=== PATIENT | male | born 1940 | race Caucasian/White ===

== ENCOUNTER → 2020-01-27 10:09 | Outpatient (BNVA) | payer MEDICARE, SELFPAY | PROVIDERS: PCP Physician Assistant; Referring Provider Physician Assistant; Visit Provider Nurse Practitioner Family | DX: I48.20 Chronic atrial fibrillation, unspecified (principal); I12.9 Hypertensive chronic kidney disease with stage 1 through stage 4 chronic kidney disease, or unspecified chronic kidney disease; N18.9 Chronic kidney disease, unspecified; Z79.01 Long term (current) use of anticoagulants; Z79.899 Other long term (current) drug therapy | CPT/HCPCS: 99214 ==

== ENCOUNTER 2020-01-28 09:45 | Outpatient (REF) | payer MEDICARE, SELFPAY ==
[2020-01-28 10:14] LABS: MANUAL DIFF FLAG NO
[2020-01-28 10:43] LABS: Basophils Percent Auto 0.7 % (0-2); Eosinophils Absolute Auto 0.2 X10*3/uL (0.0-0.4); Eosinophils Percent Auto 2.9 % (0-4); Hematocrit 44.4 % (42-52); Hemoglobin 14.7 g/dl (14.0-18.0); Imm Gran Abs Auto 0.02 X10*3/uL (0.00-0.03); Imm Gran Pct Auto 0.3 % (0.0-0.4); Lymphocytes Absolute Auto 1.8 X10*3/uL (1.2-4.9); Mean Corpuscular HGB Conc 33.1 g/dl (31.0-36.0); Mean Corpuscular Hemoglobin 31.3 pg (27.0-33.0); Mean Corpuscular Volume 94.7 fL (80-98); Mean Platelet Volume 10.9 fL (9.4-12.4); Monocytes Absolute Auto 0.6 X10*3/uL (0.1-1.2); Monocytes Percent Auto 9.8 % (2-11); Neutrophils Absolute Auto 3.3 X10*3/uL (2.0-8.3); Neutrophils Percent Auto 56.3 % (45-73); Platelet Count 141 X10*3/uL (160-400); Red Blood Count 4.69 X10*6/uL (4.60-5.80); Red Cell Distribution Width 13.2 % (11.0-16.0); White Blood Count 5.9 X10*3/uL (4.8-10.8)
[2020-01-28 11:02] LABS: Alanine Aminotransferase 15 U/L (0-40); Albumin Level 3.2 g/dL (3.5-5.0); Alkaline Phosphatase 69 U/L (39-117); Anion Gap 13 (12-20); Aspartate Amino Transferase 25 U/L (5-37); Bilirubin Direct 0.3 mg/dL (0.0-0.5); Bilirubin Total 0.9 mg/dL (0.0-1.0); Blood Urea Nitrogen 18 mg/dL (9-16); Calcium 8.2 mg/dL (8.4-10.2); Carbon Dioxide 25 mmol/L (22-29); Chloride 107 mmol/L (96-108); Estimated Glomerular Filt Rate 48; Glucose Fasting 127 mg/dL (60-99); Potassium 4.4 mmol/l (3.3-5.1); Sodium 141 mmol/L (135-145); Total Protein 6.7 g/dL (6.5-8.0)
[2020-01-29 15:52] LABS: Absolute CD3 Count 1432 cells/uL (840-3060); Absolute CD4 Count 612 cells/uL (490-1740); Absolute CD8 Count 822 cells/uL (180-1170); Absolute Lymphocytes 1653 cells/uL (850-3900); CD4 CD8 Ratio 0.74 (0.86-5.00); Percent CD3 Cells 87 % (57-85); Percent CD4 Cells 37 % (30-61); Percent CD8 Cells 50 % (12-42)
[2020-01-31 14:56] LABS: HIV RNA PCR Qn Copies <20 NOT DETECTED copies/mL (NOT DETECTED); HIV RNA PCR Qn Log Copies <1.30 NOT DETECTED (NOT DETECTED)
== END 2020-01-28 09:46 | disposition home or self-care (01) ==
LOC: HO.10HDL 09:45
PROVIDERS: PCP Physician Assistant; Visit Provider Internal Medicine
DX: Z21 Asymptomatic human immunodeficiency virus [HIV] infection status (principal)
CPT/HCPCS: 36415; 80053; 80076; 85025; 86359; 86360; 87536

== ENCOUNTER → 2020-02-04 13:25 | Outpatient (BNVA) | payer MEDICARE, SELFPAY | PROVIDERS: PCP Physician Assistant; Visit Provider Internal Medicine | DX: B20 Human immunodeficiency virus [HIV] disease (principal); M81.8 Other osteoporosis without current pathological fracture; T38.7X5A Adverse effect of androgens and anabolic congeners, initial encounter; N18.9 Chronic kidney disease, unspecified | CPT/HCPCS: 99212 ==

== ENCOUNTER 2020-02-11 11:51 | Outpatient (REF) | payer MEDICARE, SELFPAY ==
--- NOTE | 2020-02-11 11:57 | MM_ITS ---
EXAMINATION: BONE DENSITOMETRY CLINICAL INDICATION: Other osteoporosis without current pathological fracture. COMPARISON: This is the patient's baseline examination. TECHNIQUE: Using a AGC DXA System (software version: 13.1) manufactured by [employer], dual-energy x-ray absorptiometry was performed of the lumbar spine and right hip. The patient has had a left hip replacement. The images are of good technical quality. Summary results are attached. FINDINGS: AP SPINE L1-L4: BMD 1.337 g/cm2, Z-score 1.0, T-score 1.0, normal. RIGHT FEMUR, NECK: BMD 0.982 g/cm2, Z-score 0.3, T-score -0.7, normal. RIGHT FEMUR, TOTAL: BMD 1.021 g/cm2, Z-score 0.0, T-score -0.6, normal. IDENTIFIED RISK FACTORS: Secondary osteoporosis (chronic liver disease). HISTORY OF FRACTURE: None listed. MEDICATIONS: Vitamin D. MM/XR DEXA axial skeleton IMPRESSION: 1. DIAGNOSIS: Normal bone density based on the lowest T-score value of -0.7 in the femoral neck applying World Health Organization criteria. 2. 10-YEAR FRACTURE RISK PREDICTION, FRAX: Major osteoporotic fracture (clinical spine, forearm, hip or shoulder) 5.5%. Hip fracture 1.4%. 3. Treatment Recommendations: NOF guidelines recommend consideration for treatment in postmenopausal women and men age 50 and older presenting with the following: -A hip or vertebral (clinical or morphometric) fracture. -T-score less than or equal to -2.5 at the femoral neck or spine after appropriate evaluation to exclude secondary causes. -Low bone mass at the hip or spine and a 10-year fracture probability by FRAX of greater than or equal to 3% for hip fracture or greater than or equal to 20% for major osteoporotic fracture based on the [place] adapted WHO algorithm. 4. Other Recommendations: All treatment decisions require clinical judgment and consideration of individual patient factors, including patient preferences, comorbidities, previous drug use, risk factors not captured in the FRAX model (e.g. frailty, falls, vitamin D deficiency, increased bone turnover, interval significant decline in bone density) and possible under or overestimation of fracture risk by FRAX. FUTURE SCAN RECOMMENDATION: People with diagnosed cases of osteoporosis or at high risk for fracture should have regular bone mineral density tests. For patients eligible for Medicare, routine testing is allowed once every 2 years. The testing frequency can be increased to one year for patients who have rapidly progressing disease, those who are receiving or discontinuing medical therapy to restore bone mass, or have additional risk factors.
== END 2020-02-11 11:52 | disposition home or self-care (01) ==
LOC: HO.MAMMO 11:51
PROVIDERS: PCP Physician Assistant; Visit Provider Internal Medicine
DX: M81.8 Other osteoporosis without current pathological fracture (principal); T38.7X5A Adverse effect of androgens and anabolic congeners, initial encounter
CPT/HCPCS: 77080

== ENCOUNTER → 2020-04-20 13:25 | Outpatient (BNVA) | payer MEDICARE, OTHER, SELFPAY | PROVIDERS: PCP Physician Assistant; Visit Provider Orthopaedic Surgery | DX: Z47.1 Aftercare following joint replacement surgery (principal); Z96.642 Presence of left artificial hip joint | CPT/HCPCS: 99212 ==

== ENCOUNTER 2020-04-23 10:06 | Outpatient (REF) | payer MEDICARE, OTHER, SELFPAY ==
[2020-04-23 11:18] LABS: MANUAL DIFF FLAG NO
[2020-04-23 11:31] LABS: Basophils Absolute Auto 0.1 X10*3/uL (0.0-0.2); Basophils Percent Auto 0.6 % (0-2); Eosinophils Absolute Auto 0.1 X10*3/uL (0.0-0.4); Eosinophils Percent Auto 1.6 % (0-4); Estimated Average Glucose 151 mg/dL; Hematocrit 49.9 % (42-52); Hemoglobin 17.2 g/dl (14.0-18.0); Hemoglobin A1c % 6.9 %; Imm Gran Abs Auto 0.03 X10*3/uL (0.00-0.03); Imm Gran Pct Auto 0.4 % (0.0-0.4); Lymphocytes Absolute Auto 2.1 X10*3/uL (1.2-4.9); Lymphocytes Percent Auto 25.1 % (20-40); Mean Corpuscular HGB Conc 34.5 g/dl (31.0-36.0); Mean Corpuscular Hemoglobin 32.9 pg (27.0-33.0); Mean Corpuscular Volume 95.4 fL (80-98); Mean Platelet Volume 10.5 fL (9.4-12.4); Monocytes Absolute Auto 0.8 X10*3/uL (0.1-1.2); Monocytes Percent Auto 9.2 % (2-11); Neutrophils Absolute Auto 5.3 X10*3/uL (2.0-8.3); Neutrophils Percent Auto 63.1 % (45-73); Platelet Count 159 X10*3/uL (160-400); Red Blood Count 5.23 X10*6/uL (4.60-5.80); Red Cell Distribution Width 13.2 % (11.0-16.0); White Blood Count 8.4 X10*3/uL (4.8-10.8)
[2020-04-23 11:57] LABS: Albumin Level 3.4 g/dL (3.5-5.0); Phosphorus 3.7 mg/dL (2.7-4.5)
[2020-04-23 12:00] LABS: Alanine Aminotransferase 17 U/L (0-40); Albumin Level 3.4 g/dL (3.5-5.0); Alkaline Phosphatase 77 U/L (39-117); Anion Gap 13 (12-20); Aspartate Amino Transferase 19 U/L (5-37); Bilirubin Total 1.6 mg/dL (0.0-1.0); Blood Urea Nitrogen 15 mg/dL (9-16); Calcium 8.6 mg/dL (8.4-10.2); Carbon Dioxide 28 mmol/L (22-29); Chloride 105 mmol/L (96-108); Cholesterol 255 mg/dL; Estimated Glomerular Filt Rate 45; Glucose Fasting 128 mg/dL (60-99); HDL Cholesterol 75 mg/dL; LDL Cholesterol Calculated 160 mg/dl; Potassium 4.1 mmol/l (3.3-5.1); Sodium 142 mmol/L (135-145); Triglycerides 100 mg/dL
[2020-04-23 12:21] LABS: Vitamin D 25-OH Total 9.7 ng/mL (>30)
[2020-04-23 12:22] LABS: Thyroid Stimulating Hormone 2.81 uIU/mL (0.32-4.0)
[2020-04-23 12:42] LABS: Glucose Urine UA NEG (NEG); Leukocyte Esterase Urine NEG (NEG); Nitrite Urine NEG (NEG); PH 6.5 (5.0-8.0); Specific Gravity - Urine 1.025 (1.005-1.025); Urine Blood 2+ (NEG); Urine Ketones NEG (NEG); Urine Protein 3+ MG/DL (NEG-TRACE)
[2020-04-23 12:46] LABS: Appearance Urine CLEAR; Color Urine DARK YELLOW
[2020-04-23 13:03] LABS: Squamous Epithelial Cell Urine TRACE /LPF; WBC Urine 0-2 /HPF (0-4)
[2020-04-23 13:07] LABS: Creatinine Urine 205.66 mg/dL
[2020-04-23 13:11] LABS: Creatinine Urine 203.62 mg/dL
[2020-04-23 13:25] LABS: Protein/Creatinine Ratio, Ur 4.91 (<0.2); Total Protein Urine Random 999 mg/dL (<12)
[2020-04-23 14:13] LABS: Microalbum/Creatinine Ratio Ur 3335.6 ug/mg cr
== END 2020-04-23 10:07 | disposition home or self-care (01) ==
LOC: HO.LAB 10:06
PROVIDERS: Absent Provider Internal Medicine Nephrology; PCP Physician Assistant; Visit Provider Physician Assistant
DX: I12.9 Hypertensive chronic kidney disease with stage 1 through stage 4 chronic kidney disease, or unspecified chronic kidney disease (principal); E11.22 Type 2 diabetes mellitus with diabetic chronic kidney disease; E11.21 Type 2 diabetes mellitus with diabetic nephropathy; N18.30 Chronic kidney disease, stage 3 unspecified; G62.9 Polyneuropathy, unspecified; K74.60 Unspecified cirrhosis of liver; E78.00 Pure hypercholesterolemia, unspecified
CPT/HCPCS: 36415; 80053; 80061; 81001; 82040; 82043; 82306; 83036; 83735; 84100; 84156; 84443; 85025

== ENCOUNTER 2020-05-05 14:13 | Outpatient (REF) | payer MEDICARE, OTHER, SELFPAY ==
--- NOTE | 2020-05-05 | US_ITS ---
EXAMINATION: US RETROPERITONEAL LIMITED (RENAL ONLY) CLINICAL INFORMATION: Renal stone. COMPARISON: Previous renal ultrasound May [address] June 2019 TECHNIQUE: Grayscale and color imaging of the kidneys FINDINGS: RIGHT KIDNEY: 11.5 x 5.6 x 6.7 cm (SAG x AP x TRV). The kidney is normal in size, contour, and echogenicity. Renal cortical thickness is normal. There are 4 cysts measuring 7 cm in the upper pole, 1.2 x 1 x 1.5 cm in the upper pole, 1 cm in the lower pole by 4 cm in the lower pole and No calculi. No hydronephrosis. LEFT KIDNEY: 11.8 x 5.5 x 6.1 cm (SAG x AP x TRV). The kidney is normal in size, contour, and echogenicity. Renal cortical thickness is normal. No calculi or focal parenchymal lesions. No hydronephrosis. The small stone in the lower pole left kidney seen by CT June 2019 is not appreciated. US/US renal BI IMPRESSION: Multiple right renal cysts. No stone seen..
== END 2020-05-05 14:14 | disposition home or self-care (01) ==
LOC: HO.US 14:13
PROVIDERS: Visit Provider Urology
DX: N20.0 Calculus of kidney (principal)
CPT/HCPCS: 76775

== ENCOUNTER 2020-06-17 10:23 | Outpatient (REF) | payer MEDICARE, OTHER, SELFPAY ==
[2020-06-17 14:48] LABS: Prostate Specific Antigen 1.78 ng/mL (<0.05-4.0)
== END 2020-06-17 10:24 | disposition home or self-care (01) ==
LOC: HO.10HDL 10:23
PROVIDERS: Absent Provider Internal Medicine Nephrology; Visit Provider Urology
DX: N40.1 Benign prostatic hyperplasia with lower urinary tract symptoms (principal); N13.8 Other obstructive and reflux uropathy; N32.0 Bladder-neck obstruction; Z12.5 Encounter for screening for malignant neoplasm of prostate
CPT/HCPCS: 36415; 84153

== ENCOUNTER 2020-06-24 09:29 | Outpatient (REF) | payer MEDICARE, OTHER, SELFPAY ==
[2020-06-24 10:27] LABS: Basophils Absolute Auto 0.1 X10*3/uL (0.0-0.2); Basophils Percent Auto 0.9 % (0-2); Hemoglobin 15.6 g/dl (14.0-18.0); Red Cell Distribution Width 12.9 % (11.0-16.0)
[2020-06-24 10:28] LABS: Eosinophils Absolute Auto 0.2 X10*3/uL (0.0-0.4); Eosinophils Percent Auto 2.5 % (0-4); Hematocrit 45.4 % (42-52); Imm Gran Abs Auto 0.01 X10*3/uL (0.00-0.03); Imm Gran Pct Auto 0.1 % (0.0-0.4); Lymphocytes Percent Auto 28.8 % (20-40); Mean Corpuscular HGB Conc 34.4 g/dl (31.0-36.0); Mean Corpuscular Hemoglobin 33.2 pg (27.0-33.0); Mean Corpuscular Volume 96.6 fL (80-98); Mean Platelet Volume 10.1 fL (9.4-12.4); Monocytes Absolute Auto 0.6 X10*3/uL (0.1-1.2); Monocytes Percent Auto 8.8 % (2-11); Neutrophils Percent Auto 58.9 % (45-73); Platelet Count 133 X10*3/uL (160-400); White Blood Count 6.8 X10*3/uL (4.8-10.8)
[2020-06-24 10:33] LABS: INTERNATIONAL NORM RATIO 1.3 (0.9-1.1); Prothrombin Time 15.2 SEC (10.8-13.0)
[2020-06-24 11:02] LABS: Albumin Level 3.4 g/dL (3.5-5.0); Anion Gap 11 (12-20); Blood Urea Nitrogen 19 mg/dL (9-16); Calcium 8.3 mg/dL (8.4-10.2); Carbon Dioxide 27 mmol/L (22-29); Chloride 106 mmol/L (96-108); Estimated Glomerular Filt Rate 45; Magnesium 2.1 mg/dL (1.6-2.6); Phosphorus 3.5 mg/dL (2.7-4.5); Potassium 4.1 mmol/L (3.3-5.1); Sodium 140 mmol/L (135-145)
[2020-06-24 11:22] LABS: Vitamin D 25-OH Total 13.1 ng/mL (>30)
[2020-06-24 13:07] LABS: Renal w Reflex Lab Use Only Order verified
[2020-06-24 14:17] LABS: Glucose Urine UA NEG (NEG); Leukocyte Esterase Urine TRACE (NEG); Nitrite Urine POS (NEG); UACC Culture Trigger YES; Urine Blood 2+ (NEG); Urine Ketones NEG (NEG); Urine Protein 3+ MG/DL (NEG-TRACE)
[2020-06-24 14:19] LABS: Appearance Urine HAZY; Color Urine YELLOW
[2020-06-24 14:31] LABS: Creatinine Urine 154.48 mg/dL
[2020-06-24 14:42] LABS: Bacteria Urine 3+ /LPF; Squamous Epithelial Cell Urine TRACE /LPF; UACC CULT YES
[2020-06-24 14:48] LABS: Renal w Reflex-LAB USE ONLY Order Verified
[2020-06-24 15:13] LABS: Protein/Creatinine Ratio, Ur 2.85 (<0.2); Total Protein Urine Random 440 mg/dL (<12)
[2020-06-24 15:18] LABS: Microalbum/Creatinine Ratio Ur 2019.6 ug/mg cr
== END 2020-06-24 09:30 | disposition home or self-care (01) ==
LOC: HO.10HDL 09:29
PROVIDERS: Visit Provider Internal Medicine Nephrology
DX: E11.22 Type 2 diabetes mellitus with diabetic chronic kidney disease (principal); I12.9 Hypertensive chronic kidney disease with stage 1 through stage 4 chronic kidney disease, or unspecified chronic kidney disease; N18.30 Chronic kidney disease, stage 3 unspecified; G62.9 Polyneuropathy, unspecified; K74.60 Unspecified cirrhosis of liver; E78.00 Pure hypercholesterolemia, unspecified
CPT/HCPCS: 36415; 80051; 81001; 82040; 82043; 82306; 82310; 82565; 83735; 84100; 84156; 84520; 85025; 85610; 87086; 87088; 87186

== ENCOUNTER 2020-07-14 07:33 | Outpatient (REF) | payer MEDICARE, OTHER, SELFPAY ==
[2020-07-14 10:40] LABS: Hematocrit 45.1 % (42-52); Hemoglobin 15.4 g/dl (14.0-18.0); Mean Corpuscular HGB Conc 34.1 g/dl (31.0-36.0); Mean Corpuscular Hemoglobin 33.7 pg (27.0-33.0); Mean Corpuscular Volume 98.7 fL (80-98); Mean Platelet Volume 10.9 fL (9.4-12.4); Platelet Count 131 X10*3/uL (160-400); Red Blood Count 4.57 X10*6/uL (4.60-5.80); Red Cell Distribution Width 13.1 % (11.0-16.0); White Blood Count 6.5 X10*3/uL (4.8-10.8)
[2020-07-14 10:55] LABS: Alanine Aminotransferase 23 U/L (0-40); Albumin Level 3.5 g/dL (3.5-5.0); Alkaline Phosphatase 65 U/L (39-117); Anion Gap 13 (12-20); Aspartate Amino Transferase 33 U/L (5-37); Bilirubin Direct 0.5 mg/dL (0.0-0.5); Bilirubin Total 1.4 mg/dL (0.0-1.0); Blood Urea Nitrogen 23 mg/dL (9-16); Calcium 8.4 mg/dL (8.4-10.2); Carbon Dioxide 27 mmol/L (22-29); Chloride 105 mmol/L (96-108); Estimated Glomerular Filt Rate 37; Glucose Random 114 mg/dL (60-115); Potassium 3.8 mmol/L (3.3-5.1); Sodium 141 mmol/L (135-145); Total Protein 6.8 g/dL (6.5-8.0)
[2020-07-15 13:21] LABS: Absolute CD3 Count 2022 cells/uL (840-3060); Absolute CD4 Count 834 cells/uL (490-1740); Absolute CD8 Count 1179 cells/uL (180-1170); Absolute Lymphocytes 2277 cells/uL (850-3900); CD4 CD8 Ratio 0.71 (0.86-5.00); Percent CD3 Cells 89 % (57-85); Percent CD4 Cells 37 % (30-61); Percent CD8 Cells 52 % (12-42)
[2020-07-16 18:36] LABS: HIV RNA PCR Qn Copies <20 NOT DETECTED copies/mL (NOT DETECTED); HIV RNA PCR Qn Log Copies <1.30 NOT DETECTED (NOT DETECTED)
[2020-07-18 21:26] LABS: Testosterone-Albumin 3.5 g/dL (3.6-5.1); Testosterone-Bioavailable 46.6 ng/dL (15.0-150.0); Testosterone-Free 28.7 pg/mL (6.0-73.0); Testosterone-SHBG 135 nmol/L (22-77); Testosterone-Total 752 ng/dL (250-1100)
== END 2020-07-14 07:34 | disposition home or self-care (01) ==
LOC: HO.10HDL 07:33
PROVIDERS: Absent Provider Physician Assistant; Visit Provider Internal Medicine
DX: B20 Human immunodeficiency virus [HIV] disease (principal); N18.9 Chronic kidney disease, unspecified; N40.1 Benign prostatic hyperplasia with lower urinary tract symptoms; N13.8 Other obstructive and reflux uropathy; N32.0 Bladder-neck obstruction
CPT/HCPCS: 36415; 80048; 80076; 82533; 84403; 85027; 86359; 86360; 87536

== ENCOUNTER → 2020-07-16 15:05 | Outpatient (BNVA) | payer MEDICARE, OTHER, SELFPAY | PROVIDERS: PCP Physician Assistant; Visit Provider Urology | DX: Z13.89 Encounter for screening for other disorder (principal) | CPT/HCPCS: Q3014 ==

== ENCOUNTER → 2020-07-20 11:30 | Outpatient (BNVA) | payer MEDICARE, OTHER, SELFPAY | PROVIDERS: PCP Internal Medicine; Visit Provider Nurse Practitioner Family | DX: I48.91 Unspecified atrial fibrillation (principal); I12.9 Hypertensive chronic kidney disease with stage 1 through stage 4 chronic kidney disease, or unspecified chronic kidney disease; N18.32 Chronic kidney disease, stage 3b; Z79.899 Other long term (current) drug therapy | CPT/HCPCS: 99212 ==

== ENCOUNTER → 2020-07-21 13:17 | Outpatient (BNVA) | payer MEDICARE, OTHER, SELFPAY | PROVIDERS: Visit Provider Internal Medicine | DX: B20 Human immunodeficiency virus [HIV] disease (principal); N18.32 Chronic kidney disease, stage 3b; M81.8 Other osteoporosis without current pathological fracture; T38.7X5D Adverse effect of androgens and anabolic congeners, subsequent encounter | CPT/HCPCS: 99212 ==

== ENCOUNTER 2020-08-13 08:23 | Outpatient (REF) | payer MEDICARE, OTHER, SELFPAY ==
[2020-08-13 10:32] LABS: INTERNATIONAL NORM RATIO 1.2 (0.9-1.1); Prothrombin Time 14.8 SEC (10.8-13.0)
[2020-08-14 11:46] LABS: Alpha Fetoprotein 5.7 ng/mL (<6.1)
== END 2020-08-13 08:24 | disposition home or self-care (01) ==
LOC: HO.10HDL 08:23
PROVIDERS: Visit Provider Internal Medicine
DX: K74.69 Other cirrhosis of liver (principal); Z12.11 Encounter for screening for malignant neoplasm of colon; Z12.12 Encounter for screening for malignant neoplasm of rectum
CPT/HCPCS: 36415; 82105; 85610

== ENCOUNTER 2020-08-25 08:30 | Outpatient (REF) | payer MEDICARE, OTHER, SELFPAY ==
--- NOTE | ~2020-08-25 | US_ITS ---
EXAMINATION: US ABDOMEN COMPLETE CLINICAL INFORMATION: Cirrhosis. COMPARISON: Previous CT scan most recent June 2019 and abdominal ultrasound October 2016 TECHNIQUE: Real-time imaging of the abdominal viscera. FINDINGS: PANCREAS: There is a 1.4 x 1.3 x 1.5 cm cyst in the head of pancreas. This is not appreciated on previous exams. The body and tail the pancreas are not well visualized. ABDOMINAL AORTA: There is evidence of atherosclerotic disease. The proximal, mid, and distal segments are normal in caliber. INFERIOR VENA CAVA: Visualized portions are normal. LIVER: Liver echotexture is heterogeneous. The liver appears cirrhotic. The liver is normal in size. No focal liver lesion or biliary duct dilatation is seen. GALLBLADDER: The gallbladder is normal in size. There is a 1.8 x 2.6 x 1.7 cm solid echogenic lobulated mass adjacent to the gallbladder wall. This demonstrates vascularity. This is increased from 1.2 cm in size on October 2016 exam. No gallstones are seen. The gallbladder wall is otherwise normal. COMMON BILE DUCT: Normal in caliber measuring 0.4 cm in diameter. RIGHT KIDNEY: There are multiple right renal cysts. The largest measures 6.9 x 6.8 x 7 cm in the midpole. There is mild right hydronephrosis. No stone or is seen. The kidney measures 11.4 cm in maximum dimension. LEFT KIDNEY: There is a small 1 x 0.5 x 0.9 cm cyst in the upper pole.. No hydronephrosis. No renal calculi. The kidney measures 12 cm in maximum dimension. SPLEEN: Upper normal in size. The spleen measures 12 cm in maximum dimension. FREE FLUID: None. US/US abdomen complete IMPRESSION: Cirrhotic-appearing liver. No focal liver lesion seen. 1.8 x 2.6 x 1.7 cm solid echogenic lesion with vascularity adjacent to the gallbladder wall suggestive of a large polyp or mass. This is increased in size from October 2016 exam when this measured 1.2 cm. Possible gallbladder malignancy should be considered. 1.4 cm cyst in the head of the pancreas not appreciated on previous exams. Follow-up CT or MR of the abdomen with and without contrast is recommended. Bilateral renal cysts, right greater than left. Mild right hydronephrosis. Findings will be provided by the [employer] work flow hip hop performers Kaity Singh.
== END 2020-08-25 08:31 | disposition home or self-care (01) ==
LOC: HO.US 08:30
PROVIDERS: Visit Provider Internal Medicine
DX: K74.69 Other cirrhosis of liver (principal)
CPT/HCPCS: 76700

== ENCOUNTER 2020-08-28 09:22 | Outpatient (REF) | payer MEDICARE, OTHER, SELFPAY ==
[2020-08-28 10:49] LABS: Blood Urea Nitrogen 22 mg/dL (9-16); Estimated Glomerular Filt Rate 35
[2020-08-31 12:47] LABS: Carbohydrate Antigen 19-9 25 U/mL (<34)
== END 2020-08-28 09:23 | disposition home or self-care (01) ==
LOC: HO.LAB 09:22
PROVIDERS: PCP Internal Medicine; Visit Provider Internal Medicine
DX: K86.2 Cyst of pancreas (principal); K82.4 Cholesterolosis of gallbladder
CPT/HCPCS: 36415; 82565; 84520; 86301

== ENCOUNTER 2020-09-01 07:38 | Outpatient (REF) | payer MEDICARE, OTHER, SELFPAY ==
--- NOTE | ~2020-09-01 | MR_ITS ---
EXAMINATION: MR ABDOMEN WITHOUT AND WITH CONTRAST CLINICAL INFORMATION: Gallbladder mass. Pancreatic cyst. COMPARISON: Previous ultrasounds most recent 08/25/[address] of the abdomen and pelvis most recent June 2019 TECHNIQUE: MR abdomen was performed without and with use of 10 mL intravenous Gadavist gadolinium contrast. Postcontrast images are performed in multiphase dynamic sequences. Imaging was performed in 3 planes. FINDINGS: LUNG BASES: The visualized lung bases are unremarkable. LIVER, GALLBLADDER, AND BILIARY TREE: The contour of the liver is slightly irregular or scalloped suggestive of mild cirrhosis. No focal liver lesion is seen. The gallbladder is upper normal in size. There is a 1.7 x 1.2 cm lobulated or polypoid lesion in the gallbladder. This is intermediate signal on T1 and T2-weighted sequences and demonstrates homogeneous enhancement suggestive of a large polyp or mass. Gallbladder wall does not appear thickened. No definite gallstones are seen. There is no intrahepatic or extrahepatic biliary duct dilatation. PANCREAS: There are several cysts in the pancreas. The largest cyst measures 0.8 x 1.3 cm in the head of the pancreas and 0.5 x 10 mm in the body of the pancreas. The cysts abut the main pancreatic duct and may communicate with the main pancreatic duct. The main pancreatic duct does not appear dilated. The remainder of the pancreas is unremarkable. SPLEEN: Upper normal in size measuring 12 cm. ADRENAL GLANDS: Normal. KIDNEYS AND URETERS: There are multiple right renal cysts, largest measuring 7 mm in the upper pole. There is a small 1 cm left renal cyst. The left kidney is otherwise unremarkable. GASTROINTESTINAL TRACT: No bowel obstruction. No ascites or fluid collection. ABDOMINAL WALL: No significant hernia is appreciated. LYMPH NODES: No lymphadenopathy. VASCULAR: Unremarkable. OSSEOUS STRUCTURES: Marrow signal normal. There are degenerative changes of the spine. MR/MR abdomen wo/w con IMPRESSION: 1.7 x 1.2 cm lobulated enhancing lesion in the gallbladder suggestive of a large polyp or mass. Again, this is increased in size from previous exams and neoplastic process should be considered. Surgical consultation recommended. Cirrhotic-appearing liver. No focal liver lesion seen. Several pancreatic cysts, largest measuring 0.8 x 1.2 cm in the head of the pancreas. These abut the main pancreatic duct and may communicate with the duct. The main pancreatic duct does not appear dilated. Sidebranch IPMN can be excluded and imaging followup in 1 year is recommended. Bilateral renal cysts.
== END 2020-09-01 07:39 | disposition home or self-care (01) ==
LOC: HO.MRI 07:38
PROVIDERS: PCP Internal Medicine; Visit Provider Internal Medicine
DX: K82.4 Cholesterolosis of gallbladder (principal); K86.2 Cyst of pancreas
CPT/HCPCS: 74183; A9585

== ENCOUNTER 2020-10-07 07:39 | Day surgery (SDC) | payer MEDICARE, OTHER, SELFPAY ==
[2020-10-02 13:56] VITALS: BMI 34.9
--- NOTE | 2020-10-06 10:42 | P.CONAN_ITS ---
Documented by User: Natty Marieney 10/06/20 11:42 HPI - Anesthesia Eval Consult details Narrative: 80yo M for Colonoscopy Eliquis for afib (low dose r/t renal disease and cirrhosis) 07/2020 routine cardiac visit: stable cardiac-erickson, ? increasing creat Per 06/2020 renal visit, h/o SCr = 1.9-2.3. Stable for 6mo f/u. 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 Mother No problems noted. Surgical History Surgical History Hx of appendectomy Status post total hip replacement, left (~05/2019) Social History Social History Alcohol intake: never Patient Tobacco Use Status: Never used Tobacco Use of substances other than those prescribed or required for medical reasons: No Are you DNR?: No Advance Directives: No Advance Directives Information Provided: No Advance Directives on File: No Meds Allergies Allergy/AdvReac Type Severity Reaction Status Date / Time clarithromycin [From BIAXIN] Allergy Unknown ANAPHYLAXIS Verified 07/29/20 10:51 Home Medications Medication Instructions Recorded Confirmed Last Taken Type tamsulosin 0.4 mg capsule 0.4 mg PO BEDTIME 01/27/20 10/02/20 Unknown History losartan 50 mg tablet 50 mg PO DAILY 07/06/20 10/02/20 Unknown History finasteride 5 mg PO BEDTIME 10/02/20 10/02/20 Unknown History Exam Exam Date and Time: October 06, 2020 1042 Height,Weight and Vital Signs: Height 5 ft 10 in Weight 110.677 kg Pertinent Lab Results Pertinent Lab Results: Laboratory Tests 07/14/20 07/14/20 08/28/20 07:45 07:45 09:45 WBC 6.5 Hgb 15.4 Hct 45.1 Plt Count 131 L Sodium 141 Potassium 3.8 Chloride 105 Carbon Dioxide 27 BUN 22 H Creatinine 1.88 H Laboratory Tests 08/13/20 08:30 PT 14.8 H INR 1.2 H Narrative Narrative: MR abdomen wo/w con 08/2020 IMPRESSION: 1.7 x 1.2 cm lobulated enhancing lesion in the gallbladder suggestive of a large polyp or mass. Again, this is increased in size from previous exams and neoplastic process should be considered. Surgical consultation recommended. Cirrhotic-appearing liver. No focal liver lesion seen. Several pancreatic cysts, largest measuring 0.8 x 1.2 cm in the head of the pancreas. These abut the main pancreatic duct and may communicate with the duct. The main pancreatic duct does not appear dilated. Sidebranch IPMN can be excluded and imaging followup in 1 year is recommended. Bilateral renal cysts. Per 07/2020 cardiac visit: EKG last visit shows Afib, RBBB, PVC, inferior Q waves, unchanged from prior, rate 72. Echo 06/02/19 showed EF normal, mild increase LV wall thickness, ascending aorta and LA mildly dilated. Nuclear stress test 02/15/17 showed normal myocardial perfusion imaging. Assessment and Plan Assessment Anesthesia Assessment: Chart Reviewed Documented by User: Yoly Dale 10/07/20 09:42 [facility] Past Medical History Medical History Afib Asthma CKD (chronic kidney disease) Degenerative arthritis of cervical spine DMII (diabetes mellitus, type 2) HIV (human immunodeficiency virus infection) HLD (hyperlipidemia) HTN (hypertension) Neuropathy Osteoarthritis Osteoporosis due to androgen therapy Family History Family History Father No problems noted. Mother No problems noted. Surgical History Surgical History Hx of appendectomy Status post total hip replacement, left (~05/2019) Social History Social History Alcohol intake: never Patient Tobacco Use Status: Never used Tobacco Use of substances other than those prescribed or required for medical reasons: No Are you DNR?: No Advance Directives: No Advance Directives Information Provided: No Advance Directives on File: No Meds Allergies Allergy/AdvReac Type Severity Reaction Status Date / Time clarithromycin [From BIAXIN] Allergy Unknown ANAPHYLAXIS Verified 07/29/20 10:51 Home Medications Medication Instructions Recorded Confirmed Last Taken Type tamsulosin 0.4 mg capsule 0.4 mg PO BEDTIME 01/27/20 10/02/20 Unknown History losartan 50 mg tablet 50 mg PO DAILY 07/06/20 10/02/20 Unknown History finasteride 5 mg PO BEDTIME 10/02/20 10/02/20 Unknown History Exam Airway Mallampati Class: II TM Dist: >3cm Neck ROM: Full Loose/Missing/Broken Teeth: No Heart: RRR Lungs: CTA Assessment and Plan Assessment Anesthesia Assessment: Anesthesia Plan Discussed and Chart Reviewed Final Anesthetic Review NPO: Yes ASA Class: III Final Preanesthetic Review: Meds/Allgs Chart Reviewed, Consent Obtained/Reviewed and Anes Risks/Benef Reviewed Patient Risk: Intermediate Procedure Risk: Low Anesthetic Plan Anesthetic Plan: MAC: Disposition: Standard PACU
[2020-10-07 09:01] VITALS: BP 155/81; PULSE 53; RESP 16; TEMP 36.2; O2SAT 95
[2020-10-07] MEDS: 0.9 % Sodium Chloride 1,000 ML 50 ML IVCONT (09:06)
[2020-10-07 09:12] LABS: Glucose, Whole Blood 101 mg/dL (60-115)
[2020-10-07] MEDS: Ampicillin Sodium 2 GM in 0.9 % Sodium Chloride 100 ML IV (09:43)
[2020-10-07] MEDS: Gentamicin Sulfate/NaCl 80 MG/100 ML PIGGYBACK 100 MG IV (09:52)
[2020-10-07 10:58] VITALS: BP 108/65; PULSE 62; RESP 18; TEMP 36.2; O2SAT 98
--- NOTE | 2020-10-07 11:03 | P.BOP_ITS ---
Brief Operative Note Date of Service: 10/07/20 Pre-op diagnosis: + Cologuard Post-op diagnosis: other (Colon polyps) Procedure: Colonoscopy to the cecum and TI with snare polypectomy and placement of 2 Resolution clips on AC polyp, and biopsy and removal of TC polyp. Surgeon: Joel Garcia Anesthesia: MAC Was an Telephone Betting Clerk used for this Procedure?: No Estimated blood loss (mL): 4.0 Pathology: other (A. Transverse colon polyp B. Ascending colon polyp) Condition: stable Disposition: PACU
[2020-10-07 11:13] VITALS: BP 134/60; PULSE 60; RESP 18; O2SAT 98
--- NOTE | 2020-10-07 11:24 | OP_ITS ---
SURGEON: Joel Garcia MD INDICATIONS: The patient presents for evaluation of positive Cologuard testing. Full consent has been obtained from him for this, including risks of bleeding and perforation. PREOPERATIVE DIAGNOSIS: Positive Cologuard test. POSTOPERATIVE DIAGNOSIS: PROCEDURE PERFORMED: Colonoscopy to the cecum and terminal ileum with snare polypectomy, placement of 2 resolution clips, and biopsy and removal of polyp. ESTIMATED BLOOD LOSS: COMPLICATIONS: ANESTHESIA: Monitored anesthesia care. ASSISTANTS: SPECIMENS: POSTOPERATIVE DIAGNOSES: Positive Cologuard test, colon polyps, diverticulosis and internal hemorrhoids. DESCRIPTION OF PROCEDURE: The patient was placed in the left lateral decubitus position. The digital rectal exam revealed no abnormalities. The Olympus video pediatric colonoscope was entered into the rectum and advanced easily to the cecum. Once in the cecum, I did identify normal-appearing cecal pouch with appendiceal orifice and a normal-appearing ileocecal valve. The terminal ileum was cannulated and appeared normal. The scope was withdrawn back in the colon. The entire cecum and ileocecal valve appeared normal. The scope was slowly withdrawn assessing all mucosal surfaces carefully. Preparation was excellent. In the proximal ascending colon, approximately 2 folds from the ileocecal valve, was an approximately 1.5 cm polyp on a short stalk. This was removed in piecemeal fashion via snare polypectomy with both pieces recovered by suction. The polypectomy site appeared clean, without any sign of residual polyp nor bleeding. I did place 2 resolution clips onto the polypectomy site given that he has to go back on his Eliquis. There was good deployment of the clips with good hemostasis. In the transverse colon, was a flat approximately 4 mm polyp, which was biopsied and completely removed with cold biopsy forceps. I did not visualize any other polyps, colitis, nor angiodysplasia. There was a moderate amount of sigmoid diverticulosis. In the rectum, scope was retroflexed visualizing internal hemorrhoids, but no other pathology. The rectal mucosa appeared normal. The scope was straightened out and withdrawn from the patient. He tolerated the procedure well and was returned to recovery area in stable condition. IMPRESSION: 1. Colon polyps, status post snare polypectomy, and biopsy and removal. 2. Diverticulosis. 3. Internal hemorrhoids. 4. Status post placement of 2 resolution clips on the ascending colon polypectomy site. PLAN: The results of the pathology will be checked. Given his age and these findings, he may not need any further screening colonoscopies since he is now 80-year-old. He was advised not to use any aspirin and NSAIDs for at least a week. He was advised to resume his Eliquis tomorrow. He is scheduled to see Dr. Jimenez for evaluation of the gallbladder polyp and probable need for cholecystectomy. He did receive preprocedure antibiotics for prophylaxis in regard to his recent hip replacement and was given a prescription for amoxicillin to use later today. MD GUERLINE Horn/ROSCOE / [id number] MTDD
== END 2020-10-07 11:55 | disposition home or self-care (01) ==
PROVIDERS: PCP Internal Medicine; Visit Provider Internal Medicine
PROC: 0DJD8ZZ Inspection of Lower Intestinal Tract, Via Natural or Artificial Opening Endoscopic (ICD-10-PCS; CPT 45378; principal; 2020-10-07 09:00)
DX: R19.5 Other fecal abnormalities (principal); D12.2 Benign neoplasm of ascending colon; D12.3 Benign neoplasm of transverse colon; K57.30 Diverticulosis of large intestine without perforation or abscess without bleeding; K64.8 Other hemorrhoids; I48.91 Unspecified atrial fibrillation; J45.909 Unspecified asthma, uncomplicated; I12.9 Hypertensive chronic kidney disease with stage 1 through stage 4 chronic kidney disease, or unspecified chronic kidney disease; E11.22 Type 2 diabetes mellitus with diabetic chronic kidney disease; N18.9 Chronic kidney disease, unspecified; B20 Human immunodeficiency virus [HIV] disease; Z79.01 Long term (current) use of anticoagulants; Z79.84 Long term (current) use of oral hypoglycemic drugs; Z79.51 Long term (current) use of inhaled steroids; Z79.899 Other long term (current) drug therapy; Z88.8 Allergy status to other drugs, medicaments and biological substances; Z96.642 Presence of left artificial hip joint
CPT/HCPCS: 45385; 45380; 82947; 88305; J0290; J1580

== ENCOUNTER → 2020-10-15 09:21 | Outpatient (BNVA) | payer MEDICARE, OTHER, SELFPAY | PROVIDERS: PCP Internal Medicine; Referring Provider Internal Medicine; Visit Provider Surgery | DX: K82.8 Other specified diseases of gallbladder (principal) | CPT/HCPCS: 99202 ==

== ENCOUNTER 2020-11-04 06:56 | Day surgery (SDC) | payer MEDICARE, OTHER, SELFPAY ==
[2020-10-28 12:20] VITALS: BMI 34.4
[2020-10-28 13:07] VITALS: BMI 34.9
--- NOTE | 2020-11-03 08:41 | HO.ANESPROP2 ---
Documented by User: Natty Marieney 11/03/20 13:16 HPI - Anesthesia Eval Consult details Narrative: 80yo M for Cholecystectomy Laparoscopic, Poss Open Eliquis for afib 07/2020 routine cardiac visit: stable cardiac-erickson, ? increasing creat Per 06/2020 renal visit, h/o SCr = 1.9-2.3. Stable for 6mo f/u. 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 Mother No problems noted. Surgical History Surgical History (Updated 10/28/20 @ 13:06 by Teodora Ramos) Hx of appendectomy Hx of colonoscopy Status post total hip replacement, left (~05/2019) Social History Social History Alcohol intake: never Patient Tobacco Use Status: Never used Tobacco Are you DNR?: No Advance Directives: No Advance Directives Information Provided: No Advance Directives on File: No Meds Allergies Allergy/AdvReac Type Severity Reaction Status Date / Time clarithromycin [From BIAXIN] Allergy Unknown ANAPHYLAXIS Verified 07/29/20 10:51 Home Medications Medication Instructions Recorded Confirmed Last Taken Type tamsulosin 0.4 mg capsule 0.4 mg PO BEDTIME 01/27/20 10/28/20 Unknown History losartan 50 mg tablet 50 mg PO DAILY 07/06/20 10/28/20 Unknown History finasteride 5 mg tablet 5 mg PO BEDTIME 10/02/20 10/28/20 Unknown History Exam Exam Date and Time: November 03, 2020 0841 Height,Weight and Vital Signs: Height 5 ft 10 in Weight 110.67 kg Pertinent Lab Results Pertinent Lab Results: Laboratory Tests 07/14/20 07/14/20 08/28/20 07:45 07:45 09:45 WBC 6.5 Hgb 15.4 Hct 45.1 Plt Count 131 L Sodium 141 Potassium 3.8 Chloride 105 Carbon Dioxide 27 BUN 22 H Creatinine 1.88 H Laboratory Tests 08/28/20 09:45 Estimated GFR 35 Narrative Narrative: EKG 01/2020: Afib, RBBB, PVC, inferior Q waves, unchanged from prior, rate 72. Echo 06/02/19 showed EF normal, mild increase LV wall thickness, ascending aorta and LA mildly dilated. Nuclear stress test 02/15/17 showed normal myocardial perfusion imaging. Assessment and Plan Assessment Anesthesia Assessment: Chart Reviewed Documented by User: Janene Dorsey 11/04/20 08:40 [facility] Past Medical History Medical History Afib Asthma Cirrhosis CKD (chronic kidney disease) Degenerative arthritis of cervical spine DMII (diabetes mellitus, type 2) HIV (human immunodeficiency virus infection) HLD (hyperlipidemia) HTN (hypertension) Neuropathy Osteoarthritis Osteoporosis due to androgen therapy Prophylactic antibiotic for dental procedure indicated due to prior joint replacement Family History Family History Father No problems noted. Mother No problems noted. Surgical History Surgical History (Updated 10/28/20 @ 13:06 by Teodora Ramos) Hx of appendectomy Hx of colonoscopy Status post total hip replacement, left (~05/2019) Social History Social History Alcohol intake: never Patient Tobacco Use Status: Never used Tobacco Are you DNR?: No Advance Directives: No Advance Directives Information Provided: No Advance Directives on File: No Meds Allergies Allergy/AdvReac Type Severity Reaction Status Date / Time clarithromycin [From BIAXIN] Allergy Unknown ANAPHYLAXIS Verified 07/29/20 10:51 Home Medications Medication Instructions Recorded Confirmed Last Taken Type tamsulosin 0.4 mg capsule 0.4 mg PO BEDTIME 01/27/20 10/28/20 Unknown History losartan 50 mg tablet 50 mg PO DAILY 07/06/20 10/28/20 Unknown History finasteride 5 mg tablet 5 mg PO BEDTIME 10/02/20 10/28/20 Unknown History Exam Exam Date and Time: 11/04 Airway Mallampati Class: III TM Dist: <=3cm Neck ROM: Limited Assessment and Plan Final Anesthetic Review NPO: Yes ASA Class: III Final Preanesthetic Review: No Changes in Pt Med Stat, Meds/Allgs Chart Reviewed, Consent Obtained/Reviewed and Anes Risks/Benef Reviewed Patient Risk: Intermediate Procedure Risk: Intermediate Assessment/Block/Sedation in SS: Assess/Block/Sedation-SS Anesthetic Plan Anesthetic Plan: GA Disposition: Standard PACU
[2020-11-04] VITALS (10 sets, daily range): BP systolic 144–170; BP diastolic 77–93; PULSE 55–71; RESP 20–24; TEMP 36.1–36.7; O2SAT 95–98
[2020-11-04 07:12] LABS: Glucose, Whole Blood 104 mg/dL (60-115)
[2020-11-04] MEDS: Lactated Ringers 1,000 ML 50 ML IVCONT (07:29)
--- NOTE | 2020-11-04 08:31 | MHC.SHP ---
Pre-Procedural Eval Section A Date of Service: 11/04/20 The patient is an INPATIENT: No Changes since office visit: Yes Patient answered all questions; No Cold of Flu in the past 2 weeks, No New Medical Problems and No Changes in Medication The History & Physical has been completed within 30 days and I have reviewed it.: Yes Section B Chief Complaint: gallbladder desease Allergies: Allergies Allergy/AdvReac Type Severity Reaction Status Date / Time clarithromycin [From BIAXIN] Allergy Unknown ANAPHYLAXIS Verified 07/29/20 10:51 Plan Diagnosis/Plan: Unchanged I have reviewed the history and physical and performed a pertinent physical examination on my patient. No changes have occurred unless specified.
--- NOTE | 2020-11-04 10:19 | P.OP_ITS ---
Operative Note Operative Note Date of Service: 11/04/20 Narrative: Preoperative diagnosis: Gallbladder polyp Postoperative diagnosis: Same, evidence of chronic cholecystitis Procedure: Laparoscopic cholecystectomy Surgeon: Gunnar Jimenez MD Environmental Science Instructor: SHAJI Howard Anesthesia: General endotracheal Indications for procedure: 80-year-old male patient with history of cirrhosis found on ultrasound to have a large polyp measuring approximately 1.7 cm diameter. Operative findings: Multiple dense adhesions to the gallbladder suggestive of chronic cholecystitis. Biliary cirrhosis. Specimen: Gallbladder Estimated blood loss: 10 mL Complications: None Procedure details: Patient was brought to the OR and placed in a supine position. After administering general anesthesia the patient's abdomen was prepped with ChloraPrep and draped in a sterile fashion. Local anesthesia consisting of 0.25% Sensorcaine with epinephrine was infiltrated in a periumbilical region. A 5 mm incision was made above the umbilicus in a transverse fashion. The Veress needle was then inserted while elevating abdominal cavity with towel clips. After positive drop test the abdomen was insufflated to a pressure of 15 mm of mercury. The Veress needle was then removed and a 5 mm trocar inserted. The camera was inserted in the abdomen explored. A 12 mm trocar was then placed in the epigastrium and 2 5 mm trocars placed in the right upper quadrant. The patient was placed in reverse Trendelenburg positioning and rotated to the left. Adhesions were taken down off the gallbladder and liver edge using electrocautery and Endo Alivia. Gallbladder was grasped with the fundus and retracted cephalad. The infundibulum was then grasped and retracted away from the liver bed. The Dolphin dissector was then used to dissect the peritoneum off the infundibulum to reveal the junction with the cystic duct. Cystic artery was noted slightly medial and posterior to the cystic duct. After obtaining a critical view the cystic duct was doubly clipped and divided. The cystic artery was then doubly clipped and divided. The gallbladder was then dissected off the liver bed using electrocautery with an L hook. Hemostasis was assured all times using the electrocautery. When the gallbladder is completely dissected off the liver bed was placed in an Endo- Catch bag and brought out through the epigastric incision. The gallbladder was sent to pathology for further examination. The abdomen was then re-examined. The liver bed was irrigated and suctioned dry. No bleeding or bile leak could be identified. Because of the patient's use of oral anticoagulation a small piece of Surgicel was left at the gallbladder fossa to assure adequate hemostasis. CO2 was then evacuated and all trocars removed. Fascia was closed at the epigastric incision using a [id number] 0 Polysorb suture. Skin was closed in all incisions using a subcuticular 4 0 Polysorb suture. Sterile dressings consisting of Steri-Strips, 2 x 2 gauze, and Tegaderm were then applied. The patient tolerated the procedure well. Sponge instrument and needle counts reported as correct. The patient was transferred to PACU in stable condition.
[2020-11-04] MEDS: Metoclopramide HCl 10 MG/2 ML VIAL 5 MG IVPUSH (11:39)
== END 2020-11-04 13:00 | disposition home or self-care (01) ==
PROVIDERS: PCP Internal Medicine; Visit Provider Surgery
PROC: 0FT44ZZ Resection of Gallbladder, Percutaneous Endoscopic Approach (ICD-10-PCS; CPT 47562; principal; 2020-11-04 08:40)
DX: K81.1 Chronic cholecystitis (principal); K74.5 Biliary cirrhosis, unspecified; Z90.49 Acquired absence of other specified parts of digestive tract; E11.22 Type 2 diabetes mellitus with diabetic chronic kidney disease; I12.9 Hypertensive chronic kidney disease with stage 1 through stage 4 chronic kidney disease, or unspecified chronic kidney disease; N18.9 Chronic kidney disease, unspecified; B20 Human immunodeficiency virus [HIV] disease; I48.91 Unspecified atrial fibrillation; J45.909 Unspecified asthma, uncomplicated; Z79.899 Other long term (current) drug therapy
CPT/HCPCS: 47562; 82947; 88304; J1100; J1170; J2405; J2765; J3010

== ENCOUNTER → 2020-11-13 10:14 | Outpatient (BNVA) | payer MEDICARE, OTHER, SELFPAY | PROVIDERS: PCP Internal Medicine; Referring Provider Internal Medicine; Visit Provider Surgery | DX: K82.8 Other specified diseases of gallbladder (principal) | CPT/HCPCS: 99212 ==

== ENCOUNTER 2020-11-17 09:13 | Outpatient (REF) | payer MEDICARE, OTHER, SELFPAY ==
[2020-11-17 10:33] LABS: Hematocrit 44.4 % (42-52); Hemoglobin 15.2 g/dl (14.0-18.0); Mean Corpuscular HGB Conc 34.2 g/dl (31.0-36.0); Mean Corpuscular Hemoglobin 33.3 pg (27.0-33.0); Mean Corpuscular Volume 97.2 fL (80-98); Mean Platelet Volume 10.8 fL (9.4-12.4); Platelet Count 142 X10*3/uL (160-400); Red Blood Count 4.57 X10*6/uL (4.60-5.80); Red Cell Distribution Width 12.7 % (11.0-16.0); White Blood Count 6.1 X10*3/uL (4.8-10.8)
[2020-11-17 10:46] LABS: Albumin Level 3.6 g/dL (3.5-5.0); Anion Gap 11 (12-20); Blood Urea Nitrogen 17 mg/dL (9-16); Calcium 8.8 mg/dL (8.4-10.2); Carbon Dioxide 28 mmol/L (22-29); Chloride 106 mmol/L (96-108); Estimated Glomerular Filt Rate 41; Phosphorus 3.9 mg/dL (2.7-4.5); Potassium 3.8 mmol/L (3.3-5.1); Sodium 141 mmol/L (135-145)
[2020-11-17 11:08] LABS: Vitamin D 25-OH Total 16.8 ng/mL (>30)
[2020-11-17 13:23] LABS: Glucose Urine UA NEG (NEG); Leukocyte Esterase Urine NEG (NEG); Nitrite Urine NEG (NEG); Specific Gravity - Urine 1.025 (1.005-1.025); Urine Blood TRACE (NEG); Urine Ketones NEG (NEG); Urine Protein 2+ MG/DL (NEG-TRACE)
[2020-11-17 13:25] LABS: Appearance Urine CLEAR; Color Urine YELLOW
[2020-11-17 13:45] LABS: Bacteria Urine TRACE /LPF; Sperm Urine NOTED
[2020-11-17 14:11] LABS: Creatinine Urine 145.97 mg/dL
[2020-11-17 14:24] LABS: Microalbum/Creatinine Ratio Ur 1138.5 ug/mg cr; Protein/Creatinine Ratio, Ur 1.64 (<0.2); Total Protein Urine Random 239 mg/dL (<12)
[2020-11-18 16:37] LABS: Calcium (PTHI) 8.9 mg/dL (8.6-10.3); PTHI 174 pg/mL (14-64)
[2020-11-19 12:40] LABS: HIV RNA PCR Qn Copies <20 NOT DETECTED copies/mL (NOT DETECTED); HIV RNA PCR Qn Log Copies <1.30 NOT DETECTED (NOT DETECTED)
== END 2020-11-17 09:14 | disposition home or self-care (01) ==
LOC: HO.10HDL 09:13
PROVIDERS: Internal Medicine Nephrology; Visit Provider Internal Medicine
DX: B20 Human immunodeficiency virus [HIV] disease (principal); N18.31 Chronic kidney disease, stage 3a
CPT/HCPCS: 36415; 80051; 81001; 82040; 82043; 82306; 82310; 82565; 83735; 83970; 84100; 84156; 84520; 85027; 87086; 87536

== ENCOUNTER → 2021-01-11 10:11 | Outpatient (REF) | payer MEDICARE, OTHER, SELFPAY ==
--- NOTE | 2021-01-11 10:15 | CA_ITS ---
Transthoracic Echocardiogram Patient (Last, First, Middle): Jarod An, Gender: Male Date of : 1940 Age: 80 Procedure Date: 01/11/2021 Procedure Type: Transthoracic Echocardiogram Location: OP Height: 180.34 cm Weight: 115.67 kg BSA: 2.34 m2 Heart Rate: bpm BP: 134 / 82 mmHg Benzene Operator: Referring MD: Molly Avelar FISH WARDENGabriela Symptoms: I48.91 - Unspecified atrial fibrillation Study Quality: Fair ECG Rhythm: Atrial Fibrillation Conclusions: - The left ventricular systolic function is normal. The visually estimated ejection fraction is between 55-60%. - The basal inferior segment is akinetic. - There is mild calcification of the aortic valve. - There is mild tricuspid valve regurgitation. - Mild pulmonary hypertension is present. Findings Left Ventricle Normal left ventricular cavity size. There is mildly increased left ventricular wall thickness. The left ventricular systolic function is normal. The visually estimated ejection fraction is between 55-60%. Diastolic function is indeterminate on the basis of available data. Wall Motion Rest Echo Findings The basal inferior segment is akinetic. Right Ventricle Normal right ventricular cavity size and systolic function. Atria The left atrium is mildly dilated. The right atrium is normal in size. Aortic Valve There is a normal trileaflet aortic valve. There is mild calcification of the aortic valve. There is no aortic valve stenosis. There is trace (trivial) aortic valve regurgitation. Mitral Valve The mitral valve appears normal. There is trace mitral valve regurgitation. There is no mitral valve stenosis. Pulmonic Valve The pulmonic valve was not well visualized. Tricuspid Valve Normal tricuspid valve structure. There is mild tricuspid valve regurgitation. The right ventricular systolic pressure is 36 mmHg. Mild pulmonary hypertension is present. Great Vessels The aortic annulus, sinuses of valsalva, and asc aorta are normal in size. Venous The inferior vena cava is normal in size and collapses greater than 50% with inspiration. Pericardium/Pleural There is no evidence of pericardial effusion. Prior Study Comparison No significant change compared to prior study dated: 06/05/2019. Basal inferior wall motion abnormality noted on review of prior images. Measurements 2D Linear Measurements IVSd: 1.40 0.6-0.9/0.6-1.0 cm LVIDd: 4.75 3.9-5.3/4.2-5.9 cm LVIDd Index: 2.03 2.4-3.2/2.2-3.1 cm/m2 LVIDs: 2.83 2.0-3.6 cm LVPWd: 1.35 0.7-1.1 cm Ao Root: 3.70 2.1-3.5 cm LA Diam: 4.70 2.7-3.8/3.0-4.0 cm LAIDs Index: 2.01 1.5-2.3 cm/m2 LV Mass: 327.29 67-162/88-224 g LV Mass Index: 139.87 43-95/49-115 g/m2 LVOT Diam: 2.20 3.0+(-)1.3 cm 2D Systolic Function EF 4C: 56.10 >55% EF 2C: 52.10 >55% EF BiP: 51.70 >55% Mitral Valve MV Pk E: 1.02 MV Decel Time: 213.00 E'Lateral: 14.30 E'Medial: 6.85 E/E' Med: 14.90 E/E' Lat: 7.10 PHT: 62.00 MVA PHT: 3.55 Decel Ector: 4.77 Aortic Valve AoV Pk Jhon: 1.27 AoV Mn Jhon: 0.78 AoV VTI: 0.31 AoV Pk Grad: 6.00 Aov Mn Grad: 3.00 FREDY Cont.VTI: 2.54 LVOT LVOT Pk Jhon: 0.91 LVOT Mn Jhon: 0.55 LVOT VTI: 0.21 LVOT Pk Grad: 3.00 LVOT Mn Grad: 2.00 LVOT Diam: 2.20 LVOT Area: 3.80 Diastolic Function MV Pk E: 1.02 E'Medial: 6.85 E/E' Med: 14.90 E' Laterial: 14.30 E/E' Lat: 7.10 Right Ventricle TVS' Jhon: 10.00 Tricuspid Valve TR Pk Jhon: 2.85 TR Pk Grad: 32.00 RVSP: 36.00 Great Vessels Aorta Ao Root-2D: 3.70 2.0-3.7 cm Ao Asc: 3.70 2.1-3.4 cm Pulmonary Valve PV Pk Jhon: 0.91 Peak PV Grad: 3.00 Updated in Other Vendor System with Status of Final Elier Chiang MD electronically signed on 01/11/2021 1:28:22 PM with status of Final
== END ==
LOC: HO.CARD 10:11
PROVIDERS: PCP Internal Medicine; Visit Provider Nurse Practitioner Family
DX: I48.91 Unspecified atrial fibrillation (principal); I10 Essential (primary) hypertension
CPT/HCPCS: 93306; 99212

== ENCOUNTER 2021-01-11 12:06 | Outpatient (REF) | payer MEDICARE, OTHER, SELFPAY ==
[2021-01-11 14:34] LABS: Alanine Aminotransferase 20 U/L (0-40); Albumin Level 3.8 g/dL (3.5-5.0); Alkaline Phosphatase 65 U/L (39-117); Anion Gap 13 (12-20); Aspartate Amino Transferase 22 U/L (5-37); Blood Urea Nitrogen 19 mg/dL (9-16); Calcium 8.9 mg/dL (8.4-10.2); Carbon Dioxide 26 mmol/L (22-29); Chloride 106 mmol/L (96-108); Cholesterol 190 mg/dL; Estimated Glomerular Filt Rate 36; Glucose Fasting 101 mg/dL (60-99); HDL Cholesterol 73 mg/dL; LDL Cholesterol Calculated 98 mg/dl; Potassium 4.1 mmol/L (3.3-5.1); Sodium 141 mmol/L (135-145); Total Protein 7.4 g/dL (6.5-8.0); Triglycerides 96 mg/dL
[2021-01-11 14:41] LABS: Estimated Average Glucose 131 mg/dL; Hemoglobin A1c % 6.2 %
== END 2021-01-11 12:07 | disposition home or self-care (01) ==
LOC: HO.10HDL 12:06
PROVIDERS: PCP Internal Medicine; Visit Provider Physician Assistant
DX: E11.65 Type 2 diabetes mellitus with hyperglycemia (principal)
CPT/HCPCS: 36415; 80053; 80061; 83036

== ENCOUNTER → 2021-01-19 13:49 | Outpatient (BNVA) | payer MEDICARE, OTHER, SELFPAY | PROVIDERS: PCP Internal Medicine; Referring Provider Internal Medicine; Visit Provider Nurse Practitioner Family | DX: I48.0 Paroxysmal atrial fibrillation (principal); R93.1 Abnormal findings on diagnostic imaging of heart and coronary circulation; E11.42 Type 2 diabetes mellitus with diabetic polyneuropathy; E11.22 Type 2 diabetes mellitus with diabetic chronic kidney disease; I12.9 Hypertensive chronic kidney disease with stage 1 through stage 4 chronic kidney disease, or unspecified chronic kidney disease; N18.32 Chronic kidney disease, stage 3b; R60.0 Localized edema; M81.8 Other osteoporosis without current pathological fracture; T38.7X5A Adverse effect of androgens and anabolic congeners, initial encounter; B20 Human immunodeficiency virus [HIV] disease; Z88.1 Allergy status to other antibiotic agents; Z79.84 Long term (current) use of oral hypoglycemic drugs; Z79.899 Other long term (current) drug therapy | CPT/HCPCS: 93005; 99212 ==

== ENCOUNTER 2021-03-22 08:46 | Outpatient (REF) | payer MEDICARE, OTHER, SELFPAY ==
[2021-03-22 10:08] LABS: Hematocrit 46.9 % (42.0-52.0); Hemoglobin 15.9 g/dl (14.0-18.0); Mean Corpuscular HGB Conc 33.9 g/dl (31.0-36.0); Mean Corpuscular Hemoglobin 32.9 pg (27.0-33.0); Mean Corpuscular Volume 96.9 fL (80.0-98.0); Mean Platelet Volume 10.3 fL (9.4-12.4); Platelet Count 136 X10*3/uL (160-400); Red Blood Count 4.84 X10*6/uL (4.60-5.80); Red Cell Distribution Width 12.8 % (11.0-16.0)
[2021-03-22 10:43] LABS: Albumin Level 3.7 g/dL (3.5-5.0); Anion Gap 12 (12-20); Blood Urea Nitrogen 16 mg/dL (9-16); Calcium 8.8 mg/dL (8.4-10.2); Carbon Dioxide 25 mmol/L (22-29); Chloride 108 mmol/L (96-108); Estimated Glomerular Filt Rate 38; Magnesium 2.3 mg/dL (1.6-2.6); Phosphorus 3.8 mg/dL (2.7-4.5); Potassium 4.1 mmol/L (3.3-5.1); Sodium 141 mmol/L (135-145)
[2021-03-22 11:00] LABS: Appearance Urine CLEAR; Color Urine YELLOW; Glucose Urine UA 500 MG/DL (NEG); Leukocyte Esterase Urine NEG (NEG); Nitrite Urine NEG (NEG); Urine Blood NEG (NEG); Urine Ketones NEG (NEG); Urine Protein 2+ MG/DL (NEG-TRACE)
[2021-03-22 11:04] LABS: Vitamin D 25-OH Total 15.2 ng/mL (>30)
[2021-03-22 11:26] LABS: Creatinine Urine 95.23 mg/dL; Total Protein Urine Random 114 mg/dL (<12)
[2021-03-22 11:41] LABS: Microalbum/Creatinine Ratio Ur 807.5 ug/mg cr
[2021-03-22 12:19] LABS: Squamous Epithelial Cell Urine 1+ /LPF; WBC Urine 0 /HPF (0-4)
[2021-03-23 15:56] LABS: Calcium (PTHI) 8.6 mg/dL (8.6-10.3); PTHI 142 pg/mL (14-64)
== END 2021-03-22 08:47 | disposition home or self-care (01) ==
LOC: HO.10HDL 08:46
PROVIDERS: Visit Provider Internal Medicine Nephrology
DX: N18.32 Chronic kidney disease, stage 3b (principal); E11.21 Type 2 diabetes mellitus with diabetic nephropathy; E11.22 Type 2 diabetes mellitus with diabetic chronic kidney disease; R80.1 Persistent proteinuria, unspecified
CPT/HCPCS: 36415; 80051; 81001; 82040; 82043; 82306; 82310; 82565; 83735; 83970; 84100; 84156; 84520; 85027; 87086

== ENCOUNTER → 2021-05-27 08:57 | Outpatient (REF) | payer MEDICARE, OTHER, SELFPAY ==
--- NOTE | ~2021-05-27 | NM_ITS ---
Myocardial perfusion study Indication: Atrial fibrillation to evaluate for myocardial ischemia Technique: The patient was brought in for a Lexiscan perfusion study on 05/27/2020. Patient performed low-level exercise and was injected 0.4 mg of Lexiscan intravenously. Within a minute of injection, 40 mCi of sestamibi was given intravenously. Images were obtained using the SPECT gamma camera interlaced with the gating device. Images were obtained in supine position. Resting perfusion study was performed on 05/28/2021. Patient was administered 40 mCi of sestamibi intravenously at rest. Images were then obtained in supine position. Images obtained with and without CT attenuation. Total DLP 130 mGy-cm. Images were processed with the software and compared side to side in short axis, horizontal long axis and vertical long axis views. Findings: The stress perfusion study showed non attenuated images show some thinning of the apical inferolateral as well as inferobasal and minimally reduced uptake in the mid inferior wall of the LV myocardium. Attenuated corrected images show normal uptake of radiotracer in all segments of LV myocardium The gated study shows normal LV systolic function with calculated LVEF of 60%. LV cavity is normal size. The gated study shows normal systolic wall thickening and contraction of segments. Resting study shows attenuated corrected images show normal uptake of radiotracer in all segments of LV myocardium. Gating was not performed during resting study. The findings are consistent with normal myocardial perfusion. NM/NM kylah perf SPECT rest & str Impression: 1. Myocardial perfusion imaging study shows normal myocardial perfusion 2. Gated LVEF is 60% 3. Transient ischemic dilatation not present EKG is nondiagnostic for ischemia
--- NOTE | 2021-05-27 08:59 | CA_ITS ---
Acquisition Time: 2021-05-27 10:17:32 Total Exercise Time: 00:02:00 Test Indications: ABN EKG, AFIB, RBBB Medications: SEE CHART Protocol: LEXISCAN Max HR: 075 BPM 52% of Pred: 142 BPM Max BP: 142/070 mmHG Max Work Load: 1.0 METS Pharmacological stress test with Lexsican injection, while sitting and kicking his legs, without anginal symptoms, with frequent isolated PVC and 3- 4 beat NSVT runs, with normotensive response to injection, with nondiagnostic EKG for ischemia. Nuclear images pending. Test reviewed with Dr Monroe. Will order Holter monitor to assess frequency of PVCs and average afib rates. Referred By: Molly Avelar Overread By: MOLLY AVELAR
== END ==
LOC: HO.CARD 08:57
PROVIDERS: Visit Provider Nurse Practitioner Family
DX: R93.1 Abnormal findings on diagnostic imaging of heart and coronary circulation (principal); I49.3 Ventricular premature depolarization; I48.11 Longstanding persistent atrial fibrillation
CPT/HCPCS: 78452; 93017; A9500; J0280; J2785

== ENCOUNTER 2021-06-09 14:05 | Outpatient (REF) | payer MEDICARE, OTHER, SELFPAY ==
[2021-06-09 14:43] LABS: Appearance Urine CLEAR; Color Urine YELLOW; Glucose Urine UA >=1000 MG/DL (NEG); Leukocyte Esterase Urine NEG (NEG); Nitrite Urine NEG (NEG); UACC Culture Trigger NO; Urine Blood 1+ (NEG); Urine Ketones NEG (NEG); Urine Protein 2+ MG/DL (NEG-TRACE)
[2021-06-09 15:01] LABS: WBC Urine 0 /HPF (0-4)
[2021-06-09 15:02] LABS: Squamous Epithelial Cell Urine TRACE /LPF
== END 2021-06-09 14:06 | disposition home or self-care (01) ==
LOC: HO.LNP 14:05
PROVIDERS: Visit Provider Physician Assistant
DX: R30.0 Dysuria (principal)
CPT/HCPCS: 81001

== ENCOUNTER 2021-06-28 09:07 | Outpatient (REF) | payer MEDICARE, OTHER, SELFPAY ==
[2021-06-28 10:17] LABS: MANUAL DIFF FLAG NO
[2021-06-28 10:34] LABS: Estimated Average Glucose 131 mg/dL; Hemoglobin A1c % 6.2 %
[2021-06-28 10:36] LABS: Basophils Percent Auto 0.6 % (0-2); Eosinophils Absolute Auto 0.1 X10*3/uL (0.0-0.4); Eosinophils Percent Auto 2.2 % (0-4); Hemoglobin 17.2 g/dl (14.0-18.0); Imm Gran Abs Auto 0.02 X10*3/uL (0.00-0.03); Imm Gran Pct Auto 0.3 % (0.0-0.4); Lymphocytes Absolute Auto 2.1 X10*3/uL (1.2-4.9); Mean Corpuscular HGB Conc 33.7 g/dl (31.0-36.0); Mean Corpuscular Hemoglobin 32.6 pg (27.0-33.0); Mean Corpuscular Volume 96.6 fL (80.0-98.0); Mean Platelet Volume 10.7 fL (9.4-12.4); Monocytes Absolute Auto 0.5 X10*3/uL (0.1-1.2); Monocytes Percent Auto 8.4 % (2-11); Neutrophils Absolute Auto 3.6 x10*3/uL (2.0-8.3); Neutrophils Percent Auto 55.5 % (45-73); Platelet Count 151 X10*3/uL (160-400); Red Blood Count 5.28 X10*6/uL (4.60-5.80); Red Cell Distribution Width 13.6 % (11.0-16.0); White Blood Count 6.5 X10*3/uL (4.8-10.8)
[2021-06-28 11:13] LABS: Alanine Aminotransferase 35 U/L (0-40); Albumin Level 3.6 g/dL (3.5-5.0); Alkaline Phosphatase 76 U/L (39-117); Anion Gap 12 (12-20); Aspartate Amino Transferase 27 U/L (5-37); Bilirubin Direct 0.6 mg/dL (0.0-0.5); Bilirubin Total 1.5 mg/dL (0.0-1.0); Blood Urea Nitrogen 18 mg/dL (9-16); Calcium 8.9 mg/dL (8.4-10.2); Carbon Dioxide 27 mmol/L (22-29); Chloride 104 mmol/L (96-108); Estimated Glomerular Filt Rate 39; Glucose Random 120 mg/dL (60-115); Potassium 4.3 mmol/L (3.3-5.1); Prostate Specific Antigen 1.85 ng/mL (<0.05-4.0); Sodium 139 mmol/L (135-145)
[2021-06-28 11:14] LABS: ~HepC Num1 0.06 S/CO (0.00-0.79); ~Hepatitis C Antibody Nonreactive (Nonreactive)
[2021-06-28 11:23] LABS: Syphilis Screen Nonreactive (Nonreactive)
[2021-06-29 11:42] LABS: Absolute CD3 Count 1999 cells/uL (840-3060); Absolute CD4 Count 697 cells/uL (490-1740); Absolute CD8 Count 1305 cells/uL (180-1170); Absolute Lymphocytes 2375 cells/uL (850-3900); CD4 CD8 Ratio 0.53 (0.86-5.00); Percent CD3 Cells 84 % (57-85); Percent CD4 Cells 29 % (30-61); Percent CD8 Cells 55 % (12-42)
[2021-06-30 20:37] LABS: HIV RNA PCR Qn Copies NOT DETECTED copies/mL (NOT DETECTED); HIV RNA PCR Qn Log Copies NOT DETECTED (NOT DETECTED)
== END 2021-06-28 09:08 | disposition home or self-care (01) ==
LOC: HO.10HDL 09:07
PROVIDERS: Internal Medicine; Physician Assistant; Visit Provider Urology
DX: N40.1 Benign prostatic hyperplasia with lower urinary tract symptoms (principal); N13.8 Other obstructive and reflux uropathy; E11.65 Type 2 diabetes mellitus with hyperglycemia; B20 Human immunodeficiency virus [HIV] disease; Z12.5 Encounter for screening for malignant neoplasm of prostate
CPT/HCPCS: 36415; 80048; 80076; 83036; 84153; 85025; 86359; 86360; 86780; 86803; 87536

== ENCOUNTER → 2021-07-12 10:01 | Outpatient (BNVA) | payer MEDICARE, OTHER, SELFPAY | PROVIDERS: Visit Provider Internal Medicine | DX: B20 Human immunodeficiency virus [HIV] disease (principal); Z79.899 Other long term (current) drug therapy | CPT/HCPCS: 99212 ==

== ENCOUNTER 2021-07-14 08:30 | Outpatient (REF) | payer MEDICARE, OTHER, SELFPAY ==
[2021-07-14 10:20] LABS: MANUAL DIFF FLAG NO
[2021-07-14 10:30] LABS: Basophils Percent Auto 0.6 % (0-2); Eosinophils Absolute Auto 0.1 X10*3/uL (0.0-0.4); Eosinophils Percent Auto 1.7 % (0-4); Hematocrit 50.1 % (42.0-52.0); Hemoglobin 16.9 g/dl (14.0-18.0); Imm Gran Abs Auto 0.01 X10*3/uL (0.00-0.03); Imm Gran Pct Auto 0.1 % (0.0-0.4); Lymphocytes Absolute Auto 2.1 X10*3/uL (1.2-4.9); Lymphocytes Percent Auto 29.2 % (20-40); Mean Corpuscular HGB Conc 33.7 g/dl (31.0-36.0); Mean Corpuscular Hemoglobin 32.6 pg (27.0-33.0); Mean Corpuscular Volume 96.7 fL (80.0-98.0); Mean Platelet Volume 10.6 fL (9.4-12.4); Monocytes Absolute Auto 0.6 X10*3/uL (0.1-1.2); Monocytes Percent Auto 8.5 % (2-11); Neutrophils Absolute Auto 4.3 x10*3/uL (2.0-8.3); Neutrophils Percent Auto 59.9 % (45-73); Platelet Count 124 X10*3/uL (160-400); Red Blood Count 5.18 X10*6/uL (4.60-5.80); Red Cell Distribution Width 13.6 % (11.0-16.0); White Blood Count 7.2 X10*3/uL (4.8-10.8)
[2021-07-14 10:52] LABS: Alanine Aminotransferase 27 U/L (0-40); Albumin Level 3.6 g/dL (3.5-5.0); Alkaline Phosphatase 84 U/L (39-117); Aspartate Amino Transferase 28 U/L (5-37); Bilirubin Direct 0.7 mg/dL (0.0-0.5); Bilirubin Total 1.8 mg/dL (0.0-1.0); Calcium 9.2 mg/dL (8.4-10.2); Magnesium 2.5 mg/dL (1.6-2.6); Phosphorus 3.7 mg/dL (2.7-4.5)
[2021-07-14 10:57] LABS: Appearance Urine CLEAR; Color Urine YELLOW; Glucose Urine UA 500 MG/DL (NEG); Leukocyte Esterase Urine NEG (NEG); Nitrite Urine NEG (NEG); PH 6.5 (5.0-8.0); Urine Blood 1+ (NEG); Urine Ketones NEG (NEG); Urine Protein 2+ MG/DL (NEG-TRACE)
[2021-07-14 11:18] LABS: Vitamin D 25-OH Total 18.7 ng/mL (>30)
[2021-07-14 11:23] LABS: WBC Urine 0 /HPF (0-4)
[2021-07-14 11:41] LABS: Creatinine Urine 42.06 mg/dL; Total Protein Urine Random 98 mg/dL (<12)
[2021-07-14 12:41] LABS: Microalbum/Creatinine Ratio Ur 1547.7 ug/mg cr
[2021-07-15 15:02] LABS: Calcium (PTHI) 8.9 mg/dL (8.6-10.3); PTHI 128 pg/mL (16-77)
== END 2021-07-14 08:31 | disposition home or self-care (01) ==
LOC: HO.10HDL 08:30
PROVIDERS: Visit Provider Internal Medicine Nephrology
DX: N18.32 Chronic kidney disease, stage 3b (principal)
CPT/HCPCS: 36415; 80076; 81001; 82043; 82306; 82310; 83735; 83970; 84100; 84156; 85025; 87086

== ENCOUNTER → 2021-07-15 11:21 | Outpatient (REF) | payer MEDICARE, OTHER, SELFPAY ==
--- NOTE | 2021-07-15 11:24 | HM_ITS ---
Conclusion: 1. Patient was monitored for total period of 3 days and 15 hours 2. Baseline rhythm is atrial fibrillation with average heart of 60 beats per minute with frequent slow ventricular response noted 3. No significant pauses noted 4. 12 3 beat salvos of nonsustained VT, fastest 159 beats per minute 5. Total of 19,659 PVCs accounting for 7.78% total burden account for frequent PVCs 6. No patient reported events MTDD
== END ==
LOC: HO.CARD 11:21
PROVIDERS: PCP Physician Assistant; Visit Provider Nurse Practitioner Family
DX: I48.11 Longstanding persistent atrial fibrillation (principal); I49.3 Ventricular premature depolarization
CPT/HCPCS: 93242

== ENCOUNTER → 2021-07-22 08:13 | Outpatient (BNVA) | payer MEDICARE, OTHER, SELFPAY | PROVIDERS: PCP Physician Assistant; Visit Provider Urology | DX: N48.1 Balanitis (principal); N20.0 Calculus of kidney; N32.0 Bladder-neck obstruction | CPT/HCPCS: 99212 ==

== ENCOUNTER 2021-08-16 08:22 | Outpatient (REF) | payer MEDICARE, OTHER, SELFPAY ==
[2021-08-16 10:44] LABS: Estimated Average Glucose 131 mg/dL; Hemoglobin A1c % 6.2 %
[2021-08-16 10:46] LABS: Alanine Aminotransferase 22 U/L (0-40); Albumin Level 3.6 g/dL (3.5-5.0); Alkaline Phosphatase 72 U/L (39-117); Anion Gap 11 (12-20); Aspartate Amino Transferase 27 U/L (5-37); Bilirubin Total 1.2 mg/dL (0.0-1.0); Blood Urea Nitrogen 19 mg/dL (9-16); Calcium 9.4 mg/dL (8.4-10.2); Carbon Dioxide 28 mmol/L (22-29); Chloride 103 mmol/L (96-108); Cholesterol 172 mg/dL; Estimated Glomerular Filt Rate 41; Glucose Fasting 124 mg/dL (60-99); HDL Cholesterol 66 mg/dL; LDL Cholesterol Calculated 91 mg/dl; Potassium 3.8 mmol/L (3.3-5.1); Sodium 138 mmol/L (135-145); Total Protein 6.9 g/dL (6.5-8.0); Triglycerides 78 mg/dL
== END 2021-08-16 08:23 | disposition home or self-care (01) ==
LOC: HO.10HDL 08:22
PROVIDERS: Visit Provider Physician Assistant
DX: E11.65 Type 2 diabetes mellitus with hyperglycemia (principal)
CPT/HCPCS: 36415; 80053; 80061; 83036

== ENCOUNTER 2021-08-25 15:02 | Outpatient (REF) | payer MEDICARE, OTHER, SELFPAY ==
--- NOTE | ~2021-08-25 | XR_ITS ---
EXAMINATION: XR CHEST CLINICAL INFORMATION: Bronchitis. COMPARISON: None TECHNIQUE: 2 views of the chest were obtained. FINDINGS: The lungs are well-expanded and clear of acute process. The heart size and pulmonary vascularity is normal. No gross bony abnormality seen. XR/XR chest 2V IMPRESSION: Unremarkable chest exam.
== END 2021-08-25 15:03 | disposition home or self-care (01) ==
LOC: HO.XRAY 15:02
PROVIDERS: PCP Physician Assistant; Visit Provider Physician Assistant
DX: J40 Bronchitis, not specified as acute or chronic (principal); E11.65 Type 2 diabetes mellitus with hyperglycemia
CPT/HCPCS: 71046

== ENCOUNTER 2021-08-26 13:22 | Outpatient (REF) | payer MEDICARE, OTHER, SELFPAY | END 2021-08-26 13:23 | disposition home or self-care (01) | LOC: HO.LAB 13:22 | PROVIDERS: PCP Physician Assistant; Visit Provider Physician Assistant | DX: Z20.822 Contact with and (suspected) exposure to COVID-19 (principal); J40 Bronchitis, not specified as acute or chronic | CPT/HCPCS: U0003; U0005 ==

== ENCOUNTER 2021-12-27 08:44 | Outpatient (REF) | payer MEDICARE, OTHER, SELFPAY ==
[2021-12-27 11:46] LABS: ~HepC Num1 0.05 S/CO (0.00-0.79); ~Hepatitis C Antibody Nonreactive (Nonreactive)
[2021-12-27 11:48] LABS: Syphilis Screen Nonreactive (Nonreactive)
[2021-12-29 14:21] LABS: HIV RNA PCR Qn Copies 143 copies/mL (NOT DETECTED); HIV RNA PCR Qn Log Copies 2.16 (NOT DETECTED)
[2021-12-29 15:41] LABS: Absolute CD3 Count 1618 cells/uL (840-3060); Absolute CD4 Count 658 cells/uL (490-1740); Absolute CD8 Count 965 cells/uL (180-1170); Absolute Lymphocytes 1823 cells/uL (850-3900); CD4 CD8 Ratio 0.68 (0.86-5.00); Percent CD3 Cells 89 % (57-85); Percent CD4 Cells 36 % (30-61); Percent CD8 Cells 53 % (12-42)
== END 2021-12-27 08:45 | disposition home or self-care (01) ==
LOC: HO.10HDL 08:44
PROVIDERS: Visit Provider Internal Medicine
DX: B20 Human immunodeficiency virus [HIV] disease (principal)
CPT/HCPCS: 36415; 86359; 86360; 86780; 86803; 87536

== ENCOUNTER 2022-01-05 09:48 | Outpatient (REF) | payer MEDICARE, OTHER, SELFPAY ==
[2022-01-05 10:32] LABS: Hemoglobin 15.3 g/dl (14.0-18.0); Mean Corpuscular HGB Conc 34.8 g/dl (31.0-36.0); Mean Corpuscular Hemoglobin 33.7 pg (27.0-33.0); Mean Corpuscular Volume 96.9 fL (80.0-98.0); Mean Platelet Volume 10.3 fL (9.4-12.4); Platelet Count 139 X10*3/uL (160-400); Red Blood Count 4.54 X10*6/uL (4.60-5.80); White Blood Count 6.5 X10*3/uL (4.8-10.8)
[2022-01-05 10:37] LABS: Appearance Urine Clear; Color Urine Yellow; Glucose Urine UA Negative (Negative); Leukocyte Esterase Urine Negative (Negative); Nitrite Urine Negative (Negative); Specific Gravity - Urine 1.015 (1.005-1.025); UMIC TRIGGER UA YES; Urine Blood Negative (Negative); Urine Ketones Negative (Negative); Urine Protein 100 (2+) mg/dL (Neg-Trace)
[2022-01-05 10:40] LABS: Bacteria Urine None Seen (None Seen); RBC Urine 0-2 /HPF (0-2); Squamous Epithelial Cell Urine 0-2 /HPF (0-2); WBC Urine 0-5 /HPF (0-5)
[2022-01-05 11:03] LABS: Albumin Level 3.8 g/dL (3.5-5.0); Anion Gap 15 (12-20); Blood Urea Nitrogen 24 mg/dL (9-16); Calcium 9.2 mg/dL (8.4-10.2); Carbon Dioxide 25 mmol/L (22-29); Chloride 104 mmol/L (96-108); Estimated Glomerular Filt Rate 39; Phosphorus 3.8 mg/dL (2.7-4.5); Potassium 4.3 mmol/L (3.3-5.1); Sodium 140 mmol/L (135-145)
[2022-01-05 11:05] LABS: Creatinine Urine 100.01 mg/dL; Microalbum/Creatinine Ratio Ur 485.9 ug/mg cr; Protein/Creatinine Ratio, Ur 0.64 (<0.2); Total Protein Urine Random 64 mg/dL (<12)
[2022-01-05 11:10] LABS: Alanine Aminotransferase 19 U/L (0-40); Albumin Level 3.8 g/dL (3.5-5.0); Alkaline Phosphatase 61 U/L (39-117); Anion Gap 15 (12-20); Aspartate Amino Transferase 20 U/L (5-37); Bilirubin Total 0.7 mg/dL (0.0-1.0); Blood Urea Nitrogen 24 mg/dL (9-16); Carbon Dioxide 25 mmol/L (22-29); Chloride 103 mmol/L (96-108); Cholesterol 176 mg/dL; Estimated Glomerular Filt Rate 38; Glucose Fasting 122 mg/dL (60-99); HDL Cholesterol 68 mg/dL; LDL Cholesterol Calculated 93 mg/dl; Potassium 4.2 mmol/L (3.3-5.1); Sodium 139 mmol/L (135-145); Triglycerides 76 mg/dL
[2022-01-05 11:18] LABS: TSH reflex Free T4 2.44 uIU/mL (0.32-4.0)
[2022-01-05 11:26] LABS: Vitamin D 25-OH Total 27.8 ng/mL (>30)
[2022-01-06 12:22] LABS: Calcium (PTHI) 9.4 mg/dL (8.6-10.3); PTHI 72 pg/mL (16-77)
== END 2022-01-05 09:49 | disposition home or self-care (01) ==
LOC: HO.10HDL 09:48
PROVIDERS: Absent Provider Internal Medicine Nephrology; Visit Provider Physician Assistant
DX: E11.65 Type 2 diabetes mellitus with hyperglycemia (principal); E11.22 Type 2 diabetes mellitus with diabetic chronic kidney disease; I12.9 Hypertensive chronic kidney disease with stage 1 through stage 4 chronic kidney disease, or unspecified chronic kidney disease; N18.32 Chronic kidney disease, stage 3b; R80.1 Persistent proteinuria, unspecified; Z21 Asymptomatic human immunodeficiency virus [HIV] infection status
CPT/HCPCS: 36415; 80051; 80053; 80061; 81001; 82040; 82043; 82306; 82310; 82565; 83735; 83970; 84100; 84156; 84443; 84520; 85027; 87086

== ENCOUNTER 2022-01-10 12:02 | Outpatient (REF) | payer MEDICARE, OTHER, SELFPAY ==
[2022-01-11 12:55] LABS: HIV RNA PCR Qn Copies NOT DETECTED copies/mL (NOT DETECTED); HIV RNA PCR Qn Log Copies NOT DETECTED (NOT DETECTED)
== END 2022-01-10 12:03 | disposition home or self-care (01) ==
LOC: HO.10HDL 12:02
PROVIDERS: Absent Provider Physician Assistant; Visit Provider Internal Medicine
DX: B20 Human immunodeficiency virus [HIV] disease (principal)
CPT/HCPCS: 36415; 87536; 99212

== ENCOUNTER 2022-02-07 13:47 | Outpatient (REF) | payer MEDICARE, OTHER, SELFPAY ==
[2022-02-07 16:00] LABS: Appearance Urine Clear; Color Urine Yellow; Glucose Urine UA Negative (Negative); Leukocyte Esterase Urine Negative (Negative); Nitrite Urine Negative (Negative); PH 5.5 (5.0-9.0); Specific Gravity - Urine 1.015 (1.005-1.025); UMIC TRIGGER UA YES; Urine Blood Negative (Negative); Urine Ketones Negative (Negative); Urine Protein 100 (2+) mg/dL (Neg-Trace)
[2022-02-07 16:05] LABS: Bacteria Urine None Seen (None Seen); RBC Urine 0-2 /HPF (0-2); Squamous Epithelial Cell Urine 0-2 /HPF (0-2); WBC Urine 0-5 /HPF (0-5)
[2022-02-07 16:19] LABS: Anion Gap 15 (12-20); Blood Urea Nitrogen 20 mg/dL (9-16); Calcium 9.4 mg/dL (8.4-10.2); Carbon Dioxide 27 mmol/L (22-29); Chloride 105 mmol/L (96-108); Estimated Glomerular Filt Rate 39; Potassium 4.3 mmol/L (3.3-5.1); Sodium 143 mmol/L (135-145)
[2022-02-07 16:39] LABS: Creatinine Urine 97.17 mg/dL; Protein/Creatinine Ratio, Ur 1.45 (<0.2); Total Protein Urine Random 141 mg/dL (<12)
== END 2022-02-07 13:48 | disposition home or self-care (01) ==
LOC: HO.LAB 13:47
PROVIDERS: Absent Provider Physician Assistant; PCP Physician Assistant; Visit Provider Internal Medicine Nephrology
DX: I12.9 Hypertensive chronic kidney disease with stage 1 through stage 4 chronic kidney disease, or unspecified chronic kidney disease (principal); N18.31 Chronic kidney disease, stage 3a; R80.1 Persistent proteinuria, unspecified
CPT/HCPCS: 36415; 80051; 81001; 82043; 82310; 82565; 84156; 84520

== ENCOUNTER 2022-03-09 08:40 | Outpatient (REF) | payer MEDICARE, OTHER, SELFPAY ==
[2022-03-09 10:37] LABS: Appearance Urine Cloudy; Color Urine Yellow; Glucose Urine UA Negative (Negative); Leukocyte Esterase Urine Negative (Negative); Nitrite Urine Negative (Negative); PH 5.5 (5.0-9.0); Specific Gravity - Urine 1.015 (1.005-1.025); UMIC TRIGGER UA YES; Urine Blood Trace (Negative); Urine Ketones Negative (Negative); Urine Protein 100 (2+) mg/dL (Neg-Trace)
[2022-03-09 10:51] LABS: Bacteria Urine None Seen (None Seen); RBC Urine 0-2 /HPF (0-2); Squamous Epithelial Cell Urine 0-2 /HPF (0-2); WBC Urine 0-5 /HPF (0-5)
[2022-03-09 10:53] LABS: Anion Gap 14 (12-20); Blood Urea Nitrogen 24 mg/dL (9-16); Calcium 9.4 mg/dL (8.4-10.2); Carbon Dioxide 27 mmol/L (22-29); Chloride 104 mmol/L (96-108); Estimated Glomerular Filt Rate 39; Potassium 4.3 mmol/L (3.3-5.1); Sodium 141 mmol/L (135-145)
[2022-03-09 11:13] LABS: Creatinine Urine 112.38 mg/dL; Protein/Creatinine Ratio, Ur 1.08 (<0.2); Total Protein Urine Random 121 mg/dL (<12)
[2022-03-09 11:24] LABS: Microalbum/Creatinine Ratio Ur 726.1 ug/mg cr
== END 2022-03-09 08:41 | disposition home or self-care (01) ==
LOC: HO.10HDL 08:40
PROVIDERS: Absent Provider Physician Assistant; Visit Provider Internal Medicine Nephrology
DX: N18.32 Chronic kidney disease, stage 3b (principal); R80.1 Persistent proteinuria, unspecified
CPT/HCPCS: 36415; 80051; 81001; 82043; 82310; 82565; 84156; 84520

== ENCOUNTER 2022-05-09 15:47 | Outpatient (REF) | payer MEDICARE, OTHER, SELFPAY ==
--- NOTE | ~2022-05-09 | US_ITS ---
EXAMINATION: US RETROPERITONEAL LIMITED (RENAL ONLY) CLINICAL INFORMATION: Calculus of kidney. COMPARISON: MR abdomen without and with contrast 09/01/2020. Ultrasound abdomen complete 08/25/2020. Ultrasound retroperitoneal limited (renal only) 05/05/2020. CT abdomen and pelvis without contrast 07/02/2019. TECHNIQUE: Real-time imaging of the kidneys. FINDINGS: RIGHT KIDNEY: 10.5 x 5.0 x 5.0 cm (SAG x AP x TRV). The kidney is normal in size, contour, and echogenicity. Renal cortical thickness is normal. No renal calculi or hydronephrosis. At the upper pole medially, a 6.9 cm maximal diameter simple cyst is seen. At the lower pole, 4.4 cm and 1.4 cm in maximal diameter simple cysts are seen. LEFT KIDNEY: 10.0 x 4.7 x 4.7 cm (SAG x AP x TRV). The kidney is normal in size, contour, and echogenicity. Renal cortical thickness is normal. No renal calculi or hydronephrosis. At the upper pole laterally, a 1.3 cm in maximal diameter anechoic, simple cyst is seen. US/US renal BI IMPRESSION: 1. Multiple simple, benign bilateral renal cysts are seen, for which no imaging follow-up is recommended. 2. No renal calculus or hydronephrosis is seen bilaterally.
== END 2022-05-09 15:48 | disposition home or self-care (01) ==
LOC: HO.US 15:47
PROVIDERS: PCP Physician Assistant; Visit Provider Urology
DX: N20.0 Calculus of kidney (principal)
CPT/HCPCS: 76775

== ENCOUNTER 2022-06-27 10:42 | Outpatient (REF) | payer MEDICARE, OTHER, SELFPAY ==
[2022-06-27 12:16] LABS: Hematocrit 43.7 % (42.0-52.0); Hemoglobin 14.9 g/dl (14.0-18.0); Mean Corpuscular HGB Conc 34.1 g/dl (31.0-36.0); Mean Corpuscular Hemoglobin 33.8 pg (27.0-33.0); Mean Corpuscular Volume 99.1 fL (80.0-98.0); Mean Platelet Volume 10.3 fL (9.4-12.4); Platelet Count 145 X10*3/uL (160-400); Red Blood Count 4.41 X10*6/uL (4.60-5.80); Red Cell Distribution Width 12.2 % (11.0-16.0); White Blood Count 6.2 X10*3/uL (4.8-10.8)
[2022-06-28 15:14] LABS: Absolute CD3 Count 1741 cells/uL (840-3060); Absolute CD4 Count 672 cells/uL (490-1740); Absolute CD8 Count 1087 cells/uL (180-1170); Absolute Lymphocytes 1994 cells/uL (850-3900); CD4 CD8 Ratio 0.62 (0.86-5.00); Percent CD3 Cells 87 % (57-85); Percent CD4 Cells 34 % (30-61); Percent CD8 Cells 55 % (12-42)
[2022-06-30 18:23] LABS: HIV RNA PCR Qn Copies 56 copies/mL (NOT DETECTED); HIV RNA PCR Qn Log Copies 1.75 (NOT DETECTED)
== END 2022-06-27 10:43 | disposition home or self-care (01) ==
LOC: HO.LAB 10:42
PROVIDERS: PCP Physician Assistant; Visit Provider Internal Medicine
DX: E11.65 Type 2 diabetes mellitus with hyperglycemia (principal); B20 Human immunodeficiency virus [HIV] disease
CPT/HCPCS: 36415; 85027; 86359; 86360; 87536

== ENCOUNTER 2022-07-06 08:43 | Outpatient (REF) | payer MEDICARE, OTHER, SELFPAY ==
[2022-07-06 09:04] LABS: MANUAL DIFF FLAG NO
[2022-07-06 09:22] LABS: Basophils Absolute Auto 0.1 X10*3/uL (0.0-0.2); Basophils Percent Auto 0.8 % (0-2); Eosinophils Absolute Auto 0.2 X10*3/uL (0.0-0.4); Eosinophils Percent Auto 2.8 % (0-4); Hematocrit 46.2 % (42.0-52.0); Hemoglobin 15.6 g/dl (14.0-18.0); Imm Gran Abs Auto 0.03 X10*3/uL (0.00-0.03); Imm Gran Pct Auto 0.4 % (0.0-0.4); Lymphocytes Absolute Auto 2.4 X10*3/uL (1.2-4.9); Mean Corpuscular HGB Conc 33.8 g/dl (31.0-36.0); Mean Corpuscular Hemoglobin 33.1 pg (27.0-33.0); Mean Corpuscular Volume 98.1 fL (80.0-98.0); Mean Platelet Volume 10.5 fL (9.4-12.4); Monocytes Absolute Auto 0.6 X10*3/uL (0.1-1.2); Monocytes Percent Auto 7.8 % (2-11); Neutrophils Absolute Auto 4.5 x10*3/uL (2.0-8.3); Neutrophils Percent Auto 57.2 % (45-73); Platelet Count 151 X10*3/uL (160-400); Red Blood Count 4.71 X10*6/uL (4.60-5.80); Red Cell Distribution Width 12.4 % (11.0-16.0); White Blood Count 7.9 X10*3/uL (4.8-10.8)
[2022-07-06 09:51] LABS: Albumin Level 3.9 g/dL (3.5-5.0); Anion Gap 15 (12-20); Blood Urea Nitrogen 30 mg/dL (9-16); Calcium 9.6 mg/dL (8.4-10.2); Carbon Dioxide 26 mmol/L (22-29); Chloride 103 mmol/L (96-108); Estimated Glomerular Filt Rate 33; Magnesium 2.1 mg/dL (1.6-2.6); Phosphorus 4.3 mg/dL (2.7-4.5); Potassium 4.7 mmol/L (3.3-5.1); Sodium 139 mmol/L (135-145)
[2022-07-06 09:53] LABS: Alanine Aminotransferase 25 U/L (0-40); Albumin Level 3.9 g/dL (3.5-5.0); Alkaline Phosphatase 68 U/L (39-117); Anion Gap 15 (12-20); Aspartate Amino Transferase 35 U/L (5-37); Bilirubin Total 1.2 mg/dL (0.0-1.0); Blood Urea Nitrogen 30 mg/dL (9-16); Calcium 9.5 mg/dL (8.4-10.2); Carbon Dioxide 26 mmol/L (22-29); Chloride 105 mmol/L (96-108); Cholesterol 181 mg/dL; Estimated Glomerular Filt Rate 33; Glucose Fasting 121 mg/dL (60-99); HDL Cholesterol 66 mg/dL; LDL Cholesterol Calculated 95 mg/dl; Potassium 4.8 mmol/L (3.3-5.1); Sodium 141 mmol/L (135-145); Total Protein 7.3 g/dL (6.5-8.0); Triglycerides 100 mg/dL
[2022-07-06 10:07] LABS: Vitamin D 25-OH Total 33.6 ng/mL (>30)
[2022-07-06 10:08] LABS: Prostate Specific Antigen Scr 2.39 ng/mL (<0.05-4.0); TSH reflex Free T4 3.51 uIU/mL (0.32-4.0)
[2022-07-06 10:41] LABS: Appearance Urine Clear; Color Urine Yellow; Glucose Urine UA Negative (Negative); Leukocyte Esterase Urine Negative (Negative); Nitrite Urine Negative (Negative); PH 6.5 (5.0-9.0); Urine Blood Negative (Negative); Urine Ketones Negative (Negative); Urine Protein Trace mg/dL (Neg-Trace)
[2022-07-06 10:45] LABS: Bacteria Urine None Seen (None Seen); Hyaline Casts Urine 0-2 /LPF (0-2); RBC Urine 0-2 /HPF (0-2); Squamous Epithelial Cell Urine 0-2 /HPF (0-2); WBC Urine 0-5 /HPF (0-5)
[2022-07-06 11:32] LABS: Creatinine Urine 38.39 mg/dL; Microalbum/Creatinine Ratio Ur 377.7 ug/mg cr; Protein/Creatinine Ratio, Ur 0.57 (<0.2); Total Protein Urine Random 22 mg/dL (<12)
[2022-07-08 14:04] LABS: Calcium (PTHI) 9.6 mg/dL (8.6-10.3); PTHI 112 pg/mL (16-77)
== END 2022-07-06 08:44 | disposition home or self-care (01) ==
LOC: HO.LAB 08:43
PROVIDERS: Absent Provider Internal Medicine Nephrology; PCP Physician Assistant; Visit Provider Physician Assistant
DX: Z12.5 Encounter for screening for malignant neoplasm of prostate (principal); E11.65 Type 2 diabetes mellitus with hyperglycemia; I12.9 Hypertensive chronic kidney disease with stage 1 through stage 4 chronic kidney disease, or unspecified chronic kidney disease; E11.22 Type 2 diabetes mellitus with diabetic chronic kidney disease; N18.32 Chronic kidney disease, stage 3b; R80.1 Persistent proteinuria, unspecified
CPT/HCPCS: 36415; 80051; 80053; 80061; 81001; 82040; 82043; 82306; 82310; 82565; 83735; 83970; 84100; 84153; 84156; 84443; 84520; 85025; 87086

== ENCOUNTER → 2022-07-13 10:55 | Outpatient (BNVA) | payer MEDICARE, OTHER, SELFPAY | PROVIDERS: PCP Physician Assistant; Visit Provider Internal Medicine | DX: Z21 Asymptomatic human immunodeficiency virus [HIV] infection status (principal); Z79.899 Other long term (current) drug therapy | CPT/HCPCS: Q3014 ==

== ENCOUNTER → 2022-07-22 13:11 | Outpatient (BNVA) | payer MEDICARE, OTHER, SELFPAY | PROVIDERS: PCP Physician Assistant; Visit Provider Urology | DX: N40.1 Benign prostatic hyperplasia with lower urinary tract symptoms (principal); N13.8 Other obstructive and reflux uropathy; N20.0 Calculus of kidney; N32.0 Bladder-neck obstruction; N52.1 Erectile dysfunction due to diseases classified elsewhere; B20 Human immunodeficiency virus [HIV] disease; E08.9 Diabetes mellitus due to underlying condition without complications; N18.9 Chronic kidney disease, unspecified; Z79.01 Long term (current) use of anticoagulants; Z79.899 Other long term (current) drug therapy | CPT/HCPCS: 99212 ==

== ENCOUNTER → 2022-08-04 12:40 | Outpatient (BNVA) | payer MEDICARE, OTHER, SELFPAY | PROVIDERS: PCP Physician Assistant; Referring Provider Physician Assistant; Visit Provider Nurse Practitioner Family | DX: I48.11 Longstanding persistent atrial fibrillation (principal); I12.9 Hypertensive chronic kidney disease with stage 1 through stage 4 chronic kidney disease, or unspecified chronic kidney disease; N18.32 Chronic kidney disease, stage 3b; R93.1 Abnormal findings on diagnostic imaging of heart and coronary circulation | CPT/HCPCS: 93005; 99212 ==

== ENCOUNTER 2022-08-12 13:11 | Outpatient (REF) | payer MEDICARE, OTHER, SELFPAY ==
[2022-08-16 10:23] LABS: Carbohydrate Antigen 19-9 30 U/mL (<34)
[2022-08-19 13:28] LABS: Alpha Fetoprotein 5.5 ng/mL (<6.1)
== END 2022-08-12 13:12 | disposition home or self-care (01) ==
LOC: HO.LAB 13:11
PROVIDERS: PCP Physician Assistant; Visit Provider Internal Medicine
DX: K74.69 Other cirrhosis of liver (principal); D49.0 Neoplasm of unspecified behavior of digestive system
CPT/HCPCS: 36415; 82105; 86301

== ENCOUNTER 2022-09-19 12:38 | Outpatient (REF) | payer MEDICARE, OTHER, SELFPAY ==
--- NOTE | ~2022-09-19 | MR_ITS ---
EXAMINATION: MR ABDOMEN WITHOUT AND WITH CONTRAST CLINICAL INFORMATION: Cirrhosis. Follow up pancreatic cysts. COMPARISON: Previous MRI of the abdomen August 2020. TECHNIQUE: MR abdomen was performed without and with use of 10 mL intravenous Gadavist gadolinium contrast. Postcontrast images are performed in multiphase dynamic sequences. Imaging was performed in 3 planes. FINDINGS: LUNG BASES: The visualized lung bases are unremarkable. LIVER, GALLBLADDER, AND BILIARY TREE: The liver is cirrhotic. There is mild fatty infiltration of the liver. No focal liver lesion. The gallbladder has been removed. There is no intrahepatic or extrahepatic biliary duct dilatation. PANCREAS: There are several small cysts seen in the pancreas. Largest cysts measure 1.1 x 1.3 cm in the head of the pancreas and 0.9 x 1.3 cm in the body. There are several additional smaller cysts. Cysts abut the main pancreatic duct. The main pancreatic duct does not appear dilated. No solid component, abnormal enhancement, wall thickening or septation appreciated. Appearance is not appreciably changed from 2020 MRI. SPLEEN: Normal. ADRENAL GLANDS: Normal. KIDNEYS AND URETERS: There are multiple right renal cysts. Largest cyst measures 6.8 cm exophytic to the upper pole of the right kidney. There is a 1.3 cm lesion in the lower pole of the right kidney. It is heterogeneous in signal on T1-weighted sequences. This has a high attenuation T1, low-attenuation T2 fluid level. Evaluation for enhancement is difficult due to intrinsic high signal on T1-weighted sequences; however, no definite enhancement is appreciated. This is not included in the [id number] on 2020 imaging and difficult to compare. The remainder of the cysts represent simple cysts. No imaging follow up recommended. The left kidney is normal. GASTROINTESTINAL TRACT: No bowel obstruction. No ascites or fluid collection. ABDOMINAL WALL: Small umbilical hernia containing fat. LYMPH NODES: No lymphadenopathy. VASCULAR: Small paraesophageal and upper abdominal varices. The hepatic veins and portal veins are patent. The abdominal aorta is normal in caliber. OSSEOUS STRUCTURES: Marrow signal normal. Degenerative disc disease of the spine. MR/MR abdomen wo/w con IMPRESSION: Cirrhotic-appearing liver. No focal liver lesion. Stable pancreatic cysts. Continued annual MR imaging follow up from original exam for total of 5 years from initial exam to ensure stability recommended. Bilateral renal cysts including a 1.3 cm complex cyst in the lower pole of the right kidney. This could be followed at the time of pancreatic cyst imaging.
== END 2022-09-19 12:39 | disposition home or self-care (01) ==
LOC: HO.MRI 12:38
PROVIDERS: PCP Physician Assistant; Visit Provider Internal Medicine
DX: K74.69 Other cirrhosis of liver (principal); D49.0 Neoplasm of unspecified behavior of digestive system
CPT/HCPCS: 74183; A9585

== ENCOUNTER 2022-12-22 11:03 | Outpatient (REF) | payer MEDICARE, OTHER, SELFPAY ==
[2022-12-24 19:08] LABS: HIV RNA PCR Qn Copies NOT DETECTED copies/mL (NOT DETECTED); HIV RNA PCR Qn Log Copies NOT DETECTED (NOT DETECTED)
[2022-12-26 08:09] LABS: Absolute CD3 Count 1899 cells/uL (840-3060); Absolute CD4 Count 729 cells/uL (490-1740); Absolute CD8 Count 1205 cells/uL (180-1170); Absolute Lymphocytes 2259 cells/uL (850-3900); Percent CD3 Cells 84 % (57-85); Percent CD4 Cells 32 % (30-61); Percent CD8 Cells 53 % (12-42)
== END 2022-12-22 11:04 | disposition home or self-care (01) ==
LOC: HO.LAB 11:03
PROVIDERS: PCP Physician Assistant; Visit Provider Internal Medicine
DX: B20 Human immunodeficiency virus [HIV] disease (principal)
CPT/HCPCS: 36415; 86359; 86360; 87536

== ENCOUNTER 2023-01-11 13:00 | Outpatient (REF) | payer MEDICARE, OTHER, SELFPAY ==
[2023-01-11 14:00] LABS: MANUAL DIFF FLAG NO
[2023-01-11 15:16] LABS: Basophils Absolute Auto 0.1 X10*3/uL (0.0-0.2); Basophils Percent Auto 0.8 % (0-2); Eosinophils Absolute Auto 0.1 X10*3/uL (0.0-0.4); Eosinophils Percent Auto 1.7 % (0-4); Hematocrit 44.4 % (42.0-52.0); Hemoglobin 14.8 g/dl (14.0-18.0); Imm Gran Abs Auto 0.02 X10*3/uL (0.00-0.03); Imm Gran Pct Auto 0.3 % (0.0-0.4); Lymphocytes Absolute Auto 2.4 X10*3/uL (1.2-4.9); Lymphocytes Percent Auto 31.8 % (20-40); Mean Corpuscular HGB Conc 33.3 g/dl (31.0-36.0); Mean Corpuscular Hemoglobin 32.5 pg (27.0-33.0); Mean Corpuscular Volume 97.6 fL (80.0-98.0); Mean Platelet Volume 11.1 fL (9.4-12.4); Monocytes Absolute Auto 0.7 X10*3/uL (0.1-1.2); Monocytes Percent Auto 9.1 % (2-11); Neutrophils Absolute Auto 4.2 x10*3/uL (2.0-8.3); Neutrophils Percent Auto 56.3 % (45-73); Platelet Count 135 X10*3/uL (160-400); Red Blood Count 4.55 X10*6/uL (4.60-5.80); Red Cell Distribution Width 12.3 % (11.0-16.0); White Blood Count 7.5 X10*3/uL (4.8-10.8)
[2023-01-11 15:37] LABS: Anion Gap 14 (12-20); Blood Urea Nitrogen 19 mg/dL (9-16); Calcium 9.4 mg/dL (8.4-10.2); Carbon Dioxide 22 mmol/L (22-29); Chloride 108 mmol/L (96-108); Estimated Glomerular Filt Rate 43; Glucose Random 88 mg/dL (60-115); Potassium 4.2 mmol/L (3.3-5.1); Sodium 140 mmol/L (135-145)
[2023-01-11 16:20] LABS: Appearance Urine Clear; Color Urine Yellow; Glucose Urine UA Negative (Negative); Leukocyte Esterase Urine Trace (Negative); Nitrite Urine Negative (Negative); PH 6.5 (5.0-9.0); Specific Gravity - Urine 1.015 (1.005-1.025); UMIC TRIGGER UA YES; Urine Blood Negative (Negative); Urine Ketones Negative (Negative); Urine Protein 100 (2+) mg/dL (Neg-Trace)
[2023-01-11 16:25] LABS: Bacteria Urine None Seen (None Seen); Hyaline Casts Urine 0-2 /LPF (0-2); RBC Urine 0-2 /HPF (0-2); Squamous Epithelial Cell Urine 0-2 /HPF (0-2); WBC Urine 0-5 /HPF (0-5)
[2023-01-11 16:47] LABS: Creatinine Urine 70.08 mg/dL; Microalbum/Creatinine Ratio Ur 566.4 ug/mg cr (<30)
== END 2023-01-11 13:01 | disposition home or self-care (01) ==
LOC: HO.LAB 13:00
PROVIDERS: PCP Physician Assistant; Visit Provider Internal Medicine
DX: B20 Human immunodeficiency virus [HIV] disease (principal); N18.9 Chronic kidney disease, unspecified
CPT/HCPCS: 36415; 80048; 81001; 82043; 82570; 85025; 99212

== ENCOUNTER 2023-01-11 13:00 | Outpatient (AMB) | payer MEDICARE, OTHER, SELFPAY ==
--- NOTE | 2023-01-11 13:02 | MHC.OFFVIS ---
Intake Vital Signs 01/11/23 13:15 Height 5 ft 11 in Weight 238 lb BMI 33.2 BP 139/64 Blood Pressure Location Rt brachial Position Sitting Pulse 63 Pulse Source Pulse Oximeter Pulse Oximetry (%) 99 Intake Visit Reasons: F/U-6 mth. Allergies clarithromycin [From BIAXIN] Allergy (Unknown, Verified 09/28/22 15:11) ANAPHYLAXIS HPI F/U-6 mth. HPI Details He is doing well with CD4 count 729 and viral load undetectable on 12/22. He is UTD on health care issues. He has no complaints. 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 Mother No problems noted. Social History Housing: House Alcohol intake: never Patient Tobacco Use Status: Never used Tobacco e-Cigarette/Vaping Use: Never Used Current occupational status: retired Cognitive needs: No Hearing needs: No Vision needs: No Review of Systems Const All systems reviewed & are unremarkable except as noted in HPI and below Physical Exam Vital Signs: Last Vital Signs Pulse 63 01/11/23 13:15 BP 139/64 01/11/23 13:15 Pulse Ox 99 01/11/23 13:15 BMI result Body Mass Index 33.2 Const General: cooperative Orientation/consciousness: patient oriented x3 HEENT Head: Yes normal to inspection Mouth: Normal oral and palatal mucosa present Eyes General: appearance normal, both eyes and all related structures Pupils: Equal, round and reactive pupils present Resp Effort & Inspection: normal respiratory effort Cardio Rate: regular rate Rhythm: regular rhythm GI Palpation (GI): Soft to palpation and nontender General: Yes no CVA tenderness Back/Spine/Pelvis Back: no CVA tenderness Skin General skin exam: no rashes or lesions noted Neuro General: patient oriented x3 Cranial nerves: Yes CN's II-XII intact bilaterally and Yes Equal, round and reactive pupils present Extrem General: Yes normal to inspection Psych Appearance: grossly normal Assessment & Plan Assessment & Plan (1) HIV (human immunodeficiency virus infection): Comment: He is doing well with viral load undetectable, His renal function is no worse. He also has some osteoporosis he is addressing. Code(s): B20 - Human immunodeficiency virus [HIV] disease Qualifiers: HIV symptom status: currently asymptomatic, with history of HIV-related illness Qualified Code(s): B20 - Human immunodeficiency virus [HIV] disease Plan: Continue abacavir,dolutegravir and lamivudine. See in six months with labs before. Labs ordered for five months and six months medication ordered today. Orders: Orders Basic Metabolic Panel 01/11/23 N18.9 - Chronic kidney disease, unspecified Complete Blood Count Auto Diff 01/11/23 N18.9 - Chronic kidney disease, unspecified UA and rflx microscopic 01/11/23 N18.9 - Chronic kidney disease, unspecified HIV-1 RNA QN PCR Expanded 5 Months B20 - Human immunodeficiency virus [HIV] disease Microalbumin, Random (w Creat) 01/11/23 N18.9 - Chronic kidney disease, unspecified Lymphocyte Subset Panel 3 5 Months B20 - Human immunodeficiency virus [HIV] disease Basic Metabolic Panel 5 Months B20 - Human immunodeficiency virus [HIV] disease Liver Panel 5 Months B20 - Human immunodeficiency virus [HIV] disease Syphilis Screen 5 Months B20 - Human immunodeficiency virus [HIV] disease Complete Blood Count Auto Diff 5 Months B20 - Human immunodeficiency virus [HIV] disease Medications: Refilled dolutegravir 50 mg PO DAILY 90 tabs 1RF 90 days abacavir 600 mg (2 x 300 mg) PO DAILY 90 days 180 tabs 1RF lamivudine 100 mg PO DAILY 90 days 90 tabs 1RF Coding Level of Care Code Est Pt Level 3 (22989) Diagnoses Currently asymptomatic HIV infection, with history of HIV-related illness B20 HIV symptom status: currently asymptomatic, with history of HIV-related illness
[2023-01-11 13:15] VITALS: BP 139/64; PULSE 63; O2SAT 99; BMI 33.2
== END 2023-01-11 14:45 | disposition home or self-care (01) ==
PROVIDERS: PCP Physician Assistant; Visit Provider Internal Medicine
DX: B20 Human immunodeficiency virus [HIV] disease (principal)
CPT/HCPCS: 99213

== ENCOUNTER → 2023-01-27 12:36 | Outpatient (REF) | payer MEDICARE, OTHER, SELFPAY ==
--- NOTE | 2023-01-27 12:39 | CA_ITS ---
Transthoracic Echocardiogram Patient (Last, First, Middle): Jarod An, Gender: Male Date of : 1940 Age: 82 Procedure Date: 01/27/2023 Procedure Type: Transthoracic Echocardiogram Location: OP Height: 180.34 cm Weight: 117.94 kg BSA: 2.36 m2 Heart Rate: 49 bpm BP: 138 / 70 mmHg Assurance Associate: CAMILO/JAKE Referring MD: Molly Avelar FILM WASHERGabriela Symptoms: I48.91 - Unspecified atrial fibrillation Study Quality: Adequate ECG Rhythm: Atrial Fibrillation Conclusions: - The left ventricular systolic function is normal. The calculated ejection fraction is 69% by biplane method. - No obvious valvular pathology seen on this study. Findings Left Ventricle Normal left ventricular cavity size. There is mildly increased left ventricular wall thickness. The left ventricular systolic function is normal. The calculated ejection fraction is 69% by biplane method. There is no evidence of regional wall motion abnormalities. Diastolic function is indeterminate on the basis of available data. Right Ventricle Mildly increased right ventricular cavity size. There is normal right ventricular systolic function. Atria The left atrium is mildly dilated. The right atrium is normal in size. Aortic Valve There is a normal trileaflet aortic valve. There is mild calcification of the aortic valve. There is no aortic valve stenosis. There is trace (trivial) aortic valve regurgitation. Mitral Valve The mitral valve appears normal. There is trace mitral valve regurgitation. There is no mitral valve stenosis. Pulmonic Valve There is trace pulmonic valve regurgitation. Tricuspid Valve There is mild tricuspid valve regurgitation. There is no evidence of pulmonary hypertension. Great Vessels The asc aorta is normal in size. Venous The inferior vena cava is normal in size and collapses greater than 50% with inspiration. Pericardium/Pleural There is no evidence of pericardial effusion. Prior Study Comparison No significant change compared to prior study dated: 01/11/2021. Recommendations, Care & Conclusions No obvious valvular pathology seen on this study. Measurements 2D Linear Measurements IVSd: 1.22 0.6-0.9/0.6-1.0 cm LVIDd: 4.53 3.9-5.3/4.2-5.9 cm LVIDd Index: 1.92 2.4-3.2/2.2-3.1 cm/m2 LVIDs: 3.49 2.0-3.6 cm LVPWd: 1.32 0.7-1.1 cm LA Diam: 4.40 2.7-3.8/3.0-4.0 cm LAIDs Index: 1.86 1.5-2.3 cm/m2 LV Mass: 270.85 67-162/88-224 g LV Mass Index: 114.77 43-95/49-115 g/m2 LVOT Diam: 2.30 3.0+(-)1.3 cm 2D Systolic Function EF 4C: 65.10 >55% EF 2C: 68.80 >55% EF BiP: 68.90 >55% Mitral Valve MV Pk E: 1.04 MV Decel Time: 188.00 E'Lateral: 10.70 E/E' Lat: 9.70 Aortic Valve AoV Pk Jhon: 1.22 AoV Pk Grad: 6.00 FREDY: 3.27 LVOT LVOT Pk Jhon: 0.96 LVOT Mn Jhon: 0.65 LVOT VTI: 0.22 LVOT Pk Grad: 4.00 LVOT Mn Grad: 2.00 LVOT Diam: 2.30 LVOT Area: 4.15 Diastolic Function MV Pk E: 1.04 E' Laterial: 10.70 E/E' Lat: 9.70 Right Ventricle TAPSE (mm): 17.30 TVS' Jhon: 10.60 Tricuspid Valve TR Pk Jhon: 2.55 TR Pk Grad: 26.00 RA Press: 3.00 RVSP: 29.00 Great Vessels Aorta Sinus of Valsalva: 3.70 2.0-3.5 cm Ao Asc: 3.90 2.1-3.4 cm Pulmonary Valve PV Pk Jhon: 0.69 Peak PV Grad: 2.00 Updated in Other Vendor System with Status of Final Elier Chiang MD electronically signed on 01/28/2023 2:19:49 PM with status of Final
== END ==
LOC: HO.CARD 12:36
PROVIDERS: PCP Physician Assistant; Visit Provider Nurse Practitioner Family
DX: I48.91 Unspecified atrial fibrillation (principal); I10 Essential (primary) hypertension
CPT/HCPCS: 93306

== ENCOUNTER → 2023-01-27 12:39 | Outpatient (BNV) | payer MEDICARE, OTHER, SELFPAY | PROVIDERS: PCP Physician Assistant; Visit Provider Internal Medicine | DX: I36.1 Nonrheumatic tricuspid (valve) insufficiency (principal); I35.8 Other nonrheumatic aortic valve disorders | CPT/HCPCS: 93306 ==

== ENCOUNTER 2023-01-30 08:27 | Outpatient (REF) | payer MEDICARE, OTHER, SELFPAY ==
[2023-01-30 08:56] LABS: MANUAL DIFF FLAG NO
[2023-01-30 09:39] LABS: Basophils Absolute Auto 0.1 X10*3/uL (0.0-0.2); Basophils Percent Auto 0.8 % (0-2); Eosinophils Absolute Auto 0.2 X10*3/uL (0.0-0.4); Eosinophils Percent Auto 2.5 % (0-4); Hemoglobin 16.1 g/dl (14.0-18.0); Imm Gran Abs Auto 0.02 X10*3/uL (0.00-0.03); Imm Gran Pct Auto 0.3 % (0.0-0.4); Lymphocytes Absolute Auto 2.2 X10*3/uL (1.2-4.9); Lymphocytes Percent Auto 30.7 % (20-40); Mean Corpuscular HGB Conc 33.5 g/dl (31.0-36.0); Mean Corpuscular Hemoglobin 32.8 pg (27.0-33.0); Mean Corpuscular Volume 97.8 fL (80.0-98.0); Mean Platelet Volume 10.6 fL (9.4-12.4); Monocytes Absolute Auto 0.6 X10*3/uL (0.1-1.2); Monocytes Percent Auto 8.6 % (2-11); Neutrophils Absolute Auto 4.1 x10*3/uL (2.0-8.3); Neutrophils Percent Auto 57.1 % (45-73); Platelet Count 149 X10*3/uL (160-400); Red Blood Count 4.91 X10*6/uL (4.60-5.80); Red Cell Distribution Width 12.4 % (11.0-16.0); White Blood Count 7.2 X10*3/uL (4.8-10.8)
[2023-01-30 09:49] LABS: Appearance Urine Clear; Color Urine Yellow; Glucose Urine UA Negative (Negative); Leukocyte Esterase Urine Negative (Negative); Nitrite Urine Negative (Negative); PH 6.5 (5.0-9.0); Specific Gravity - Urine 1.015 (1.005-1.025); UMIC TRIGGER UA YES; Urine Blood Negative (Negative); Urine Ketones Negative (Negative); Urine Protein 100 (2+) mg/dL (Neg-Trace)
[2023-01-30 09:51] LABS: Bacteria Urine None Seen (None Seen); Hyaline Casts Urine 0-2 /LPF (0-2); Squamous Epithelial Cell Urine 0-2 /HPF (0-2); WBC Urine 0-5 /HPF (0-5)
[2023-01-30 10:15] LABS: Alanine Aminotransferase 23 U/L (0-40); Albumin Level 3.8 g/dL (3.5-5.0); Alkaline Phosphatase 58 U/L (39-117); Anion Gap 13 (12-20); Aspartate Amino Transferase 29 U/L (5-37); Blood Urea Nitrogen 20 mg/dL (9-16); Calcium 9.6 mg/dL (8.4-10.2); Carbon Dioxide 25 mmol/L (22-29); Chloride 108 mmol/L (96-108); Cholesterol 170 mg/dL (<200); Estimated Glomerular Filt Rate 37; Glucose Fasting 134 mg/dL (60-99); HDL Cholesterol 68 mg/dL (>40); LDL Cholesterol Calculated 85 mg/dL (<100); Potassium 4.9 mmol/L (3.3-5.1); Sodium 141 mmol/L (135-145); Total Protein 7.7 g/dL (6.5-8.0); Triglycerides 87 mg/dL (<150)
[2023-01-30 10:33] LABS: Albumin Level 3.8 g/dL (3.5-5.0); Anion Gap 13 (12-20); Blood Urea Nitrogen 21 mg/dL (9-16); Calcium 9.7 mg/dL (8.4-10.2); Carbon Dioxide 26 mmol/L (22-29); Chloride 108 mmol/L (96-108); Estimated Glomerular Filt Rate 36; Magnesium 2.1 mg/dL (1.6-2.6); Phosphorus 3.9 mg/dL (2.7-4.5); Potassium 4.8 mmol/L (3.3-5.1); Sodium 142 mmol/L (135-145)
[2023-01-30 11:27] LABS: Creatinine Urine 72.71 mg/dL; Microalbum/Creatinine Ratio Ur 504.7 ug/mg cr (<30); Total Protein Urine Random 51 mg/dL (<12)
[2023-01-31 18:13] LABS: PTHI 120 pg/mL (16-77)
== END 2023-01-30 08:28 | disposition home or self-care (01) ==
LOC: HO.LAB 08:27
PROVIDERS: Internal Medicine Nephrology; PCP Physician Assistant; Visit Provider Physician Assistant
DX: I12.9 Hypertensive chronic kidney disease with stage 1 through stage 4 chronic kidney disease, or unspecified chronic kidney disease (principal); E11.22 Type 2 diabetes mellitus with diabetic chronic kidney disease; N18.32 Chronic kidney disease, stage 3b; E11.65 Type 2 diabetes mellitus with hyperglycemia; R80.1 Persistent proteinuria, unspecified
CPT/HCPCS: 36415; 80051; 80053; 80061; 81001; 82040; 82043; 82306; 82310; 82565; 82570; 83735; 83970; 84100; 84156; 84520; 85025; 87086

== ENCOUNTER 2023-02-02 12:39 | Outpatient (AMB) | payer MEDICARE, OTHER, SELFPAY ==
[2023-02-02 12:45] VITALS: BP 106/62; PULSE 52; BMI 32.2
--- NOTE | 2023-02-02 12:45 | MHC.OFFVIS ---
Intake Vital Signs 02/02/23 12:45 Height 5 ft 11 in Weight 230 lb 9.656 oz BMI 32.2 BP 106/62 Blood Pressure Location Lt brachial Position Sitting Pulse 52 Pulse Source Pulse Oximeter Intake Visit Reasons: 6 month f/u after echo Intake Note: 6 month f/u after echo Dining Room Captain Required: No Allergies clarithromycin [From BIAXIN] Allergy (Unknown, Verified 02/02/23 12:48) ANAPHYLAXIS Medication List - Last Reconciled 02/02/23 by NINO CoyneC abacavir 600 mg (2 x 300 mg) PO DAILY 90 days Advair Diskus 100-50 mcg/dose (fluticasone propion-salmeterol) 1 ea PO BID NS apixaban (Eliquis) 2.5 mg PO BID atorvastatin 20 mg PO BEDTIME dolutegravir 50 mg PO DAILY 90 days ergocalciferol (vitamin D2) 1,250 mcg PO QWEEK finasteride 5 mg orally take on Mondays, Wednesdays, Fridays; Take medication Monday, Monday, Monday 90 days finerenone (Kerendia) 10 mg PO DAILY furosemide 40 mg PO BID lamivudine 100 mg PO DAILY 90 days losartan 100 mg PO DAILY metformin 500 mg PO DAILY metoprolol succinate ER 25 mg PO DAILY tamsulosin 0.4 mg PO BEDTIME HPI 6 month f/u after echo HPI Details Jarod is an 82-year-old male with past medical history of hypertension, hyperlipidemia, diabetes, chronic kidney disease, HIV, paroxysmal AFib who presents for follow-up. Today he reports feeling well with no concerning symptoms. He denies chest discomfort at rest or with activity. No shortness of breath, PND, orthopnea or edema. His prior ankle edema has been improved recently. He is trying to cut back his Lasix. No presyncope, syncope, falls. No bleeding issues reported. He remains active each day. He does take a nap daily which is his norm. His HIV has remained stable. He follows closely with Dr. Garcia for GI, Dr. Ruiz for Nephrology and Dr. Ashton. 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 Mother No problems noted. Social History Housing: House Alcohol intake: never Patient Tobacco Use Status: Never used Tobacco e-Cigarette/Vaping Use: Never Used Current occupational status: retired Cognitive needs: No Hearing needs: No Vision needs: No Review of Systems Const All systems reviewed & are unremarkable except as noted in HPI and below ENT Denies dizziness Card Denies chest pain, Denies chest pain at rest, Denies chest pain with activity, Denies rapid heart rate, Denies pedal edema, Denies edema, Denies leg edema, Denies lightheadedness, Denies palpitations, Denies dyspnea, Denies dyspnea on exertion and Denies orthopnea Resp Denies cough, Denies dyspnea and Denies dyspnea on exertion GI Denies hematochezia and Denies change in stool character Musc Denies abnormal gait, Denies limited range of motion, Denies muscle cramps, Denies muscle weakness, Denies numbness, Denies radiating pain into limb, Denies stiffness and Denies tingling Neuro Denies abnormal gait, Denies dizziness, Denies numbness and Denies tingling Endo Denies palpitations Physical Exam Vital Signs: Last Vital Signs Pulse 52 02/02/23 12:45 BP 106/62 02/02/23 12:45 BMI result Body Mass Index 32.2 Const General: cooperative, healthy appearing, comfortable and no acute distress Orientation/consciousness: patient oriented x3 Neck Neck: Yes normal visual inspection and Yes no JVD Resp Effort & Inspection: normal respiratory effort Auscultation: clear to auscultation bilaterally, no crackles, no rales, no rhonchi and no wheezes Cardio Jugular venous distension: no JVD Rate: regular rate Rhythm: abnormal rhythm Heart sounds: S1 normal heart sound present, S2 normal heart sound present, no murmurs and no rubs Neuro General: patient oriented x3 Extrem Other: trace ankle edema Psych Appearance: grossly normal Mental Status: mental status grossly normal Speech and movement: Normal speech and movement present Assessment & Plan Assessment & Plan (1) Afib: Code(s): I48.91 - Unspecified atrial fibrillation Qualifiers: Atrial fibrillation type: longstanding persistent Qualified Code(s): I48.11 - Longstanding persistent atrial fibrillation Plan: Chronic atrial fibrillation, asymptomatic. On Metoprolol for heart rate control. EKG last visit showed Afib, RBBB, inferior Q waves, poor R-wave progression unchanged from prior, rate 51. No report of dizziness, weakness. At that time his metoprolol was reduced from from 25 mg b.i.d. to XL 25 mg daily. He has been on Eliquis 2.5 mg b.i.d. which is the appropriate dose for his age and creatinine. 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 No bleeding problems reported. He has not had any neurological events. Echocardiogram done 01/27/2023 showing EF 69%, no valve abnormalities and no regional wall motion abnormalities, overall no change from last. Continue current metoprolol and Eliquis. Cardiology followup in 6 months, sooner if needed. (2) HTN (hypertension): Code(s): I10 - Essential (primary) hypertension Qualifiers: Hypertension type: essential hypertension Qualified Code(s): I10 - Essential (primary) hypertension Plan: Well controlled. He is on metoprolol and losartan. He does have CKD. Last labs 01/30/23 shows Creat 1. 78, typically runs between 1.6-1.8. He tells me he has upcoming follow-up with his senior loan processor Dr. Ruiz. Instructed to review blood pressure medications with Dr. Ruiz to ensure that taking losartan is still appropriate for him. (3) CKD (chronic kidney disease): Code(s): N18.9 - Chronic kidney disease, unspecified Qualifiers: Chronic kidney disease stage: stage 3 (moderate) Chronic kidney disease stage 3 subtype: stage 3b (GFR 30-44) Qualified Code(s): N18.32 - Chronic kidney disease, stage 3b Plan: Follows with Dr Ruiz. (4) Abnormal echocardiogram findings without diagnosis: Code(s): R93.1 - Abnormal findings on diagnostic imaging of heart and coronary circulation Plan: Echo done 01/11/21 shows EF 55-60%, mild TR, mild pulm HTN, basal inferior akinetic - the report does state that the WMA was noted on review of the prior echo images. . Nuclear stress test 02/15/17 showed normal myocardial perfusion imaging. No report of anginal sounding symptoms. A repeat echocardiogram was done 01/27/2023 which shows normal EF and no regional wall motion abnormalities. Patient informed. Coding Level of Care Code Est Pt Level 4 (84731) Diagnoses Longstanding persistent atrial fibrillation I48.11 Atrial fibrillation type: longstanding persistent Essential hypertension I10 Hypertension type: essential hypertension Stage 3b chronic kidney disease N18.32 Chronic kidney disease stage: stage 3 (moderate) Chronic kidney disease stage 3 subtype: stage 3b (GFR 30-44) Abnormal echocardiogram findings without diagnosis R93.1 Time Spent (min) 26
== END 2023-02-02 13:13 | disposition home or self-care (01) ==
PROVIDERS: Visit Provider Nurse Practitioner Family
DX: I48.11 Longstanding persistent atrial fibrillation (principal); I10 Essential (primary) hypertension; N18.32 Chronic kidney disease, stage 3b; R93.1 Abnormal findings on diagnostic imaging of heart and coronary circulation
CPT/HCPCS: 99214

== ENCOUNTER → 2023-02-02 12:39 | Outpatient (BNVA) | payer MEDICARE, OTHER, SELFPAY | PROVIDERS: Visit Provider Nurse Practitioner Family | DX: R93.1 Abnormal findings on diagnostic imaging of heart and coronary circulation (principal); I48.11 Longstanding persistent atrial fibrillation; E11.22 Type 2 diabetes mellitus with diabetic chronic kidney disease; I12.9 Hypertensive chronic kidney disease with stage 1 through stage 4 chronic kidney disease, or unspecified chronic kidney disease; N18.32 Chronic kidney disease, stage 3b; Z21 Asymptomatic human immunodeficiency virus [HIV] infection status | CPT/HCPCS: 99212 ==

== ENCOUNTER 2023-02-28 14:04 | Outpatient (AMB) | payer MEDICARE, OTHER, SELFPAY ==
[2023-02-28 14:34] VITALS: BP 140/80; PULSE 60; O2SAT 98; BMI 32.4
--- NOTE | 2023-02-28 14:34 | A.OFFPC_ITS ---
Vital Signs 02/28/23 14:34 Height 5 ft 11 in Weight 232 lb BMI 32.4 BP 140/80 H Blood Pressure Location Lt brachial Position Sitting Pulse 60 Pulse Source Pulse Oximeter Pulse Oximetry (%) 98 Oxygen Delivery Method Room Air Intake Visit Reasons: f/u DMII/ HTN Motor Hotel Manager Required: No Accompanied by: Self / Same As Patient Allergies clarithromycin [From BIAXIN] Allergy (Unknown, Verified 02/28/23 15:19) ANAPHYLAXIS Medication List - Last Reconciled 02/28/23 by Arnaldo Nichols PA-C abacavir 600 mg (2 x 300 mg) PO DAILY 90 days Advair Diskus 100-50 mcg/dose (fluticasone propion-salmeterol) 1 ea PO BID NS apixaban (Eliquis) 2.5 mg PO BID atorvastatin 20 mg PO BEDTIME dolutegravir 50 mg PO DAILY 90 days ergocalciferol (vitamin D2) 1,250 mcg PO QWEEK finasteride 5 mg orally take on Mondays, Wednesdays, Fridays; Take medication Monday, Monday, Monday 90 days finerenone (Kerendia) 20 mg PO DAILY furosemide 40 mg PO BID lamivudine 100 mg PO DAILY 90 days losartan 100 mg PO DAILY metformin 500 mg PO DAILY metoprolol succinate ER 25 mg PO DAILY tamsulosin 0.4 mg PO BEDTIME Tobacco use date assessed: 09/28/22 Fall risk assessment: No Falls in past year Last assessed Fall Risk: 02/28/23 Dental Screening Dental Screen Date: 02/28/23 Did you have a dental visit in the last 12 months?: Yes Did you have a dental problem in the last 6 months where you did not have access to dental care?: No Was dental information given to patient?: Patient has dentist HPI f/u DMII/ HTN HPI Details Patient is a 82 year old male here today for a follow-up visit.? Patient has a past medical history significant for HIV, hypertension, obstructive uropathy with Stent placement, CKD stage 3, paroxysmal AFIB. ? .. ? AFIB: Followed by cardiology.? Has been stable without any reports of palpitations, overt bleeding. ? .. ? CKD stage 3:? Most recent creatinine 1.8 ?Patient is followed by scraper tender (Dr. Ruiz), most recent microalbumin elevated. Lower extremity edema has been improved. Now using lower doses Lasix. Has been started on currently a at higher dose for renal protection. ? .. ? HIV: Patient is followed by infectious disease specialist and reports his HIV viral load has been undetectable.? Patient's CD4 count also monitored by Infectious Disease specialist ? . ? ? Type 2 diabetes:? Patient's diabetes has been better controlled as of late.? Most recent A1c is 6.4. 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 Mother No problems noted. Housing: House Alcohol intake: never Patient Tobacco Use Status: Never used Tobacco e-Cigarette/Vaping Use: Never Used Current occupational status: retired Cognitive needs: No Hearing needs: No Vision needs: No Questionnaire Thrive Questionnaire Date Thrive assessed: 02/08/22 DORY-7 AMB Questionnaire DORY-7 Date DORY - 7 assessed: 08/25/22 Source: Developed by Drs. Joel L. Maday Parks, Matthew Choudhury and colleagues, with an educational ricky from [employer]. ACT Questionnaire In the past 4 weeks, how much of the time did your asthma keep you from getting as much done at work, school or at home?: A little of the time During the past 4 weeks, how often have you had shortness of breath?: 1-2 times a week During the past 4 weeks, how often did your asthma symptoms wake you up at night or earlier than usual in the morning?: Not at all During the past 4 weeks, how often have you had to use your rescue inhaler or nebulizer medication?: Not at all How would you rate your asthma control during the past 4 weeks?: Completely controlled Score: 23 Review of Systems Const Denies headache(s) Eyes Denies loss of vision ENT Denies vertigo, Denies dizziness, Denies headache(s) and Denies sore throat Card Denies chest pain, Denies leg edema and Denies lightheadedness Resp Denies cough, Denies hemoptysis and Denies wheezing GI Denies abdominal pain, Denies melena, Denies constipation, Denies diarrhea and Denies vomiting Denies dysuria, Denies urinary frequency and Denies urinary urgency Musc Denies arthralgias, Denies joint swelling, Denies numbness and Denies tingling Neuro Denies Abnormal speech present, Denies behavioral changes, Denies vertigo, Denies dizziness, Denies headache(s), Denies loss of vision, Denies memory loss, Denies numbness and Denies tingling Psych Denies anxiety, Denies behavioral changes, Denies depression, Denies memory loss and Denies panic attacks Kiko/Lymph Denies easy bleeding and Denies easy bruising Aller/Immun Denies wheezing Physical exam (Primary Care) Vital Signs: Last Vital Signs Pulse 60 02/28/23 14:34 BP 140/80 H 02/28/23 14:34 Pulse Ox 98 02/28/23 14:34 Oxygen Delivery Method Room Air 02/28/23 14:34 BMI result Body Mass Index 32.4 BMI Assessment/Plan discussion: High Tobacco/Smoking Status: Tobacco use Status Tobacco use date assessed 09/28/22 02/28/23 14:36 Patient Tobacco Use Status Never used Tobacco 02/28/23 14:36 e-Cigarette/Vaping Use Never Used 02/28/23 14:36 Thrive Assessment: Date of Thrive Assessment Date Thrive assessed 02/08/22 02/28/23 14:36 Const Other: Obese General: healthy appearing, no acute distress, alert and awake Nutritional Appearance: well nourished Orientation/consciousness: oriented to person, oriented to place and oriented to time HENMT Ears: TM's normal bilaterally General nose exam: Normal nasal mucous membranes and turbinates present Eyes Conjunctivae: conjunctivae normal Sclerae: sclerae normal Pupils: Equal, round and reactive pupils present Neck Neck: Yes no lymphadenopathy and Yes no JVD Thyroid: Thyroid normal Carotids: no bruits Resp Effort & Inspection: normal respiratory effort and not tachypneic Auscultation: no crackles, no rales, no rhonchi and no wheezes Cardio Rate: regular rate Rhythm: regular rhythm Heart sounds: no murmurs and normal S1 and S2 GI Palpation (GI): Soft to palpation, nontender, no hepatomegaly and no splenomegaly Auscultation: normal bowel sounds Skin General skin exam: no rashes or lesions noted and dry skin Neuro General: oriented to person, oriented to place and oriented to time Cranial nerves: Yes Equal, round and reactive pupils present Speech: No Abnormal speech present Gait exam (Neuro): Normal gait present Motor exam (neuro): no tremor noted Extrem Right upper extremity: full ROM Left upper extremity: full ROM Right lower extremity: full ROM; no edema Left lower extremity: full ROM; no edema Psych Mental Status: mental status grossly normal Speech and movement: Normal speech and movement present Affect: normal affect Attitude: cooperative Thought process: Normal thought process present Results AMB Hemoglobin A1c AMB Hemoglobin A1c 6.4 % Last Edit by Karla Crockett on 02/28/23 15:09 Immunizations pneumoc 20-darvin conj-dip cr(PF) 0.5 mL IM syringe Performing Provider: Arnaldo Nichols PA-C Performing Location: [facility] Administered by: JENNY Campbell on 02/28/23 15:45 Dose Route Admin Location Dispensed Lot Number Expiration Date NDC Special Needs Teacher 0.5 mL IM Right Deltoid 0.5 mL [id number] 01/08/24 8268-0452-93 [employer] VIS Given Date VIS Provided VIS Publication Date 02/28/23 Single Vaccine 21 Eligibility Eligibility Date Funding Source Not VFC Eligible 02/28/23 Private Results Reviewed Results Reviewed: Laboratory Last Values Hgb A1c (Clinic) 6.4 % (4.0-6.0) H 02/28/23 15:07 Assessment and Plan Assessment & Plan (1) DMII (diabetes mellitus, type 2): Code(s): E11.9 - Type 2 diabetes mellitus without complications Qualifiers: Diabetes mellitus complication status: with hyperglycemia Diabetes mellitus master glazier insulin use: without skilled nursing use Qualified Code(s): E11.65 - Type 2 diabetes mellitus with hyperglycemia Plan: Patient's type 2 diabetes well controlled with current anti hyperglycemic medication. Will reduce his metformin to 500 daily due to his history of CKD. Most recent A1c appropriate below 7.0. Goal A1c to remain below 7.0 (2) HIV (human immunodeficiency virus infection): Comment: He is doing well with viral load undetectable, His renal function is no worse. He also has some osteoporosis he is addressing. Code(s): B20 - Human immunodeficiency virus [HIV] disease Qualifiers: HIV symptom status: currently asymptomatic, with history of HIV-related illness Qualified Code(s): B20 - Human immunodeficiency virus [HIV] disease Plan: Continues to follow Infectious Disease. Continues on multi regiment anti viral treatment. CD4 count stable and viral load has been undetectable. (3) CKD (chronic kidney disease): Code(s): N18.9 - Chronic kidney disease, unspecified Qualifiers: Chronic kidney disease stage: stage 3 (moderate) Chronic kidney disease stage 3 subtype: stage 3b (GFR 30-44) Qualified Code(s): N18.32 - Chronic kidney disease, stage 3b Plan: Continues to follow Nephrology. Most recent creatinine at 1.8. Has been started on karendia. Will continue to avoid nephrotoxin medications. (4) HTN (hypertension): Code(s): I10 - Essential (primary) hypertension Qualifiers: Hypertension type: essential hypertension Qualified Code(s): I10 - Essential (primary) hypertension Plan: Patient's blood pressure acceptable today in office. Will continue his current antihypertensive medication dose with goal blood pressure to remain below 140/90 (5) Afib: Code(s): I48.91 - Unspecified atrial fibrillation Qualifiers: Atrial fibrillation type: longstanding persistent Qualified Code(s): I48.11 - Longstanding persistent atrial fibrillation Plan: Patient continues on renally dosed Eliquis without any overt signs of bleeding. Otherwise denies any chest pain, palpitations dizziness (6) Asthma: Code(s): J45.909 - Unspecified asthma, uncomplicated Qualifiers: Asthma complication type: uncomplicated Asthma persistence: intermittent Asthma severity: mild Qualified Code(s): J45.20 - Mild intermittent asthma, uncomplicated Plan: Patient's asthma has been well controlled with only p.r.n. use albuterol inhaler and daily use of his maintenance Advair. Would like to transition to a different maintenance inhaler due to insurance coverage.. Will start Breo . Otherwise denies any recent in asthma exacerbations for nighttime awakenings with asthma symptoms. (7) HLD (hyperlipidemia): Code(s): E78.5 - Hyperlipidemia, unspecified Qualifiers: Hyperlipidemia type: mixed hyperlipidemia Qualified Code(s): E78.2 - Mixed hyperlipidemia Plan: Patient continues on a atorvasatin 20 mg without any side effect. Most recent lipid panel showing select control of his total cholesterol and LDL. Goal LDL to remain below 100 Orders: Orders Microalbumin, Random (w Creat) 02/28/23 E78.5 - Hyperlipidemia, unspecified, I10 - Essential (primary) hypertension Comprehensive [place]. Panel Fast 02/28/23 E11.65 - Type 2 diabetes mellitus with hyperglycemia, E78.5 - Hyperlipidemia, unspecified Complete Blood Count no Diff 02/28/23 E11.65 - Type 2 diabetes mellitus with hyperglycemia, E78.5 - Hyperlipidemia, unspecified Lipid Panel 02/28/23 E11.65 - Type 2 diabetes mellitus with hyperglycemia, E78.5 - Hyperlipidemia, unspecified AMB Hemoglobin A1c 02/28/23 E11.9 - Type 2 diabetes mellitus without complications Pneumococcal 20 Immunization 02/28/23 J45.20 - Mild intermittent asthma, uncomplicated, Z23 - Encounter for immunization Medications: New fluticasone furoate-vilanterol 100-25 mcg/dose (Breo Ellipta) 1 inh inhalation DAILY 30 days 60 ea 4RF J45.20 - Mild intermittent asthma, uncomplicated Refilled apixaban (Eliquis) 2.5 mg PO BID 180 tabs 2RF Discontinued Advair Diskus 100-50 mcg/dose (fluticasone propion-salmeterol) Discontinued Reason: Doctor's Order 1 ea PO BID 180 caps 2RF NS Coding Level of Care Code Est Pt Level 4 (72949) Diagnoses Type 2 diabetes mellitus with hyperglycemia, without long-term current use of insulin E11.65 Diabetes mellitus complication status: with hyperglycemia Diabetes mellitus master glazier insulin use: without skilled nursing use Currently asymptomatic HIV infection, with history of HIV-related illness B20 HIV symptom status: currently asymptomatic, with history of HIV-related illness Stage 3b chronic kidney disease N18.32 Chronic kidney disease stage: stage 3 (moderate) Chronic kidney disease stage 3 subtype: stage 3b (GFR 30-44) Essential hypertension I10 Hypertension type: essential hypertension Longstanding persistent atrial fibrillation I48.11 Atrial fibrillation type: longstanding persistent Mild intermittent asthma without complication J45.20 Asthma complication type: uncomplicated Asthma persistence: intermittent Asthma severity: mild Mixed hyperlipidemia E78.2 Hyperlipidemia type: mixed hyperlipidemia
== END 2023-02-28 15:38 | disposition home or self-care (01) ==
PROVIDERS: Visit Provider Physician Assistant
DX: E11.65 Type 2 diabetes mellitus with hyperglycemia (principal); B20 Human immunodeficiency virus [HIV] disease; I12.9 Hypertensive chronic kidney disease with stage 1 through stage 4 chronic kidney disease, or unspecified chronic kidney disease; N18.32 Chronic kidney disease, stage 3b; I48.11 Longstanding persistent atrial fibrillation; J45.20 Mild intermittent asthma, uncomplicated; E78.2 Mixed hyperlipidemia
CPT/HCPCS: 83036; 90471; 90677; 99214

== ENCOUNTER 2023-06-21 11:18 | Outpatient (REF) | payer MEDICARE, OTHER, SELFPAY ==
[2023-06-21 11:37] LABS: MANUAL DIFF FLAG NO
[2023-06-21 11:53] LABS: Basophils Absolute Auto 0.1 X10*3/uL (0.0-0.2); Basophils Percent Auto 0.7 % (0-2); Eosinophils Absolute Auto 0.2 X10*3/uL (0.0-0.4); Eosinophils Percent Auto 2.1 % (0-4); Hematocrit 47.4 % (42.0-52.0); Hemoglobin 16.3 g/dl (14.0-18.0); Imm Gran Abs Auto 0.02 X10*3/uL (0.00-0.03); Imm Gran Pct Auto 0.3 % (0.0-0.4); Lymphocytes Absolute Auto 2.8 X10*3/uL (1.2-4.9); Lymphocytes Percent Auto 37.3 % (20-40); Mean Corpuscular HGB Conc 34.4 g/dl (31.0-36.0); Mean Corpuscular Hemoglobin 32.6 pg (27.0-33.0); Mean Corpuscular Volume 94.8 fL (80.0-98.0); Mean Platelet Volume 10.3 fL (9.4-12.4); Monocytes Absolute Auto 0.6 X10*3/uL (0.1-1.2); Monocytes Percent Auto 8.3 % (2-11); Neutrophils Absolute Auto 3.9 x10*3/uL (2.0-8.3); Neutrophils Percent Auto 51.3 % (45-73); Platelet Count 134 X10*3/uL (160-400); Red Cell Distribution Width 12.5 % (11.0-16.0); White Blood Count 7.6 X10*3/uL (4.8-10.8)
[2023-06-21 12:39] LABS: Syphilis Screen Nonreactive (Nonreactive)
[2023-06-21 12:47] LABS: Alanine Aminotransferase 18 U/L (0-40); Albumin Level 3.6 g/dL (3.5-5.0); Alkaline Phosphatase 65 U/L (39-117); Anion Gap 12 (12-20); Aspartate Amino Transferase 21 U/L (5-37); Bilirubin Direct 0.4 mg/dL (0.0-0.5); Bilirubin Total 1.2 mg/dL (0.0-1.0); Blood Urea Nitrogen 17 mg/dL (9-16); Calcium 9.3 mg/dL (8.4-10.2); Carbon Dioxide 27 mmol/L (22-29); Chloride 106 mmol/L (96-108); Estimated Glomerular Filt Rate 45; Glucose Random 130 mg/dL (60-115); Potassium 4.3 mmol/L (3.3-5.1); Sodium 141 mmol/L (135-145); Total Protein 7.5 g/dL (6.5-8.0)
[2023-06-22 11:13] LABS: HIV RNA PCR Qn Copies NOT DETECTED copies/mL (NOT DETECTED); HIV RNA PCR Qn Log Copies NOT DETECTED (NOT DETECTED)
[2023-06-22 13:49] LABS: Absolute CD3 Count 2777 cells/uL (840-3060); Absolute CD4 Count 891 cells/uL (490-1740); Absolute CD8 Count 1881 cells/uL (180-1170); Absolute Lymphocytes 3303 cells/uL (850-3900); CD4 CD8 Ratio 0.47 (0.86-5.00); Percent CD3 Cells 84 % (57-85); Percent CD4 Cells 27 % (30-61); Percent CD8 Cells 57 % (12-42)
== END 2023-06-21 11:19 | disposition home or self-care (01) ==
LOC: HO.LAB 11:18
PROVIDERS: PCP Physician Assistant; Visit Provider Internal Medicine
DX: B20 Human immunodeficiency virus [HIV] disease (principal)
CPT/HCPCS: 36415; 80048; 80076; 85025; 86359; 86360; 86780; 87536

== ENCOUNTER 2023-06-28 13:19 | Outpatient (AMB) | payer MEDICARE, OTHER, SELFPAY ==
--- NOTE | 2023-06-28 13:56 | MHC.OFFVIS ---
Intake Vital Signs 06/28/23 13:57 Weight 234 lb Pulse 63 Pulse Source Pulse Oximeter Pulse Oximetry (%) 98 Intake Visit Reasons: HIV 6 month lab Allergies clarithromycin [From BIAXIN] Allergy (Unknown, Verified 06/28/23 14:14) ANAPHYLAXIS HPI HIV 6 month lab HPI Details He has been taking abacavir,dolutegravir as well as lamivudine. He has recently increased GFR to 45 (creatinine 1.51). On 06/20 891 and viral load undetectable. He has RPR NR. He has liver with cirrhosis and glucose 130. He has osteoporosis concerns. MRI shows abdomen pancreatic cysts which he will follow up with. 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 Mother No problems noted. Social History Housing: House Alcohol intake: never Patient Tobacco Use Status: Never used Tobacco e-Cigarette/Vaping Use: Never Used Current occupational status: retired Cognitive needs: No Hearing needs: No Vision needs: No Review of Systems Const All systems reviewed & are unremarkable except as noted in HPI and below Physical Exam Vital Signs: Last Vital Signs Pulse 63 06/28/23 13:57 Pulse Ox 98 06/28/23 13:57 Assessment & Plan Assessment & Plan (1) HIV (human immunodeficiency virus infection): Comment: He is doing well with viral load undetectable, His renal function is better. He also has some osteoporosis he is addressing. Will check renal function and if GFR is similar may go back to [facility]. See with labs in six months. Code(s): B20 - Human immunodeficiency virus [HIV] disease Qualifiers: HIV symptom status: currently asymptomatic, with history of HIV-related illness Qualified Code(s): B20 - Human immunodeficiency virus [HIV] disease Plan as above Orders: Orders PSA,Total (Free>4and<10) 06/28/23 R34 - Anuria and oliguria Basic Metabolic Panel 6 Months B20 - Human immunodeficiency virus [HIV] disease Liver Panel 6 Months B20 - Human immunodeficiency virus [HIV] disease Lymphocyte Subset Panel 3 6 Months B20 - Human immunodeficiency virus [HIV] disease RPR Monitor reflex titer 6 Months B20 - Human immunodeficiency virus [HIV] disease Complete Blood Count Auto Diff 6 Months B20 - Human immunodeficiency virus [HIV] disease HIV-1 RNA QN PCR Expanded 6 Months B20 - Human immunodeficiency virus [HIV] disease Medications: Refilled dolutegravir 50 mg PO DAILY 90 days 90 tabs 1RF abacavir 600 mg (2 x 300 mg) PO DAILY 90 days 180 tabs 1RF lamivudine 100 mg PO DAILY 90 days 90 tabs 1RF Coding Level of Care Code Est Pt Level 4 (31684) Diagnoses Currently asymptomatic HIV infection, with history of HIV-related illness B20 HIV symptom status: currently asymptomatic, with history of HIV-related illness
[2023-06-28 13:57] VITALS: PULSE 63; O2SAT 98
== END 2023-06-28 15:09 | disposition home or self-care (01) ==
LOC: HO.HID 13:20
PROVIDERS: PCP Physician Assistant; Visit Provider Internal Medicine
DX: B20 Human immunodeficiency virus [HIV] disease (principal)
CPT/HCPCS: 99214

== ENCOUNTER → 2023-06-28 13:19 | Outpatient (BNVA) | payer MEDICARE, OTHER, SELFPAY | PROVIDERS: PCP Physician Assistant; Visit Provider Internal Medicine | DX: Z21 Asymptomatic human immunodeficiency virus [HIV] infection status (principal); Z79.899 Other long term (current) drug therapy | CPT/HCPCS: 99212 ==

== ENCOUNTER 2023-07-07 12:48 | Outpatient (REF) | payer MEDICARE, OTHER, SELFPAY ==
[2023-07-07 15:45] LABS: PSA,Total (Free>4and<10) 1.77 ng/mL (0.00-4.00)
== END 2023-07-07 12:49 | disposition home or self-care (01) ==
LOC: HO.LAB 12:48
PROVIDERS: PCP Physician Assistant; Visit Provider Internal Medicine
DX: R34 Anuria and oliguria (principal); E11.65 Type 2 diabetes mellitus with hyperglycemia; Z12.5 Encounter for screening for malignant neoplasm of prostate
CPT/HCPCS: 36415; 84153

== ENCOUNTER 2023-07-25 10:03 | Outpatient (AMB) | payer MEDICARE, OTHER, SELFPAY ==
--- NOTE | 2023-07-25 10:34 | MHC.OFFVIS ---
Intake Intake Visit Reasons: 1Y PVR(Confirmed) Intake Note: Patient is Present for Follow Up Urology Medication: Finasteride, Tamsulosin Antibiotic Allergies: Clarithromycin Blood Thinners: Eliquis Pharmacy: [facility] PVR:86 Allergies clarithromycin [From BIAXIN] Allergy (Unknown, Verified 07/25/23 10:39) ANAPHYLAXIS Medication List - Last Reconciled 07/25/23 by Quinn Ocampo MD abacavir 600 mg (2 x 300 mg) PO DAILY 90 days apixaban (Eliquis) 2.5 mg PO BID atorvastatin 20 mg PO BEDTIME dolutegravir 50 mg PO DAILY 90 days finasteride 5 mg orally take on Mondays, Wednesdays, Fridays 90 days finerenone (Kerendia) 20 mg PO DAILY fluticasone propion-salmeterol 100-50 mcg/dose (Advair Diskus) 1 inh inhalation BID furosemide 40 mg PO BID lamivudine 100 mg PO DAILY 90 days losartan 100 mg PO DAILY metformin 500 mg PO DAILY metoprolol succinate ER 25 mg PO DAILY tamsulosin 0.4 mg PO BEDTIME HPI HPI Comments History of Present Illness Details Jarod is a pleasant male. He is a patient of Dr. Nichols. He seen for the following urologic conditions - lower urinary tract symptoms - nephrolithiasis - erectile dysfunction PVR 90 cc Longstanding background of HIV management. Has HIV induced diabetes. Prior balanitis secondary to SGLT2 Good response to finasteride Monday, Monday, Monday. Discussed possible stopping tamsulosin. Would restart if noticed symptoms Twelve month follow-up PSA and PVR Lower urinary tract symptoms Has been on tamsulosin with good effect Has been on finasteride as well which is shrinking the prostate Current symptoms - on Lasix which leads to large volume of urine Laboratories - 12/28 PSA 1.8, 06/28 1.8, 06/29 1.8, 07/01 1.8 Nephrolithiasis Longstanding Imaging - 04/30 renal ultrasound - right renal cysts but no stones - 06/02 renal ultrasound bilateral cysts stable up to 6 cm, further ultrasound imaging for cysts is not recommended Can follow Erectile dysfunction Good response to sildenafil PFSH Medical History Urination decrease HLD (hyperlipidemia) Cirrhosis Prophylactic antibiotic for dental procedure indicated due to prior joint replacement Mass of gallbladder DMII (diabetes mellitus, type 2) 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 Mother No problems noted. Social History Housing: House Alcohol intake: never Patient Tobacco Use Status: Never used Tobacco e-Cigarette/Vaping Use: Never Used Current occupational status: retired Cognitive needs: No Hearing needs: No Vision needs: No Review of Systems Const Denies chills and Denies fever(s) Card Reports no additional complaints and Denies syncope Resp Denies cough GI Denies abdominal pain and Denies heartburn Reports as per HPI and Denies change in libido Neuro Denies syncope Psych Denies change in libido Endo Denies change in libido Physical Exam Const General: cooperative, healthy appearing, comfortable and no acute distress Orientation/consciousness: patient oriented x3 HEENT Face and sinus: Yes normal facial exam Mouth: moist mucous membranes Neck Neck: Yes normal visual inspection, Yes full ROM and Yes trachea midline Chest Chest palpation & inspection: normal inspection of the chest Resp Effort & Inspection: normal respiratory effort, able to speak in complete sentences and no respiratory distress GI Inspection: Yes normal to inspection Back/Spine/Pelvis Cervical Spine: normal cervical lordosis Thoracic/Lumbar Spine: thoracic and lumbar spine normal to inspection Skin General skin exam: no rashes or lesions noted Neuro General: patient oriented x3, gait normal, tone normal and moves all extremities Extrem General: Yes normal to inspection and Yes capillary refill normal Office Procedures Post Void Residual Post Residual Void Post Void Residual (PVR): 86 [id number] Void Residual by ultrasound Assessment & Plan Assessment & Plan (1) BPH loc w urin obs/LUTS: Code(s): N40.1 - Benign prostatic hyperplasia with lower urinary tract symptoms Plan Twelve month follow-up Orders: Orders AMB Post Void Residual by ultrasound Today R34 - Anuria and oliguria Prostate Specific Antigen 364 Days N40.1 - Benign prostatic hyperplasia with lower urinary tract symptoms Patient Instructions: Imaging studies, laboratory and physical exam results were discussed and reviewed in detail. No major barriers to patient understanding were identified. An opportunity to ask questions regarding the treatment plan was provided. All questions were answered. The patient expressed understanding and agreement with the above treatment plan. The patient is aware they should contact our office by phone for worsening of their current condition or the appearance of new urologic symptoms. Compliance is encouraged with any medications and followup testing that is ordered. It is a privilege to participate in the urologic care of your patient. If you have any questions or concerns regarding treatment for the above conditions, or other urologic issues, please do not hesitate to contact me. The office telephone contact is [phone]. This note is constructed using voice recognition software. While every effort has been made to ensure accuracy metal ceiling builder errors may have been included. Yours sincerely, Dr Quinn Ocampo MD, [facility] - Urology Providers of Expert, Compassionate Care for the Genitourinary System Coding Level of Care Code Est Pt Level 4 (56695) Diagnoses BPH loc w urin obs/LUTS N40.1 CPT Codes Post Residual Void - PVR CPT Code: 89216-Slwu Void Residual by ultrasound ([id number])
== END 2023-07-25 11:11 | disposition home or self-care (01) ==
PROVIDERS: Visit Provider Urology
DX: N40.1 Benign prostatic hyperplasia with lower urinary tract symptoms (principal)
CPT/HCPCS: 99213

== ENCOUNTER → 2023-07-25 10:03 | Outpatient (BNVA) | payer MEDICARE, OTHER, SELFPAY | PROVIDERS: Visit Provider Urology | DX: N40.1 Benign prostatic hyperplasia with lower urinary tract symptoms (principal) | CPT/HCPCS: 51798; 99212 ==

== ENCOUNTER 2023-08-10 12:42 | Outpatient (AMB) | payer MEDICARE, OTHER, SELFPAY ==
[2023-08-10 13:12] VITALS: BP 120/62; PULSE 57; BMI 32.0
--- NOTE | 2023-08-10 13:12 | MHC.OFFVIS ---
Vital Signs 08/10/23 13:12 Height 5 ft 11 in Weight 229 lb 11.547 oz BMI 32.0 BP 120/62 Blood Pressure Location Lt brachial Position Sitting Pulse 57 Pulse Source Monitor Intake Visit Reasons: 6M follow up [employer] Required: No Allergies clarithromycin [From BIAXIN] Allergy (Unknown, Verified 08/10/23 13:14) ANAPHYLAXIS Medication List - Last Reconciled 08/10/23 by Molly Avelar NP-C abacavir 600 mg (2 x 300 mg) PO DAILY 90 days apixaban (Eliquis) 2.5 mg PO BID atorvastatin 20 mg PO BEDTIME dolutegravir 50 mg PO DAILY 90 days finasteride 5 mg orally take on Mondays, Wednesdays, Fridays 90 days finerenone (Kerendia) 20 mg PO DAILY finerenone (Kerendia) 20 mg PO DAILY fluticasone propion-salmeterol 100-50 mcg/dose (Advair Diskus) 1 inh inhalation BID furosemide 20 mg PO ONCE lamivudine 100 mg PO DAILY 90 days losartan 100 mg PO DAILY metformin 500 mg PO DAILY metoprolol succinate ER 25 mg PO DAILY tamsulosin 0.4 mg PO BEDTIME HPI HPI 6M follow up: Details: Jarod is an 83-year-old male with past medical history of hypertension, hyperlipidemia, diabetes, chronic kidney disease, HIV, persistent AFib who presents for follow-up. Today he reports feeling generally well since last visit in January. He does report some fatigue and takes a nap usually once a day. He denies chest discomfort at rest or with activity. No shortness of breath, PND, orthopnea or edema. No presyncope, syncope, falls. No bleeding issues reported. He remains active each day and has been trying to increase his walking. His HIV has remained stable. He follows closely with Dr. Garcia for GI, Dr. Ruiz for Nephrology and Dr. Ashton. for HIV. Taking all meds as directed. 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 Mother No problems noted. Social History Housing: House Alcohol intake: never Patient Tobacco Use Status: Never used Tobacco e-Cigarette/Vaping Use: Never Used Current occupational status: retired Cognitive needs: No Hearing needs: No Vision needs: No Review of Systems Const All systems reviewed & are unremarkable except as noted in HPI and below Reports fatigue ENT Denies dizziness Card Denies chest pain, Denies chest pain at rest, Denies chest pain with activity, Denies rapid heart rate, Denies pedal edema, Denies edema, Denies leg edema, Denies lightheadedness, Denies palpitations, Denies dyspnea, Denies dyspnea on exertion and Denies orthopnea Resp Denies cough, Denies dyspnea and Denies dyspnea on exertion GI Denies hematochezia and Denies change in stool character Musc Denies abnormal gait, Denies limited range of motion, Denies muscle cramps, Denies muscle weakness, Denies numbness, Denies radiating pain into limb, Denies stiffness and Denies tingling Neuro Denies abnormal gait, Denies dizziness, Denies numbness and Denies tingling Endo Reports fatigue and Denies palpitations Physical Exam Vital Signs: Last Vital Signs Pulse 57 08/10/23 13:12 BP 120/62 08/10/23 13:12 BMI result Body Mass Index 32.0 Const General: cooperative, healthy appearing, comfortable and no acute distress Orientation/consciousness: patient oriented x3 Neck Neck: Yes normal visual inspection and Yes no JVD Resp Effort & Inspection: normal respiratory effort Auscultation: clear to auscultation bilaterally, no crackles, no rales, no rhonchi and no wheezes Cardio Jugular venous distension: no JVD Rate: regular rate Rhythm: abnormal rhythm Heart sounds: S1 normal heart sound present, S2 normal heart sound present, no murmurs and no rubs Neuro General: patient oriented x3 Extrem Other: trace ankle edema Psych Appearance: grossly normal Mental Status: mental status grossly normal Speech and movement: Normal speech and movement present Office Procedures EKG Details: Today, read by me, atrial fibrillation with slow ventricular response, PVCs/aberrant conduction beat, right bundle branch block, rate 57, QTC 453 milliseconds [id number], Complete Assessment & Plan Assessment & Plan (1) Afib: Code(s): I48.91 - Unspecified atrial fibrillation Category: Medical Qualifiers: Atrial fibrillation type: longstanding persistent Qualified Code(s): I48.11 - Longstanding persistent atrial fibrillation Plan: Chronic atrial fibrillation, asymptomatic. On Metoprolol for heart rate control. Holter monitor done 07/15/2021 for 3 days shows atrial fibrillation with average heart rate 60 beats per minute, 12 3 beat salvos of NSVT, PVCs 7.78%, frequent. Since that time his metoprolol had been reduced from 25 mg b.i.d. XL 25 mg daily. He has been on Eliquis 2.5 mg b.i.d. which is the appropriate dose for his age and creatinine. 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 No bleeding problems reported. He has not had any neurological events. Last Echocardiogram done 01/27/2023 showing EF 69%, no valve abnormalities and no regional wall motion abnormalities, overall no change from last. EKG done today showing atrial fibrillation with slow ventricular response, right bundle branch block, 1 PVC/aberrant conducted beat, rate 57. He does report some fatigue. No presyncope, syncope, falls. Will reduce metoprolol XL down to 12.5 mg daily. Continue Eliquis. Labs done 06/21/2023 showed creatinine 1.51, hematocrit 47.4. He has upcoming PCP visit. Will check Holter before next visit. Cardiology followup in 6 months, sooner if needed. (2) HTN (hypertension): Code(s): I10 - Essential (primary) hypertension Category: Medical Qualifiers: Hypertension type: essential hypertension Qualified Code(s): I10 - Essential (primary) hypertension Plan: Well controlled. He is on metoprolol and losartan. He does have CKD. Reducing metoprolol as above. Blood pressure will be rechecked at his upcoming PCP visit. (3) CKD (chronic kidney disease): Code(s): N18.9 - Chronic kidney disease, unspecified Category: Medical Qualifiers: Chronic kidney disease stage: stage 3 (moderate) Chronic kidney disease stage 3 subtype: stage 3b (GFR 30-44) Qualified Code(s): N18.32 - Chronic kidney disease, stage 3b Plan: Follows with Dr Ruiz. (4) Abnormal echocardiogram findings without diagnosis: Code(s): R93.1 - Abnormal findings on diagnostic imaging of heart and coronary circulation Category: Medical Plan: Echo done 01/11/21 shows EF 55-60%, mild TR, mild pulm HTN, basal inferior akinetic - the report does state that the WMA was noted on review of the prior echo images. . Nuclear stress test 02/15/17 showed normal myocardial perfusion imaging. No report of anginal sounding symptoms. A repeat echocardiogram was done 01/27/2023 which shows normal EF and no regional wall motion abnormalities. Patient informed. Plan Time spent on chart review, documentation, interview and assessment Orders: Orders ECG 3 day holter monitor 5 Months I48.11 - Longstanding persistent atrial fibrillation Medications: Changed From furosemide 40 mg PO BID 180 tabs 2RF To furosemide 20 mg PO ONCE Coding Level of Care Code Est Pt Level 4 (21692) Diagnoses Longstanding persistent atrial fibrillation I48.11 Atrial fibrillation type: longstanding persistent Essential hypertension I10 Hypertension type: essential hypertension Stage 3b chronic kidney disease N18.32 Chronic kidney disease stage: stage 3 (moderate) Chronic kidney disease stage 3 subtype: stage 3b (GFR 30-44) Abnormal echocardiogram findings without diagnosis R93.1 CPT Codes EKG - CPT: 67068-[id number], Complete ([id number]) Time Spent (min) 30
== END 2023-08-10 13:57 | disposition home or self-care (01) ==
PROVIDERS: PCP Physician Assistant; Visit Provider Nurse Practitioner Family
DX: I48.11 Longstanding persistent atrial fibrillation (principal); I10 Essential (primary) hypertension; N18.32 Chronic kidney disease, stage 3b; R93.1 Abnormal findings on diagnostic imaging of heart and coronary circulation
CPT/HCPCS: 93010; 99214

== ENCOUNTER → 2023-08-10 12:42 | Outpatient (BNVA) | payer MEDICARE, OTHER, SELFPAY | PROVIDERS: PCP Physician Assistant; Visit Provider Nurse Practitioner Family | DX: I48.11 Longstanding persistent atrial fibrillation (principal); I12.9 Hypertensive chronic kidney disease with stage 1 through stage 4 chronic kidney disease, or unspecified chronic kidney disease; N18.32 Chronic kidney disease, stage 3b; R93.1 Abnormal findings on diagnostic imaging of heart and coronary circulation | CPT/HCPCS: 93005; 99212 ==

== ENCOUNTER 2023-08-11 07:34 | Outpatient (REF) | payer MEDICARE, OTHER, SELFPAY ==
[2023-08-11 09:13] LABS: Hematocrit 45.7 % (42.0-52.0); Hemoglobin 15.5 g/dl (14.0-18.0); Mean Corpuscular HGB Conc 33.9 g/dl (31.0-36.0); Mean Corpuscular Hemoglobin 32.9 pg (27.0-33.0); Mean Platelet Volume 10.5 fL (9.4-12.4); Platelet Count 132 X10*3/uL (160-400); Red Blood Count 4.71 X10*6/uL (4.60-5.80); Red Cell Distribution Width 12.6 % (11.0-16.0); White Blood Count 6.9 X10*3/uL (4.8-10.8)
[2023-08-11 09:50] LABS: Creatinine Urine 97.25 mg/dL
[2023-08-11 10:15] LABS: Alanine Aminotransferase 18 U/L (0-40); Albumin Level 3.6 g/dL (3.5-5.0); Alkaline Phosphatase 56 U/L (39-117); Anion Gap 14 (12-20); Aspartate Amino Transferase 22 U/L (5-37); Bilirubin Total 1.3 mg/dL (0.0-1.0); Blood Urea Nitrogen 19 mg/dL (9-16); Calcium 9.6 mg/dL (8.4-10.2); Carbon Dioxide 22 mmol/L (22-29); Chloride 107 mmol/L (96-108); Cholesterol 172 mg/dL (<200); Estimated Glomerular Filt Rate 42; Glucose Fasting 120 mg/dL (60-99); HDL Cholesterol 71 mg/dL (>40); LDL Cholesterol Calculated 86 mg/dL (<100); Potassium 4.2 mmol/L (3.3-5.1); Sodium 139 mmol/L (135-145); Total Protein 7.3 g/dL (6.5-8.0); Triglycerides 76 mg/dL (<150)
== END 2023-08-11 07:35 | disposition home or self-care (01) ==
LOC: HO.LAB 07:34
PROVIDERS: PCP Physician Assistant; Visit Provider Physician Assistant
DX: I10 Essential (primary) hypertension (principal); E11.65 Type 2 diabetes mellitus with hyperglycemia; E78.5 Hyperlipidemia, unspecified
CPT/HCPCS: 36415; 80053; 80061; 82043; 82570; 85027

== ENCOUNTER 2023-08-29 13:32 | Outpatient (AMB) | payer MEDICARE, OTHER, SELFPAY ==
[2023-08-29 13:44] VITALS: BP 134/70; PULSE 58; O2SAT 97; BMI 32.5
--- NOTE | 2023-08-29 13:44 | A.OFFPC_ITS ---
Vital Signs 08/29/23 13:44 Height 5 ft 11 in Weight 233 lb 4 oz BMI 32.5 BP 134/70 Blood Pressure Location Rt brachial Position Sitting Pulse 58 Pulse Source Pulse Oximeter Pulse Oximetry (%) 97 Intake Visit Reasons: f/u DMII/ CKD Sheet Sorter Required: No Accompanied by: Self / Same As Patient Allergies clarithromycin [From BIAXIN] Allergy (Unknown, Verified 08/29/23 13:59) ANAPHYLAXIS Medication List - Last Reconciled 08/29/23 by Arnaldo Nichols PA-C abacavir 600 mg (2 x 300 mg) PO DAILY 90 days apixaban (Eliquis) 2.5 mg PO BID atorvastatin 20 mg PO BEDTIME dolutegravir 50 mg PO DAILY 90 days finasteride 5 mg orally take on Mondays, Wednesdays, Fridays 90 days finerenone (Kerendia) 20 mg PO DAILY fluticasone propion-salmeterol 100-50 mcg/dose (Advair Diskus) 1 inh inhalation BID furosemide 20 mg PO ONCE lamivudine 100 mg PO DAILY 90 days losartan 100 mg PO DAILY metformin 500 mg PO DAILY metoprolol succinate ER 12.5 mg (1/2 x 25 mg) PO DAILY 90 days tamsulosin 0.4 mg PO BEDTIME Tobacco use date assessed: 08/29/23 Dental Screening Dental Screen Date: 02/28/23 HPI f/u DMII/ CKD HPI Details Patient is a 83 year old male here today for a follow-up visit.? Patient has a past medical history significant for HIV, hypertension, obstructive uropathy with Stent placement, CKD stage 3, paroxysmal AFIB. ? .. ? AFIB: Followed by cardiology.? Has been stable without any reports of palpitations, overt bleeding. He continues on renally dosed Eliquis. He has recently seen his turner splitter machine operator whom reduced his dose of metoprolol due to hypotension and reports of fatigue.. Blood pressure today in office acceptable. ? .. ? CKD stage 3:? Most recent creatinine 1.5 ?Patient is followed by residential monitor (Dr. Ruiz), most recent microalbumin much more elevated. He does report foamy urine at times. He has spoken with his residential monitor about the microalbuminuria and is considering a invasive procedure to help the microalbuminuria. Lower extremity edema has been improved. Now using lower doses Lasix. Has been started on currently a at higher dose for renal protection. ? .. ? HIV: Patient is followed by infectious disease specialist and reports his HIV viral load has been undetectable.? Patient's CD4 count also monitored by Infectious Disease specialist ? . ? ? Type 2 diabetes:? Patient's diabetes has been better controlled as of late.? Most recent A1c has improved to 6.2. Continues on metformin 500 daily. 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 Mother No problems noted. Social History Housing: House Alcohol intake: never Patient Tobacco Use Status: Never used Tobacco e-Cigarette/Vaping Use: Never Used Current occupational status: retired Cognitive needs: No Hearing needs: No Vision needs: No Questionnaire PHQ-9 Over the last 2 weeks, how often have you been bothered by any of the following problems? 1. Little interest or pleasure in doing things: not at all 2. Feeling down, depressed, or hopeless: not at all 3. Trouble falling or staying asleep, or sleeping too much: not at all 4. Feeling tired or having little energy: not at all 5. Poor appetite or overeating: not at all 6. Feeling bad about yourself - or that you are a failure or have let yourself or your family down: not at all 7. Trouble concentrating on things, such as reading the newspaper or watching television: not at all 8. Moving or speaking so slowly that other people could have noticed. Or the opposite - being so fidgety or restless that you have been moving around a lot more than usual: not at all 9. Thoughts that you would be better off or of hurting yourself in some way: not at all Total score: 0 Depression Screening Interpretation: Negative Depression Screening Done: Yes 88666 - PHQ-9 Billing: Yes Source: Developed by Drs. Joel Parks, Maday Brandt, Matthew Choudhury and colleagues, with an educational ricky from [employer]. Thrive Questionnaire Date Thrive assessed: 08/29/23 I am a: Patient What is your living situation today?: I do not have a steady places to live Within the past 12 months, did the food you bought not last and you didn't have the money to get more?: Never true Within the past 12 months, did you worry whether your food would run out before you got money to buy more?: Never true Do you have trouble paying for medicines?: No Do you have trouble getting transportation to medical appointments?: No Do you have trouble paying your heating and electricity bill?: No Do you have trouble taking care of your child, family member or friend?: No Do you have trouble with day-to-day activities such as bathing, preparing meals, shopping, managing finances, etc.?: No Are you currently unemployed and looking for a job?: No Are you interested in more education?: No Please select the resources that you would like help with: None Currently or been in a relationship where the following occur: no concerns reported THRIVE Score: 1 AUDIT C Alcohol Use Questionnaire (AUDIT-C) 1. How often do you have a drink containing alcohol?: Never 2. How many drinks containing alcohol do you have on a typical day when you are drinking?: 1 or 2 (0) 3. How often do you have six or more drinks on one occasion?: Never Total Score: 0 Score Reviewed/Action Taken: No DORY-7 AMB Questionnaire DORY-7 Date DORY - 7 assessed: 08/29/23 Feeling nervous, anxious, or on edge: 0 = Not at all Not being able to stop or control worryin = Not at all Worrying too much about different things: 0 = Not at all Trouble relaxin = Not at all Being so restless that it is hard to sit still: 0 = Not at all Becoming easily annoyed or irritable: 0 = Not at all Feeling afraid as if something awful might happen: 0 = Not at all Total DORY-7 score (0-4 normal; 5-9 mild; 10-14 moderate; 15-21 severe): 0 Source: Developed by Drs. Joel Parks, Maday Brandt, Matthew Choudhury and colleagues, with an educational ricky from [employer]. DORY-7 Assessment Billing DORY-7 Assessment Tool: DORY-7 Assessment 49662 ACT Questionnaire In the past 4 weeks, how much of the time did your asthma keep you from getting as much done at work, school or at home?: None of the time During the past 4 weeks, how often have you had shortness of breath?: 1-2 times a week During the past 4 weeks, how often did your asthma symptoms wake you up at night or earlier than usual in the morning?: Not at all During the past 4 weeks, how often have you had to use your rescue inhaler or nebulizer medication?: Once a week or less How would you rate your asthma control during the past 4 weeks?: Completely controlled ACT Interpretation: Negative Score: 23 Review of Systems Const Denies headache(s) Eyes Denies loss of vision ENT Denies vertigo, Denies dizziness, Denies headache(s) and Denies sore throat Card Denies chest pain, Denies leg edema and Denies lightheadedness Resp Denies cough, Denies hemoptysis and Denies wheezing GI Denies abdominal pain, Denies melena, Denies constipation, Denies diarrhea and Denies vomiting Denies dysuria, Denies urinary frequency and Denies urinary urgency Musc Denies arthralgias, Denies joint swelling, Denies numbness and Denies tingling Neuro Denies Abnormal speech present, Denies behavioral changes, Denies vertigo, Denies dizziness, Denies headache(s), Denies loss of vision, Denies memory loss, Denies numbness and Denies tingling Psych Denies anxiety, Denies behavioral changes, Denies depression, Denies memory loss and Denies panic attacks Kiko/Lymph Denies easy bleeding and Denies easy bruising Aller/Immun Denies wheezing Physical exam (Primary Care) Vital Signs: Last Vital Signs Pulse 58 08/29/23 13:44 BP 134/70 08/29/23 13:44 Pulse Ox 97 08/29/23 13:44 BMI result Body Mass Index 32.5 Tobacco/Smoking Status: Tobacco use Status Tobacco use date assessed 08/29/23 08/29/23 13:55 Patient Tobacco Use Status Never used Tobacco 08/29/23 13:55 e-Cigarette/Vaping Use Never Used 08/29/23 13:55 PHQ-9: PHQ-9 Score PHQ-9: Total score 0 08/29/23 14:03 Depression Screening Interpretation: Negative Thrive Assessment: Date of Thrive Assessment Date Thrive assessed 08/29/23 08/29/23 13:55 Currently or been in a relationship where the following occur: no concerns reported Const General: healthy appearing, no acute distress, alert and awake Nutritional Appearance: well nourished Orientation/consciousness: oriented to person, oriented to place and oriented to time HENMT Ears: TM's normal bilaterally General nose exam: Normal nasal mucous membranes and turbinates present Eyes Conjunctivae: conjunctivae normal Sclerae: sclerae normal Pupils: Equal, round and reactive pupils present Neck Neck: Yes no lymphadenopathy and Yes no JVD Thyroid: Thyroid normal Carotids: no bruits Resp Effort & Inspection: normal respiratory effort and not tachypneic Auscultation: no crackles, no rales, no rhonchi and no wheezes Cardio Rate: regular rate Rhythm: regular rhythm Heart sounds: no murmurs and normal S1 and S2 GI Palpation (GI): Soft to palpation, nontender, no hepatomegaly and no splenomegaly Auscultation: normal bowel sounds Skin General skin exam: no rashes or lesions noted and dry skin Neuro General: oriented to person, oriented to place and oriented to time Cranial nerves: Yes Equal, round and reactive pupils present Speech: No Abnormal speech present Gait exam (Neuro): Normal gait present Motor exam (neuro): no tremor noted Extrem Other: TRACE LOWER EXTREMITY EDEMA TO THE LEVEL OF HIGH ANKLE Right upper extremity: full ROM Left upper extremity: full ROM Right lower extremity: full ROM and edema Left lower extremity: full ROM and edema Psych Mental Status: mental status grossly normal Speech and movement: Normal speech and movement present Affect: normal affect Attitude: cooperative Thought process: Normal thought process present Results AMB Hemoglobin A1c AMB Hemoglobin A1c 6.2 % Last Edit by JENNY Campbell on 08/29/23 14:09 Results Reviewed Results Reviewed: Laboratory Last Values Hgb A1c (Clinic) 6.2 % (4.0-6.0) H 08/29/23 14:03 Assessment and Plan Assessment & Plan (1) DMII (diabetes mellitus, type 2): Code(s): E11.9 - Type 2 diabetes mellitus without complications Qualifiers: Diabetes mellitus complication status: with hyperglycemia Diabetes mellitus exterminator termite insulin use: without exterminator termite use Qualified Code(s): E11.65 - Type 2 diabetes mellitus with hyperglycemia Plan: Patient's type 2 diabetes well controlled with current anti hyperglycemic medic ation. Will have his metformin to 500 daily due to his history of CKD. Most recent A1c appropriate below 7.0. Goal A1c to remain below 7.0 (2) HIV (human immunodeficiency virus infection): Comment: He is doing well with viral load undetectable, His renal function is better. He also has some osteoporosis he is addressing. Will check renal function and if GFR is similar may go back to [facility]. See with labs in six months. Code(s): B20 - Human immunodeficiency virus [HIV] disease Qualifiers: HIV symptom status: currently asymptomatic, with history of HIV-related illness Qualified Code(s): B20 - Human immunodeficiency virus [HIV] disease Plan: Continues to follow Infectious Disease. Continues on multi regiment anti viral treatment. CD4 count stable and viral load has been undetectable. (3) CKD (chronic kidney disease): Code(s): N18.9 - Chronic kidney disease, unspecified Qualifiers: Chronic kidney disease stage: stage 3 (moderate) Chronic kidney disease stage 3 subtype: stage 3b (GFR 30-44) Qualified Code(s): N18.32 - Chronic kidney disease, stage 3b Plan: Continues to follow Nephrology. Most recent creatinine at 1.5. Continues to have significant microalbuminuria. Will discuss this with his residential monitor. Has been started on karendia. Will continue to avoid nephrotoxin medications. (4) HTN (hypertension): Code(s): I10 - Essential (primary) hypertension Qualifiers: Hypertension type: essential hypertension Qualified Code(s): I10 - Essential (primary) hypertension Plan: Patient's blood pressure acceptable today in office. Will continue his current antihypertensive medication dose with goal blood pressure to remain below 140/90 (5) Afib: Code(s): I48.91 - Unspecified atrial fibrillation Qualifiers: Atrial fibrillation type: longstanding persistent Qualified Code(s): I48.11 - Longstanding persistent atrial fibrillation Plan: Patient continues on renally dosed Eliquis without any overt signs of bleeding. Otherwise denies any chest pain, palpitations dizziness (6) Asthma: Code(s): J45.909 - Unspecified asthma, uncomplicated Qualifiers: Asthma complication type: uncomplicated Asthma persistence: intermittent Asthma severity: mild Qualified Code(s): J45.20 - Mild interm ittent asthma, uncomplicated Plan: Patient's asthma has been well controlled with only p.r.n. use albuterol inhaler and maintenance inhaler Breo. Otherwise denies any recent in asthma exacerbations for nighttime awakenings with asthma symptoms. (7) HLD (hyperlipidemia): Code(s): E78.5 - Hyperlipidemia, unspecified Qualifiers: Hyperlipidemia type: mixed hyperlipidemia Qualified Code(s): E78.2 - Mixed hyperlipidemia Plan: Patient continues on a atorvasatin 20 mg without any side effect. Most recent lipid panel showing select control of his total cholesterol and LDL. 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: Code(s): E11.29 - Type 2 diabetes mellitus with other diabetic kidney complication; R80.9 - Proteinuria, unspecified Plan: As above Orders: Orders AMB Hemoglobin A1c 08/29/23 E11.65 - Type 2 diabetes mellitus with hyperglycemia Medications: New Breo Ellipta 100-25 mcg/dose (fluticasone furoate-vilanterol) 1 inh inhalation DAILY 60 ea 3RF 30 days NS J45.20 - Mild intermittent asthma, uncomplicated Patient Instructions: Goal: Blood pressure to remain below 140/90, A1c to be below 7.0 Barriers: Adherence to healthy eating habits and physical activity Coding Level of Care Code Est Pt Level 4 (80774) Diagnoses Type 2 diabetes mellitus with hyperglycemia, without long-term current use of insulin E11.65 Diabetes mellitus complication status: with hyperglycemia Diabetes mellitus exterminator termite insulin use: without exterminator termite use Currently asymptomatic HIV infection, with history of HIV-related illness B20 HIV symptom status: currently asymptomatic, with history of HIV-related illness Stage 3b chronic kidney disease N18.32 Chronic kidney disease stage: stage 3 (moderate) Chronic kidney disease stage 3 subtype: stage 3b (GFR 30-44) Essential hypertension I10 Hypertension type: essential hypertension Longstanding persistent atrial fibrillation I48.11 Atrial fibrillation type: longstanding persistent Mild intermittent asthma without complication J45.20 Asthma complication type: uncomplicated Asthma persistence: intermittent Asthma severity: mild Mixed hyperlipidemia E78.2 Hyperlipidemia type: mixed hyperlipidemia 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
== END 2023-08-29 14:31 | disposition home or self-care (01) ==
PROVIDERS: PCP Physician Assistant; Visit Provider Physician Assistant
DX: E11.65 Type 2 diabetes mellitus with hyperglycemia (principal)
CPT/HCPCS: 83036; 99214

== ENCOUNTER 2023-10-13 14:42 | Outpatient (REF) | payer MEDICARE, OTHER, SELFPAY ==
--- NOTE | ~2023-10-13 | CT_ITS ---
EXAMINATION: CT SINUS WITHOUT CONTRAST CLINICAL INFORMATION: Sinonasal polyps, deviated nasal septum COMPARISON: None available. TECHNIQUE: Multiple 2.0 mm axial images of the paranasal sinuses were obtained without IV contrast enhancement. Bone window and soft tissue window images were reconstructed. Multiple 2.0 mm coronal and sagittal images of the paranasal sinuses were reconstructed from the axial image data. This CT examination was performed using dose optimization techniques as appropriate, variously including the following: *Automated exposure control *Adjustment of mA and/or kV according to patient size (this includes techniques or standardized protocols for targeted exams where dose is matched to indication/reason for exam; i.e. extremities or head) *Use of iterative reconstruction technique DLP: 111.6 mGy-cm FINDINGS: Sphenoid sinuses: Bilateral sphenoid sinuses are clear with intact bony septations. Ethmoid sinuses: Bilateral ethmoid sinuses show mild mucosal thickening. Maxillary sinuses: Mild mucosal thickening is seen at the roof of bilateral maxillary sinuses. Mild polypoid mucosal thickening is seen in lower left maxillary sinus. Bilateral osteomeatal complexes are patent. There are no Jayjay's cells, no abnormal expansion of the ethmoidal bullae, no davy bullosa or paradoxical curvature of the middle turbinates seen. Nasal septum is markedly deviated to the right by 0.7 cm. Frontal sinuses: Moderate mucosal thickening is seen at the floor of left frontal sinus. The right frontal sinus floor shows minimal mucosal thickening. Bilateral frontonasal recesses are patent. CT/CT sinus wo IV con IMPRESSION: 1. Mild mucosal thickening is seen in bilateral ethmoid sinuses, bilateral maxillary sinuses and left frontal sinus. 2. Marked rightward nasal septal deviation.
== END 2023-10-13 14:43 | disposition home or self-care (01) ==
LOC: HO.CT 14:42
PROVIDERS: PCP Physician Assistant; Visit Provider Otolaryngology
DX: J33.0 Polyp of nasal cavity (principal); J34.2 Deviated nasal septum
CPT/HCPCS: 70486

== ENCOUNTER 2023-11-27 10:13 | Outpatient (REF) | payer MEDICARE, OTHER, SELFPAY ==
--- NOTE | ~2023-11-27 | XR_ITS ---
EXAMINATION: XR CHEST CLINICAL INFORMATION: Chronic cough and shortness of breath. COMPARISON: Chest radiograph 08/25/2021. TECHNIQUE: 2 views of the chest were obtained. FINDINGS: Stable prominence of the cardiomediastinal silhouette. Atherosclerotic disease of the thoracic aorta and coronary artery calcifications are present. Similar prominence of the central bronchovascular markings. Slightly increased bibasilar hazy and reticular opacities. No dense consolidation. No pleural effusion or pneumothorax. Right upper quadrant surgical clips. Thoracic spondylosis. No acute osseous findings. XR/XR chest 2V IMPRESSION: 1. Slightly increased bibasilar hazy and reticular airspace opacities, nonspecific could reflect bronchovascular crowding and subsegmental atelectasis. However, an infectious/inflammatory small airways process cannot be entirely excluded in the appropriate clinical context. Recommend follow-up with chest radiograph. 2. No dense consolidation or pleural effusion. 3. Stable prominence of the cardiomediastinal silhouette and central bronchovascular markings, that could be seen with cardiomegaly and pulmonary venous congestion. Electronically signed by: Monica Peñaloza MD 12/21/2023 12:11 PM EDT
== END 2023-11-27 10:14 | disposition home or self-care (01) ==
LOC: HO.XRAY 10:13
PROVIDERS: PCP Physician Assistant; Visit Provider Otolaryngology
DX: R05.3 Chronic cough (principal); J40 Bronchitis, not specified as acute or chronic
CPT/HCPCS: 71046

== ENCOUNTER 2023-11-29 10:51 | Outpatient (REF) | payer MEDICARE, OTHER, SELFPAY ==
[2023-11-29 11:22] LABS: MANUAL DIFF FLAG NO
[2023-11-29 11:25] LABS: Basophils Percent Auto 0.3 % (0-2); Eosinophils Absolute Auto 0.1 X10*3/uL (0.0-0.4); Eosinophils Percent Auto 0.5 % (0-4); Hemoglobin 15.9 g/dl (14.0-18.0); Imm Gran Abs Auto 0.05 X10*3/uL (0.00-0.03); Imm Gran Pct Auto 0.5 % (0.0-0.4); Lymphocytes Absolute Auto 1.8 X10*3/uL (1.2-4.9); Lymphocytes Percent Auto 19.1 % (20-40); Mean Corpuscular HGB Conc 35.3 g/dl (31.0-36.0); Mean Corpuscular Hemoglobin 34.1 pg (27.0-33.0); Mean Corpuscular Volume 96.6 fL (80.0-98.0); Mean Platelet Volume 9.6 fL (9.4-12.4); Monocytes Absolute Auto 0.7 X10*3/uL (0.1-1.2); Monocytes Percent Auto 6.9 % (2-11); Neutrophils Absolute Auto 6.8 x10*3/uL (2.0-8.3); Neutrophils Percent Auto 72.7 % (45-73); Platelet Count 171 X10*3/uL (160-400); Red Blood Count 4.66 X10*6/uL (4.60-5.80); Red Cell Distribution Width 12.7 % (11.0-16.0); White Blood Count 9.4 X10*3/uL (4.8-10.8)
[2023-11-29 11:39] LABS: Alanine Aminotransferase 38 U/L (0-40); Albumin Level 3.5 g/dL (3.5-5.0); Alkaline Phosphatase 68 U/L (39-117); Anion Gap 11 (12-20); Aspartate Amino Transferase 40 U/L (5-37); Bilirubin Direct 0.3 mg/dL (0.0-0.5); Bilirubin Total 0.7 mg/dL (0.0-1.0); Blood Urea Nitrogen 23 mg/dL (9-16); Calcium 9.2 mg/dL (8.4-10.2); Carbon Dioxide 25 mmol/L (22-29); Chloride 108 mmol/L (96-108); Estimated Glomerular Filt Rate 45; Glucose Random 117 mg/dL (60-115); Potassium 4.6 mmol/L (3.3-5.1); Sodium 139 mmol/L (135-145); Total Protein 7.3 g/dL (6.5-8.0)
[2023-11-29 12:10] LABS: Appearance Urine Clear; Color Urine Yellow; Glucose Urine UA Negative (Negative); Leukocyte Esterase Urine Negative (Negative); Nitrite Urine Negative (Negative); PH 5.5 (5.0-9.0); Specific Gravity - Urine 1.015 (1.005-1.025); UMIC TRIGGER UA YES; Urine Blood Small (1+) (Negative); Urine Ketones Negative (Negative); Urine Protein 300 (3+) mg/dL (Neg-Trace)
[2023-11-29 12:18] LABS: Bacteria Urine None Seen (None Seen); Hyaline Casts Urine 0-2 /LPF (0-2); RBC Urine 0-2 /HPF (0-2); Squamous Epithelial Cell Urine 0-2 /HPF (0-2); WBC Urine 0-5 /HPF (0-5)
[2023-12-01 12:43] LABS: HIV RNA PCR Qn Copies NOT DETECTED copies/mL (NOT DETECTED); HIV RNA PCR Qn Log Copies NOT DETECTED (NOT DETECTED)
[2023-12-02 14:38] LABS: Absolute CD3 Count 1657 cells/uL (840-3060); Absolute CD4 Count 863 cells/uL (490-1740); Absolute CD8 Count 802 cells/uL (180-1170); Absolute Lymphocytes 1879 cells/uL (850-3900); CD4 CD8 Ratio 1.08 (0.86-5.00); Percent CD3 Cells 88 % (57-85); Percent CD4 Cells 46 % (30-61); Percent CD8 Cells 43 % (12-42)
== END 2023-11-29 10:52 | disposition home or self-care (01) ==
LOC: HO.LAB 10:51
PROVIDERS: PCP Physician Assistant; Visit Provider Internal Medicine
DX: N18.9 Chronic kidney disease, unspecified (principal); B20 Human immunodeficiency virus [HIV] disease
CPT/HCPCS: 36415; 80048; 80076; 81001; 85025; 86359; 86360; 87536

== ENCOUNTER 2023-12-20 13:08 | Outpatient (AMB) | payer MEDICARE, OTHER, SELFPAY ==
--- NOTE | 2023-12-20 13:11 | A.OFFVIS_ITS ---
Vital Signs 12/20/23 13:15 Height 5 ft 11 in Weight 232 lb 6 oz BMI 32.4 BP 149/70 H Blood Pressure Location Lt brachial Position Sitting Pulse 50 Pulse Source Monitor Intake Visit Reasons: 6 month hiv follow up, Rm 2 Product Management Analyst Required: No Allergies clarithromycin [From BIAXIN] Allergy (Unknown, Verified 08/29/23 13:59) ANAPHYLAXIS Do you need a note to return to daycare/school/sports/work: No HPI HPI 6 month hiv follow up: Details: He has had improved GFR over 40 for last 1 1/2 years. His blood sugar is down from 130 to 117. His CD4 count 863 and viral load undetectable on 11/28. He has been seeing Renal. 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 Mother No problems noted. Social History Housing: House Alcohol intake: never Patient Tobacco Use Status: Never used Tobacco e-Cigarette/Vaping Use: Never Used Current occupational status: retired Cognitive needs: No Hearing needs: No Vision needs: No Review of Systems Const All systems reviewed & are unremarkable except as noted in HPI and below Physical Exam Vital Signs: Last Vital Signs Pulse 50 12/20/23 13:15 BP 149/70 H 12/20/23 13:15 BMI result Body Mass Index 32.4 Const General: cooperative Orientation/consciousness: patient oriented x3 HEENT Head: Yes normal to inspection Mouth: Normal oral and palatal mucosa present Eyes General: appearance normal, both eyes and all related structures Pupils: Equal, round and reactive pupils present Resp Effort & Inspection: normal respiratory effort Cardio Rate: regular rate Rhythm: regular rhythm GI Palpation (GI): Soft to palpation and nontender General: Yes no CVA tenderness Back/Spine/Pelvis Back: no CVA tenderness Skin General skin exam: no rashes or lesions noted Neuro General: patient oriented x3 Cranial nerves: Yes CN's II-XII intact bilaterally and Yes Equal, round and reactive pupils present Extrem General: Yes normal to inspection Psych Appearance: grossly normal Assessment & Plan Assessment & Plan (1) HIV (human immunodeficiency virus infection): Comment: He is doing well with viral load undetectable, His renal function is better. He also has some osteoporosis he is addressing. Renal function stable last 1 1/2 years. Go back to [facility]. Bone density. Rectal Pap,NASIR patient will consider. See in six months. Code(s): B20 - Human immunodeficiency virus [HIV] disease Category: Medical Qualifiers: HIV symptom status: currently asymptomatic, with history of HIV-related illness Qualified Code(s): B20 - Human immunodeficiency virus [HIV] disease Plan: na Orders: Orders Liver Panel 5 Months B20 - Human immunodeficiency virus [HIV] disease HIV-1 RNA QN PCR Expanded 5 Months B20 - Human immunodeficiency virus [HIV] disease Hepatitis C Antibody 5 Months B20 - Human immunodeficiency virus [HIV] disease Syphilis Screen 5 Months B20 - Human immunodeficiency virus [HIV] disease Complete Blood Count Auto Diff 5 Months B20 - Human immunodeficiency virus [HIV] disease Basic Metabolic Panel 5 Months B20 - Human immunodeficiency virus [HIV] disease Lymphocyte Subset Panel 3 5 Months B20 - Human immunodeficiency virus [HIV] disease Medications: New odjhacfm-ihryoqufszhr-okyxzbb 600-50-300 mg (Triumeq) 1 tab PO DAILY 30 days 30 tabs 5RF hlbiwial-byobwiobaasq-nqulvmv 600-50-300 mg (Triumeq) 1 tab PO DAILY 30 days 30 tabs 5RF xbbuseve-xdygwccoqtfc-iknafne 600-50-300 mg (Triumeq) 1 tab PO DAILY 30 days 30 tabs 5RF xruyarrj-wytfueytvldq-qzpqngh 600-50-300 mg (Triumeq) 1 tab PO DAILY 90 days 90 tabs 3RF nagshgnx-weettqviipel-kixpzrw 600-50-300 mg (Triumeq) 1 tab PO DAILY 30 days 30 tabs 5RF qchxyxrl-clokakqtovfd-hwcriyd 600-50-300 mg (Triume[facility]) 1 tab PO DAILY 30 tabs 5RF 30 days cptbicgw-bcfqvtenlwtm-chydpfw 600-50-300 mg (Triumeq) 1 tab PO DAILY 90 tabs 1RF 90 days Discontinued dolutegravir Discontinued Reason: Doctor's Order 50 mg PO DAILY 90 days 90 tabs 1RF abacavir Discontinued Reason: Doctor's Order 600 mg (2 x 300 mg) PO DAILY 90 days 180 tabs 1RF lamivudine Discontinued Reason: Doctor's Order 100 mg PO DAILY 90 days 90 tabs 1RF Coding Level of Care Code Est Pt Level 4 (98810) Diagnoses Currently asymptomatic HIV infection, with history of HIV-related illness B20 HIV symptom status: currently asymptomatic, with history of HIV-related illness
[2023-12-20 13:15] VITALS: BP 149/70; PULSE 50; BMI 32.4
== END 2023-12-20 13:50 | disposition home or self-care (01) ==
PROVIDERS: PCP Physician Assistant; Visit Provider Internal Medicine
DX: B20 Human immunodeficiency virus [HIV] disease (principal)
CPT/HCPCS: 99214

== ENCOUNTER → 2023-12-20 13:08 | Outpatient (BNVA) | payer MEDICARE, OTHER, SELFPAY | PROVIDERS: PCP Physician Assistant; Visit Provider Internal Medicine | DX: B20 Human immunodeficiency virus [HIV] disease (principal) | CPT/HCPCS: 99212 ==

== ENCOUNTER → 2024-01-10 12:50 | Outpatient (REF) | payer MEDICARE, OTHER, SELFPAY | LOC: HO.CARD 12:50 | PROVIDERS: PCP Physician Assistant; Visit Provider Nurse Practitioner Family | DX: I48.11 Longstanding persistent atrial fibrillation (principal) | CPT/HCPCS: 93242 ==

== ENCOUNTER → 2024-02-07 14:44 | Outpatient (REF) | payer MEDICARE, OTHER, SELFPAY ==
--- NOTE | 2024-02-07 14:46 | HM_ITS ---
Conclusion: 1. Patient was monitored for total period of 2 days and 23 hours 2. Baseline was atrial fibrillation with average heart of 47 beats per minute 3. Frequent slow ventricular response noted with 70% of the time heart rate below 60 beats per minute with no significant pauses 4. Frequent PVCs noted with 9 episodes of 3 beat salvos of nonsustained VT noted 5. No patient reported events MTDD
== END ==
LOC: HO.CARD 14:44
PROVIDERS: PCP Physician Assistant; Visit Provider Nurse Practitioner Family
DX: I48.11 Longstanding persistent atrial fibrillation (principal)
CPT/HCPCS: 93242

== ENCOUNTER → 2024-02-07 14:46 | Outpatient (BNV) | payer MEDICARE, OTHER, SELFPAY | PROVIDERS: PCP Physician Assistant; Visit Provider Internal Medicine Cardiovascular Disease | DX: I48.91 Unspecified atrial fibrillation (principal); I49.3 Ventricular premature depolarization | CPT/HCPCS: 93244 ==

== ENCOUNTER 2024-02-12 09:26 | Outpatient (REF) | payer MEDICARE, OTHER, SELFPAY ==
[2024-02-12 10:01] LABS: MANUAL DIFF FLAG NO
[2024-02-12 10:35] LABS: Basophils Absolute Auto 0.1 X10*3/uL (0.0-0.2); Basophils Percent Auto 0.8 % (0-2); Eosinophils Absolute Auto 0.2 X10*3/uL (0.0-0.4); Eosinophils Percent Auto 2.6 % (0-4); Hematocrit 47.3 % (42.0-52.0); Hemoglobin 16.4 g/dl (14.0-18.0); Imm Gran Abs Auto 0.02 X10*3/uL (0.00-0.03); Imm Gran Pct Auto 0.3 % (0.0-0.4); Lymphocytes Percent Auto 30.8 % (20-40); Mean Corpuscular HGB Conc 34.7 g/dl (31.0-36.0); Mean Corpuscular Hemoglobin 33.7 pg (27.0-33.0); Mean Corpuscular Volume 97.3 fL (80.0-98.0); Monocytes Absolute Auto 0.5 X10*3/uL (0.1-1.2); Monocytes Percent Auto 7.8 % (2-11); Neutrophils Absolute Auto 3.8 x10*3/uL (2.0-8.3); Neutrophils Percent Auto 57.7 % (45-73); Platelet Count 136 X10*3/uL (160-400); Red Blood Count 4.86 X10*6/uL (4.60-5.80); Red Cell Distribution Width 12.9 % (11.0-16.0); White Blood Count 6.6 X10*3/uL (4.8-10.8)
[2024-02-12 10:46] LABS: Appearance Urine Clear; Color Urine Yellow; Glucose Urine UA Negative (Negative); Leukocyte Esterase Urine Negative (Negative); Nitrite Urine Negative (Negative); PH 6.5 (5.0-9.0); Specific Gravity - Urine 1.015 (1.005-1.025); UMIC TRIGGER UA YES; Urine Blood Trace (Negative); Urine Ketones Negative (Negative); Urine Protein 300 (3+) mg/dL (Neg-Trace)
[2024-02-12 10:51] LABS: Bacteria Urine None Seen (None Seen); Hyaline Casts Urine 0-2 /LPF (0-2); Squamous Epithelial Cell Urine 0-2 /HPF (0-2); WBC Urine 0-5 /HPF (0-5)
[2024-02-12 12:41] LABS: Parathyroid Hormone Intact 148.5 pg/mL (8.7-77.1)
[2024-02-12 12:43] LABS: Albumin Level 3.5 g/dL (3.5-5.0); Anion Gap 14 (12-20); Blood Urea Nitrogen 19 mg/dL (9-16); Calcium 9.3 mg/dL (8.4-10.2); Carbon Dioxide 22 mmol/L (22-29); Chloride 109 mmol/L (96-108); Estimated Glomerular Filt Rate 43; Magnesium 1.9 mg/dL (1.6-2.6); Phosphorus 3.6 mg/dL (2.7-4.5); Potassium 4.4 mmol/L (3.3-5.1); Sodium 141 mmol/L (135-145)
[2024-02-12 12:50] LABS: Vitamin D 25-OH Total 19.7 ng/mL (>30)
[2024-02-12 14:59] LABS: Creatinine Urine 85.88 mg/dL
[2024-02-12 15:33] LABS: Microalbum/Creatinine Ratio Ur 1932.9 ug/mg cr (<30); Protein/Creatinine Ratio, Ur 2.59 (<0.2); Total Protein Urine Random 222 mg/dL (<12)
== END 2024-02-12 09:27 | disposition home or self-care (01) ==
LOC: HO.LAB 09:26
PROVIDERS: PCP Physician Assistant; Referring Provider Physician Assistant; Visit Provider Internal Medicine Nephrology
DX: N18.32 Chronic kidney disease, stage 3b (principal)
CPT/HCPCS: 36415; 80051; 81001; 82040; 82043; 82306; 82310; 82565; 82570; 83735; 83970; 84100; 84156; 84520; 85025

== ENCOUNTER 2024-02-13 08:31 | Outpatient (REF) | payer MEDICARE, OTHER, SELFPAY ==
[2024-02-13 09:24] LABS: Hematocrit 46.5 % (42.0-52.0); Hemoglobin 15.9 g/dl (14.0-18.0); Mean Corpuscular HGB Conc 34.2 g/dl (31.0-36.0); Mean Corpuscular Hemoglobin 33.4 pg (27.0-33.0); Mean Corpuscular Volume 97.7 fL (80.0-98.0); Mean Platelet Volume 10.1 fL (9.4-12.4); Platelet Count 135 X10*3/uL (160-400); Red Blood Count 4.76 X10*6/uL (4.60-5.80); Red Cell Distribution Width 12.8 % (11.0-16.0); White Blood Count 6.3 X10*3/uL (4.8-10.8)
[2024-02-13 10:29] LABS: Alanine Aminotransferase 19 U/L (0-40); Albumin Level 3.5 g/dL (3.5-5.0); Alkaline Phosphatase 62 U/L (39-117); Anion Gap 11 (12-20); Aspartate Amino Transferase 29 U/L (5-37); Bilirubin Total 1.4 mg/dL (0.0-1.0); Blood Urea Nitrogen 21 mg/dL (9-16); Carbon Dioxide 23 mmol/L (22-29); Chloride 108 mmol/L (96-108); Cholesterol 187 mg/dL (<200); Estimated Glomerular Filt Rate 42; Glucose Fasting 120 mg/dL (60-99); HDL Cholesterol 74 mg/dL (>40); LDL Cholesterol Calculated 96 mg/dL (<100); Potassium 4.1 mmol/L (3.3-5.1); Sodium 138 mmol/L (135-145); Total Protein 7.1 g/dL (6.5-8.0); Triglycerides 85 mg/dL (<150)
== END 2024-02-13 08:32 | disposition home or self-care (01) ==
LOC: HO.LAB 08:31
PROVIDERS: PCP Physician Assistant; Visit Provider Physician Assistant
DX: E11.65 Type 2 diabetes mellitus with hyperglycemia (principal); E78.2 Mixed hyperlipidemia
CPT/HCPCS: 36415; 80053; 80061; 85027

== ENCOUNTER 2024-02-29 13:31 | Outpatient (AMB) | payer MEDICARE, OTHER, SELFPAY ==
[2024-02-29 14:03] VITALS: BP 146/102; PULSE 61; O2SAT 98; BMI 32.1
--- NOTE | 2024-02-29 14:03 | A.OFFPC_ITS ---
Vital Signs 02/29/24 14:03 Height 5 ft 11 in Weight 230 lb 4 oz BMI 32.1 BP 146/102 H Blood Pressure Location Lt brachial Position Sitting Pulse 61 Pulse Source Pulse Oximeter Pulse Oximetry (%) 98 Oxygen Delivery Method Room Air Intake Visit Reasons: f/u DMII/ CKD Insurance Billing Clerk Required: No Accompanied by: Self / Same As Patient Allergies clarithromycin [From BIAXIN] Allergy (Unknown, Verified 02/29/24 14:05) ANAPHYLAXIS Medication List - Last Reconciled 02/29/24 by Arnaldo Nichols PA-C gxxeyuqw-cgpzvhtbhzcr-dvbvwlc 600-50-300 mg (Triumeq) 1 tab PO DAILY 90 days amlodipine 2.5 mg PO DAILY apixaban (Eliquis) 2.5 mg PO BID atorvastatin 20 mg PO BEDTIME finasteride 5 mg orally take on Mondays, Wednesdays, Fridays 90 days finerenone (Kerendia) 20 mg PO DAILY fluticasone furoate-vilanterol 100-25 mcg/dose (Breo Ellipta) 1 inh inhalation DAILY furosemide 20 mg PO BID 90 days losartan 100 mg PO DAILY metformin 500 mg PO DAILY tamsulosin 0.4 mg PO BEDTIME Tobacco use date assessed: 08/29/23 Dental Screening Dental Screen Date: 02/28/23 HPI f/u DMII/ CKD HPI Details Patient is a 83 year old male here today for a follow-up visit.? Patient has a past medical history significant for HIV, hypertension, obstructive uropathy with Stent placement, CKD stage 3, paroxysmal AFIB. Concerns--> report he gets upper resp symtoms quit often and has followed up with his ENT whom beleive this may be related to allergies. he reports he has started amoxicillin which has been starting to clear his sinus symptoms. He is asking for a steroid taper which also does help clear up his sinuses from time to time. ? .. ? AFIB: Followed by cardiology.? Has been stable without any reports of palpitations, overt bleeding. He continues on renally dosed Eliquis. He has recently seen his documentation coordinator whom reduced his dose of metoprolol due to hypotension and reports of fatigue.. Blood pressure today in office acceptable. ? .. ? CKD stage 3:? Laboratory Tests 11/29/23 02/12/2402/12/24 11:15 10:00 08:42 RBC 4.76 Creatinine 1.50 H 1.57 H 1.59 H Fasting Glucose 120 H Cholesterol 187 LDL Cholesterol, C alc 96 25-OH Vitamin D To naga 19.7 L HIV-1 RNA copies/m L NOT DETECTED ?Patient is followed by a and p mechanic (Dr. Ruiz), most recent microalbumin much more elevated. He does report foamy urine at times. He has spoken with his a and p mechanic about the microalbuminuria and is considering a invasive procedure to help the microalbuminuria. Lower extremity edema has been improved. Now using lower doses Lasix. his blood pressure is slightly elevated today in office. He was started on amlodipine 2.5 better blood pressure control. He has not been taking metoprolol due to low heart rate still was confused about dosing. He was to reduce his dose to 12.5 mg ? .. ? HIV: Patient is followed by infectious disease specialist and reports his HIV viral load has been undetectable.? Patient's CD4 count also monitored by Infectious Disease specialist ? . ? ? Type 2 diabetes:? Patient's diabetes has been better controlled as of late.? Most recent A1c has improved to 6.2. Continues on metformin 500 daily. 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 Mother No problems noted. Social History Housing: House Alcohol intake: never Patient Tobacco Use Status: Never used Tobacco e-Cigarette/Vaping Use: Never Used Current occupational status: retired Cognitive needs: No Hearing needs: No Vision needs: No Questionnaire Thrive Questionnaire Date Thrive assessed: 08/29/23 AUDIT C Alcohol Use Questionnaire (AUDIT-C) 2. How many drinks containing alcohol do you have on a typical day when you are drinking?: 1 or 2 3. How often do you have six or more drinks on one occasion?: Never Total Score: 0 DORY-7 AMB Questionnaire DORY-7 Date DORY - 7 assessed: 08/29/23 Source: Developed by Drs. Joel Parks, Maday Brandt, Matthew Choudhury and colleagues, with an educational ricky from [employer]. Review of Systems Const Denies headache(s) Eyes Denies loss of vision ENT Denies vertigo, Denies dizziness, Denies headache(s) and Denies sore throat Card Denies chest pain, Denies leg edema and Denies lightheadedness Resp Denies cough, Denies hemoptysis and Denies wheezing GI Denies abdominal pain, Denies melena, Denies constipation, Denies diarrhea and Denies vomiting Denies dysuria, Denies urinary frequency and Denies urinary urgency Musc Denies arthralgias, Denies joint swelling, Denies numbness and Denies tingling Neuro Denies Abnormal speech present, Denies behavioral changes, Denies vertigo, Denies dizziness, Denies headache(s), Denies loss of vision, Denies memory loss, Denies numbness and Denies tingling Psych Denies anxiety, Denies behavioral changes, Denies depression, Denies memory loss and Denies panic attacks Kiko/Lymph Denies easy bleeding and Denies easy bruising Aller/Immun Denies wheezing Physical exam (Primary Care) Vital Signs: Last Vital Signs Pulse 61 02/29/24 14:03 BP 146/102 H 02/29/24 14:03 Pulse Ox 98 02/29/24 14:03 Oxygen Delivery Method Room Air 02/29/24 14:03 BMI result Body Mass Index 32.1 Tobacco/Smoking Status: Tobacco use Status Tobacco use date assessed 08/29/23 02/29/24 14:05 Patient Tobacco Use Status Never used Tobacco 02/29/24 14:05 e-Cigarette/Vaping Use Never Used 02/29/24 14:05 Thrive Assessment: Date of Thrive Assessment Date Thrive assessed 08/29/23 02/29/24 14:05 Const General: healthy appearing, no acute distress, alert and awake Nutritional Appearance: well nourished Orientation/consciousness: oriented to person, oriented to place and oriented to time HENMT Ears: TM's normal bilaterally General nose exam: Normal nasal mucous membranes and turbinates present Eyes Conjunctivae: conjunctivae normal Sclerae: sclerae normal Pupils: Equal, round and reactive pupils present Neck Neck: Yes no lymphadenopathy and Yes no JVD Thyroid: Thyroid normal Carotids: no bruits Resp Effort & Inspection: normal respiratory effort and not tachypneic Auscultation: no crackles, no rales, no rhonchi and no wheezes Cardio Rate: regular rate Rhythm: regular rhythm Heart sounds: no murmurs and normal S1 and S2 GI Palpation (GI): Soft to palpation, nontender, no hepatomegaly and no splenomegaly Auscultation: normal bowel sounds Skin General skin exam: no rashes or lesions noted and dry skin Neuro General: oriented to person, oriented to place and oriented to time Cranial nerves: Yes Equal, round and reactive pupils present Speech: No Abnormal speech present Gait exam (Neuro): Normal gait present Motor exam (neuro): no tremor noted Extrem Right upper extremity: full ROM Left upper extremity: full ROM Right lower extremity: full ROM; no edema Left lower extremity: full ROM; no edema Psych Mental Status: mental status grossly normal Speech and movement: Normal speech and movement present Affect: normal affect Attitude: cooperative Thought process: Normal thought process present Office Procedures Flu Questionnaire Does the patient have a severe egg allergy?: No Results AMB Hemoglobin A1c AMB Hemoglobin A1c 6.2 % Last Edit by JENNY Campbell on 02/29/24 14:06 Immunizations Fluarix Triv [id number] (PF) 45 mcg (15 mcg x 3)/0.5 mL IM syringe Performing Provider: Arnaldo Nichols PA-C [facility] Documented (not given) by: JENNY Campbell on 02/29/24 14:05 Reason Not Given: Received Previously Results Reviewed Results Reviewed: Laboratory Last Values Hgb A1c (Clinic) 6.2 % (4.0-6.0) H 02/29/24 13:33 Coding Level of Care Code Est Pt Level 4 (58442) Diagnoses Type 2 diabetes mellitus with hyperglycemia, without long-term current use of insulin E11.65 Diabetes mellitus complication status: with hyperglycemia Diabetes mellitus inspector watch assembly insulin use: without jail use Longstanding persistent atrial fibrillation I48.11 Atrial fibrillation type: longstanding persistent Essential hypertension I10 Hypertension type: essential hypertension 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 Goal A1c is to remain below 7.0 (2) Afib: Code(s): I48.91 - Unspecified atrial fibrillation Category: Medical Qualifiers: Atrial fibrillation type: longstanding persistent Qualified Code(s): I 48.11 - Longstanding persistent atrial fibrillation Plan: Patient continues to follow [facility]. Most recent Holter monitor showing low heart rates. He was advised to reduce his dose of metoprolol to 12.5 mg which would be half tablet. He will be getting a repeat Holter monitors him. Otherwise he continues to be anticoagulated with renally dose to Eliquis without any overt signs of bleeding. (3) HTN (hypertension): Code(s): I10 - Essential (primary) hypertension Category: Medical Qualifiers: Hypertension type: essential hypertension Qualified Code(s): I10 - Essential (primary) hypertension Plan: Patient's blood pressure slightly elevated today in office. He will restart metoprolol 12.5 mg. He was started on amlodipine 2.5 mg by his a and p mechanic. 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 He continues to follow Nephrology whom recommended a kidney biopsy though patient is holding off on this for now. (5) Sinusitis: Code(s): J32.9 - Chronic sinusitis, unspecified Category: Medical Qualifiers: Chronicity: acute Recurrence: recurrent Sinusitis location: frontal Qualified Code(s): J01.11 - Acute recurrent frontal sinusitis Plan: Patient continues to have recurrent sinusitis. Has followed up with his ENT surgeon whom recommends allergy treatment though patient feels that antibiotics and prednisone have helped him clear his sinuses. He is not interested in allergy injections at this time. Orders: Orders Lipid Panel Today E78.2 - Mixed hyperlipidemia Influenza [id number] Immunization Today E11.65 - Type 2 diabetes mellitus with hyperglycemia AMB Hemoglobin A1c Today E11.29 - Type 2 diabetes mellitus with other diabetic kidney complication, R80.9 - Proteinuria, unspecified Comprehensive [place]. Panel Fast Today E11.65 - Type 2 diabetes mellitus with hyperglycemia Complete Blood Count no Diff Today E11.65 - Type 2 diabetes mellitus with hyperglycemia Hemoglobin A1c Today E11.65 - Type 2 diabetes mellitus with hyperglycemia Medications: New metoprolol succinate ER 12.5 mg (1/2 x 25 mg) PO DAILY 15 tabs 0RF 30 days I48.11 - Longstanding persistent atrial fibrillation methylprednisolone (Medrol ([place])) PO PER PKG DIR for 6 days 21 ea 0RF J01.11 - Acute recurrent frontal sinusitis
== END 2024-02-29 14:47 | disposition home or self-care (01) ==
PROVIDERS: PCP Physician Assistant; Visit Provider Physician Assistant
DX: E11.65 Type 2 diabetes mellitus with hyperglycemia (principal); I48.11 Longstanding persistent atrial fibrillation; I10 Essential (primary) hypertension; E11.29 Type 2 diabetes mellitus with other diabetic kidney complication; R80.9 Proteinuria, unspecified; J01.11 Acute recurrent frontal sinusitis

== ENCOUNTER → 2024-02-29 13:31 | Outpatient (BNVA) | payer MEDICARE, OTHER, SELFPAY | PROVIDERS: PCP Physician Assistant; Visit Provider Physician Assistant | DX: E11.65 Type 2 diabetes mellitus with hyperglycemia (principal); I48.11 Longstanding persistent atrial fibrillation; I10 Essential (primary) hypertension; E11.29 Type 2 diabetes mellitus with other diabetic kidney complication; R80.9 Proteinuria, unspecified; J01.11 Acute recurrent frontal sinusitis | CPT/HCPCS: 83036; 90471; 99212 ==

== ENCOUNTER → 2024-04-11 14:00 | Outpatient (REF) | payer MEDICARE, OTHER, SELFPAY ==
--- OUTSIDE RECORDS SUMMARY | 2024-04-11 15:26 | XMS_ITS ---
[facility] Address [address] [place] [address] Care Team Providers Care Engineering Technical Writer Name Role Phone Arnaldo Nichols Primary Care Provider Unavailab Jung Ma Unavailable [phone] Allergies Allergen (clinical drug ingredient) Drug/Non Drug Allergy documented on EMR Reaction Allergy Type Onset Date Status Ragweed Unknown Allergy Active REASON FOR VISIT At Risk Footcare, Toe Irritation, Skin problem(s) Medications Medication SIG (Take, Route, Frequency, Duration) Notes Start Date End Date Status Finasteride 5 MG 1 tablet Orally Once a day for 30 day(s) Active Furosemide 40 MG 1 tablet Orally Once a day for 30 day(s) Active metFORMIN HCl 500 MG 1 tablet with a alyssia l Orally Once a day for 30 day(s) Active Kerendia 20 MG 1 tablet Orally Once a day for 30 day(s) Active Losartan Potassium 100 MG 1 tablet Orally Once a day for 30 day(s) Active Advair Diskus 100-50 MCG/ACT 1 puff Inhalation Twice a day Not-Taking Atorvastatin Calcium 20 MG 1 tablet Orally Once a day for 30 day(s) Active Breo Ellipta Active Extra Depth Orthopedic Shoes (1 Pair) with Customized Heat Molded Multidensity Innersoles (3 Pair) as directed Dx: NIDDM/Polyneuropathy (E11.42), Hammertoe Foot Deformity (M20.41,M20.42), Preulcerative Skin Lesion(s) (L85.1 Active Eliquis 2.5 MG as directed Orally Active Ammonium Lactate 12 % 1 application Exte rnally Twice a day for 30 days Active Tivicay 50 MG 1 tablet Orally Once a day for 30 day(s) Active Abacavir Sulfate Act mayda Tamsulosin HCl 0.4 MG 1 capsule Orally O nce a day for 30 day(s) Active lamiVUDine 100 MG 1 tablet Orally Once a day for 10 day(s) Active Metoprolol Succinate ER 25 MG 1 tablet Orally Once a day for 30 day(s) Active Social History Tobacco Use: Social History Observation Description Date Details (start date - stop date) Former Smoker NA - NA Tobacco Use/Smoking Question Answer Notes Are you a: former smoker Additional Findings: Tobacco Non-User Current no n-smoker Alcohol Screen Question Answer Notes Did you have a drink containing alcohol in the p ast year? No Points 0 Interpretation Negative Tobacco use other than smoking: Question Answer Notes Are you an other tobacco user? No Vital Signs Height 5ft 11in in 02/14/2024 Weight 250 lbs 02/14/2024 BMI 34.86 kg/m2 02/14/2024 Procedures Procedure Date Ordered Date Performed Result Body Sit e 32818-QMHJUXZ NAIL, 1-5 02/14/2024 N/A 52562-IGCX SKIN LESIONS, OVER 4 02/14/2024 N/A V3780-[id number] DYSTROPHIC NAILS ANY # 02/14/2024 N/A Encounters Encounter Location Date Provider Diagnosis [facility] [address] [address] 02/14/2024 Jung Sarmiento Type 2 diabetes mellitus with diabetic polyneuropathy E11.42 ; Tinea unguium B35.1 ; Other hammer toe(s) (acquired), right foot M20.41 ; Other hammer toe(s) (acquired), left foot M20.42 and Xerosis of skin L85.3 Assessments Encounter Date Diagnosis (ICD Code) Assessment Notes Treatment Notes Treatment Clinical Notes Section Notes 02/14/2024 Type 2 diabetes mellitus with diabetic polyneuropathy (ICD-10 - E11.42) 02/14/2024 Tinea unguium (ICD-10 - B35.1) 02/14/2024 Other hammer toe(s) (acquired), right foot (ICD-10 - M20.41) Patient Educated with: DIABETIC FOOT CARE INSTRUCTIONS. pdf (DIABETIC FOOT CARE INSTRUCTIONS. pdf) 02/14/2024 Other hammer toe(s) (acquired), left foot (ICD-10 - M20.42) 02/14/2024 Xerosis of skin (ICD-10 - L85.3) Plan Of Treatment Medication Medication Name Sig Start Date Stop Date Notes Extra Depth Orthopedic Shoes (1 Pair) with Customized Heat Molded Multidensity Innersoles (3 Pair) as directed Dx: NIDDM/Polyneuropathy (E11.42), Hammertoe Foot Deformity (M20.41,M20.42), Preulcerative Skin Lesion(s) (L85.1 Treatment Notes Assessment Notes Other hammer toe(s) (acquired), right fo ot Patient Educated with: DIABETIC FOOT CARE INSTRUCTIONS.pdf (DIABETIC FOOT CARE INSTRUCTIONS.pdf) Pending Test Test Name Order Date 49414-JVXIMKW NAIL, 1-5 02/14/2024 72107-BJWO SKIN LESIONS, OVER 4 02/14/20 24 L9760-BRHRDNIX DYSTROPHIC NAILS ANY # Next Appt Details Follow Up: prn, Reason: Provider Name:Jung Sarmiento , 05/15/2024 03:00:00 PM, [address], [address], [place], [address], Procedure Notes * Category Sub-Category Detail Notes Keratoma Treatment Parring or Cutting o f Benign Hyperkeratotic Lesion(s) (-57) More than 4 Lesions - The Benign hyperkeratotic lesions, as described above were pared, and/or cut utilizing a sterile 15 blade, tissue nippers, and/or dremel - 96985 Debride Nails 1-5 Procedure: Performance of this nail treatment by a nonprofessional would put this patients foot and overall health at risk. Therefore, nail debridement was performed extensively to reduce/remove overall nail length, girth, thickness, subungual debris, and necrotic tissue, by manual and/or electrical means through the use of a nail nipper and/or dremel-type centerless grinder set up operator, to a more viable healthy nail plate or bed tissue 1-5. Silver nitrate used for any petechial bleeding as necessary. Definitive antifungal treatment options have been reviewed and discussed with the patient. The patient chooses, no pharmaceutical tx - [address]24 Nail Reduction Nail Reduction (-27) Trimming o f dystrophic nails performed to reduce/remove overall nail length and girth, by manual and electrical means with use of a nail nipper and/or dremel, to more viable healthy nail plate or bed tissue, any number - G0127 Progress Notes * Jarod ANDOB: [birth year] (83 yo M)Acc No.[id number]:02/14/2024 Progress Note Patient:?Jarod An Provider:?Jung Sarmiento DPM :1940???Age:83 Y???Sex:Male Robbi e:02/14/2024 Address:[address] [place] [address], [address], [id number] Pcp:Arnaldo Nichols Subjective: * Chief Complaints: * ???At Risk FootcareToe Irrit ationSkin problem(s) * HPI: ???At Risk footcare:?Pt States Last PCP Visit:?Date?08/23/2023 States has an appt with PCP soon - 02/28 ???Toe pain:?Location:?B/L feet.?Duration:?several years.?Course:?worse.?Aggravated by:?shoes, any pressure.?Treatments:?change in shoes.?Skin problems:?Nature:?dryness , scaling.?Location:?B/L .?Treatments:?medication ( AM Lactin ) , admits nonadherence to recommended application because does not like to go to bed with creamy feet .? * ROS:?General/Constitutional:?Nausea?denies.?Vomiting?denies.?Hunger Thirst?denies.?Loss appetite?denies.?Chills?denies.?Fatigue?denies.?Fever?denies.?Night Sweats?denies.?Unexplained weight loss?denies.?Unexplained weight gain?denies.?HEENTM:?Dentures?denies.?Dizziness?denies.?Glasses/contacts?denies.?Retinopathy?de nies.?Blurred/double vision?denies.?TMJ?denies.?Discharge/drainage?denies.?Implants?denies.?Sore throat?denies.?Dental implants?admits.?Hard of hearing ?denies.?Difficulty chewing/swallowing/speaking?denies.?Nose bleeds?denies.?Sore mouth?denies.?Respiratory:?On Oxygen?denies.?Pneumonia/pleurisy?denies.?Bronchitis?denies.?Emphysema?denies.?C oughing?denies.?Cough blood?denies.?Shortness of breath?denies.?Wheezing?denies.?Cardiovascular:?Pacemaker?denies.?MVP?denies.?WPW?denies.?CHF?denies.?Heart attack?denies.?Septal defect?denies.?Rapid beat?denies.?Chest pain ?denies.?Atrial Fib.?admits.?Murmur/Palpitations?denies.?Gastrointestinal:?Hemorrhoids?denies.?Stomach/Abdominal pain?denies.?Dark blood stool?denies.?Irritable bowel ?denies.?Constipation?denies.?Diarrhea?denies.?Hematology:?Swelling?admits.?Clots?denies.?Varicose Veins?admits.?Bruising?admits, on anticoagulants.?Bleeding problem?admits, on anticoagulants.?Genitourinary:?Blood urine?denies.?Frequent/Painfu/urination/bladder control?denies.?Kidney stones?denies.?Infection (UTI)?denies.?Nephropathy?denies.?sex trans dis (STD)?denies.?Prostate?denies.?Musculoskeletal:?Hammertoes?admits.?Bunions?denies.?Back Pain?denies.?Muscle Cramps/ Resting?denies.?Muscle cramps / walking?denies.?Generalized aches and pains?denies.?Weakness?denies.?Integ.:?Kelly?denies.?Scars?denies.?Corns/calluses?admits.?Ingrown nails?admits.?Painful nails?denies.?Open Sores?denies.?Rashes?denies.?Neurologic:?Difficulty sleeping?denies.?Brain disorder?denies.?Numbness?admits.?Balance trouble?denies.?Confusion?denies.?Fainting/blackouts?denies.?Tingling?admits, bilateral lower extremities.?Tremors?denies.? * Medical History:? * Surgical History:?Left hip r eplacement 2019 * Hospitalization/Major Diagno stic Procedure:?No Hospitalization History. * Family History:?Mother: dece ased, diagnosed with Family history of arthritis.?Father: , diagnosed with Diabetic - NIDDM.? * Social History:?Tobacco Use:?Tobacco Use/Smoking?Are you a:?former smoker ?Additional Findings: Tobacco Non-User?Current non-smoker ?Tobacco use other than smoking?Are you an other tobacco user??No ???Drugs/Alcohol:?Drugs?Have you used drugs other than those for medical reasons in the past 12 months??No ?Alcohol Screen?Did you have a drink containing alcohol in the past year??No ?Points?0 ?Interpretation?Negative ???Miscellaneous:?Caffeine: yes. ?Exercise: yes, walking. ?Marital status: . ?Occupation: Retired. * Medications:?TakingAtorvasta tin Calcium 20 MG Tablet 1 tablet Orally Once a dayBreo Ellipta Eliquis 2.5 MG Tablet as directed Orally Finasteride 5 MG Tablet 1 tablet Orally Once a dayFurosemide 40 MG Tablet 1 tablet Orally Once a dayKerendia 20 MG Tablet 1 tablet Orally Once a dayLosartan Potassium 100 MG Tablet 1 tablet Orally Once a daymetFORMIN HCl 500 MG Tablet 1 tablet with a meal Orally Once a dayMetoprolol Succinate ER 25 MG Tablet Extended Release 24 Hour 1 tablet Orally Once a dayTamsulosin HCl 0.4 MG Capsule 1 capsule Orally Once a daylamiVUDine 100 MG Tablet 1 tablet Orally Once a dayTivicay 50 MG Tablet 1 tablet Orally Once a dayAbacavir Sulfate Extra Depth Orthopedic Shoes (1 Pair) with Customized Heat Molded Multidensity Innersoles (3 Pair) as directed Dx: NIDDM/Polyneuropathy (E11.42), Hammertoe Foot Deformity (M20.41,M20.42), Preulcerative Skin Lesion(s) (L85.1Ammonium Lactate 12 % Cream 1 application Externally Twice a dayTaking Atorvastatin Calcium 20 MG Tablet 1 tablet Orally Once a dayTaking Breo Ellipta Taking Eliquis 2.5 MG Tablet as directed Orally Taking Finasteride 5 MG Tablet 1 tablet Orally Once a dayTaking Furosemide 40 MG Tablet 1 tablet Orally Once a dayTaking Kerendia 20 MG Tablet 1 tablet Orally Once a dayTaking Losartan Potassium 100 MG Tablet 1 tablet Orally Once a dayTaking metFORMIN HCl 500 MG Tablet 1 tablet with a meal Orally Once a dayTaking Metoprolol Succinate ER 25 MG Tablet Extended Release 24 Hour 1 tablet Orally Once a dayTaking Tamsulosin HCl 0.4 MG Capsule 1 capsule Orally Once a dayTaking lamiVUDine 100 MG Tablet 1 tablet Orally Once a dayTaking Tivicay 50 MG Tablet 1 tablet Orally Once a dayTaking Abacavir Sulfate Taking Extra Depth Orthopedic Shoes (1 Pair) with Customized Heat Molded Multidensity Innersoles (3 Pair) as directed Dx: NIDDM/Polyneuropathy (E11.42), Hammertoe Foot Deformity (M20.41,M20.42), Preulcerative Skin Lesion(s) (L85.1Taking Ammonium Lactate 12 % Cream 1 application Externally Twice a dayNot-Taking/PRNAdvair Diskus 100-50 MCG/ACT Aerosol Powder Breath Activated 1 puff Inhalation Twice a dayMedication List reviewed and reconciled with the patientNot-Taking/PRN Advair Diskus 100-50 MCG/ACT Aerosol Powder Breath Activated 1 puff Inhalation Twice a dayMedication List reviewed and reconciled with the patient * Allergies:?Ragweedyes[Allerg ies Verified] Objective: * Vitals:?Ht: 5ft 11in, Wt: 25 0, BMI: 34.86, Shoe size: 11, Wt-k.4 kg. * ???Past Orders: ???Lab:HEMOGLOBIN A1C (GLYCO HEMOGLOBIN) (Order Date - 02/14/2024) (Collection Date - 02/14/2024) ? Value Reference Range ?TOTAL HEMOGLOBIN (HGBA1C) 6.0 * Examination: ???Neurological: ?SENSORY:?Neurological exam demonstrates, reduced light touch sensation, reduced sharp/dull discrimination , reduced vibration sensation, in a stocking fashion, B/L, 5.07 monofilament test performed at plantar aspects of 5 varied sites per foot shows sensation, reduced, B/L.?Nails: ?NAILS are:?Elongated, overgrown, dystrophic, lytic, greater than 3mm thick, discolored and friable with crumbly malodorous subungual debris , TA , T1 , T5 , T6 , remaining nails are elongated, overgrown, dystrophic.?Dermatologic: ?SKIN FINDINGS:?Skin exam reveals Keratotic lesion(s) located at , Plantar , IPJ , TA , Plantar , IPJ , T5 , SUB MTH (s) , 1 , B/L , SUB MTH (s) , 2 , B/L , SUB MTH (s) , 5 , B/L , Heel(s) , B/L , Skin STILL, shows sign(s) of, dryness, scaling, in a stocking fashion, no fissure(s) present, B/L.?Orthopedic: ?MUSCLE STRENGTH:?5/5 all groups in a symmetrical fashion, B/L.?FOOT MORPHOLOGY:?(-) Charcot collapse/destruction noted at [facility].?DIGITAL DEFORMITIES:?Syndactyly noted T/T2, Digital contracture, PIPJ, 2-5 B/L, incompl-reducible to push-up test, no over, nor underlapping, with evidence of shoe producing skin irritation.?FOOTWEAR:?worn, non-supportive, shoe gear properties exacerbate patient's foot/toe deformity , shoe gear properties exacerbate patients foot/toe deformity.?Vascular: ?DP PULSES(B):?0/4, B/L.?PT PULSES(B):?0/4, B/L.?CAPILLARY FILL TIME:?delayed, all digits, B/L.?TROPHIC CONDITION-TEXTURE/ELASTICITY/TURGOR/HAIR GROWTH(B):?decreased, with sparse to absent hair growth, B/L.?TEMPERTURE GRADIENT(C):?decreased, cool to cool, proximal to distal, B/L.?PIGMENTATION:?brawny, B/L.?EDEMA(C):?2/4 , pitting , without aching pain , Leg(s) , Ankle(s) , Foot , B/L.?Ophthalmology Referral: ?DIABETES EYE EXAM?General Examination: ?GENERAL APPEARANCE:?Reveals a pleasant, alert, well nourished, well- developed, well hydrated individual, who demonstrates proper attention to hygiene/body habitus, and is in no acute distress, Pt serves as own historian for office visit today.?ORIENTED:?person, place, and time.?FOOT EXAM:?Footwear Evaluation? Assessment: * Assessment: 1.?Tinea unguium - B35.1?2.? Type 2 diabetes mellitus with diabetic polyneuropathy - E11.42 (Primary)?3.?Other hammer toe(s) (acquired), right foot - M20.41, Chronic problem, Worse (4),Rx Management (4)?4.?Other hammer toe(s) (acquired), left foot - M20.42, Chronic problem, Worse (4),Rx Management (4)?5.?Xerosis of skin - L85.3, Acute problem, Uncomplicated (3),Rx Management (4),Response to treatment - Unchanged,Nonadherent to recommendations? Plan: * Treatment: 2.?Other hammer toe(s) (acqu ired), right foot? Start Extra Depth Orthopedic Shoes (1 Pair) with Customized Heat Molded Multidensity Innersoles (3 Pair), as directed, Dx: NIDDM/Polyneuropathy (E11.42), Hammertoe Foot Deformity (M20.41,M20.42), Preulcerative Skin Lesion(s) (L85.1, 1, Refills 0.?? Notes: Patient Educated with: DIABETIC FOOT CARE INSTRUCTIONS.pdf (DIABETIC FOOT CARE INSTRUCTIONS.pdf)?? * Procedures:?Debride Nails 1-5:?Procedure:?Performance of this nail treatment by a nonprofessional would put this patients foot and overall health at risk. Therefore, nail debridement was performed extensively to reduce/remove overall nail length, girth, thickness, subungual debris, and necrotic tissue, by manual and/or electrical means through the use of a nail nipper and/or dremel-type centerless grinder set up operator, to a more viable healthy nail plate or bed tissue 1-5. Silver nitrate used for any petechial bleeding as necessary. Definitive antifungal treatment options have been reviewed and discussed with the patient. The patient chooses, no pharmaceutical tx - 43682.?Keratoma Treatment:?Parring or Cutting of Benign Hyperkeratotic Lesion(s)?(-57) More than 4 Lesions - The Benign hyperkeratotic lesions, as described above were pared, and/or cut utilizing a sterile 15 blade, tissue nippers, and/or dremel - 02716.?Nail Reduction:?Nail Reduction?(-27) Trimming of dystrophic nails performed to reduce/remove overall nail length and girth, by manual and electrical means with use of a nail nipper and/or dremel, to more viable healthy nail plate or bed tissue, any number - G0127.? * Procedure Codes:?G0127 JATINDER ING DYSTROPHIC NAILS ANY #, Modifiers: XS 91535 DEBRIDE NAIL, 1-5, Modifiers: XS 77841 TRIM SKIN LESIONS, OVER 4, Modifiers: XS * Preventive Medicine:? ??Counseling:?Discussion:?-14: Office or other outpatient visit for the evaluation and management of an established patient, which required a medically appropriate history and/or examination and MODERATE level of DECISION MAKING for: 1 OR MORE CHRONIC PROBLEM(S) THATS WORSENING, 2 STABLE CHRONIC PROBLEMS, A NEWLY DIAGNOSED PROBLEM WITH UNCERTAIN PROGNOSIS, AN ACUTE COMPLICATED INJURY WITH MULTIPLE TREATMENT OPTIONS, OR AN ACUTE PROBLEM WITH ACCOMPANYING SYSTEMIC SYMPTOMS, THAT POSE(S) A MODERATE RISK OF MORBIDITY. THIS CONDITION MAY ALSO INCLUDE RX DRUG MANAGEMENT, OR A DECISON FOR MINOR SURGERY. The visit on the day of the encounter encompassed interpreting the data and educating the patient as to the nature of their condition, treatment options available according to their individual PMH, meds, allergies, and overall health/living conditions, as well as any potential risks or complications that may occur from a failure to adhere to, and participate in, the recommended course of therapy. The discussion included a complete verbal, and/or written explanation of the examination results, any x-rays taken, the proposed diagnosis, and outline of the treatment plan. A schedule for future care needs was also explained. The patient verbalized an understanding of the instructions at this time and agreed to be an active participant in their treatment. If the patient should think of any questions or concerns after the visit, I have encouraged the patient to call the office.?Digital Surgery:?Digital surgery was discussed with the patient, We elected to try conservative treatment at the present time, due to the patients medical history and increased asssociated post-operative risks.?Digital Treatment:?HT- I explained to the patient the possible etiologies of Hammertoes, including genetics/foot type/shoegear/activity level/exercise routine and the risks/benefits of all the different treatment options for their pain including: No treatment at all, Rest, Ice, New/supportive/wider/deeper Shoegear, Digital Padding/Strapping/Taping/Bracing/Gel protective sleeves, Foot/Ankle AFO Bracing, Stretching exercises, Deep Tissue Massage, Arch support/shoe inserts with splay metatarsal padding, and Custom orthoses. I insisted that any digital devices be removed daily and not worn overnight for safety. The patient is to carefully examine the toes daily for any skin irritation while using any splinting or padding device. The advantages and disadvantages of each option were discussed and the patients questions re: shoegear, padding, custom vs prefabricated inserts, activity level, and consistency in home treatment regimens for optimal success were answered to their verbally confirmed satisfaction.?Shoe Gear Counseling:?SHOE Rx - The patient was counseled in great detail on their muscoloskeletal foot and toe deformities which coincided with the dermatological presentations visualized on exam. We discussed how their deformities put the integrity of their feet at risk for potential pedal complications which makes the accomidative diabetic shoes and cutomizable inserts medically necessary. We discussed the different shoe and insert treatment types and options, as well as the important advantages for adhering to regularly wearing these accomidative devices daily. The patient was made aware of the fact that a failure to abide by these recommedations may be deleterious to their foot health as they are able to prevent many pedal complications such as skin irritation, skin ulceration, infection, and even loss of toe/foot/leg/or life. Time was also spent with the patient dispensing and discussing proper diabetic footcare techniques including daily skin moisturization, daily foot inspection for any interruption in skin integrity including open lesions, or sign of infection such as redness/malodor/drainage/swelling. Also discussed and recommended were procedures regarding daily shoe inspection for the presence of internal foreign bodies as well as any visualized irregular shoe or insert wear. Patient questions re: shoes, inserts, and self foot inspections were answered to their satisfaction as the patient verbally confirmed a full understanding of the above information. A Rx for Extra Depth Orthopedic Shoes with 3 pair of custom heat-molded inserts was dispensed.?Xerosis:?The patient was again counseled on the diagnosis, potential etiologies, and treatment options for their skin condition. We discussed the risks and benefits of each option from performing no treatment, to utilizing OTC topical skin creams/ointments, to utilizing prescription topical creams/ointments, to utilizing customized compounded topical medications and use of nocturnal occlusion with any/all previously detailed therapies. We discussed the advantages and disadvantages of each possible treatment and importance for adherence to all the recommended therapies for optimum success and avoid potential complications such as open sore/infection/possible hospitalization. We discussed the potential effectiveness of each topical preparation as well as each ones possible side effects and/or patient medication interactions. Patient questions re: use, dosage, successful outcomes, and application consistency were reviewed and the patient verbalized that all answers were clearly understood. The patient has decided to apply Rx skin creams to their feet save the interspaces while paying special attention to the heels.? ??Screening/Special Tests:?Fall Risk?Assessment:?Performed ?Plan of Care:?Documented ?Screening:?No falls in the past year ?FALLS: Screening for Future Fall Risk?Have you had any falls with injury in the past year??No * Follow Up:?prn * Images: * Sign off status: Completed true * Provider:?Jung Sarmiento DPM Date:?2023 Generated for Paul gomez/iGlbert/Stephenie on:?04/11/2024 03:26 PM EST History and Physical Notes * HPI (History of Present Illness) Category Sub-Category Detail Notes Category Not es Toe pain Location: B/L feet Duration: several years Course: worse Aggravated by: shoes, any pressure Treatments: change in shoes Skin problems Nature: dryness , scaling Location: B/L Treatments: medication ( AM Lact in ) , admits nonadherence to recommended application because does not like to go to bed with creamy feet At Risk footcare Pt States Last PCP Visit: Date: 08/22 States has an appt with PCP soon - 02/28 Examination Category Sub-Category Detail Notes Category Not es Neurological SENSORY: Neurological exa m demonstrates, reduced light touch sensation, reduced sharp/dull discrimination , reduced vibration sensation, in a stocking fashion, B/L, 5.07 monofilament test performed at plantar aspects of 5 varied sites per foot shows sensation, reduced, B/L Dermatologic SKIN FINDINGS: Skin exam reveal s Keratotic lesion(s) located at , Plantar , IPJ , TA , Plantar , IPJ , T5 , SUB MTH (s) , 1 , B/L , SUB MTH (s) , 2 , B/L , SUB MTH (s) , 5 , B/L , Heel(s) , B/L , Skin STILL, shows sign(s) of, dryness, scaling, in a stocking fashion, no fissure(s) present, B/L Orthopedic FOOT MORPHOLOGY: (-) Charcot col lapse/destruction noted at MT[facility] FOOTWEAR: worn, non-supportive , shoe gear properties exacerbate patient's foot/toe deformity , shoe gear properties exacerbate patients foot/toe deformity DIGITAL DEFORMITIES: Syndactyly noted T/ T2, Digital contracture, PIPJ, 2-5 B/L, incompl-reducible to push-up test, no over, nor underlapping, with evidence of shoe producing skin irritation MUSCLE STRENGTH: 5/5 all groups in a symmetrical fashion, B/L General Examination GENERAL APPEARANCE: Reveals a pleasant, alert, well nourished, well-developed, well hydrated individual, who demonstrates proper attention to hygiene/body habitus, and is in no acute distress, Pt serves as own historian for office visit today FOOT EXAM: Lower Extremity Neurological Exa m performed:: Yes ORIENTED: person, place, and t norma Footwear Evaluation Footwear Evaluation performe d:: Yes Ophthalmology Referral DIABETES EYE EXAM Diabetic Retinopa thy Screening:: Yes Retinal Screening Performed:: Yes Findings of Diabetic Eye Exam:: no retin opathy Vascular DP PULSES (B): 0/4, B/L PT PULSES (B): 0/4, B/L CAPILLARY FILL TIME: delayed, all digits , B/L TEMPERTURE GRADIENT (C): decreased, cool to cool, proximal to distal, B/L TROPHIC CONDITION-TEXTURE/ELASTICITY/TURGOR/HAIR GROWTH (B): decreased, with sparse to absent hair gr owth, B/L EDEMA (C): 2/4 , pitting , with out aching pain , Leg(s) , Ankle(s) , Foot , B/L PIGMENTATION: brawny, B/L Nails NAILS are: Elongated, overg rown, dystrophic, lytic, greater than 3mm thick, discolored and friable with crumbly malodorous subungual debris , TA , T1 , T5 , T6 , remaining nails are elongated, overgrown, dystrophic
--- OUTSIDE RECORDS SUMMARY | 2024-04-11 15:27 | XMS_ITS ---
Author Organization [facility] Address [address] [facility] [place] [address] Care Team Providers Care Nurse'S Assistant Name Role Phone Arnaldo Nichols Primary Care Provider Unavailab Jung Ma Unavailable [phone] REASON FOR VISIT At Risk Footcare, Skin problem(s) Medications Medication SIG (Take, Route, Frequency, Duration) Notes Start Date End Date Status Metoprolol Succinate ER 25 MG 1 tablet [...] Once a day for 30 day(s) Active Atorvastatin Calcium 20 MG 1 tablet Orally Once a day for 30 day(s) Active Ammonium Lactate 12 % 1 application Exte rnally Twice a day for 30 days Active Finasteride 5 MG 1 tablet Orally Once a day for 30 day(s) Active Breo Ellipta Active Eliquis 2.5 MG as directed Orally Active Tamsulosin HCl 0.4 MG 1 capsule Orally O nce a day for 30 day(s) Active lamiVUDine 100 MG 1 tablet Orally Once a day for 10 day(s) Active Extra Depth Orthopedic Shoes (1 Pair) with Customized Heat Molded Multidensity Innersoles (3 Pair) as directed Dx: NIDDM/Polyneuropathy (E11.42), Hammertoe Foot Deformity (M20.41,M20.42), Preulcerative Skin Lesion(s) (L85.1 06/05/2023 Active Tivicay 50 MG 1 tablet Orally Once a day for 30 day(s) Active Abacavir Sulfate Act mayda Advair Diskus 100-50 MCG/ACT 1 puff Inhalation Twice a day Not-Taking Social History Tobacco Use: Social History Observation [...] No Vital Signs Height 5ft 11in in 11/13/2023 Weight 250 lbs 11/13/2023 BMI 34.86 kg/m2 11/13/2023 Procedures Procedure Date Ordered Date Performed Result Body Sit e 88824-VNLCSPL NAIL, 1-11/13/2023 N/A 33995-RRLX SKIN LESIONS, OVER 11/13/2023 N/A A7597-CYMUXPDM DYSTROPHIC NAILS ANY # 11/13/2023 N/A Encounters Encounter Location Date Provider Diagnosis [facility] [address] [address] 11/13/2023 Jung Sarmiento Type 2 diabetes mellitus with diabetic polyneuropathy E11.42 ; Tinea unguium B35.1 and Xerosis of skin L85.3 Assessments Encounter Date Diagnosis (ICD Code) Assessment Notes Treatment Notes Treatment Clinical Notes Section Notes 11/13/2023 Type 2 diabetes mellitus with diabetic polyneuropathy (ICD-10 - E11.42) 11/13/2023 Tinea unguium (ICD-10 - B35.1) 11/13/2023 Xerosis of skin (ICD-10 - L85.3) Plan Of Treatment Medication Medication Name Sig Start Date Stop Date Notes Ammonium Lactate 12 % 1 application Exte rnally Twice a day for 30 days Pending Test Test Name Order Date 22794-BRUMKHT NAIL, 1-5 11/13/2023 56510-EELF SKIN LESIONS, OVER 4 11/13/19 24 E3247-DZTDMNIW DYSTROPHIC NAILS ANY # Next Appt Details Follow Up: prn, Reason: Provider Name:Jung Sarmiento , 05/15/2024 03:00:00 PM, [address] [facility], [address], [place], [address], Procedure Notes * Category Sub-Category Detail Notes Keratoma Treatment Parring or Cutting o f Benign Hyperkeratotic Lesion(s) 70122 ( More than 4 Lesions ) - The Benign hyperkeratotic lesions, as described above were pared, and/or cut utilizing a sterile 15 blade, tissue nippers, and/or dremel Debride Nails 1-5 Procedure: Nail debrideme nt performed extensively to reduce/remove overall nail length, girth, thickness, subungual debris, and necrotic tissue, by manual and electrical means through the use of a nail nipper and/or dremel, to more viable healthy nail plate or bed tissue 1-5. Silver nitrate used for any petechial bleeding as necessary. Patient chooses, no pharmaceutical tx (75045) Nail Reduction Nail Reduction Trimming of dyst rophic nails performed to reduce/remove overall nail length and girth, by manual and electrical means with use of a nail nipper and/or dremel, to more viable healthy nail plate or bed tissue (G0127) Progress Notes * Jarod ANDOB: [birth year] (83 yo M)Acc No.[id number]:11/13/2023 Progress Note Patient:?Jannetdeneenortiz Jarod Provider:?Jung Sarmiento DPM :1940???Age:83 Y???Sex:Male Robbi e:11/13/2023 Address:[address] [place] [address] [address], [address], [place], [id number] Pcp:Arnaldo Nichols Subjective: * Chief Complaints: * ???At Risk FootcareSkin prob pernell(s) * HPI: ???At Risk footcare:?Pt States Last PCP Visit:?Date?06/05/2023 States has an appt with PCP - February ???Skin problems:?Nature:?dryness , scaling.?Location:?B/L .?Duration:?several days.?Course:?worse.? * ROS:?General/Constitutional:?Nausea?denies.?Vomiting?denies.?Hunger Thirst?denies.?Loss appetite?denies.?Chills?denies.?Fatigue?denies.?Fever?denies.?Night Sweats?denies.?Unexplained weight loss?denies.?Unexplained [...] Foot Deformity (M20.41,M20.42), Preulcerative Skin Lesion(s) (L85.1Taking Atorvastatin Calcium 20 MG Tablet 1 tablet [...] Hammertoe Foot Deformity (M20.41,M20.42), Preulcerative Skin Lesion(s) (L85.1Not- Taking/PRNAdvair Diskus 100-50 MCG/ACT Aerosol Powder Breath Activated 1 puff Inhalation Twice a dayMedication List reviewed and reconciled with the patientNot-Taking/PRN Advair Diskus 100-50 MCG/ACT Aerosol Powder Breath Activated 1 puff Inhalation Twice a dayMedication List reviewed and reconciled with the patient * Allergies:?yes[Allergies Ellis ified] Objective: * Vitals:?Ht: 5ft 11in, Wt:250 , BMI: 34.86, Shoe size:11, Wt-k.4 kg. * ???Past Orders: ???Lab:HEMOGLOBIN A1C (GLYCO HEMOGLOBIN) (Order Date - 06/05/2023) (Collection Date - 06/05/2023) ? Value Reference Range ?HEMOGLOBIN A1C % (HH) 6.0 * Examination: ???Neurological: ?SENSORY:?Neurological exam demonstrates, [...] B/L , Heel(s) , B/L , Skin shows sign(s) of, dryness, scaling, in a stocking fashion, no fissure(s) present, B/L.? Assessment: * Assessment: 1.?Tinea unguium - B35.1?2.? Type 2 diabetes mellitus with diabetic polyneuropathy - E11.42 (Primary)?3.?Xerosis of skin - L85.3, Acute problem, Uncomplicated (3),Rx Management (4)? Plan: * Treatment: 2.?Xerosis of skin? Start Ammonium Lactate Cream, 12 %, 1 application, Externally, Twice a day, 30 days, 60, Refills 2.?? * Procedures:?Debride Nails 1-5:?Procedure:?Nail debridement performed extensively to reduce/remove overall nail length, girth, thickness, subungual debris, and necrotic tissue, by manual and electrical means through the use of a nail nipper and/or dremel, to more viable healthy nail plate or bed tissue 1-5. Silver nitrate used for any petechial bleeding as necessary. Patient chooses, no pharmaceutical tx (31599).?Keratoma Treatment:?Parring or Cutting of Benign Hyperkeratotic Lesion(s)?91825 ( More than 4 Lesions ) - The Benign hyperkeratotic lesions, as described above were pared, and/or cut utilizing a sterile 15 blade, tissue nippers, and/or dremel.?Nail Reduction:?Nail Reduction?Trimming of dystrophic nails performed to reduce/remove overall nail length and girth, by manual and electrical means with use of a nail nipper and/or dremel, to more viable healthy nail plate or bed tissue (G0127).? * Procedure Codes:?G0127 JATINDER ING DYSTROPHIC NAILS ANY #, Modifiers: XS 66033 DEBRIDE NAIL, 1-5, Modifiers: XS 49897 TRIM SKIN LESIONS, OVER 4, Modifiers: XS * Preventive Medicine:? ??Counseling:?Discussion:?-13: Office or other outpatient visit for the evaluation and management of an established patient, which required a medically appropriate history and/or examination and LOW level of DECISION MAKING for: 1 STABLE ACUTE UNCOMPLICATED PROBLEM, 2 OR MORE MINOR PROBLEMS, OR 1 STABLE CHRONIC PROBLEM, THAT POSE(S) A LOW RISK FOR MORBIDITY/MORTALITY. The visit on the day of the [...] have encouraged the patient to call the office.?Xerosis:?The patient was counseled on the diagnosis, potential etiologies, and [...] interspaces while paying special attention to the heels. Such was sent to their pharmacy at the time of visit.? * Follow Up:?prn * Images: * Sign off status: Completed true * Provider:Clair Sarmiento DPM Date:?2023 Generated for Paul gomez/Gilbert/Stephenie on:?04/11/2024 03:26 PM EST History and Physical Notes * HPI (History of Present Illness) Category Sub-Category Detail Notes Category Not es Skin problems Nature: dryness , scaling Location: B/L Duration: several days Course: worse At Risk footcare Pt States Last PCP Visit: Date: 06/05/2023 States has an appt with PCP soon - February Examination Category Sub-Category Detail Notes Category Not [...] B/L , Heel(s) , B/L , Skin shows sign(s) of, dryness, scaling, in a stocking fashion, no fissure(s) present, B/L Nails NAILS are: Elongated, overg rown, dystrophic, lytic, greater than 3mm thick, discolored and friable with crumbly malodorous subungual debris , TA , T1 , T5 , T6 , remaining nails are elongated, overgrown, dystrophic
--- OUTSIDE RECORDS SUMMARY | 2024-04-11 15:27 | XMS_ITS | Patient Health Record ---
Author Organization [facility] Address [address] [facility] [place] [address] Care Team Providers Care Information Systems Security Analyst Name Role Phone Arnaldo Nichols Primary Care Provider Unavailab Jung Ma Unavailable [phone] Allergies Allergen (clinical drug ingredient) Drug/Non Drug Allergy documented on EMR Reaction Allergy Type Onset Date Status Ragweed Unknown Allergy Active Results Component Value Reference Range Notes HEMOGLOBIN A1C (GLYCOHEMOGLO BIN) Reviewed date:06/05/2023 02:08:01 PM Interpretation: Performing Lab: Notes/Report: HEMOGLOBIN A1C % (HH) 6.0 HEMOGLOBIN A1C (GLYCOHEMOGLO BIN) Reviewed date:02/14/2024 01:17:04 PM Interpretation: Performing Lab: Notes/Report: TOTAL HEMOGLOBIN (HGBA1C) 6.0 Reason For Referral No Information Medications Medication SIG (Take, Route, Frequency, Duration) Notes Start Date End Date Status Finasteride 5 MG 1 tablet Orally Once a day for 30 day(s) Active Ammonium Lactate 12 % 1 application Exte rnally Twice a day for 30 days Active Furosemide 40 MG 1 tablet Orally Once a day for 30 day(s) Active Advair Diskus 100-50 MCG/ACT 1 puff Inhalation Twice a day Not-Taking metFORMIN HCl 500 MG 1 tablet with a alyssia l Orally Once a day for 30 day(s) Active Metoprolol Succinate ER 25 MG 1 tablet Orally Once a day for 30 day(s) Active Kerendia 20 MG 1 tablet Orally Once a day for 30 day(s) Active Losartan Potassium 100 MG 1 tablet Orally Once a day for 30 day(s) Active Atorvastatin Calcium 20 MG 1 tablet Orally Once a day for 30 day(s) Active Tivicay 50 MG 1 tablet Orally Once a day for 30 day(s) Active Breo Ellipta Active Abacavir Sulfate Act mayda Tamsulosin HCl 0.4 MG 1 capsule Orally O nce a day for 30 day(s) Active lamiVUDine 100 MG 1 tablet Orally Once a day for 10 day(s) Active Eliquis 2.5 MG as directed Orally Active Extra Depth Orthopedic Shoes (1 Pair) with Customized Heat Molded Multidensity Innersoles (3 Pair) as directed Dx: NIDDM/Polyneuropathy (E11.42), Hammertoe Foot Deformity (M20.41,M20.42), Preulcerative Skin Lesion(s) (L85.1 Active Social History Tobacco Use: Social History [...] Are you an other tobacco user? No Problems Problem Type SNOMED Code ICD Code Onset Dates Problem Status W/U Status Risk Notes Problem Acquired hammer toe of right foot (6498447641731562 ) Other hammer toe(s) (acquired), right foot (M20.41) Active confirmed Problem Acquired hammer toe of left foot (5129671533454447 ) Other hammer toe(s) (acquired), left foot (M20.42) Active confirmed Problem Polyneuropathy due to type 2 diabetes mellitus (777704639) Type 2 diabetes mellitus with diabetic polyneuropathy (E11.42) Active confirmed Vital Signs Height 5ft 11in in 02/14/2024 Weight 250 lbs 02/14/2024 BMI 34.86 kg/m2 02/14/2024 Procedures Procedure Date Ordered Date Performed Result Body Sit e 77341-TIEIBXN NAIL, 1-5 06/05/2023 N/A 61842-CTCP SKIN LESIONS, OVER 4 06/05/2023 N/A N8985-JFGTEFKF DYSTROPHIC NAILS ANY # 06/05/2023 N/A 87435-NHXLYNR NAIL, 1-5 11/13/2023 N/A 95061-CEUB SKIN LESIONS, OVER 4 11/13/2023 N/A B2535-XALAIWUA DYSTROPHIC NAILS ANY # 11/13/2023 N/A 84326-IATWZFC NAIL, 1-5 02/14/2024 N/A 96413-CJGR SKIN LESIONS, OVER 4 02/14/2024 N/A P3121-RAWDJMWS DYSTROPHIC NAILS ANY # 02/14/2024 N/A Encounters Encounter Location Date Provider Diagnosis [address] [address] 06/05/2023 Jung Sarmiento Type 2 diabetes mellitus with diabetic polyneuropathy E11.42 ; Tinea unguium B35.1 ; Other hammer toe(s) (acquired), right foot M20.41 and Other hammer toe(s) (acquired), left foot M20.[address] [address] 11/13/2023 Jung Pryorunier Type 2 diabetes mellitus with diabetic polyneuropathy E11.42 ; Tinea unguium B35.1 and Xerosis of skin L85.[address] [address] 02/14/2024 Jung Sarmiento Type 2 diabetes mellitus with diabetic polyneuropathy E11.42 ; Tinea unguium B35.1 ; Other hammer toe(s) (acquired), right foot M20.41 ; Other hammer toe(s) (acquired), left foot M20.42 and Xerosis of skin L85.3 Assessments Encounter Date Diagnosis (ICD Code) Assessment Notes Treatment Notes Treatment Clinical Notes Section Notes 06/05/2023 Tinea unguium (ICD-10 - B35.1) 06/05/2023 Type 2 diabetes mellitus with diabetic polyneuropathy (ICD-10 - E11.42) 11/13/2023 Tinea unguium (ICD-10 - B35.1) 11/13/2023 Type 2 diabetes mellitus with diabetic polyneuropathy (ICD-10 - E11.42) 02/14/2024 Tinea unguium (ICD-10 - B35.1) 02/14/2024 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 pdf (DIABETIC FOOT CARE INSTRUCTIONS. pdf) 02/14/2024 Other hammer toe(s) (acquired), right foot (ICD-10 - M20.41) Patient Educated with: DIABETIC FOOT CARE INSTRUCTIONS. pdf (DIABETIC FOOT CARE INSTRUCTIONS. pdf) 02/14/2024 Other hammer toe(s) (acquired), left foot (ICD-10 - M20.42) 06/05/2023 Other hammer toe(s) (acquired), left foot (ICD-10 - M20.42) 11/13/2023 Xerosis of skin (ICD-10 - L85.3) 02/14/2024 Xerosis of skin (ICD-10 - L85.3) Plan Of Treatment Pending Test Test Name Order Date 84085-NCDCGHG NAIL, 1-5 06/05/2023 86894-GLDMGIK NAIL, 1-5 11/13/2023 26124-OBTACLF NAIL, 1-5 02/14/2024 60706-GNNP SKIN LESIONS, OVER 4 02/14/20 24 49611-JTRQ SKIN LESIONS, OVER 4 06/05/19 24 46717-NAJN SKIN LESIONS, OVER 4 11/13/19 24 V1776-XBLLANOH DYSTROPHIC NAILS ANY # S9245-VUJXXVUN DYSTROPHIC NAILS ANY # U3703-UBSWDTOI DYSTROPHIC NAILS ANY # Next Appt Details Provider Name:Jung Sarmiento , 05/15/2024 03:00:00 PM, [address] [facility], [address], [place], [address], Insurance Providers Payer Name Payer Address Payer Phone Subscriber Number Group Number Insured Name Patient Relationship to Insured Coverage Start Date Coverage End Date Medicare National [facility] [address] [place] [address] [id number] Jarod An Self - patient is the insured [facility] [place] [id number] Jarod An Self - patient is the insured Medical (General) History Medical History History ICD Code asthma Diabetic High blood pressure HIV Kidney disease Numbness Surgical History Surgery Date(Month/Year) Left hip replacement 2019
--- OUTSIDE RECORDS SUMMARY | 2024-04-11 15:27 | XMS_ITS ---
Author Organization [facility] Address [address] [place] [address] Care Team Providers Care Distillery Laborer Name Role Phone Arnaldo Nichols Primary Care Provider Unavailab Jung Ma Unavailable [phone] Flores Encounters Encounter Location Date Provider Diagnosis [address] [address] 09/06/2023 Jung Sarmiento Plan Of Treatment Next Appt Details Provider Name:Jung Sarmiento , 05/15/2024 03:00:00 PM, [address] [place] [address], [address], Progress Notes * Jarod ANDOB: [birth year] (83 yo M)Acc No.[id number]:09/06/2023 Progress Note Patient:?Jarod AN Provider:?Jung Sarmiento DPM :1940???Age:83 Y???Sex:Male Robbi e:09/06/2023 Address:[address], [address], [id number] Pcp:Arnaldo Nichols Subjective: * Chief Complaints: * ???1. Dr. Flores. * Medical History:? Objective: * Vitals:? Assessment: Plan: * Treatment: * Images: * The named appointment provid er may or may not be the originator of this progress note, and it is not deemed complete until electronically signed by the appointment provider. Sign off status: Pending * Provider:Clair Sarmiento DPM Date:?2023 Generated for Paul gomez/Gilbert/Stephenie on:?04/11/2024 03:27 PM EST
== END ==
LOC: HO.CARD 14:00
PROVIDERS: PCP Physician Assistant; Visit Provider Nurse Practitioner Family
DX: I48.11 Longstanding persistent atrial fibrillation (principal); I49.3 Ventricular premature depolarization
CPT/HCPCS: 93225

== ENCOUNTER → 2024-04-11 14:03 | Outpatient (BNV) | payer MEDICARE, OTHER, SELFPAY | PROVIDERS: PCP Physician Assistant; Visit Provider Internal Medicine | DX: I48.91 Unspecified atrial fibrillation (principal); I49.3 Ventricular premature depolarization | CPT/HCPCS: 93227 ==

== ENCOUNTER 2024-04-22 12:55 | Outpatient (AMB) | payer MEDICARE, OTHER, SELFPAY ==
--- NOTE | 2024-04-22 13:04 | MHC.OFFVIS ---
Vital Signs 04/22/24 13:05 Height 5 ft 11 in Weight 231 lb 7.766 oz BMI 32.3 BP 142/60 H Pulse 50 Pulse Source Pulse Oximeter Intake Visit Reasons: 6m follow up Machine Pecan Gatherer Required: No Allergies clarithromycin [From BIAXIN] Allergy (Unknown, Verified 04/22/24 13:07) ANAPHYLAXIS Medication List - Last Reconciled 04/22/24 by Molly Avelar, SECONDARY TEACHER-C fsykdzuy-brpijnpmfnvs-hserlht 600-50-300 mg (Triumeq) 1 tab PO DAILY 90 days amlodipine 2.5 mg PO DAILY apixaban (Eliquis) 2.5 mg PO BID atorvastatin 20 mg PO BEDTIME finasteride 5 mg orally take on Mondays, Wednesdays, Fridays 90 days finerenone (Kerendia) 20 mg PO DAILY fluticasone furoate-vilanterol 100-25 mcg/dose (Breo Ellipta) 1 inh inhalation DAILY furosemide 20 mg PO BID 90 days losartan 100 mg PO DAILY metformin 500 mg PO DAILY methylprednisolone (Medrol (Carson)) PO PER PKG DIR for 6 days metoprolol succinate ER 12.5 mg (1/2 x 25 mg) PO DAILY 30 days tamsulosin 0.4 mg PO BEDTIME HPI HPI 6m follow up: Details: Jarod is an 83-year-old male with past medical history of hypertension, hyperlipidemia, diabetes, chronic kidney disease, HIV, persistent AFib who presents for follow-up. Today he reports feeling generally well since last visit in August 2023. He does report some fatigue and takes a nap usually once a day. He says he wakes up up to 4 times nightly to urinate which interrupts his sleep. He denies chest discomfort at rest or with activity. No shortness of breath, PND, orthopnea or edema. No presyncope, syncope, falls. No bleeding issues reported. He remains active each day. His HIV has remained stable. He follows closely with Dr. Garcia for GI, Dr. Ruiz for Nephrology and Dr. Ashton. for HIV. Taking all meds as directed. 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 Mother No problems noted. Social History Housing: House Alcohol intake: never Patient Tobacco Use Status: Never used Tobacco e-Cigarette/Vaping Use: Never Used Current occupational status: retired Cognitive needs: No Hearing needs: No Vision needs: No Review of Systems Const All systems reviewed & are unremarkable except as noted in HPI and below Reports fatigue ENT Denies dizziness Card Denies chest pain, Denies chest pain at rest, Denies chest pain with activity, Denies rapid heart rate, Denies pedal edema, Denies edema, Denies leg edema, Denies lightheadedness, Denies palpitations, Denies dyspnea, Denies dyspnea on exertion and Denies orthopnea Resp Denies cough, Denies dyspnea and Denies dyspnea on exertion GI Denies hematochezia and Denies change in stool character Musc Denies abnormal gait, Denies limited range of motion, Denies muscle cramps, Denies muscle weakness, Denies numbness, Denies radiating pain into limb, Denies stiffness and Denies tingling Neuro Denies abnormal gait, Denies dizziness, Denies numbness and Denies tingling Endo Reports fatigue and Denies palpitations Physical Exam Vital Signs: Last Vital Signs Pulse 50 04/22/24 13:05 BP 142/60 H 04/22/24 13:05 BMI result Body Mass Index 32.3 Const General: cooperative, healthy appearing, comfortable and no acute distress Orientation/consciousness: patient oriented x3 Neck Neck: Yes normal visual inspection and Yes no JVD Resp Effort & Inspection: normal respiratory effort Auscultation: clear to auscultation bilaterally, no crackles, no rales, no rhonchi and no wheezes Cardio Jugular venous distension: no JVD Rate: regular rate Rhythm: abnormal rhythm Heart sounds: S1 normal heart sound present, S2 normal heart sound present, no murmurs and no rubs Neuro General: patient oriented x3 Extrem Other: trace ankle edema Psych Appearance: grossly normal Mental Status: mental status grossly normal Speech and movement: Normal speech and movement present Office Procedures EKG Details: Today, read by me, atrial fibrillation with slow ventricular response, left axis deviation, right bundle branch block, inferior Q-waves, rate 51, QTC 433 millisecond 61700-Nwtqihbdkdxrnhluy, Complete Assessment & Plan Assessment & Plan (1) Afib: Code(s): I48.91 - Unspecified atrial fibrillation Category: Medical Qualifiers: Atrial fibrillation type: longstanding persistent Qualified Code(s): I48.11 - Longstanding persistent atrial fibrillation Plan: Chronic atrial fibrillation, asymptomatic. On Metoprolol for heart rate control and on Eliquis 2.5 mg b.i.d for anticoagulation. This Eliquis dose is the appropriate dose for his age and creatinine. 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 No bleeding problems have been reported. Holter monitor was done 02/07/2024 showing AFib with average heart rate 47, 70% of the time heart rate less than 60, frequent PVCs with 3 beat salvos. Following this Holter his metoprolol dose was reduced to 12.5 mg daily. He tells me he did have repeat echocardiogram however the results are not available at this visit. Last Echocardiogram done 01/27/2023 showing EF 69%, no valve abnormalities and no regional wall motion abnormalities, overall no change from last. EKG done today showing atrial fibrillation with slow ventricular response, right bundle branch block, rate 51. He does report some fatigue which is not new.. No presyncope, syncope, falls. Will have him stop metoprolol.. Continue Eliquis. Labs done 02/13/2024 showed hematocrit 46.5, creatinine 1.59.. Cardiology followup in 6 months, sooner if needed. (2) HTN (hypertension): Code(s): I10 - Essential (primary) hypertension Category: Medical Qualifiers: Hypertension type: essential hypertension Qualified Code(s): I10 - Essential (primary) hypertension Plan: Mildly elevated initially at this visit. Recheck done by me was 132/60. He tells me he had amlodipine recently added. Will have him continue amlodipine and losartan. If blood pressure continues to be mildly elevated then amlodipine dose can be increased. Would avoid a dose of 10 mg daily as he has had issues with chronic ankle edema. He does take Lasix as directed. (3) CKD (chronic kidney disease): Code(s): N18.9 - Chronic kidney disease, unspecified Category: Medical Qualifiers: Chronic kidney disease stage: stage 3 (moderate) Chronic kidney disease stage 3 subtype: stage 3b (GFR 30-44) Qualified Code(s): N18.32 - Chronic kidney disease, stage 3b Plan: Follows with Dr Ruiz. (4) Abnormal echocardiogram findings without diagnosis: Code(s): R93.1 - Abnormal findings on diagnostic imaging of heart and coronary circulation Category: Medical Plan: Echo done 01/11/21 shows EF 55-60%, mild TR, mild pulm HTN, basal inferior akinetic - the report does state that the WMA was noted on review of the prior echo images. . Nuclear stress test 02/15/17 showed normal myocardial perfusion imaging. No report of anginal sounding symptoms. A repeat echocardiogram was done 01/27/2023 which shows normal EF and no regional wall motion abnormalities. Plan Time spent on chart review, documentation, interview and assessment Coding Level of Care Code Est Pt Level 4 (58190) Complex EM visit Add On G2211 Diagnoses Longstanding persistent atrial fibrillation I48.11 Atrial fibrillation type: longstanding persistent Essential hypertension I10 Hypertension type: essential hypertension Stage 3b chronic kidney disease N18.32 Chronic kidney disease stage: stage 3 (moderate) Chronic kidney disease stage 3 subtype: stage 3b (GFR 30-44) Abnormal echocardiogram findings without diagnosis R93.1 CPT Codes EKG - CPT: 63611-Fwnejbnjjgeptnvou, Complete ([id number]) Time Spent (min) 36
[2024-04-22 13:05] VITALS: BP 142/60; PULSE 50; BMI 32.3
--- OUTSIDE RECORDS SUMMARY | 2024-04-22 15:08 | XMS_ITS ---
Author Organization [facility] Address [address] [facility] [place] [address] Care Team Providers Care Production Recorder Name Role Phone Arnaldo Nichols Primary Care Provider Unavailab Jung Ma Unavailable [phone] REASON FOR VISIT At Risk Footcare, Skin [...] Ordered Date Performed Result Body Sit e 99665-RICBKLP NAIL, 1-11/13/2023 N/A 62225-ATIE SKIN LESIONS, OVER 11/13/2023 N/A Z6531-YQRPFLBA DYSTROPHIC NAILS ANY # 11/13/2023 N/A Encounters Encounter Location Date Provider Diagnosis [facility] [address] [address] 11/13/2023 Jung Sarmiento Type 2 diabetes mellitus [...] days Pending Test Test Name Order Date 83659-FXEMGDD NAIL, 1-5 11/13/2023 31062-XZUY SKIN LESIONS, OVER 4 11/13/19 24 H1356-ATCXGESH DYSTROPHIC NAILS ANY # Next Appt Details Follow Up: prn, Reason: Provider Name:Jung Sarmiento , 05/15/2024 03:00:00 PM, [address] [facility], [address], [place], [address], Procedure Notes * Category Sub-Category Detail Notes Keratoma Treatment Parring or Cutting o f Benign Hyperkeratotic Lesion(s) 56692 ( More than 4 Lesions ) - [...] as necessary. Patient chooses, no pharmaceutical tx (36143) Nail Reduction Nail Reduction Trimming of dyst rophic nails performed to reduce/remove overall nail length and girth, by manual and electrical means with use of a nail nipper and/or dremel, to more viable healthy nail plate or bed tissue (G0127) Progress Notes * Jarod ANDOB: [birth year] (83 yo M)Acc No.[id number]:11/13/2023 Progress Note Patient:?Jannetdeneenortiz Jarod Provider:?Jung Sarmiento DPM :1940???Age:83 Y???Sex:Male Robbi e:11/13/2023 Address:[address] [place] [address] Rd, [address], [place], [id number] Pcp:Arnaldo Nichols Subjective: * Chief Complaints: * [...] as necessary. Patient chooses, no pharmaceutical tx (10604).?Keratoma Treatment:?Parring or Cutting of Benign Hyperkeratotic Lesion(s)?48093 ( More than 4 Lesions ) - [...] ING DYSTROPHIC NAILS ANY #, Modifiers: XS 46623 DEBRIDE NAIL, 1-5, Modifiers: XS 19161 TRIM SKIN LESIONS, OVER 4, Modifiers: XS [...] Sarmiento DPM Date:?2023 Generated for Paul gomez/Gilbert/Stephenie on:?04/22/2024 03:08 PM EST History and Physical Notes * [...]
--- OUTSIDE RECORDS SUMMARY | 2024-04-22 15:08 | XMS_ITS | Patient Health Record ---
Author Organization [facility] Address [address] [facility] [place] [address] Care Team Providers Care Mental Health Technician Name Role Phone Arnaldo Nichols Primary Care Provider Unavailab Jung Ma Unavailable [phone] Allergies Allergen (clinical drug ingredient) Drug/Non Drug Allergy documented on EMR Reaction Allergy Type Onset Date Status Ragweed Unknown Allergy Active Results Component Value Reference Range Notes HEMOGLOBIN A1C (GLYCOHEMOGLO BIN) Reviewed date:02/14/2024 01:17:04 PM Interpretation: Performing Lab: Notes/Report: TOTAL HEMOGLOBIN (HGBA1C) 6.0 HEMOGLOBIN A1C (GLYCOHEMOGLO BIN) Reviewed date:06/05/2023 02:08:01 PM Interpretation: Performing Lab: Notes/Report: HEMOGLOBIN A1C % (HH) 6.0 Reason For Referral No Information Medications [...] Problem Acquired hammer toe of right foot (2632768424356681 ) Other hammer toe(s) (acquired), right foot (M20.41) Active confirmed Problem Acquired hammer toe of left foot (6119989467108021 ) Other hammer toe(s) (acquired), left foot (M20.42) Active confirmed Problem Polyneuropathy due to type 2 diabetes mellitus (630905541) Type 2 diabetes mellitus with diabetic polyneuropathy (E11.42) Active confirmed Vital Signs Height 5ft 11in in 02/14/2024 Weight 250 lbs 02/14/2024 BMI 34.86 kg/m2 02/14/2024 Procedures Procedure Date Ordered Date Performed Result Body Sit e 24089-ZMWZLSL NAIL, 1-5 06/05/2023 N/A 60542-ZKDZ SKIN LESIONS, OVER 4 06/05/2023 N/A Z5113-YMARXRHQ DYSTROPHIC NAILS ANY # 06/05/2023 N/A 61541-AFPWSPW NAIL, 1-5 11/13/2023 N/A 03584-PABD SKIN LESIONS, OVER 4 11/13/2023 N/A X4728-ZVOSLWTS DYSTROPHIC NAILS ANY # 11/13/2023 N/A 73887-XLRGMCZ NAIL, 1-5 02/14/2024 N/A 60044-RRXY SKIN LESIONS, OVER 4 02/14/2024 N/A B0766-JNPFYJYB DYSTROPHIC NAILS ANY # 02/14/2024 N/A Encounters Encounter Location Date Provider Diagnosis [address] [address] 06/05/2023 Jung Sarmiento Type 2 diabetes mellitus with diabetic polyneuropathy E11.42 ; Tinea unguium B35.1 ; Other hammer toe(s) (acquired), right foot M20.41 and Other hammer toe(s) (acquired), left foot M20.[address] [address] 11/13/2023 Jung Pryorunier Type 2 diabetes mellitus with diabetic polyneuropathy E11.42 ; Tinea unguium B35.1 and Xerosis of skin L85.[address] [address] 02/14/2024 Jung Sarmiento Type 2 diabetes mellitus [...] Treatment Pending Test Test Name Order Date 48880-MXYDMRC NAIL, 1-5 06/05/2023 46585-BNDFGST NAIL, 1-5 11/13/2023 06049-PAHLLPP NAIL, 1-5 02/14/2024 19248-XSGR SKIN LESIONS, OVER 4 02/14/20 24 72487-PZOH SKIN LESIONS, OVER 4 06/05/19 24 07019-ARSY SKIN LESIONS, OVER 4 11/13/19 24 M6219-NKHEWTLY DYSTROPHIC NAILS ANY # I2691-EBVEBNFS DYSTROPHIC NAILS ANY # K0662-BZPWKDFR DYSTROPHIC NAILS ANY # Next Appt Details Provider Name:Jung Sarmiento , 05/15/2024 03:00:00 PM, [address] [facility], [address], [place], [address], Insurance Providers Payer Name Payer Address Payer Phone Subscriber Number Group Number Insured Name Patient Relationship to Insured Coverage Start Date Coverage End Date Medicare [facility] [address] [place] [address] [id number] Jarod An Self - patient is the insured [facility] [place] [id number] Jarod An Self - patient is the insured Medical (General) History Medical History History ICD Code asthma Diabetic High blood pressure HIV Kidney disease Numbness Surgical History Surgery Date(Month/Year) Left hip replacement 2019
--- OUTSIDE RECORDS SUMMARY | 2024-04-22 15:08 | XMS_ITS ---
Author Organization [facility] Address [address] [facility] [place] [address] Care Team Providers Care Complaint Evaluation Officer Name Role Phone Arnaldo Nichols Primary Care Provider Unavailab Jung Ma Unavailable [phone] Allergies Allergen (clinical drug ingredient) Drug/Non Drug [...] Ordered Date Performed Result Body Sit e 14181-JCTPYBG NAIL, 1-5 02/14/2024 N/A 79163-MZQH SKIN LESIONS, OVER 4 02/14/2024 N/A V9295-BYGBKLAC DYSTROPHIC NAILS ANY # 02/14/2024 N/A Encounters Encounter Location Date Provider Diagnosis [facility] [address] [address] 02/14/2024 Jung Sarmiento Type 2 diabetes mellitus [...] INSTRUCTIONS.pdf) Pending Test Test Name Order Date 51671-JGHBBAJ NAIL, 1-5 02/14/2024 03129-UFTB SKIN LESIONS, OVER 4 02/14/20 24 C2994-FJPSXGNH DYSTROPHIC NAILS ANY # Next Appt Details Follow Up: prn, Reason: Provider Name:Jung Sarmiento , 05/15/2024 03:00:00 PM, [address] [facility], [address], [place], [address], Procedure Notes * Category Sub-Category Detail Notes Keratoma Treatment Parring or Cutting o f Benign Hyperkeratotic Lesion(s) (-57) More than 4 Lesions - The Benign hyperkeratotic lesions, as described above were pared, and/or cut utilizing a sterile 15 blade, tissue nippers, and/or dremel - 52600 Debride Nails 1-5 Procedure: Performance of this nail treatment by a nonprofessional would put this patients foot and overall health at risk. Therefore, nail debridement was performed extensively to reduce/remove overall nail length, girth, thickness, subungual debris, and necrotic tissue, by manual and/or electrical means through the use of a nail nipper and/or dremel-type horseradish grinder, to a more viable healthy nail plate or bed tissue 1-5. Silver nitrate used for any petechial bleeding as necessary. Definitive antifungal treatment options have been reviewed and discussed with the patient. The patient chooses, no pharmaceutical tx - [address]15 Nail Reduction Nail Reduction (-27) Trimming o f dystrophic nails performed to reduce/remove overall nail length and girth, by manual and electrical means with use of a nail nipper and/or dremel, to more viable healthy nail plate or bed tissue, any number - G0127 Progress Notes * Jarod ANDOB: [birth year] (83 yo M)Acc No.[id number]:02/14/2024 Progress Note Patient:?Jarod An Provider:?Jung Sarmiento DPM :1940???Age:83 Y???Sex:Male Robbi e:02/14/2024 Address:[address] [place] [address], [address] Pcp:Arnaldo Nichols Subjective: * Chief Complaints: * [...] use of a nail nipper and/or dremel-type horseradish grinder, to a more viable healthy nail plate or bed tissue 1-5. Silver nitrate used for any petechial bleeding as necessary. Definitive antifungal treatment options have been reviewed and discussed with the patient. The patient chooses, no pharmaceutical tx - 44920.?Keratoma Treatment:?Parring or Cutting of Benign Hyperkeratotic Lesion(s)?(-57) More than 4 Lesions - The Benign hyperkeratotic lesions, as described above were pared, and/or cut utilizing a sterile 15 blade, tissue nippers, and/or dremel - 19300.?Nail Reduction:?Nail Reduction?(-27) Trimming of dystrophic nails performed to reduce/remove overall nail length and girth, by manual and electrical means with use of a nail nipper and/or dremel, to more viable healthy nail plate or bed tissue, any number - G0127.? * Procedure Codes:?G0127 JATINDER ING DYSTROPHIC NAILS ANY #, Modifiers: XS 95227 DEBRIDE NAIL, 1-5, Modifiers: XS 37142 TRIM SKIN LESIONS, OVER 4, Modifiers: XS [...] Provider:?Jung Sarmiento DPM Date:?2023 Generated for Paul gomez/Gilbert/Stephenie [...]
--- OUTSIDE RECORDS SUMMARY | 2024-04-22 15:08 | XMS_ITS ---
Author Organization [facility] Address [address] [place] [address] Care Team Providers Care Steam Plant Operator Name Role Phone Arnaldo Nichols Primary Care Provider Unavailab Jung Ma Unavailable [phone] Flores Encounters Encounter Location Date Provider Diagnosis [address] [address] 09/06/2023 Jung Sarmiento Plan Of Treatment Next Appt Details Provider Name:Jung Sarmiento , 05/15/2024 03:00:00 PM, [address] [place] [address], [address], Progress Notes * Jarod ANDOB: [birth year] (83 yo M)Acc No.[id number]:09/06/2023 Progress Note Patient:?Jarod AN Provider:?Jung Sarmiento DPM :1940???Age:83 Y???Sex:Male Robbi e:09/06/2023 Address:[address], [address], [place] Pcp:Arnaldo Nichols Subjective: * Chief Complaints: * [...]
== END 2024-04-22 13:44 | disposition home or self-care (01) ==
PROVIDERS: PCP Physician Assistant; Visit Provider Nurse Practitioner Family
DX: I48.11 Longstanding persistent atrial fibrillation (principal); I10 Essential (primary) hypertension; N18.32 Chronic kidney disease, stage 3b; R93.1 Abnormal findings on diagnostic imaging of heart and coronary circulation
CPT/HCPCS: 93010; 99214; G2211

== ENCOUNTER → 2024-04-22 12:55 | Outpatient (BNVA) | payer MEDICARE, OTHER, SELFPAY | PROVIDERS: PCP Physician Assistant; Visit Provider Nurse Practitioner Family | DX: I48.11 Longstanding persistent atrial fibrillation (principal); I12.9 Hypertensive chronic kidney disease with stage 1 through stage 4 chronic kidney disease, or unspecified chronic kidney disease; N18.32 Chronic kidney disease, stage 3b; R93.1 Abnormal findings on diagnostic imaging of heart and coronary circulation | CPT/HCPCS: 93005; 99212 ==

== ENCOUNTER 2024-05-27 09:04 | Outpatient (REF) | payer MEDICARE, OTHER, SELFPAY ==
--- OUTSIDE RECORDS SUMMARY | 2024-05-27 09:07 | XMS_ITS ---
Author Organization [facility] Address [address] [place] [address] Care Team Providers Care Associate Pathologist Name Role Phone Arnaldo Nichols Primary Care Provider Unavailab Jung Ma Unavailable [phone] REASON FOR VISIT At Risk Footcare, Skin [...] Ordered Date Performed Result Body Sit e 16198-SAAUVEE NAIL, 1-11/13/2023 N/A 32565-HJZJ SKIN LESIONS, OVER 11/13/2023 N/A I9743-WVOSEBBS DYSTROPHIC NAILS ANY # 11/13/2023 N/A Encounters Encounter Location Date Provider Diagnosis [facility] [address] [address] 11/13/2023 Jung Sarmiento Type 2 diabetes mellitus [...] days Pending Test Test Name Order Date 91356-GOGDYLO NAIL, 1-5 11/13/2023 84389-ZVQH SKIN LESIONS, OVER 4 11/13/19 24 A1196-NUTUETOC DYSTROPHIC NAILS ANY # Next Appt Details Follow Up: prn, Reason: Provider Name:Jung Sarmiento , 08/08/2024 02:15:00 PM, [address] [facility], [address], [place], [address], Procedure Notes * Category Sub-Category Detail Notes Keratoma Treatment Parring or Cutting o f Benign Hyperkeratotic Lesion(s) 98308 ( More than 4 Lesions ) - [...] as necessary. Patient chooses, no pharmaceutical tx (50861) Nail Reduction Nail Reduction Trimming of dyst rophic nails performed to reduce/remove overall nail length and girth, by manual and electrical means with use of a nail nipper and/or dremel, to more viable healthy nail plate or bed tissue (G0127) Progress Notes * Jarod ANDOB: [birth year] (83 yo M)Acc No.[id number]:11/13/2023 Progress Note Patient:?Jannetdeneenortiz Jarod Provider:?Jung Sarmiento DPM :1940???Age:83 Y???Sex:Male Robbi e:11/13/2023 Address:[address] [place] [address] Rd, [address], [place], [place] Pcp:Arnaldo Nichols Subjective: * Chief Complaints: * [...] as necessary. Patient chooses, no pharmaceutical tx (66153).?Keratoma Treatment:?Parring or Cutting of Benign Hyperkeratotic Lesion(s)?91414 ( More than 4 Lesions ) - [...] ING DYSTROPHIC NAILS ANY #, Modifiers: XS 84102 DEBRIDE NAIL, 1-5, Modifiers: XS 50458 TRIM SKIN LESIONS, OVER 4, Modifiers: XS [...] Sarmiento DPM Date:?2023 Generated for Paul gomez/Gilbert/Stephenie on:?05/27/2024 09:07 AM EST History and Physical Notes * HPI (History of Present Illness) Category Sub-Category Detail Notes Category Not es Skin problems Nature: dryness , scaling Location: B/L Duration: several days Course: worse At Risk footcare Pt States Last PCP Visit: Date: 06/05/2023 States has an appt with PCP - February Examination Category Sub-Category Detail Notes [...]
--- OUTSIDE RECORDS SUMMARY | 2024-05-27 09:07 | XMS_ITS | Encounter Summary ---
Author Organization [facility] Address [address] [place] [address] Phone Care Team Providers Care Gas Welder Name Role Phone Arnaldo Nichols Primary Care Provider [phone] Encounter Details Date Type Department Care Team (Late Contact Info) Description 07/07/2020 Orders Only [facility] [address] [place] [address] Provider, MD Galdino [address] [place] [address] Social History Tobacco Use Types Packs/Day Years Used Date Smoking Tobacco: Never Alcohol Use Standard Drinks/Week Comments No 0 (1 standard drink = 0.6 oz pur e alcohol) Sex and Gender Information Value Date Recorded Sex Assigned at Not on file Legal Sex Male 4:56 PM EST Gender Identity Not on file Sexual Orientation Not on file documented as of this encounter Plan of Treatment Upcoming Encounters Date Type Department Care Team (Late Contact Info) Description 05/28/2024 Orders Only [facility] [address] [place] [address] Yong Ruiz MD [address] [facility] [address] [place] [address] Stage 3b chronic kidney disease (HCC); Renal disorder due to type 2 diabetes mellitus <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); Persistent proteinuria; Essential hypertension 07/01/2024 3:30 PM EDT Office Visit [facility] [address] [place] [address] Yong Ruiz MD [address] [facility] [address] [place] [address] documented as of this encounter Procedures Procedure Name Priority Date/Time Associated Diagnosis Comments EXT RESULT ENTRY Routine 07/07/2020 EXT RESULT ENTRY Routine 07/07/2020 documented in this encounter Results * EXT RESULT ENTRY (07/07/2020) Historical Provider MD LAB BLOOD ORDERABLES Aurea l Result * EXT RESULT ENTRY (07/07/2020) Historical Provider MD LAB BLOOD ORDERABLES Aurea l Result documented in this encounter Visit Diagnoses Not on filedocumented in this encounter Care Teams Gas Welder Relationship Specialty Start Date End Date Arnaldo Nichols PA [address] [place] [address], [address] [place] [address] PCP - General Physician Accounting Analyst 07/02/20 documented as of this encounter
--- OUTSIDE RECORDS SUMMARY | 2024-05-27 09:07 | XMS_ITS | Clinical Summary ---
Author Organization [facility] Address [address] [place] [address] Phone Care Team Providers Care Cosmetology Educator Name Role Phone Arnaldo Nichols Primary Care Provider [phone] Allergies Active Allergy Reactions Criticality Noted Date Comments Clarithromycin Other (see comments) 07/02/2020 Medications apixaban (ELIQUIS) 2.5 MG tablet Take 1 tablet by mouth 2 (two) times a day Active dolutegravir (TIVICAY) 50 MG tablet Take 1 tablet by mouth 1 (one) time each day Active finasteride (PROSCAR) 5 MG tablet Take 1 tablet by mouth 1 (one) time each day Mon Active fluticasone-hiral meterol (ADVAIR DISKUS) 100-50 MCG/DOSE diskus inhaler Active furosemide (LASIX) 40 MG tablet Take 1.5 tablets by mouth 1 (one) time each day 06/24/2019 Active lamiVUDine (EPIVIR) 100 MG tablet Take 1 tablet by mouth 1 (one) time each day Active metoprolol tartrate (LOPRESSOR) 25 MG tablet Take 1 tablet by mouth 1 (one) time each day Active tamsulosin (FLOMAX) 0.4 MG 24 hr capsule Take 0.4 mg by mouth 1 (one) time each day Active atorvastatin (LIPITOR) 20 MG tablet Take 20 mg by mouth 1 (one) time each day Active abacavir-dolute gravir-lamiVUDi ne (Triumeq) 600-50-300 MG per tablet Take 1 tablet by mouth 1 (one) time each day Do not crush, chew, or split. Active ergocalciferol 1.25 MG (67388 UT) capsule Take 50,000 Units by mouth 1 (one) time per week Active metFORMIN (GLUCOPHAGE) 500 MG tablet TAKE 1 TABLET (500MG TOTAL) BY MOUTH IN THE MORNING AND TAKE 1 TABLET IN THE EVENING WITH MEALS 180 tablet 10/18/2023 Active losartan (COZAAR) 100 MG tablet TAKE 1 TABLET BY MOUTH 1 TIME EACH DAY. 90 tablet 2 02/05/2024 Active metFORMIN (GLUCOPHAGE) 500 MG tablet TAKE 1 TABLET (500 MG TOTAL) BY MOUTH IN THE MORNING 90 tablet 02/23/2024 Active Kerendia 20 MG tablet TAKE 1 TABLET BY MOUTH ONCE A DAY 90 tablet 1 02/27/2024 Active amLODIPine (NORVASC) 2.5 MG tablet TAKE 1 TABLET BY MOUTH 1 TIME EACH DAY. 90 tablet 04/22/2024 Active Finerenone (Kerendia) 20 MG tablet Take 20 mg by mouth in the morning. 90 tablet 3 02/26/2024 05/26/19 Active Problems Problem Noted Date Diagnosed Date Stage 3b chronic kidney disease 12/28/2020 Chronic kidney disease stage 3 07/02/2020 Cirrhosis of liver 07/02/2020 Essential hypertension 07/02/2020 Polyneuropathy 07/02/2020 Pure hypercholesterolemia 07/02/2020 Renal disorder due to type 2 diabetes mellitus 0 07/02/2020 Type 2 diabetes mellitus 07/02/2020 Stage 3b chronic kidney disease 07/02/2020 HIV positive 07/02/2020 Proteinuria 07/02/2020 Encounters Date Type Department Care Team Description 04/22/2024 Refill [facility] [address] [place] [address] Yong Ruiz MD 02/26/2024 1:30 PM EST Office Visit [facility] [address] [place] [address] Yong Ruiz MD Stage 3b chronic kidney disease (HCC) (Primary Dx); Renal disorder due to type 2 diabetes mellitus <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); Persistent proteinuria; Essential hypertension 02/26/2024 [facility]ill [facility] [address] [place] [address] Yong Ruiz MD from Last 3 Months Family History Medical History Relation Comments Diabetes Father Hypertension Father Relation Status Comments Father Mother Social History Tobacco Use Types Packs/Day Years Used Date Smoking Tobacco: Never Smokeless Tobacco: Never Tobacco Cessation:Counseling Given: Not Answered Alcohol Use Standard Drinks/Week Comments No 0 (1 standard drink = 0.6 oz pur e alcohol) Sex and Gender Information Value Date Recorded Sex Assigned at Not on file Legal Sex Male 4:56 PM EST Gender Identity Not on file Sexual Orientation Not on file Last Filed Vital Signs Vital Sign Reading Time Taken Comments Blood Pressure 140/88 02/26/2024 1:34 PM EST Pulse 65 02/26/2024 1:34 PM EST Temperature - - Respiratory Rate - - Oxygen Saturation 98% 02/26/2024 1:34 PM EST Inhaled Oxygen Concentration - - Weight 105 kg (232 lb 6.4 oz) 02/26/2024 1:34 PM EST Height 180.3 cm (5' 11 ) 02/07/2022 1:05 PM EDT Body Mass Index 32.41 02/07/2022 1:05 PM EDT Plan of Treatment Upcoming Encounters Date Type Department Care Team (Late st Contact Info) Description 05/28/2024 Orders Only [facility] [address] [place] [address] Yong Ruiz MD [address] [address] Stage 3b chronic kidney disease (HCC); Renal disorder due to type 2 diabetes mellitus <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); Persistent proteinuria; Essential hypertension 07/01/2024 3:30 PM EDT Office Visit [facility] [address] [place] [address] Yong Ruiz MD [address] [address] Health Maintenance Due Date Last Done Comments Pneumococcal Vaccine: 65+ Ye ars (1 of 2 - PCV) 1946 Diabetes: Hemoglobin A1C 05/11/2020 06/27/2019 Diabetes: Ophthalmology Exam 05/11/2020 Diabetes: Pedal Pulse Checked 05/11/2020 Diabetes: Sensory Foot Exam 05/11/2020 Diabetes: Visual Foot Exam 05/11/2020 Influenza Vaccine (#1) 2023 Hepatitis B Vaccine Aged Out No longe r eligible based on patient's age to complete this topic Procedures Procedure Name Priority Date/Time Associated Diagnosis Comments HEMOGLOBIN A1C Routine 06/27/2019 9:20 AM EDT from Last 3 Months or Most Recently Relevant to Health Maintenance Results * Hemoglobin A1c (06/27/2019 9:20 AM EDT) Estimated Average Glucose 111 MG/DL [place] Comment: eAG = Estimated average glucose which is %A1C expressed as average glucose, using the formula of the N6O-Gfrzpro Average Glucose study (ADAG), Diabetes Care, Vol.31,#8, Nov. 2007 Hemoglobin A1C 5.5 % [place] Comment: ?Hemoglobin A1C Reference Range ? Adults: ??4.8 - 6.0 % ? Non diabetic: ??< 6.0 % ? Goal: ??< 7.0 % Additional Action Suggested: ??> 8.0 % Note: ??Hemoglobin A1c results are invalid for patients ? with abnormal amounts of HbF. ??Blood transfusions ? may impact the HbA1c concentration in the patient ? sample. 06/27/2019 9:20 AM EDT us Arnaldo [facility] BLOOD ORDERABLES Final Re sult [place] from Last 3 Months or Most Recently Relevant to Health Maintenance Insurance MEDICARE [employer] [place] [employer] [place] Care Teams Cosmetology Educator Relationship Specialty Start Date End Date Arnaldo Nichols PA [address] [facility] [address], [address] [place] [address] PCP - General Physician Mixer Machine Feeder 07/02/20
--- OUTSIDE RECORDS SUMMARY | 2024-05-27 09:08 | XMS_ITS ---
Author Organization [facility] Address [address] [place] [address] Care Team Providers Care Director Compensation Name Role Phone Arnaldo Nichols Primary Care Provider Unavailab Jung Ma Unavailable [phone] Allergies Allergen (clinical drug ingredient) Drug/Non Drug Allergy documented on EMR Reaction Allergy Type Onset Date Status Ragweed Unknown Allergy Active REASON FOR VISIT At Risk Footcare Medications Medication SIG (Take, Route, Frequency, Duration) Notes Start Date End Date Status Tamsulosin HCl 0.4 MG 1 capsule Orally O nce a day for 30 day(s) Active Metoprolol Succinate ER 25 MG 1 tablet Orally Once a day for 30 day(s) Not-Taking lamiVUDine 100 MG 1 tablet Orally Once a day for 10 day(s) Active metFORMIN HCl 500 MG 1 tablet with a alyssia l Orally Once a day for 30 day(s) Active Losartan Potassium 100 MG 1 tablet Orally Once a day for 30 day(s) Active Eliquis 2.5 MG as directed Orally Active Breo Ellipta Active Finasteride 5 MG 1 tablet Orally Once a day for 30 day(s) Active Kerendia 20 MG 1 tablet Orally Once a day for 30 day(s) Active Furosemide 40 MG 1 tablet Orally Once a day for 30 day(s) Active Ammonium Lactate 12 % 1 application Exte rnally Twice a day for 30 days Active Abacavir Sulfate Act mayda Atorvastatin Calcium 20 MG 1 tablet Orally Once a day for 30 day(s) Active Advair Diskus 100-50 MCG/ACT 1 puff Inhalation Twice a day Not-Taking Extra Depth Orthopedic Shoes (1 Pair) with Customized Heat Molded Multidensity Innersoles (3 Pair) as directed Dx: NIDDM/Polyneuropathy (E11.42), Hammertoe Foot Deformity (M20.41,M20.42), Preulcerative Skin Lesion(s) (L85.1 Active Tivicay 50 MG 1 tablet Orally Once a day for 30 day(s) Active Social History Tobacco Use: Social History Observation Description Date Details (start date - stop date) Never Smoker NA - NA Alcohol Screen Question Answer Notes Did you have a drink containing alcohol in the p ast year? No Points 0 Interpretation Negative Tobacco use other than smoking: Question Answer Notes Are you an other tobacco user? No Tobacco Control (Standard) Question Answer Notes Tobacco use: Nonsmoker Additional Findings: Tobacco non-user Current no nsmoker Vital Signs Height 5ft 11in in 05/15/2024 Weight 250 lbs 05/15/2024 BMI 34.86 kg/m2 05/15/2024 Procedures Procedure Date Ordered Date Performed Result Body Sit e 48726-CMPMAIV NAIL, 1-05/15/2024 N/A [id number] SKIN LESIONS, OVER 4 05/15/2024 N/A [id number] DYSTROPHIC NAILS ANY # 05/15/2024 N/A Encounters Encounter Location Date Provider Diagnosis [facility] [address] [address] 05/15/2024 Jung Sarmiento Type 2 diabetes mellitus with diabetic polyneuropathy E11.42 and Tinea unguium B35.1 Assessments Encounter Date Diagnosis (ICD Code) Assessment Notes Treatment Notes Treatment Clinical Notes Section Notes 05/15/2024 Type 2 diabetes mellitus with diabetic polyneuropathy (ICD-10 - E11.42) 05/15/2024 Tinea unguium (ICD-10 - B35.1) Plan Of Treatment Pending Test Test Name Order Date [id number] NAIL, 1-5 05/15/2024 [id number] SKIN LESIONS, OVER 4 05/15/19 25 [id number] DYSTROPHIC NAILS ANY # Next Appt Details Follow Up: prn, Reason: Provider Name:Jung Sarmiento , 08/08/2024 02:15:00 PM, [address] [place] [address], [place], [address], Procedure Notes * Category Sub-Category Detail Notes Keratoma Treatment Parring or Cutting o f Benign Hyperkeratotic Lesion(s) (-57) More than 4 Lesions - Due to the at risk nature of the patients medical condition as documented in the exam findings, performance of this keratoderma treatment is medically necessary as its management by an unskilled/untrained nonprofessional would put this patients foot and overall health at risk. Therefore, the benign hyperkeratotic lesions, ( 10 ) in total, locations as stated and described in the exam ( Plantar , IPJ , TA , Plantar , IPJ , T5 , SUB MTH (s) , 1 , B/L , SUB MTH (s) , 2 , B/L , SUB MTH (s) , 5 , B/L , Plantar, Heel(s) , B/L ), were pared, and/or cut utilizing a sterile 15 blade, tissue nippers, and/or power dremel instrumentation by the physician of record - 95576 Debride Nails 1-5 Procedure: Due to the cli nical pathology outlined in the exam findings, performance of this nail treatment is medically necessary as its management by an unskilled/untrained nonprofessional would put this patients foot and overall health at risk. Therefore, debridement to affected nail(s), as described in exam ( TA , T1 , T5 , T6 ), was performed exclusively by the physician of record to reduce/remove overall nail length, girth, thickness, subungual debris, and necrotic tissue, by manual and/or electrical means through the use of a nail nipper and/or dremel stylegrinder, to a more viable healthy nail plate or bed tissue 5 nails or fewer in number. Silver nitrate was used for any petechial bleeding as necessary. Definitive antifungal treatment options, both pharmaceutical and surgical, have been reviewed and discussed with the patient. The patient solely prefers the use of intermittent/as needed professional debridement services for their nail condition and understands that additional periodic treatments may be required as necessary to maintain effective symptomatic relief - 40205 Nail Reduction Nail Reduction (-27) Trimming o f all dystrophic nails - Due to the at risk nature of the patients medical condition as documented in the exam findings, performance of this nail treatment is medically necessary as its management by an unskilled/untrained nonprofessional would put this patients foot and overall health at risk. Therefore, the dystrophic nails, in locations as stated and described in the exam ( T2, T3, T4, T7, T8, T9 ), were debrided by the phisician of record to reduce/remove overall nail length and girth, by manual and electrical means with use of a nail nipper and/or dremel, to more viable healthy nail plate or bed tissue - G0127 Progress Notes * Jarod ANDOB: [birth year] (83 yo M)Acc No.[id number]:05/15/2024 Progress Note Patient:?Jarod AN Provider:?Jung Sarmiento DPM :1940???Age:83 Y???Sex:Male Robbi e:05/15/2024 Address:[address] [place] [address], [address] Pcp:Arnaldo Nichols Subjective: * Chief Complaints: * ???At Risk Footcare * HPI: ???At Risk footcare:?Pt States Last PCP Visit:?Date?02/29/2024 ???Toe pain:?Treatments:?Rx shoes, states still needs - appt scheduled for next week.? * ROS:?General/Constitutional:?Nausea?denies.?Vomiting?denies.?Hunger Thirst?denies.?Loss appetite?denies.?Chills?denies.?Fatigue?denies.?Fever?denies.?Night Sweats?denies.?Unexplained weight loss?denies.?Unexplained weight gain?denies.?HEENTM:?Dentures?denies.?Dizziness?denies.?Glasses/contacts?denies.?Retinopathy?den ies.?Blurred/double vision?denies.?TMJ?denies.?Discharge/drainage?denies.?Implants?denies.?Sore throat?denies.?Dental implants?admits.?Hard of hearing ?denies.?Difficulty chewing/swallowing/speaking?denies.?Nose bleeds?denies.?Sore mouth?denies.?Respiratory:?On O xygen?denies.?Pneumonia/pleurisy?denies.?Bronchitis?denies.?Emphysema?denies.?Co ughing?denies.?Cough blood?denies.?Shortness of breath?denies.?Wheezing?denies.?Cardiovascular:?Pacemaker?denies.?MVP?denies.?WPW?denies.?CHF?denies.?Heart attack?denies.?Septal defect?denies.?Rapid beat?denies.?Chest pain [...] Diabetic - NIDDM.? * Social History:?Tobacco Use:?Tobacco use other than smoking?Are you an other tobacco user??No ?Tobacco Control (Standard)?Tobacco use:?Nonsmoker ?Additional Findings: Tobacco non-user?Current nonsmoker ???Drugs/Alcohol:?Drugs?Have you used drugs other than those for medical reasons in the past 12 months??No ?Alcohol Screen?Did you have a drink containing alcohol in the past year??No ?Points?0 ?Interpretation?Negative ???Miscellaneous:?Caffeine: yes. ?Exercise: yes, walking. ?Marital status: . ?Occupation: Retired. * Medications:?TakingAtorvasta tin Calcium 20 MG Tablet 1 tablet Orally Once a day Breo Ellipta Eliquis 2.5 MG Tablet as directed Orally Finasteride 5 MG Tablet 1 tablet Orally Once a day Furosemide 40 MG Tablet 1 tablet Orally Once a day Kerendia 20 MG Tablet 1 tablet Orally Once a day Losartan Potassium 100 MG Tablet 1 tablet Orally Once a day metFORMIN HCl 500 MG Tablet 1 tablet with a meal Orally Once a day Tamsulosin HCl 0.4 MG Capsule 1 capsule Orally Once a day lamiVUDine 100 MG Tablet 1 tablet Orally Once a day Tivicay 50 MG Tablet 1 tablet Orally Once a day Abacavir Sulfate Ammonium Lactate 12 % Cream 1 application Externally Twice a day Extra Depth Orthopedic Shoes (1 Pair) with Customized Heat Molded Multidensity Innersoles (3 Pair) as directed Dx: NIDDM/Polyneuropathy (E11.42), Hammertoe Foot Deformity (M20.41,M20.42), Preulcerative Skin Lesion(s) (L85.1 Taking Atorvastatin Calcium 20 MG Tablet 1 tablet Orally Once a day Taking Breo Ellipta Taking Eliquis 2.5 MG Tablet as directed Orally Taking Finasteride 5 MG Tablet 1 tablet Orally Once a day Taking Furosemide 40 MG Tablet 1 tablet Orally Once a day Taking Kerendia 20 MG Tablet 1 tablet Orally Once a day Taking Losartan Potassium 100 MG Tablet 1 tablet Orally Once a day Taking metFORMIN HCl 500 MG Tablet 1 tablet with a meal Orally Once a day Taking Tamsulosin HCl 0.4 MG Capsule 1 capsule Orally Once a day Taking lamiVUDine 100 MG Tablet 1 tablet Orally Once a day Taking Tivicay 50 MG Tablet 1 tablet Orally Once a day Taking Abacavir Sulfate Taking Ammonium Lactate 12 % Cream 1 application Externally Twice a day Taking Extra Depth Orthopedic Shoes (1 Pair) with Customized Heat Molded Multidensity Innersoles (3 Pair) as directed Dx: NIDDM/Polyneuropathy (E11.42), Hammertoe Foot Deformity (M20.41,M20.42), Preulcerative Skin Lesion(s) (L85.1 Not-Taking/PRNMetoprolol Succinate ER 25 MG Tablet Extended Release 24 Hour 1 tablet Orally Once a day Advair Diskus 100-50 MCG/ACT Aerosol Powder Breath Activated 1 puff Inhalation Twice a day Medication List reviewed and reconciled with the patientNot-Taking/PRN Metoprolol Succinate ER 25 MG Tablet Extended Release 24 Hour 1 tablet Orally Once a day Not-Taking/PRN Advair Diskus 100-50 MCG/ACT Aerosol Powder Breath Activated 1 puff Inhalation Twice a day Medication List reviewed and reconciled with the patient * Allergies:?Ragweedyes[Allerg ies Verified] Objective: * Vitals:?Ht: 5ft 11in, Wt: 25 0, BMI: 34.86, Shoe size: 11, Wt-k.4 kg. * ???Past Orders: ???Lab:HEMOGLOBIN A1C (GLYCO HEMOGLOBIN) (Order Date - 02/29/2024) (Collection Date & Time - 02/29/2024 02:55 PM) ? Value Reference Range ?HEMOGLOBIN A1C % (HH) 6.0 * Examination: ???Ophthalmology Referral: ?DIABETES EYE EXAM?Neurological: ?SENSORY:?Neurological exam demonstrates, reduced light touch sensation, reduced sharp/dull discrimination , reduced vibration sensation, in a stocking fashion, B/L, 5.07 monofilament test performed at plantar aspects of 5 varied sites per foot shows sensation, reduced, B/L.?Nails: ?NAILS are:?Elongated, overgrown, dystrophic, lytic, greater than 3mm thick, discolored and friable with crumbly malodorous subungual debris , TA , T1 , T5 , T6, all other nails not described with characteristics as possessing mycosis are elongated, overgrown, and dystrophic ( T2, T3, T4, T7, T8, T9?).?Dermatologic: ?SKIN FINDINGS:?Skin exam reveals Keratotic lesion(s) located at , Plantar , IPJ , TA , Plantar , IPJ , T5 , SUB MTH (s) , 1 , B/L , SUB MTH (s) , 2 , B/L , SUB MTH (s) , 5 , B/L , Plantar, Heel(s) , B/L.? Assessment: * Assessment: 1.?Tinea unguium - B35.1???2 .?Type 2 diabetes mellitus with diabetic polyneuropathy - E11.42 (Primary)??? Plan: * Treatment: * Procedures:?Debride Nails 1-5:?Procedure:?Due to the clinical pathology outlined in the exam findings, performance of this nail treatment is medically necessary as its management by an unskilled/untrained nonprofessional would put this patients foot and overall health at risk. Therefore, debridement to affected nail(s), as described in exam (?TA?,?T1?,?T5?,?T6?), was performed exclusively by the physician of record to reduce/remove overall nail length, girth, thickness, subungual debris, and necrotic tissue, by manual and/or electrical means through the use of a nail nipper and/or dremel stylegrinder, to a more viable healthy nail plate or bed tissue 5 nails or fewer in number. Silver nitrate was used for any petechial bleeding as necessary. Definitive antifungal treatment options, both pharmaceutical and surgical, have been reviewed and discussed with the patient. The patient solely prefers the use of intermittent/as needed professional debridement services for their nail condition and understands that additional periodic treatments may be required as necessary to maintain effective symptomatic relief - 14614.?Keratoma Treatment:?Parring or Cutting of Benign Hyperkeratotic Lesion(s)?(-57) More than 4 Lesions - Due to the at risk nature of the patients medical condition as documented in the exam findings, performance of this keratoderma treatment is medically necessary as its management by an unskilled/untrained nonprofessional would put this patients foot and overall health at risk. Therefore, the benign hyperkeratotic lesions, ( 10 ) in total, locations as stated and described in the exam (?Plantar?,?IPJ?,?TA?,?Plantar?,?IPJ?,?T5?,?SUB MTH (s)?,?1?,?B/L?,?SUB MTH (s)?,?2?,?B/L?,?SUB MTH (s)?,?5?,?B/L?,?Plantar,?Heel(s)?,?B/L?), were pared, and/or cut utilizing a sterile 15 blade, tissue nippers, and/or power dremel instrumentation by the physician of record - [id number].?Nail Reduction:?Nail Reduction?(-27) Trimming of all dystrophic nails - Due to the at risk nature of the patients medical condition as documented in the exam findings, performance of this nail treatment is medically necessary as its management by an unskilled/untrained nonprofessional would put this patients foot and overall health at risk. Therefore, the dystrophic nails, in locations as stated and described in the exam (?T2, T3, T4, T7, T8, T9?), were debrided by the phisician of record to reduce/remove overall nail length and girth, by manual and electrical means with use of a nail nipper and/or dremel, to more viable healthy nail plate or bed tissue - G0127.? * Procedure Codes:?G0127 JATINDER ING DYSTROPHIC NAILS ANY #, Modifiers: XS 19428 DEBRIDE NAIL, 1-5, Modifiers: XS 37046 TRIM SKIN LESIONS, OVER 4, Modifiers: XS * Follow Up:?prn * Images: * Sign off status: Completed true * Provider:?Jung Sarmiento DPM Date:?2024 Generated for Paul gomez/Gilbert/Stephenie on:?05/27/2024 09:07 AM EST History and Physical Notes * HPI (History of Present Illness) Category Sub-Category Detail Notes Category Not es Toe pain Treatments: Rx shoes, states still needs - appt scheduled for next week At Risk footcare Pt States Last PCP Visit: Date: 4 Examination Category Sub-Category Detail Notes Category Not [...] MTH (s) , 5 , B/L , Plantar, Heel(s) , B/L Ophthalmology Referral DIABETES EYE EXAM Procedu re Performed:: Yes ?Date of Exam Performed: 11/10/2023 Diabetic Retinopathy Screening:: Yes Retinal Screening Performed:: Yes Findings of Diabetic Eye Exam:: no retin opathy Nails NAILS are: Elongated, overg rown, dystrophic, lytic, greater than 3mm thick, discolored and friable with crumbly malodorous subungual debris , TA , T1 , T5 , T6, all other nails not described with characteristics as possessing mycosis are elongated, overgrown, and dystrophic ( T2, T3, T4, T7, T8, T9 )
--- OUTSIDE RECORDS SUMMARY | 2024-05-27 09:08 | XMS_ITS | Patient Health Record ---
Author Organization [facility] Address [address] [place] [address] Care Team Providers Care Credit Collections Specialist Name Role Phone Arnaldo Nichols Primary Care Provider Unavailab Joel Quiroz Unavailable [phone] ALLERGIES Allergen (clinical drug ingredient) Drug/Non Drug Allergy documented on EMR Reaction Allergy Type Onset Date Status Biaxin Unknown Drug Allergy Active REASON FOR REFERRAL No Information MEDICATIONS Medication SIG (Take, Route, Frequency, Duration) Notes Start Date End Date Status metFORMIN HCl 500 MG TAKE 1 TABLET BY MO UTH IN THE MORNING AND 1 TABLET IN THE EVENING WITH MEALS. Oral for 90 Active Metoprolol Succinate ER 25 MG Oral for 90 Active Finasteride 5 MG 1 tablet Orally thre e times a week Active Kerendia 20 MG TAKE 1 TABLET BY JOSE TH EACH DAY Orally Once a day Active Advair Diskus 100-50 MCG/DOSE 1 puff Inhalation Twice a day Active Dolutegravir Sodium 50 MG 1 tablet Orall y Once a day Active Losartan Potassium 100 MG 1 tablet Orall y Once a day Active Atorvastatin Calcium 20 MG 1 tablet Oral ly Once a day Active lamiVUDine 100 MG TAKE 1 TABLET BY JOSE TH DAILY Oral for 90 Active Eliquis 2.5 MG TAKE 1 TABLET BY JOSE TH TWICE A DAY Oral for 30 Active Furosemide 40 MG TAKE 1 /2TABLET BY M OUTH TWICE A DAY tw twice a day Active Tamsulosin HCl 0.4 MG TAKE 1 CAPSULE BY MOUTH EVERY EVENING Oral for 90 Active Abacavir sulfate 600 mg 1 tab Oral once a day Active IMMUNIZATIONS Vaccine Route Administration Date Status Comme nts Flu vaccine no Preserv 3 and > Unknown 12/13/2016 Admin istered Influenza Unknown 12/09/2017 Administered Influenza Unknown 02/02/2018 Administered Influenza Unknown 12/09/2018 Administered Influenza Unknown 12/10/2019 Administered Influenza Unknown 12/09/2020 Administered SOCIAL HISTORY Tobacco Use: Social History Observation Description Date Details (start date - stop date) Never Smoker NA - NA Sex Assigned At : Social History Observation Description Sex Assigned At Unknown Tobacco Use/Smoking Question Answer Notes Patient is a nonsmoker Alcohol Screen Question Answer Notes Did you have a drink containing alcohol in the p ast year? 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 056766467 Problem Positive colorectal cancer screening using Cologuard test (R19.5) Active confirmed 526055712 Problem 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) Active confirmed 72434604 Problem IPMN (intraductal papillary mucinous neoplasm) (D49.0) Active confirmed 19667818 VITAL SIGNS Blood pressure diastolic 00 mm Hg 07/11/2023 Height 71 in 07/11/2023 Blood pressure systolic 00 mm Hg 07/11/2023 Weight 232 lbs 07/11/2023 BMI 32.35 kg/m2 07/11/2023 Encounters Encounter Location Date Provider Diagnosis [facility] [address] [place] [address] 07/11/2023 Joel Garcia Other cirrhosis of liver K74.69 and IPMN (intraductal papillary mucinous neoplasm) D49.0 ASSESSMENTS Encounter Date Diagnosis Assessment Notes Treatment Notes Treatment Clinical Notes 07/11/2023 Other cirrhosis of liver (ICD-10 - K74.69) 07/11/2023 IPMN (intraductal papillary mucinous neoplasm) (ICD-10 - D49.0) PLAN OF TREATMENT Pending Test Test Name Order Date BUN 08/25/2020 CREATININE 08/25/2020 PROTHROMBIN TIME (PT, INR) 08/11/2020 ALPHA-FETOPROTEIN,TUMOR MARKER CA 19-9 08/25/2020 CA 19-9 08/11/2022 MRI ABD W&WO CONTRAST 08/11/2022 MRI ABD W&WO CONTRAST 08/25/2020 US ABD 08/11/2020 Future Test Test Name Order Date UPPER GI ENDOSCOPY 06/14/2018 COLONOSCOPY 09/15/2020 Insurance Providers Payer Name Payer Address Payer Phone Subscriber Number Group Number Insured Name Patient Relationship to Insured Coverage Start Date Coverage End Date MEDICARE OF [employer] [address] [address] [id number] GIFTY VEGA Self - [place] [address] [id number] GIFTY VEGA Self - patient is the insured MEDICAL (GENERAL) HISTORY Medical History History ICD Code Denies [place],CVA,renal disease Hypertension 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 Frieda milan Takes Finasteride for hair loss Colonoscopy at age 72 in [place], [place]--polyps were removed--not clear as to what kind of polyps they were, Hemoccults neg x 3 in 2018 Asthma Cirrhosis and slightly eleva dahlia LFT's--neg. abdominal U/S in 2017; and neg Hep C Ab and viral load, Neg Hep B S Ag, + Hep B surface antibody, and CT in 05/2018 with changes of cirrhosis, probable varices, and splenomegaly--a complete workup for liver disease was negative in June of 2018, including iron studies, alpha-1 antitrypsin level, and autoimmune studies NIDDM EGD in 08/2018--? of gastric varix, small HH Kidney stone & stent--Dr. Terrence Groves--seen by [facility] Cardiology--on [facility] CT of abdomen in June revealed portal hypertension with varices, cirrhosis but no liver mass, mild splenomegaly, and no ascites Renal insufficiency-sees Dr. Ruiz Colonoscopy in September of 2020 was done due to a positive Cologuard test. This revealed an approximately 1.5 cm tubulovillous adenoma removed from the ascending colon, as well as a smaller tubular adenoma that was removed. MRI of abdomen in 2020 revea led evidence of IPMN with small benign-appearing cysts in the pancreas. His CA 19-9 level was normal. A followup MRI and CA 19-9 level was stable in September of 2022. His imaging studies in 2020 suggested a gallbladder lesion worrisome for possible neoplasm. He underwent a cholecystectomy as below with negative findings. Surgical History Surgery Date(Month/Year) Appendectomy Left Hip replacement 05/2019 Dr. Cordoba Cholecystectomy in 10/[address] Jimenez was negative for any lesions nor gallstones
--- OUTSIDE RECORDS SUMMARY | 2024-05-27 09:08 | XMS_ITS ---
Author Organization [facility] Address [address] [place] [address] Care Team Providers Care Setup Technician Name Role Phone Arnaldo Nichols Primary Care Provider Unavailab Jung Ma Unavailable [phone] Allergies Allergen (clinical drug ingredient) Drug/Non Drug [...] Ordered Date Performed Result Body Sit e 22316-SWPIGLH NAIL, 1-5 02/14/2024 N/A 06086-TYSP SKIN LESIONS, OVER 4 02/14/2024 N/A Z1379-CGGPSXPQ DYSTROPHIC NAILS ANY # 02/14/2024 N/A Encounters Encounter Location Date Provider Diagnosis [facility] [address] [address] 02/14/2024 Jung Sarmiento Type 2 diabetes mellitus [...] INSTRUCTIONS.pdf) Pending Test Test Name Order Date 81898-TQVLNKK NAIL, 1-5 02/14/2024 37382-JHEM SKIN LESIONS, OVER 4 02/14/20 24 T6547-LAGTKGYE DYSTROPHIC NAILS ANY # Next Appt Details Follow Up: prn, Reason: Provider Name:Jung Sarmiento , 08/08/2024 02:15:00 PM, [address] [facility], [address], [place], [address], Procedure Notes * Category Sub-Category Detail Notes Keratoma Treatment Parring or Cutting o f Benign Hyperkeratotic Lesion(s) (-57) More than 4 Lesions - The Benign hyperkeratotic lesions, as described above were pared, and/or cut utilizing a sterile 15 blade, tissue nippers, and/or dremel - 22574 Debride Nails 1-5 Procedure: Performance of this nail treatment by a nonprofessional would put this patients foot and overall health at risk. Therefore, nail debridement was performed extensively to reduce/remove overall nail length, girth, thickness, subungual debris, and necrotic tissue, by manual and/or electrical means through the use of a nail nipper and/or dremel-type drier and grinder tender, to a more viable healthy nail plate or bed tissue 1-5. Silver nitrate used for any petechial bleeding as necessary. Definitive antifungal treatment options have been reviewed and discussed with the patient. The patient chooses, no pharmaceutical tx - 14507 Nail Reduction Nail Reduction (-27) Trimming o f dystrophic nails performed to reduce/remove overall nail length and girth, by manual and electrical means with use of a nail nipper and/or dremel, to more viable healthy nail plate or bed tissue, any number - G0127 Progress Notes * Jarod ANDOB: [birth year] (83 yo M)Acc No.[id number]:02/14/2024 Progress Note Patient:?Jarod AN Provider:?Jung Sarmiento DPM :1940???Age:83 Y???Sex:Male Robbi e:02/14/2024 Address:[address] [place] [address], [address], [facility] Pcp:Arnaldo Nichols Subjective: * Chief Complaints: * [...] with a meal Orally Once a day Metoprolol Succinate ER 25 MG Tablet Extended Release 24 Hour 1 tablet Orally Once a day Tamsulosin HCl 0.4 MG Capsule 1 capsule Orally Once a day lamiVUDine 100 MG Tablet 1 tablet Orally Once a day Tivicay 50 MG Tablet 1 tablet Orally Once a day Abacavir Sulfate Extra Depth Orthopedic Shoes (1 Pair) with Customized Heat Molded Multidensity Innersoles (3 Pair) as directed Dx: NIDDM/Polyneuropathy (E11.42), Hammertoe Foot Deformity (M20.41,M20.42), Preulcerative Skin Lesion(s) (L85.1 Ammonium Lactate 12 % Cream 1 application Externally Twice a day Taking Atorvastatin Calcium 20 MG Tablet 1 [...] a meal Orally Once a day Taking Metoprolol Succinate ER 25 MG Tablet Extended Release 24 Hour 1 tablet Orally Once a day Taking Tamsulosin HCl 0.4 MG Capsule 1 capsule Orally Once a day Taking lamiVUDine 100 MG Tablet 1 tablet Orally Once a day Taking Tivicay 50 MG Tablet 1 tablet Orally Once a day Taking Abacavir Sulfate Taking Extra Depth Orthopedic Shoes (1 Pair) with Customized Heat Molded Multidensity Innersoles (3 Pair) as directed Dx: NIDDM/Polyneuropathy (E11.42), Hammertoe Foot Deformity (M20.41,M20.42), Preulcerative Skin Lesion(s) (L85.1 Taking Ammonium Lactate 12 % Cream 1 application Externally Twice a day Not-Taking/PRNAdvair Diskus 100-50 MCG/ACT Aerosol Powder Breath Activated [...] HEMOGLOBIN) (Order Date - 02/14/2024) (Collection Date & Time - 02/14/2024 01:16 PM) ? Value Reference Range ?TOTAL HEMOGLOBIN (HGBA1C) 6.0 * Examination: ???Ophthalmology Referral: ?DIABETES EYE [...] gear properties exacerbate patients foot/toe deformity.?Vascular: ?DP PULSES (B):?0/4, B/L.?PT PULSES (B):?0/4, B/L.?CAPILLARY FILL TIME:?delayed, all digits, B/L.?TROPHIC CONDITION-TEXTURE/ELASTICITY/TURGOR/HAIR GROWTH (B):?decreased, with sparse to absent hair growth, B/L.?TEMPERTURE GRADIENT (C):?decreased, cool to cool, proximal to distal, B/L.?PIGMENTATION:?brawny, B/L.?EDEMA (C):?2/4 , pitting , without aching pain , Leg(s) , Ankle(s) , Foot , B/L.?General Examination: ?GENERAL APPEARANCE:?Reveals a pleasant, alert, well nourished, well- developed, well hydrated individual, who demonstrates proper attention to hygiene/body habitus, and is in no acute distress, Pt serves as own historian for office visit today.?ORIENTED:?person, place, and time.?FOOT EXAM:?Footwear Evaluation? Assessment: * Assessment: 1.?Tinea unguium - B35.1???2 .?Type 2 diabetes mellitus with diabetic polyneuropathy - E11.42 (Primary)???3.?Other hammer toe(s) (acquired), right foot - M20.41???Specify :Chronic problem, Worse (4),Rx Management (4)???4.?Other hammer toe(s) (acquired), left foot - M20.42???Specify :Chronic problem, Worse (4),Rx Management (4)???5.?Xerosis of skin - L85.3???Specify :Acute problem, Uncomplicated (3),Rx Management (4),Response to treatment - Unchanged,Nonadherent to recommendations??? Plan: * Treatment: 2.?Other hammer toe(s) (acqu [...] use of a nail nipper and/or dremel-type drier and grinder tender, to a more viable healthy nail plate or bed tissue 1-5. Silver nitrate used for any petechial bleeding as necessary. Definitive antifungal treatment options have been reviewed and discussed with the patient. The patient chooses, no pharmaceutical tx - 54713.?Keratoma Treatment:?Parring or Cutting of Benign Hyperkeratotic Lesion(s)?(-57) More than 4 Lesions - The Benign hyperkeratotic lesions, as described above were pared, and/or cut utilizing a sterile 15 blade, tissue nippers, and/or dremel - 09873.?Nail Reduction:?Nail Reduction?(-27) Trimming of dystrophic nails performed to reduce/remove overall nail length and girth, by manual and electrical means with use of a nail nipper and/or dremel, to more viable healthy nail plate or bed tissue, any number - G0127.? * Procedure Codes:?G0127 JATINDER ING DYSTROPHIC NAILS ANY #, Modifiers: XS 35857 DEBRIDE NAIL, 1-5, Modifiers: XS 40852 TRIM SKIN LESIONS, OVER 4, Modifiers: XS [...] special attention to the heels.? ??Screening/Special Tests:?Fall Risk?Screening:?No falls in the past year ?FALLS: Screening for Future Fall Risk?Have you had any falls with injury in the past year??No * Follow Up:?prn * Images: * Sign off status: Completed true * Provider:?Jung Sarmiento DPM Date:?2023 Generated for Paul gomez/Gilbert/Stephenie on:?05/27/2024 09:08 AM EST History and Physical Notes * [...] Lower Extremity Neurological Exa m performed:: Yes Visual exam of foot performed:: Yes Date: 02/14/2024 ORIENTED: person, place, and t norma Footwear Evaluation Footwear Evaluation performe d:: Yes Ophthalmology Referral DIABETES EYE EXAM Procedure Perform ed:: Yes ?Date of Exam Performed: 11/10/2023 Diabetic [...]
--- OUTSIDE RECORDS SUMMARY | 2024-05-27 09:08 | XMS_ITS ---
Author Organization [facility] Address [address] [place] [address] Care Team Providers Care Stock Pitcher Name Role Phone Arnaldo Nichols Primary Care Provider UnavailJoel Williamson Unavailable [phone] ALLERGIES Allergen (clinical drug ingredient) Drug/Non Drug Allergy documented on EMR Reaction Allergy Type Onset Date Status Biaxin Unknown Drug Allergy Active REASON FOR VISIT Patient presents today for bloating,constipation MEDICATIONS Medication SIG (Take, Route, Frequency, Duration) Notes Start Date End Date Status metFORMIN HCl 500 MG TAKE 1 TABLET BY MO UTH IN THE MORNING AND 1 TABLET IN THE EVENING WITH MEALS. Oral for 90 Active Metoprolol Succinate ER 25 MG Oral for 90 Active Kerendia 20 MG TAKE 1 TABLET BY JOSE TH EACH DAY Orally Once a day Active lamiVUDine 100 MG TAKE 1 TABLET BY JOSE TH DAILY Oral for 90 Active Dolutegravir Sodium 50 MG 1 tablet Orall y Once a day Active Losartan Potassium 100 MG 1 tablet Orall y Once a day Active Atorvastatin Calcium 20 MG 1 tablet Oral ly Once a day Active Tamsulosin HCl 0.4 MG TAKE 1 CAPSULE BY MOUTH EVERY EVENING Oral for 90 Active Abacavir sulfate 600 mg 1 tab Oral once a day Active Finasteride 5 MG 1 tablet Orally thre e times a week Active Advair Diskus 100-50 MCG/DOSE 1 puff Inhalation Twice a day Active Eliquis 2.5 MG TAKE 1 TABLET BY JOSE TH TWICE A DAY Oral for 30 Active Furosemide 40 MG TAKE 1 /2TABLET BY M OUTH TWICE A DAY tw twice a day Active SOCIAL HISTORY Tobacco Use: Social History Observation Description Date Details (start date - stop date) Never Smoker NA - NA Sex Assigned At : Social History Observation Description Sex Assigned At Unknown Tobacco Use/Smoking Question Answer Notes Patient is a nonsmoker Alcohol Screen Question Answer Notes Did you have a drink containing alcohol in the p ast year? No Points 0 Interpretation Negative VITAL SIGNS BMI 32.35 kg/m2 07/11/2023 Blood pressure systolic 00 mm Hg 07/11/19 24 Blood pressure diastolic 00 mm Hg 024 Height 71 in 07/11/2023 Weight 232 lbs 07/11/2023 Encounters Encounter Location Date Provider Diagnosis [facility] [address] [place] [address] 07/11/2023 Joel Garcia Other cirrhosis of liver K74.69 and IPMN (intraductal papillary mucinous neoplasm) D49.0 ASSESSMENTS Encounter Date Diagnosis Assessment Notes Treatment Notes Treatment Clinical Notes 07/11/2023 Other cirrhosis of liver (ICD-10 - K74.69) 07/11/2023 IPMN (intraductal papillary mucinous neoplasm) (ICD-10 - D49.0) PLAN OF TREATMENT Next Appt Details Follow Up: 1 Year, Reason: Progress Notes * Examination Category Sub-Category Detail Notes General Examination GENERAL APPEARANCE: pleasant , well nourished, well developed, in no acute distress HEAD: EYES: sclera non-icteric EARS: NOSE: THROAT: NECK/THYROID: no cervical lymphade nopathy, neck supple HEART: S1, S2 normal CHEST: LUNGS: clear to auscultatio n bilaterally ABDOMEN: normal bowel sounds, no guarding or rigidity, no guarding or rigidity, no masses palpable, soft, nontender, nondistended NEUROLOGIC: alert and oriented SKIN: nonjaundiced, no spi shaun angiomata EXTREMITIES: mild pedal edema PERIPHERAL PULSES: BACK: BREASTS: MUSCULOSKELETAL: MALE GENITOURINARY: LYMPH NODES: RECTAL EXAM: FEMALE GENITOURINARY: ORAL CAVITY: mucosa moist
--- OUTSIDE RECORDS SUMMARY | 2024-05-27 09:09 | XMS_ITS | Patient Health Record ---
Author Organization [facility] Address [address] [place] [address] Care Team Providers Care Home Energy Rater Name Role Phone Arnaldo Nichols Primary Care Provider Unavailab Jung Ma Unavailable [phone] Allergies Allergen (clinical drug ingredient) Drug/Non Drug [...] (HGBA1C) 6.0 HEMOGLOBIN A1C (GLYCOHEMOGLO BIN) Reviewed date:05/15/2024 02:56:27 PM Interpretation: Performing Lab: Notes/Report: HEMOGLOBIN A1C % (HH) 6.0 Reason For Referral No Information Medications Medication SIG (Take, Route, Frequency, Duration) Notes Start Date End Date Status Eliquis 2.5 MG as directed Orally Active Ammonium Lactate 12 % 1 application Exte rnally Twice a day for 30 days Active Breo Ellipta Active Abacavir Sulfate Act mayda Finasteride 5 MG 1 tablet Orally Once a day for 30 day(s) Active Tamsulosin HCl 0.4 MG 1 capsule Orally O nce a day for 30 day(s) Active Metoprolol Succinate ER 25 MG 1 tablet Orally Once a day for 30 day(s) Not-Taking Atorvastatin Calcium 20 MG 1 tablet Orally Once a day for 30 day(s) Active Tivicay 50 MG 1 tablet Orally Once a day for 30 day(s) Active lamiVUDine 100 MG 1 tablet Orally Once a day for 10 day(s) Active Kerendia 20 MG 1 tablet [...] Once a day for 30 day(s) Active Extra Depth Orthopedic Shoes (1 [...] Additional Findings: Tobacco non-user Current no nsmoker Problems Problem Type SNOMED Code ICD Code Onset Dates Problem Status W/U Status Risk Notes Problem Acquired hammer toe of right foot (5322785453826403 ) Other hammer toe(s) (acquired), right foot (M20.41) Active confirmed Problem Acquired hammer toe of left foot (9323652845252580 ) Other hammer toe(s) (acquired), left foot (M20.42) Active confirmed Problem Polyneuropathy due to type 2 diabetes mellitus (510945447) Type 2 diabetes mellitus with diabetic polyneuropathy (E11.42) Active confirmed Vital Signs Height 5ft 11in in 05/15/2024 Weight 250 lbs 05/15/2024 BMI 34.86 kg/m2 05/15/2024 Procedures Procedure Date Ordered Date Performed Result Body Sit e 44876-NPDUWPH NAIL, 1-5 06/05/2023 N/A 61188-PZRH SKIN LESIONS, OVER 4 06/05/2023 N/A N3111-STLWEGQY DYSTROPHIC NAILS ANY # 06/05/2023 N/A 84216-KMQOMUI NAIL, 1-5 11/13/2023 N/A 35724-MHYK SKIN LESIONS, OVER 4 11/13/2023 N/A B3990-OSIYNEMM DYSTROPHIC NAILS ANY # 11/13/2023 N/A 29968-PCEUIKJ NAIL, 1-5 02/14/2024 N/A 60963-RVZH SKIN LESIONS, OVER 4 02/14/2024 N/A E4996-BEDJRLDI DYSTROPHIC NAILS ANY # 02/14/2024 N/A 46990-IOPXFWJ NAIL, 1-5 05/15/2024 N/A 58512-RYWU SKIN LESIONS, OVER 4 05/15/2024 N/A C1361-ZHEGOMQM DYSTROPHIC NAILS ANY # 05/15/2024 N/A Encounters Encounter Location Date Provider Diagnosis [address] [address] 06/05/2023 Jung Guillermina Type 2 diabetes mellitus with diabetic polyneuropathy E11.42 ; Tinea unguium B35.1 ; Other hammer toe(s) (acquired), right foot M20.41 and Other hammer toe(s) (acquired), left foot M20.[address] [address] 11/13/2023 Jung Guillermina Type 2 diabetes mellitus with diabetic polyneuropathy E11.42 ; Tinea unguium B35.1 and Xerosis of skin L85.[address] [address] 02/14/2024 Jung Guillermina Type 2 diabetes mellitus with diabetic polyneuropathy E11.42 ; Tinea unguium B35.1 ; Other hammer toe(s) (acquired), right foot M20.41 ; Other hammer toe(s) (acquired), left foot M20.42 and Xerosis of skin L85.[address] [address] 05/15/2024 Jung Guillermina Type 2 diabetes mellitus with diabetic polyneuropathy [...] E11.42) 05/15/2024 Tinea unguium (ICD-10 - B35.1) 05/15/2024 Type 2 diabetes mellitus with diabetic [...] Treatment Pending Test Test Name Order Date 85007-ICFRAIJ NAIL, 1-06/05/2023 92066-IJYGPMH NAIL, 1-11/13/2023 21007-UYAUNRQ NAIL, 1-02/14/2024 34494-XPYUVWX NAIL, 1-05/15/2024 45372-HATH SKIN LESIONS, OVER 4 05/15/19 25 94451-CWTJ SKIN LESIONS, OVER 4 02/14/20 24 56524-NFXN SKIN LESIONS, OVER 4 06/05/19 24 04130-MIFV SKIN LESIONS, OVER 4 11/13/19 24 F0896-LGCOJLJZ DYSTROPHIC NAILS ANY # C8600-RAJWTIAQ DYSTROPHIC NAILS ANY # P4963-XNRWGGXM DYSTROPHIC NAILS ANY # I3475-LBTPHNRN DYSTROPHIC NAILS ANY # Next Appt Details Provider Name:Jung Sarmiento , 08/08/2024 02:15:00 PM, [address] [facility], [address], [place], [address], Insurance Providers Payer Name Payer Address Payer Phone Subscriber Number Group Number Insured Name Patient Relationship to Insured Coverage Start Date Coverage End Date Medicare [employer] [address] [place] [address] [id number] Jarod An Self - [place] [address] [phone] [id number] Jarod An Self - patient is the insured Medical (General) History Medical History History ICD Code asthma Diabetic High blood pressure HIV Kidney disease Numbness Surgical History Surgery Date(Month/Year) Left hip replacement 2019
[2024-05-27 09:23] LABS: MANUAL DIFF FLAG NO
[2024-05-27 09:36] LABS: Basophils Absolute Auto 0.1 X10*3/uL (0.0-0.2); Eosinophils Absolute Auto 0.2 X10*3/uL (0.0-0.4); Eosinophils Percent Auto 2.4 % (0-4); Hematocrit 49.4 % (42.0-52.0); Hemoglobin 16.9 g/dl (14.0-18.0); Imm Gran Abs Auto 0.02 X10*3/uL (0.00-0.03); Imm Gran Pct Auto 0.3 % (0.0-0.4); Lymphocytes Absolute Auto 2.2 X10*3/uL (1.2-4.9); Lymphocytes Percent Auto 34.9 % (20-40); Mean Corpuscular HGB Conc 34.2 g/dl (31.0-36.0); Mean Corpuscular Hemoglobin 33.9 pg (27.0-33.0); Mean Corpuscular Volume 99.2 fL (80.0-98.0); Mean Platelet Volume 10.2 fL (9.4-12.4); Monocytes Absolute Auto 0.5 X10*3/uL (0.1-1.2); Monocytes Percent Auto 8.1 % (2-11); Neutrophils Absolute Auto 3.3 x10*3/uL (2.0-8.3); Neutrophils Percent Auto 53.3 % (45-73); Platelet Count 139 X10*3/uL (160-400); Red Blood Count 4.98 X10*6/uL (4.60-5.80); Red Cell Distribution Width 12.3 % (11.0-16.0); White Blood Count 6.3 X10*3/uL (4.8-10.8)
[2024-05-27 10:18] LABS: Alanine Aminotransferase 23 U/L (0-40); Albumin Level 3.6 g/dL (3.5-5.0); Alkaline Phosphatase 73 U/L (39-117); Anion Gap 12 (12-20); Aspartate Amino Transferase 30 U/L (5-37); Bilirubin Direct 0.4 mg/dL (0.0-0.5); Bilirubin Total 1.1 mg/dL (0.0-1.0); Blood Urea Nitrogen 17 mg/dL (9-16); Calcium 9.3 mg/dL (8.4-10.2); Carbon Dioxide 23 mmol/L (22-29); Chloride 109 mmol/L (96-108); Estimated Glomerular Filt Rate 46; Glucose Random 128 mg/dL (60-115); Potassium 4.6 mmol/L (3.3-5.1); Sodium 139 mmol/L (135-145); Total Protein 7.7 g/dL (6.5-8.0)
[2024-05-27 10:21] LABS: Syphilis Screen Nonreactive (Nonreactive)
[2024-05-27 10:24] LABS: ~HepC Num1 0.05 S/CO (0.00-0.79); ~Hepatitis C Antibody Nonreactive (Nonreactive)
[2024-05-28 14:54] LABS: HIV RNA PCR Qn Copies NOT DETECTED copies/mL (NOT DETECTED); HIV RNA PCR Qn Log Copies NOT DETECTED (NOT DETECTED)
[2024-05-30 17:43] LABS: Absolute CD3 Count 1971 cells/uL (840-3060); Absolute CD4 Count 742 cells/uL (490-1740); Absolute CD8 Count 1259 cells/uL (180-1170); Absolute Lymphocytes 2273 cells/uL (850-3900); Percent CD3 Cells 87 % (57-85); Percent CD4 Cells 33 % (30-61); Percent CD8 Cells 55 % (12-42)
== END 2024-05-27 09:05 | disposition home or self-care (01) ==
LOC: HO.LAB 09:04
PROVIDERS: PCP Physician Assistant; Visit Provider Internal Medicine
DX: B20 Human immunodeficiency virus [HIV] disease (principal)
CPT/HCPCS: 36415; 80048; 80076; 85025; 86359; 86360; 86780; 86803; 87536

== ENCOUNTER 2024-06-10 12:55 | Outpatient (AMB) | payer MEDICARE, OTHER, SELFPAY ==
[2024-06-10 12:59] VITALS: BP 146/80; PULSE 71; O2SAT 98; BMI 32.5
--- NOTE | 2024-06-10 12:59 | MHC.OFFVIS ---
Vital Signs 06/10/24 12:59 Height 5 ft 11 in Weight 233 lb BMI 32.5 BP 146/80 H Blood Pressure Location Lt brachial Position Sitting Pulse 71 Pulse Source Pulse Oximeter Pulse Oximetry (%) 98 Oxygen Delivery Method Room Air Intake Visit Reasons: HIV Allergies clarithromycin [From BIAXIN] Allergy (Unknown, Verified 06/10/24 12:59) ANAPHYLAXIS HPI HPI HIV: Details: He has been doing well. His viral load is undetectable on 05/27 and CD4 count is 742. He is taking reyxsvwu-bjxbsnpzjdya-fntwhzofxq 600/50/300 (Triumeq) and GFR is improved to 42-46. He has no complaints. 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 Mother No problems noted. Social History Housing: House Alcohol intake: never Patient Tobacco Use Status: Never used Tobacco e-Cigarette/Vaping Use: Never Used Current occupational status: retired Cognitive needs: No Hearing needs: No Vision needs: No Review of Systems Const All systems reviewed & are unremarkable except as noted in HPI and below Physical Exam Vital Signs: Last Vital Signs Pulse 71 06/10/24 12:59 BP 146/80 H 06/10/24 12:59 Pulse Ox 98 06/10/24 12:59 Oxygen Delivery Method Room Air 06/10/24 12:59 BMI result Body Mass Index 32.5 Const General: cooperative Orientation/consciousness: patient oriented x3 HEENT Head: Yes normal to inspection Mouth: Normal oral and palatal mucosa present Eyes General: appearance normal, both eyes and all related structures Pupils: Equal, round and reactive pupils present Resp Effort & Inspection: normal respiratory effort Cardio Rate: regular rate Rhythm: regular rhythm GI Palpation (GI): Soft to palpation and nontender General: Yes no CVA tenderness Back/Spine/Pelvis Back: no CVA tenderness Skin General skin exam: no rashes or lesions noted Neuro General: patient oriented x3 Cranial nerves: Yes CN's II-XII intact bilaterally and Yes Equal, round and reactive pupils present Extrem General: Yes normal to inspection Psych Appearance: grossly normal Assessment & Plan Assessment & Plan (1) HIV (human immunodeficiency virus infection): Comment: He is doing well with viral load undetectable, His renal function is better. He also has some osteoporosis he is addressing. Renal function stable last 1 1/2 years. Continue Triumeq. Bone density. Rectal Pap,NASIR patient will consider. See in six months. Labs ordered for five months and reordered Triumeq. Code(s): B20 - Human immunodeficiency virus [HIV] disease Category: Medical Qualifiers: HIV symptom status: currently asymptomatic, with history of HIV-related illness Qualified Code(s): B20 - Human immunodeficiency virus [HIV] disease Plan: n/a Orders: Orders Complete Blood Count Auto Diff 5 Months B20 - Human immunodeficiency virus [HIV] disease Liver Panel 5 Months B20 - Human immunodeficiency virus [HIV] disease Lymphocyte Subset Panel 3 06/10/24 B20 - Human immunodeficiency virus [HIV] disease RPR Monitor reflex titer 5 Months B20 - Human immunodeficiency virus [HIV] disease Basic Metabolic Panel 5 Months B20 - Human immunodeficiency virus [HIV] disease HIV-1 RNA QN PCR Expanded 5 Months B20 - Human immunodeficiency virus [HIV] disease Hepatitis C Antibody 5 Months B20 - Human immunodeficiency virus [HIV] disease Medications: Refilled drkrtqbd-pobffjfdtivx-obhrgru 600-50-300 mg (Triumeq) 1 tab PO DAILY 90 days 90 tabs 1RF Coding Level of Care Code Est Pt Level 4 (27248) Diagnoses Currently asymptomatic HIV infection, with history of HIV-related illness B20 HIV symptom status: currently asymptomatic, with history of HIV-related illness
--- OUTSIDE RECORDS SUMMARY | 2024-06-10 15:06 | XMS_ITS | Encounter Summary ---
Author Organization [facility] Address [address] [address] Phone Care Team Providers Care Yarn Salvager Name Role Phone Arnaldo Nichols Primary Care Provider [phone] Encounter Details Date Type Department Care Team (Late Contact Info) Description 05/28/2024 Orders Only [facility] [address] [place] [address] Yong Ruiz MD [address] [address] Stage 3b chronic kidney disease (HCC); Renal disorder due to type 2 diabetes mellitus <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); Persistent proteinuria; Essential hypertension Social History Tobacco Use Types Packs/Day Years Used Date Smoking Tobacco: Never Smokeless Tobacco: Never Alcohol Use Standard Drinks/Week Comments [...] Care Team (Late st Contact Info) Description 07/01/2024 3:30 PM EDT Office Visit [facility] [address] [place] [address] Yong Ruiz MD [address] [address] documented as of this encounter Visit Diagnoses Diagnosis 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
--- OUTSIDE RECORDS SUMMARY | 2024-06-10 15:06 | XMS_ITS | Patient Health Record ---
Author Organization [facility] Address [address] [place] [address] Care Team Providers Care Core Sticker Name Role Phone Arnaldo Nichols Primary Care Provider Unavailab Joel Quiroz Unavailable [phone] ALLERGIES Allergen (clinical drug ingredient) Drug/Non Drug [...] malignant neoplasm of colon (Z12.11) Active confirmed 297190072 Problem 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) Active confirmed 09042018 Problem Diverticulosis of sigmoid colon (K57.30) Active confirmed Diverticulosis of sigmoid colon (570202418) Problem Hypertension, unspecified type (I10) Active confirmed 25661148 Problem 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 764884320 Problem Positive colorectal cancer screening using Cologuard test (R19.5) Active confirmed 327192075 Problem 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) Active confirmed 78131511 Problem IPMN (intraductal papillary mucinous neoplasm) (D49.0) Active confirmed 43230978 VITAL SIGNS Blood pressure diastolic 00 mm Hg 07/11/2023 Height 71 in 07/11/2023 Blood pressure systolic 00 mm Hg 07/11/2023 Weight 232 lbs 07/11/2023 BMI 32.35 kg/m2 07/11/2023 Encounters Encounter Location Date Provider [facility] [address] [place] [address] 07/11/2023 Joel Garcia Other cirrhosis of liver [...] (PT, INR) 08/11/2020 ALPHA-FETOPROTEIN,TUMOR MARKER CA 19-9 08/11/2022 CA 19-9 08/25/2020 MRI ABD W&WO CONTRAST 08/25/2020 MRI ABD W&WO CONTRAST 08/11/2022 US ABD 08/11/2020 Future Test Test Name Order Date UPPER GI ENDOSCOPY 06/14/2018 COLONOSCOPY 09/15/2020 Insurance Providers Payer Name Payer Address Payer Phone Subscriber Number Group Number Insured Name Patient Relationship to Insured Coverage Start Date Coverage End Date MEDICARE OF [employer] [address] [id number] [phone] [id number] GIFTY VEGA Self - [place] [address] [id number] GIFTY VEGA Self - patient is the insured MEDICAL (GENERAL) HISTORY Medical History History ICD Code Denies IN,CVA,renal disease Hypertension 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 Frieda milan Takes Finasteride for hair loss Colonoscopy at age 72 in [place], [place]--polyps were removed--not clear as to what [...] Kidney stone & stent--Dr. Terrence Groves--seen by [facility]--on [facility] CT of abdomen in June revealed portal [...]
--- OUTSIDE RECORDS SUMMARY | 2024-06-10 15:06 | XMS_ITS | Encounter Summary ---
Author Organization [facility] Address [address] [facility] [address] [place] [address] Phone Care Team Providers Care Multiskill Operator Name Role Phone Arnaldo Nichols Primary Care Provider [phone] Encounter Details Date Type Department Care Team (Late Contact Info) Description 07/07/2020 Orders Only [facility] [address] [facility] [address] [place] [address] Provider, MD Galdino [address] [place] [address] Social History Tobacco Use Types Packs/Day [...] Visit [facility] [address] [place] [phone] Yong Ruiz MD [address] [facility] [address] [place] [address] documented as of this encounter Procedures Procedure Name Priority Date/Time Associated Diagnosis Comments EXT RESULT ENTRY Routine 07/07/2020 EXT RESULT ENTRY Routine 07/07/2020 documented in this encounter Results * EXT RESULT ENTRY (07/07/2020) us Historical Provider MD LAB BLOOD ORDERABLES Aurea l Result * EXT RESULT ENTRY (07/07/2020) us Historical Provider LAB BLOOD ORDERABLES Aurea l Result documented in this encounter Visit Diagnoses Not on filedocumented in this encounter Care Teams Multiskill Operator Relationship Specialty Start Date End Date Arnaldo Nichols PA [address] [place] [address], [address] [place] [address] PCP - General Physician Supervisor Coal Handling 07/02/20 documented as of this encounter
--- OUTSIDE RECORDS SUMMARY | 2024-06-10 15:06 | XMS_ITS ---
Author Organization [facility] Address [address] [place] [address] Care Team Providers Care Snake Charmer Name Role Phone Arnaldo Nichols Primary Care Provider UnavailJoel Williamson Unavailable [phone] ALLERGIES Allergen (clinical drug ingredient) Drug/Non Drug [...] No Points 0 Interpretation Negative VITAL SIGNS Blood pressure systolic 00 mm Hg 07/11/19 24 Blood pressure diastolic 00 mm Hg 024 Height 71 in 07/11/2023 Weight 232 lbs 07/11/2023 BMI 32.35 kg/m2 07/11/2023 Encounters Encounter Location Date Provider Diagnosis [facility] [address] [place] [address] 07/11/2023 Joel Garcia Other cirrhosis of liver [...]
--- OUTSIDE RECORDS SUMMARY | 2024-06-10 15:06 | XMS_ITS ---
Author Organization [facility] Address [address] [facility] [place] [address] Care Team Providers Care Wastewater Plant Civil Engineer Name Role Phone Arnaldo Nichols Primary Care Provider Unavailab Jung Ma Unavailable [phone] Allergies Allergen (clinical drug ingredient) Drug/Non Drug [...] Ordered Date Performed Result Body Sit e 18771-DOAZBWB NAIL, 1-5 02/14/2024 N/A 57984-XVSZ SKIN LESIONS, OVER 4 02/14/2024 N/A P9304-NBDSQBXR DYSTROPHIC NAILS ANY # 02/14/2024 N/A Encounters Encounter Location Date Provider Diagnosis [facility] [address] [address] 02/14/2024 Jung Sarmiento Type 2 diabetes mellitus [...] INSTRUCTIONS.pdf) Pending Test Test Name Order Date 02730-JWRQNXC NAIL, 1-5 02/14/2024 32824-AKAW SKIN LESIONS, OVER 4 02/14/20 24 K8811-HHLLFHYL DYSTROPHIC NAILS ANY # Next Appt Details Follow Up: prn, Reason: Provider Name:Jung Sarmiento , 08/08/2024 02:15:00 PM, [address] [facility], [address], [place], [address], Procedure Notes * Category Sub-Category Detail Notes Keratoma Treatment Parring or Cutting o f Benign Hyperkeratotic Lesion(s) (-57) More than 4 Lesions - The Benign hyperkeratotic lesions, as described above were pared, and/or cut utilizing a sterile 15 blade, tissue nippers, and/or dremel - 82357 Debride Nails 1-5 Procedure: Performance of this nail treatment by a nonprofessional would put this patients foot and overall health at risk. Therefore, nail debridement was performed extensively to reduce/remove overall nail length, girth, thickness, subungual debris, and necrotic tissue, by manual and/or electrical means through the use of a nail nipper and/or dremel-type pulp grinder feeder, to a more viable healthy nail plate or bed tissue 1-5. Silver nitrate used for any petechial bleeding as necessary. Definitive antifungal treatment options have been reviewed and discussed with the patient. The patient chooses, no pharmaceutical tx - 04236 Nail Reduction Nail Reduction (-27) Trimming o f dystrophic nails performed to reduce/remove overall nail length and girth, by manual and electrical means with use of a nail nipper and/or dremel, to more viable healthy nail plate or bed tissue, any number - G0127 Progress Notes * Jarod NADOB: [birth year] (83 yo M)Acc No.[id number]:02/14/2024 Progress Note Patient:?Jarod AN Provider:?Jung Sarmiento DPM :1940???Age:83 Y???Sex:Male Robbi e:02/14/2024 Address:[address] [place] [address], [id number] Pcp:Arnaldo Nichols Subjective: * Chief Complaints: * [...] 6.0 * Examination: ???Ophthalmology Referral: ?DIABETES EYE EXAM?Procedure Performed:?Yes ?Date of Exam Performed?11/10/2023 ?Diabetic Retinopathy Screening:?Yes ?Retinal Screening Performed:?Yes ?Findings of Diabetic Eye Exam:?no retinopathy?Neurological: ?SENSORY:?Neurological exam demonstrates, reduced light touch sensation, [...] for office visit today.?ORIENTED:?person, place, and time.?FOOT EXAM:?Lower Extremity Neurological Exam performed:?Yes ?Visual exam of foot performed:?Yes ?Date?02/14/2024 ?Footwear Evaluation?Footwear Evaluation performed:?Yes??? Assessment: * Assessment: 1.?Tinea unguium - B35.1???2 [...] use of a nail nipper and/or dremel-type pulp grinder feeder, to a more viable healthy nail plate or bed tissue 1-5. Silver nitrate used for any petechial bleeding as necessary. Definitive antifungal treatment options have been reviewed and discussed with the patient. The patient chooses, no pharmaceutical tx - 82930.?Keratoma Treatment:?Parring or Cutting of Benign Hyperkeratotic Lesion(s)?(-57) More than 4 Lesions - The Benign hyperkeratotic lesions, as described above were pared, and/or cut utilizing a sterile 15 blade, tissue nippers, and/or dremel - 99869.?Nail Reduction:?Nail Reduction?(-27) Trimming of dystrophic nails performed to reduce/remove overall nail length and girth, by manual and electrical means with use of a nail nipper and/or dremel, to more viable healthy nail plate or bed tissue, any number - G0127.? * Procedure Codes:?G0127 JATINDER ING DYSTROPHIC NAILS ANY #, Modifiers: XS 92590 DEBRIDE NAIL, 1-5, Modifiers: XS 36023 TRIM SKIN LESIONS, OVER 4, Modifiers: XS [...] Provider:?Jung Sarmiento DPM Date:?2023 Generated for Paul gomez/Gilbert/eTransmitting on:?06/10/2024 03:06 PM EST History and Physical Notes * [...]
--- OUTSIDE RECORDS SUMMARY | 2024-06-10 15:06 | XMS_ITS ---
Author Organization [facility] Address [address] [facility] [place] [address] Care Team Providers Care Support Group Manager Name Role Phone Arnaldo Nichols Primary Care Provider Unavailab Jung Ma Unavailable [phone] REASON FOR VISIT At Risk Footcare, Skin [...] Ordered Date Performed Result Body Sit e 31752-ESCBMWW NAIL, 1-11/13/2023 N/A 74899-TSHJ SKIN LESIONS, OVER 11/13/2023 N/A R9193-FFXWFDFV DYSTROPHIC NAILS ANY # 11/13/2023 N/A Encounters Encounter Location Date Provider Diagnosis [facility] [address] [address] 11/13/2023 Jung Sarmiento Type 2 diabetes mellitus [...] days Pending Test Test Name Order Date 49300-GYNBFLE NAIL, 1-5 11/13/2023 82135-GRPM SKIN LESIONS, OVER 4 11/13/19 24 M8938-HBATKPHX DYSTROPHIC NAILS ANY # Next Appt Details Follow Up: prn, Reason: Provider Name:Jung Sarmiento , 08/08/2024 02:15:00 PM, [address] [facility], [address], [place], [address], Procedure Notes * Category Sub-Category Detail Notes Keratoma Treatment Parring or Cutting o f Benign Hyperkeratotic Lesion(s) 20274 ( More than 4 Lesions ) - [...] as necessary. Patient chooses, no pharmaceutical tx (17528) Nail Reduction Nail Reduction Trimming of dyst rophic nails performed to reduce/remove overall nail length and girth, by manual and electrical means with use of a nail nipper and/or dremel, to more viable healthy nail plate or bed tissue (G0127) Progress Notes * Jarod ANDOB: [birth year] (83 yo M)Acc No.[id number]:11/13/2023 Progress Note Patient:?Jannetdeneenortiz Jarod Provider:?Jung Sarmiento DPM :1940???Age:83 Y???Sex:Male Robbi e:11/13/2023 Address:[address] [place] [address] Rd, [address], [place], [id number] Pcp:Arnaldo Nichols Subjective: * Chief Complaints: * [...] as necessary. Patient chooses, no pharmaceutical tx (00985).?Keratoma Treatment:?Parring or Cutting of Benign Hyperkeratotic Lesion(s)?42902 ( More than 4 Lesions ) - [...] ING DYSTROPHIC NAILS ANY #, Modifiers: XS 15815 DEBRIDE NAIL, 1-5, Modifiers: XS 54457 TRIM SKIN LESIONS, OVER 4, Modifiers: XS [...] Sarmiento DPM Date:?2023 Generated for Paul gomez/Gilbert/Stephenie on:?06/10/2024 03:05 PM EST History and Physical Notes * [...]
--- OUTSIDE RECORDS SUMMARY | 2024-06-10 15:06 | XMS_ITS | Clinical Summary ---
Author Organization [facility] Address [address] [facility] [facility] [address] [place] [address] Phone Care Team Providers Care Maintenance Data Analyst Name Role Phone Arnaldo Nichols Primary Care Provider [phone] Allergies Active Allergy Reactions Criticality Noted Date [...] chew, or split. Active ergocalciferol 1.25 MG (60330 UT) capsule Take 50,000 Units by mouth [...] Encounters Date Type Department Care Team Description 05/28/2024 Orders Only [facility] [address] [place] [address] Yong Ruiz MD Stage 3b chronic kidney disease (HCC); Renal disorder due to type 2 diabetes mellitus <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); Persistent proteinuria; Essential hypertension 04/22/2024 Refill [facility] [address] [place] [address] Yong Ruiz MD from Last 3 Months [...] Visit [facility] [address] [place] [address] Yong Ruiz MD [address] [facility] [address] [place] [phone] Health Maintenance Due Date Last Done Comments [...] AM EDT) Estimated Average Glucose 111 MG/DL [place] Comment: eAG = Estimated average glucose which is %A1C expressed as average glucose, using the formula of the B6H-Gkxqrcw Average Glucose study (ADAG), Diabetes Care, Vol.31,#8, [...] patient ? sample. 06/27/2019 9:20 AM EDT Arnaldo HANSEN LAB BLOOD ORDERABLES Final Re sult [place] from Last 3 Months or Most Recently Relevant to Health Maintenance Insurance MEDICARE [facility] MEDICARE [facility] [address] Care Teams Maintenance Data Analyst Relationship Specialty Start Date End Date Arnaldo Nichols PA [address] [place] [address], [address] [place] [address] PCP - General Physician Temperer 07/02/20
--- OUTSIDE RECORDS SUMMARY | 2024-06-10 15:06 | XMS_ITS ---
Author Organization [facility] Address [address] [facility] [place] [address] Care Team Providers Care Cone Chocolate Dipper Name Role Phone Arnaldo Nichols Primary Care Provider Unavailab Jung Ma Unavailable [phone] Allergies Allergen (clinical drug ingredient) Drug/Non Drug [...] Ordered Date Performed Result Body Sit e 78188-SAEKXMC NAIL, 1-05/15/2024 N/A 54623-VVPM SKIN LESIONS, OVER 4 05/15/2024 N/A X1125-EVOPCQAP DYSTROPHIC NAILS ANY # 05/15/2024 N/A Encounters Encounter Location Date Provider Diagnosis [facility] [address] [address] 05/15/2024 Jung Sarmiento Type 2 diabetes mellitus with diabetic polyneuropathy E11.42 and Tinea unguium B35.1 Assessments Encounter Date Diagnosis (ICD Code) Assessment Notes Treatment Notes Treatment Clinical Notes Section Notes 05/15/2024 Type 2 diabetes mellitus with diabetic polyneuropathy (ICD-10 - E11.42) 05/15/2024 Tinea unguium (ICD-10 - B35.1) Plan Of Treatment Pending Test Test Name Order Date 47930-UBIONWT NAIL, 1-5 05/15/2024 84964-YLTQ SKIN LESIONS, OVER 4 05/15/19 25 B3652-GYHDSCHI DYSTROPHIC NAILS ANY # Next Appt Details Follow Up: prn, Reason: Provider Name:Jung Sarmiento , 08/08/2024 02:15:00 PM, [address] [place] [address], [place], [address], Procedure Notes * Category Sub-Category Detail Notes [...] instrumentation by the physician of record - 55168 Debride Nails 1-5 Procedure: Due to the [...] necessary to maintain effective symptomatic relief - 04987 Nail Reduction Nail Reduction (-27) Trimming o [...] * Jarod ANDOB: [birth year] (83 yo M)Acc No.[id number]:05/15/2024 Progress Note Patient:?Jarod AN Provider:?Jung Sarmiento DPM :1940???Age:83 Y???Sex:Male Robbi e:05/15/2024 Address:[address] [place] [address], [address] Pcp:Arnaldo Nichols Subjective: * Chief Complaints: * [...] necessary to maintain effective symptomatic relief - 51856.?Keratoma Treatment:?Parring or Cutting of Benign Hyperkeratotic Lesion(s)?(-57) [...] instrumentation by the physician of record - 15021.?Nail Reduction:?Nail Reduction?(-27) Trimming of all dystrophic nails [...] ING DYSTROPHIC NAILS ANY #, Modifiers: XS 12413 DEBRIDE NAIL, 1-5, Modifiers: XS 57982 TRIM SKIN LESIONS, OVER 4, Modifiers: XS * Follow Up:?prn * Images: * Sign off status: Completed true * Provider:?Jung Sarmiento DPM Date:?2024 Generated for Paul gomez/Gilbert/Stephenie on:?06/10/2024 03:06 PM EST History and Physical [...]
--- OUTSIDE RECORDS SUMMARY | 2024-06-10 15:07 | XMS_ITS | Patient Health Record ---
Author Organization [facility] Address [address] [facility] [address] Care Team Providers Care Journeyman Machinist Name Role Phone Arnaldo Nichols Primary Care Provider Unavailab Jung Ma Unavailable [phone] Allergies Allergen (clinical drug ingredient) Drug/Non Drug [...] Problem Acquired hammer toe of right foot (9293272592722825 ) Other hammer toe(s) (acquired), right foot (M20.41) Active confirmed Problem Acquired hammer toe of left foot (8835880042969715 ) Other hammer toe(s) (acquired), left foot (M20.42) Active confirmed Problem Polyneuropathy due to type 2 diabetes mellitus (323315256) Type 2 diabetes mellitus with diabetic polyneuropathy (E11.42) Active confirmed Vital Signs Height 5ft 11in in 05/15/2024 Weight 250 lbs 05/15/2024 BMI 34.86 kg/m2 05/15/2024 Procedures Procedure Date Ordered Date Performed Result Body Sit e 47852-QWUMMFA NAIL, 1-5 11/13/2023 N/A 92891-XDIQ SKIN LESIONS, OVER 4 11/13/2023 N/A Q4261-WXBEPGMJ DYSTROPHIC NAILS ANY # 11/13/2023 N/A 23451-QGNDYMW NAIL, 1-5 02/14/2024 N/A 71342-COLL SKIN LESIONS, OVER 4 02/14/2024 N/A R9958-ZYCTFQDL DYSTROPHIC NAILS ANY # 02/14/2024 N/A 31361-JISFYUZ NAIL, 1-5 05/15/2024 N/A 70034-TRVJ SKIN LESIONS, OVER 4 05/15/2024 N/A M2455-ADSVCXPR DYSTROPHIC NAILS ANY # 05/15/2024 N/A Encounters Encounter Location Date Provider Diagnosis [address] [address] 11/13/2023 Jung Guillermina Type 2 diabetes mellitus with diabetic polyneuropathy E11.42 ; Tinea unguium B35.1 and Xerosis of skin L85.[address] [address] 02/14/2024 Jungadam PryorGuillermina Type 2 diabetes mellitus with diabetic polyneuropathy E11.42 ; Tinea unguium B35.1 ; Other hammer toe(s) (acquired), right foot M20.41 ; Other hammer toe(s) (acquired), left foot M20.42 and Xerosis of skin L85.[address] [address] 05/15/2024 Jungadam Sarmiento Type 2 diabetes mellitus with diabetic polyneuropathy E11.42 and Tinea unguium B35.1 Assessments Encounter Date Diagnosis (ICD Code) Assessment Notes Treatment Notes Treatment Clinical Notes Section Notes 11/13/2023 Tinea unguium (ICD-10 - B35.1) 11/13/2023 Type 2 diabetes mellitus with diabetic polyneuropathy (ICD-10 - E11.42) 02/14/2024 Tinea unguium (ICD-10 - B35.1) 02/14/2024 Type 2 diabetes mellitus with diabetic polyneuropathy (ICD-10 - E11.42) 05/15/2024 Tinea unguium (ICD-10 - B35.1) 05/15/2024 Type 2 diabetes mellitus with diabetic polyneuropathy (ICD-10 - E11.42) 02/14/2024 Other hammer toe(s) (acquired), right foot (ICD-10 - M20.41) Patient Educated with: DIABETIC FOOT CARE INSTRUCTIONS. pdf (DIABETIC FOOT CARE INSTRUCTIONS. pdf) 02/14/2024 Other hammer toe(s) (acquired), left foot (ICD-10 - M20.42) 11/13/2023 Xerosis of skin (ICD-10 - L85.3) 02/14/2024 Xerosis of skin (ICD-10 - L85.3) Plan Of Treatment Pending Test Test Name Order Date 04441-RJEQFNX NAIL, -06/05/2023 26232-LVAXJYZ NAIL, -11/13/2023 02297-ZBAFZKZ NAIL, -02/14/2024 00138-AUJFERY NAIL, -05/15/2024 05066-ZNDP SKIN LESIONS, OVER 4 05/15/19 25 73961-AUYL SKIN LESIONS, OVER 4 02/14/20 24 46305-APWP SKIN LESIONS, OVER 4 06/05/19 24 41916-THPV SKIN LESIONS, OVER 4 11/13/19 24 S8150-CTBCEIHN DYSTROPHIC NAILS ANY # M6047-VJHDAARX DYSTROPHIC NAILS ANY # A7638-OZWDNRZS DYSTROPHIC NAILS ANY # A8179-ZWCRYRFX DYSTROPHIC NAILS ANY # Next Appt Details Provider Name:Jung Soares Guillermina , 08/08/2024 02:15:00 PM, [address] [place] [address], [place] [address], [place], [address], Insurance Providers Payer Name Payer Address Payer Phone Subscriber Number Group Number Insured Name Patient Relationship to Insured Coverage Start Date Coverage End Date Medicare National [employer] [address] [place] [address] [id number] Jarod An Self - [place] [address] [id number] Jarod An Self - patient is the insured Medical (General) History Medical History History ICD Code asthma Diabetic High blood pressure HIV Kidney disease Numbness Surgical History Surgery Date(Month/Year) Left hip replacement 2019
== END 2024-06-10 13:26 | disposition home or self-care (01) ==
PROVIDERS: PCP Physician Assistant; Visit Provider Internal Medicine
DX: B20 Human immunodeficiency virus [HIV] disease (principal)
CPT/HCPCS: 99214

== ENCOUNTER → 2024-06-10 12:55 | Outpatient (BNVA) | payer MEDICARE, OTHER, SELFPAY | PROVIDERS: PCP Physician Assistant; Visit Provider Internal Medicine | DX: B20 Human immunodeficiency virus [HIV] disease (principal) | CPT/HCPCS: 99212 ==

== ENCOUNTER 2024-06-20 09:40 | Outpatient (REF) | payer MEDICARE, OTHER, SELFPAY ==
[2024-06-20 10:09] LABS: MANUAL DIFF FLAG NO
[2024-06-20 10:50] LABS: Basophils Absolute Auto 0.1 X10*3/uL (0.0-0.2); Basophils Percent Auto 0.8 % (0-2); Eosinophils Absolute Auto 0.2 X10*3/uL (0.0-0.4); Eosinophils Percent Auto 2.7 % (0-4); Hemoglobin 15.7 g/dl (14.0-18.0); Imm Gran Abs Auto 0.02 X10*3/uL (0.00-0.03); Imm Gran Pct Auto 0.3 % (0.0-0.4); Lymphocytes Absolute Auto 1.9 X10*3/uL (1.2-4.9); Lymphocytes Percent Auto 30.4 % (20-40); Mean Corpuscular HGB Conc 34.9 g/dl (31.0-36.0); Mean Corpuscular Hemoglobin 34.2 pg (27.0-33.0); Monocytes Absolute Auto 0.5 X10*3/uL (0.1-1.2); Monocytes Percent Auto 8.5 % (2-11); Neutrophils Absolute Auto 3.6 x10*3/uL (2.0-8.3); Neutrophils Percent Auto 57.3 % (45-73); Platelet Count 129 X10*3/uL (160-400); Red Blood Count 4.59 X10*6/uL (4.60-5.80); Red Cell Distribution Width 12.5 % (11.0-16.0); White Blood Count 6.3 X10*3/uL (4.8-10.8)
[2024-06-20 11:15] LABS: Appearance Urine Clear; Color Urine Yellow; Glucose Urine UA Negative (Negative); Leukocyte Esterase Urine Negative (Negative); Nitrite Urine Negative (Negative); PH 5.5 (5.0-9.0); Specific Gravity - Urine 1.015 (1.005-1.025); UMIC TRIGGER UA YES; Urine Blood Small (1+) (Negative); Urine Ketones Negative (Negative); Urine Protein 300 (3+) mg/dL (Neg-Trace)
[2024-06-20 11:24] LABS: Albumin Level 3.4 g/dL (3.5-5.0); Anion Gap 13 (12-20); Blood Urea Nitrogen 18 mg/dL (9-16); Calcium 9.1 mg/dL (8.4-10.2); Carbon Dioxide 24 mmol/L (22-29); Chloride 112 mmol/L (96-108); Estimated Glomerular Filt Rate 48; Phosphorus 3.7 mg/dL (2.7-4.5); Potassium 4.5 mmol/L (3.3-5.1); Sodium 144 mmol/L (135-145)
[2024-06-20 11:27] LABS: Parathyroid Hormone Intact 143.9 pg/mL (8.7-77.1)
[2024-06-20 11:33] LABS: Bacteria Urine None Seen (None Seen); RBC Urine 0-2 /HPF (0-2); Squamous Epithelial Cell Urine 0-2 /HPF (0-2); WBC Urine 0-5 /HPF (0-5)
--- OUTSIDE RECORDS SUMMARY | 2024-06-20 11:40 | XMS_ITS ---
Author Organization [facility] Address [address] [facility] [place] [address] Care Team Providers Care Pr Specialist Name Role Phone Arnaldo Nichols Primary Care Provider Unavailab Jung Ma Unavailable [phone] REASON FOR VISIT At Risk Footcare, Skin [...] Ordered Date Performed Result Body Sit e 76472-DCLGWDB NAIL, 1-11/13/2023 N/A 30975-NFVX SKIN LESIONS, OVER 11/13/2023 N/A D4943-PWVXNFNA DYSTROPHIC NAILS ANY # 11/13/2023 N/A Encounters Encounter Location Date Provider Diagnosis [facility] [address] [address] 11/13/2023 Jung Sarmiento Type 2 diabetes mellitus [...] days Pending Test Test Name Order Date 30536-NJOBEUD NAIL, 1-5 11/13/2023 46634-RJKL SKIN LESIONS, OVER 4 11/13/19 24 K7828-NVTUSOTO DYSTROPHIC NAILS ANY # Next Appt Details Follow Up: prn, Reason: Provider Name:Jung Sarmiento , 08/08/2024 02:15:00 PM, [address] [facility], [address], [place], [address], Procedure Notes * Category Sub-Category Detail Notes Keratoma Treatment Parring or Cutting o f Benign Hyperkeratotic Lesion(s) 01963 ( More than 4 Lesions ) - [...] as necessary. Patient chooses, no pharmaceutical tx (58856) Nail Reduction Nail Reduction Trimming of dyst rophic nails performed to reduce/remove overall nail length and girth, by manual and electrical means with use of a nail nipper and/or dremel, to more viable healthy nail plate or bed tissue (G0127) Progress Notes * Jarod ANDOB: [birth year] (83 yo M)Acc No.[id number]:11/13/2023 Progress Note Patient:?Jannetdeneenortiz Jarod Provider:?Jung Sarmiento DPM :1940???Age:83 Y???Sex:Male Robbi e:11/13/2023 Address:[address] [place] [address] [address], [address], [place], [id number] Pcp:Arnaldo Nichols Subjective: * Chief Complaints: * [...] as necessary. Patient chooses, no pharmaceutical tx (07204).?Keratoma Treatment:?Parring or Cutting of Benign Hyperkeratotic Lesion(s)?16692 ( More than 4 Lesions ) - [...] ING DYSTROPHIC NAILS ANY #, Modifiers: XS 98870 DEBRIDE NAIL, 1-5, Modifiers: XS 23661 TRIM SKIN LESIONS, OVER 4, Modifiers: XS [...] Sarmiento DPM Date:?2023 Generated for Paul gomez/Gilbert/Stephenie on:?06/20/2024 11:40 AM EDT History and Physical Notes * HPI (History [...]
--- OUTSIDE RECORDS SUMMARY | 2024-06-20 11:40 | XMS_ITS | Patient Health Record ---
Author Organization [facility] Address [address] [place] [address] Care Team Providers Care Anvil Worker Name Role Phone Arnaldo Nichols Primary Care Provider Unavailab Joel Quiroz Unavailable [phone] Allergies Allergen (clinical drug ingredient) Drug/Non Drug Allergy documented on EMR Reaction Allergy Type Onset Date Status Biaxin Unknown Drug Allergy Active Reason For Referral No Information Medications Medication [...] 1 tab Oral once a day Active Immunizations Vaccine Route Administration Date Status Comme nts Flu vaccine no Preserv 3 and > Unknown 12/13/2016 Admin istered Influenza Unknown 12/09/2017 Administered Influenza Unknown 02/02/2018 Administered Influenza Unknown 12/09/2018 Administered Influenza Unknown 12/10/2019 Administered Influenza Unknown 12/09/2020 Administered Social History Tobacco Use: Social History Observation Description Date Details (start date - stop date) Never Smoker NA - NA Tobacco Use/Smoking Question Answer Notes Patient is a nonsmoker Alcohol Screen Question Answer Notes Did you have a drink containing alcohol in the p ast year? No Points 0 Interpretation Negative Section Notes: Nonsmoker; no sig alcohol [place] Nonsm[place]; no sig alcohol [place] Nonsmoker; no sig alcohol [place] Nonsmoker; no sig alcohol Originally [place] Nonsmoker; no sig alcohol Originally [place] Nonsmoker; no sig alcohol Originally [place] Nonsmoker; no sig alcohol Originally [place] Nonsmoker; no sig alcohol [place] Problems Problem Type SNOMED Code ICD Code Onset Dates Problem Status W/U Status Risk Notes Problem 716828589 Encounter for screening for malignant neoplasm of colon (Z12.11) Active confirmed Problem 17788678 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) Active confirmed Problem Diverticulosis of sigmoid colon (863470081) Diverticulosis of sigmoid colon (K57.30) Active confirmed Problem 28396906 Hypertension, unspecified type (I10) Active confirmed Problem 643733603 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 Problem 932596117 Positive colorectal cancer screening using Cologuard test (R19.5) Active confirmed Problem 61409749 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) Active confirmed Problem 45042809 IPMN (intraducta l papillary mucinous neoplasm) (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) Active confirmed Vital Signs Blood pressure diastolic 00 mm Hg 07/11/2023 Height 71 in 07/11/2023 Blood pressure systolic 00 mm Hg 07/11/2023 Weight 232 lbs 07/11/2023 BMI 32.35 kg/m2 07/11/2023 Encounters Encounter Location Date Provider Diagnosis [facility] [address] [place] [address] 07/11/2023 Joel Garcia Other cirrhosis of liver K74.69 and IPMN (intraductal papillary mucinous neoplasm) D49.0 Assessments Encounter Date Diagnosis (ICD Code) Assessment Notes Treatment Notes Treatment Clinical Notes Section Notes 07/11/2023 Other cirrhosis of liver (ICD-10 - K74.69) Overall, Jarod appears quite well. He does not describe any symptoms nor have any signs on his exam of any progressive liver disease. We did review his MRI done last September revealing his known cirrhosis but no sign of any liver mass. His alpha-fetoprotei n level was normal at that time as well. His known pancreatic cysts have also remained stable on the followup MRI in September of 2022 as compared to 2020. The cysts appear quite benign and consistent with IPMN. Given his age of 83 and stability of his imaging studies for at least the past 2 years, I advised him that I don't think he would need any further surveillance MRIs in regard to his underlying cirrhosis or IPMN at this point. In regard to his intermittent episodes of some irregular bowel movements and abdominal bloating I advised him that this does not sound worrisome and seems consistent with some mild irritable bowel syndrome and/or dietary induced symptoms. Given his colonoscopy just 2 years ago, I don't think that would needto be done again from a screening standpoint. If things remain stable I advised Jarod to see me in one year for a followup visit. I did advise him to certainly contact me in the interim if any problems or questions I can be of assistance with. Jarod was comfortable with this plan. Thank you again for allowing me to participate in Jarod's care. I shall continue to keep you advised of his progress. 07/11/2023 IPMN (intraductal papillary mucinous neoplasm) (ICD-10 - D49.0) Overall, Jarod appears quite well. He does not describe any symptoms nor have any signs on his exam of any progressive liver disease. We did review his MRI done last September revealing his known cirrhosis but no sign of any liver mass. His alpha-fetoprotei n level was normal at that time as well. His known pancreatic cysts have also remained stable on the followup MRI in September of 2022 as compared to 2020. The cysts appear quite benign and consistent with IPMN. Given his age of 83 and stability of his imaging studies for at least the past 2 years, I advised him that I don't think he would need any further surveillance MRIs in regard to his underlying cirrhosis or IPMN at this point. In regard to his intermittent episodes of some irregular bowel movements and abdominal bloating I advised him that this does not sound worrisome and seems consistent with some mild irritable bowel syndrome and/or dietary induced symptoms. Given his colonoscopy just 2 years ago, I don't think that would needto be done again from a screening standpoint. If things remain stable I advised Jarod to see me in one year for a followup visit. I did advise him to certainly contact me in the interim if any problems or questions I can be of assistance with. Jarod was comfortable with this plan. Thank you again for allowing me to participate in Jarod's care. I shall continue to keep you advised of his progress. Plan Of Treatment Pending Test Test Name Order Date BUN 08/25/2020 CREATININE 08/25/2020 PROTHROMBIN TIME (PT, INR) 08/11/2020 ALPHA-FETOPROTEIN,TUMOR MARKER CA 19-9 08/25/2020 CA 19-9 08/11/2022 MRI ABD W&WO CONTRAST 08/25/2020 MRI ABD W&WO CONTRAST 08/11/2022 US ABD 08/11/2020 Future Test Test Name Order Date UPPER GI ENDOSCOPY 06/14/2018 COLONOSCOPY 09/15/2020 Insurance Providers Payer Name Payer Address Payer Phone Subscriber Number Group Number Insured Name Patient Relationship to Insured Coverage Start Date Coverage End Date MEDICARE OF [employer] [address] [place] [address] [phone] [id number] JAROD VEGA Self - [place] [address] [id number] ODALISJAROD LUCERO Self - patient is the insured Medical (General) History Medical History History ICD Code Denies [place],CVA,renal disease Hypertension 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 Frieda milan Takes Finasteride for hair loss Colonoscopy at age 72 in [place], [place]--polyps were removed--not clear as to what [...] Kidney stone & stent--Dr. Terrence Groves--seen by [facility] Cardiology--on [facility] CT of abdomen in June 20 revealed portal hypertension with varices, cirrhosis but [...] replacement 05/2019 Dr. Cordoba Cholecystectomy in 10/[address] [facility] [address] Jimenez was negative for any lesions nor gallstones
--- OUTSIDE RECORDS SUMMARY | 2024-06-20 11:40 | XMS_ITS | Clinical Summary ---
Author Organization [facility] Address [address] [place] [address] Phone Care Team Providers Care Software Engineer Mobile Name Role Phone Arnaldo Nichols Primary Care Provider [phone] Allergies Active Allergy Reactions Criticality Noted Date [...] chew, or split. Active ergocalciferol 1.25 MG (56762 UT) capsule Take 50,000 Units by mouth [...] Encounters Date Type Department Care Team Description 06/20/2024 Orders Only [facility] [address] [address] Yong Ruiz MD 05/28/2024 Orders Only [facility] [address] [place] [address] Yong Ruiz MD Stage 3b chronic kidney disease (HCC); Renal disorder due to type 2 diabetes mellitus <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); Persistent proteinuria; Essential hypertension 04/22/2024 Refill [facility] [address] [place] [id number] Yong Ruiz MD from Last 3 Months [...] Visit [facility] [address] [place] [address] Yong Ruiz MD [address] [facility] [address] [place] [address] Health Maintenance Due Date Last Done [...] Procedure Name Priority Date/Time Associated Diagnosis Comments URINALYSIS Routine 06/20/2024 11:01 AM EDT URINALYSIS WITH MICROSCOPIC Routine 06/20/2024 11:01 AM EDT Stage 3b chronic kidney disease (HCC) 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 Essential hypertension PTH, INTACT (HC) Routine 06/20/2024 10:0 8 AM EDT CREATININE, BLOOD Routine 06/20/2024 10: 08 AM EDT BUN Routine 06/20/2024 10:08 AM EDT ELECTROLYTE PANEL Routine 06/20/2024 10: 08 AM EDT CBC AND DIFFERENTIAL Routine 06/20/2024 10:08 AM EDT CALCIUM Routine 06/20/2024 10:08 AM EDT Stage 3b chronic kidney disease (HCC) 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 Essential hypertension ALBUMIN Routine 06/20/2024 10:08 AM EDT Stage 3b chronic kidney disease (HCC) 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 Essential hypertension MAGNESIUM Routine 06/20/2024 10:08 AM EDT Stage 3b chronic kidney disease (HCC) 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 Essential hypertension PHOSPHATE ( PHOSPHORUS) Routine 06/20/2024 10:08 AM EDT Stage 3b chronic kidney disease (HCC) 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 Essential hypertension HEMOGLOBIN A1C Routine 06/27/2019 9:20 AM EDT from Last 3 Months or Most Recently Relevant to Health Maintenance Results * (ABNORMAL) Urinalysis with microscopic (06/20/2024 11:01 AM EDT) Color Urine Yellow See orde r comments Appearance Urine Clear See order comments pH Urine 5.5 5.0 - 9.0 See order comments Glucose Urine Negative Negative mg/dL See order comments Blood, Urine Small (1+)(A) Negative See order comments Specific [place] Urine 1.015 1.005 - 1.025 See order comments Protein Urine 300 (3+)(A) Neg-Trace mg/dL See order comments Ketones, Urine Negative Negative mg/dL See order comments Nitrite, Urine Negative Negative See o rder comments Leukocyte Esterase Urine Negative Negative See order comments RBC, Urine 0-2 0 - 2 /HPF See orde r comments WBC 0-5 0 - 5 /HPF See order comments Squamous Epithelial, Urine 0-2 0 - 2 /HPF See order comments Bacteria, Urine None Seen None Seen See order comments Hyaline Casts, Urine 3-5 0 - 2 /LPF See order comments Urine (Urine, Clean Catch) 06/20/2024 11:01 AM EDT 06/20/2024 11:01 AM EDT Yong Ruiz MD LAB URINE ORDERABLES Final Re sult Performing Organization Address [facility] de Phone Number [place] See order comments [place] [address] * (ABNORMAL) Urinalysis (06/20/2024 11:01 AM EDT) Color Urine Yellow See orde r comments Appearance Urine Clear See order comments pH Urine 5.5 5.0 - 9.0 See order comments Glucose Urine Negative Negative mg/dL See order comments Blood, Urine Small (1+)(A) Negative See order comments Specific [place] Urine 1.015 1.005 - 1.025 See order comments Protein Urine 300 (3+)(A) Neg-Trace mg/dL See order comments Ketones, Urine Negative Negative mg/dL See order comments Nitrite, Urine Negative Negative See o rder comments Leukocyte Esterase Urine Negative Negative See order comments 06/20/2024 11:0 1 AM EDT 06/20/2024 11:01 AM EDT Yong Ruiz MD LAB URINE ORDERABLES Final Re sult Performing Organization Address [facility] de Phone Number [place] See order comments [place] [address] * (ABNORMAL) PTH, Intact (06/20/2024 10:08 AM EDT) Parathyroid Hormone, Intact 143.9(H) 8.7 - 77.1 pg/mL See order comments 06/20/2024 10:0 8 AM EDT 06/20/2024 10:08 AM EDT us Yong Ruiz MD LAB [id number] SOLICITED RESULTS Final Result [place] See order comments [place] [address] * (ABNORMAL) CBC and Differential (06/20/2024 10:08 AM EDT) WBC 6.3 4.8 - 10.8 X10*3/uL See order comments RBC 4.59(L) 4.60 - 5.80 X10*6/uL See order comments Hgb 15.7 14.0 - 18.0 g/dl See order comments Hematocrit 45.0 42.0 - 52.0 % See order comments MCV 98.0 80.0 - 98.0 fL See order comments MCH 34.2(H) 27.0 - 33.0 pg See order comments MCHC 34.9 31.0 - 36.0 g/dl See order comments RDW 12.5 11.0 - 16.0 % See order comments Platelets 129(L) 160 - 400 X10*3/uL See order comments MPV 10.0 9.4 - 12.4 fL See order comments Neutrophils % Auto 57.3 45 - 73 % See order comments Immature Granulocytes 0.3 0.0 - 0.4 % See order comments Lymphocytes Relative 30.4 20 - 40 % See order comments Monocytes 8.5 2 - 11 % See order comments Eosinophils Relative 2.7 0 - 4 % See order comments Basophils Relative 0.8 0 - 2 % See order comments nRBC Count 0.0 0.0 - 0.2 /100WBC See order comments Neutrophils Absolute 3.6 2.0 - 8.3 x10*3/uL See order comments Immature Grans (Absolute) 0.02 0.00 - 0.03 X10*3/uL See order comments Lymphocytes Absolute 1.9 1.2 - 4.9 X10*3/uL See order comments Monocytes Absolute 0.5 0.1 - 1.2 X10*3/uL See order comments Eosinophils Absolute 0.2 0.0 - 0.4 X10*3/uL See order comments Basophils Absolute 0.1 0.0 - 0.2 X10*3/uL See order comments NRBC Absolute 0.000 0.0 - 0.012 X10*3/uL See order comments 06/20/2024 10:0 8 AM EDT 06/20/2024 10:08 AM EDT us Yong Ruiz MD LAB BLOOD ORDERABLES Final Re sult [place] See order comments [place] [address] * Hemoglobin A1c (06/27/2019 9:20 AM EDT) Estimated Average Glucose 111 MG/DL [place] Comment: eAG = Estimated average glucose which is %A1C expressed as average glucose, using the formula of the N8J-Isluxln Average Glucose study (ADAG), Diabetes Care, Vol.31,#8, [...] Recently Relevant to Health Maintenance Insurance MEDICARE [place] [employer] [place] MEDICARE [facility] Care Teams Software Engineer Mobile Relationship Specialty Start Date End Date Arnaldo Nichols PA [address] [facility], [address] [place] [address] PCP - General Physician Qc Analyst 07/02/20
--- OUTSIDE RECORDS SUMMARY | 2024-06-20 11:40 | XMS_ITS | Encounter Summary ---
Author Organization [facility] Address [address] [address] Phone Care Team Providers Care Shop Steward Name Role Phone Arnaldo Nichols Primary Care Provider [phone] Encounter Details Date Type Department Care Team (Late st Contact Info) Description 06/20/2024 Orders Only [facility] [address] [address] Yong Ruiz MD [address] [address] Social History Tobacco Use Types Packs/Day Years [...] Office Visit [facility] [address] [place] [address] Yong Ruiz MD [address] [address] Pending Results Name Type Priority Associated Diagnoses Date /Time Electrolyte panel Lab Routine 025 10:08 AM EDT BUN Lab Routine 06/20/2024 10: 08 AM EDT Creatinine Lab Routine 06/20/2024 10: 08 AM EDT documented as of this encounter Procedures Procedure Name Priority Date/Time Associated Diagnosis Comments URINALYSIS Routine 06/20/2024 11:01 AM EDT CREATININE, BLOOD Routine 06/20/2024 10: 08 AM EDT PTH, INTACT (HC) Routine 06/20/2024 10:0 8 AM EDT CBC AND DIFFERENTIAL Routine 06/20/2024 10:08 AM EDT BUN Routine 06/20/2024 10:08 AM EDT ELECTROLYTE PANEL Routine 06/20/2024 10: 08 AM EDT documented in this encounter Results * (ABNORMAL) Urinalysis (06/20/2024 11:01 AM EDT) Color Urine Yellow See orde r comments Appearance Urine Clear See order comments pH Urine 5.5 5.0 - 9.0 See order comments Glucose Urine Negative Negative mg/dL See order comments Blood, Urine Small (1+)(A) Negative See order comments Specific [place] Urine 1.015 1.005 - 1.025 See order comments Protein Urine 300 (3+)(A) Neg-Trace mg/dL See order comments Ketones, Urine Negative Negative mg/dL See order comments Nitrite, Urine Negative Negative See o rder comments Leukocyte Esterase Urine Negative Negative See order comments 06/20/2024 11:0 1 AM EDT 06/20/2024 11:01 AM EDT Yong Ruiz MD LAB URINE ORDERABLES Final Re sult [place] See order comments [place] [address] * (ABNORMAL) PTH, Intact (06/20/2024 10:08 AM EDT) Parathyroid Hormone, Intact 143.9(H) 8.7 - 77.1 pg/mL See order comments 06/20/2024 10:0 8 AM EDT 06/20/2024 10:08 AM EDT Yong Ruiz MD LAB [id number] SOLICITED RESULTS Final Result [place] See order comments [place] [address] * (ABNORMAL) CBC and Differential (06/20/2024 10:08 [...] order comments [place] [address] documented in this encounter Visit Diagnoses Not on filedocumented in this encounter Care Teams Shop Steward Relationship Specialty Start Date End Date Arnaldo Nichols PA [address] [facility], [address] [place] [address] PCP - General Physician Metallurgist Helper 07/02/20 documented as of this encounter
--- OUTSIDE RECORDS SUMMARY | 2024-06-20 11:40 | XMS_ITS | Encounter Summary ---
Author Organization [facility] Address [address] [address] Phone Care Team Providers Care Electrical Design Engineer Name Role Phone Arnaldo Nichols Primary Care Provider [phone] Encounter Details Date Type Department Care Team (Late Contact Info) Description 05/28/2024 Orders Only [facility] [address] [place] [address] Yong Ruiz MD [address] [address] Stage 3b chronic kidney disease [...] Office Visit [facility] [address] [place] [address] Yong Ruiz MD [address] [address] Pending Results Name Type Priority Associated Diagnoses Date /Time Phosphorus Lab Routine Stage 3b chronic kidney disease (HCC) 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 Essential hypertension 06/20/2024 10:08 AM EDT Magnesium Lab Routine Stage 3b chronic kidney disease (HCC) 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 Essential hypertension 06/20/2024 10:08 AM EDT Albumin Lab Routine Stage 3b chronic kidney disease (HCC) 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 Essential hypertension 06/20/2024 10:08 AM EDT Calcium Lab Routine Stage 3b chronic kidney disease (HCC) 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 Essential hypertension 06/20/2024 10:08 AM EDT documented as of this encounter Procedures Procedure Name Priority Date/Time Associated Diagnosis Comments URINALYSIS WITH MICROSCOPIC Routine 06/20/2024 11:01 AM [...] <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) Persistent proteinuria Essential hypertension CALCIUM Routine 06/20/2024 10:08 AM EDT Stage 3b chronic kidney disease (HCC) 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 Essential hypertension ALBUMIN Routine 06/20/2024 10:08 AM EDT Stage 3b chronic kidney disease (HCC) 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 Essential hypertension documented in this encounter Results * (ABNORMAL) Urinalysis with microscopic (06/20/2024 11:01 AM EDT) Color Urine Yellow See orde r comments Appearance Urine Clear See order comments pH Urine 5.5 5.0 - 9.0 See order comments Glucose Urine Negative Negative mg/dL See order comments Blood, Urine Small (1+)(A) Negative See order comments Specific [place] Urine 1.015 1.005 - 1.025 See order [...] 11:01 AM EDT 06/20/2024 11:01 AM EDT us Yong Ruiz MD LAB URINE ORDERABLES Final Re sult [place] See order comments [place] [address] documented in this encounter Visit Diagnoses Diagnosis Stage 3b chronic kidney disease (HCC) 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
--- OUTSIDE RECORDS SUMMARY | 2024-06-20 11:40 | XMS_ITS | Encounter Summary ---
Author Organization [facility] Address [address] [facility] [address] [place] [address] Phone Care Team Providers Care Resource Conservation Specialist Name Role Phone Arnaldo Nichols Primary Care Provider [phone] Encounter Details Date Type Department Care Team (Late Contact Info) Description 07/07/2020 Orders Only [facility] [address] [facility] [address] [place] [address] Provider, MD Galdino [address] [place] [address] Social History Tobacco Use Types Packs/Day [...] Visit [facility] [address] [place] [id number] Yong Ruiz MD [address] [facility] [address] [place] [id number] documented as of this encounter Procedures Procedure [...] on filedocumented in this encounter Care Teams Resource Conservation Specialist Relationship Specialty Start Date End Date Arnaldo Nichols PA [address] [place] [address], [address] [place] [address] PCP - General Physician Network Developer 07/02/20 documented as of this encounter
[2024-06-20 11:41] LABS: Vitamin D 25-OH Total 17.2 ng/mL (>30)
--- OUTSIDE RECORDS SUMMARY | 2024-06-20 11:41 | XMS_ITS ---
Author Organization [facility] Address [address] [facility] [place] [address] Care Team Providers Care Talent Director Name Role Phone Arnaldo Nichols Primary Care Provider Unavailab Jung Ma Unavailable [phone] Allergies Allergen (clinical drug ingredient) Drug/Non Drug [...] Ordered Date Performed Result Body Sit e 71486-QYFQYPM NAIL, 1-5 02/14/2024 N/A 73135-UFUS SKIN LESIONS, OVER 4 02/14/2024 N/A T6049-BIPBLAWN DYSTROPHIC NAILS ANY # 02/14/2024 N/A Encounters Encounter Location Date Provider Diagnosis [facility] [address] [address] 02/14/2024 Jung Sarmiento Type 2 diabetes mellitus [...] INSTRUCTIONS.pdf) Pending Test Test Name Order Date 85996-RBWSBLW NAIL, 1-5 02/14/2024 13692-BWKY SKIN LESIONS, OVER 4 02/14/20 24 R6057-FFVWUNZE DYSTROPHIC NAILS ANY # Next Appt Details Follow Up: prn, Reason: Provider Name:Jung Sarmiento , 08/08/2024 02:15:00 PM, [address] [facility], [address], [place], [address], Procedure Notes * Category Sub-Category Detail Notes Keratoma Treatment Parring or Cutting o f Benign Hyperkeratotic Lesion(s) (-57) More than 4 Lesions - The Benign hyperkeratotic lesions, as described above were pared, and/or cut utilizing a sterile 15 blade, tissue nippers, and/or dremel - 40639 Debride Nails 1-5 Procedure: Performance of this nail treatment by a nonprofessional would put this patients foot and overall health at risk. Therefore, nail debridement was performed extensively to reduce/remove overall nail length, girth, thickness, subungual debris, and necrotic tissue, by manual and/or electrical means through the use of a nail nipper and/or dremel-type swing grinder, to a more viable healthy nail plate or bed tissue 1-5. Silver nitrate used for any petechial bleeding as necessary. Definitive antifungal treatment options have been reviewed and discussed with the patient. The patient chooses, no pharmaceutical tx - 20249 Nail Reduction Nail Reduction (-27) Trimming o f dystrophic nails performed to reduce/remove overall nail length and girth, by manual and electrical means with use of a nail nipper and/or dremel, to more viable healthy nail plate or bed tissue, any number - G0127 Progress Notes * Jarod ANDOB: [birth year] (83 yo M)Acc No.[id number]:02/14/2024 Progress Note Patient:?Jarod AN Provider:?Jung Sarmiento DPM :1940???Age:83 Y???Sex:Male Robbi e:02/14/2024 Address:[address] [place] [address], [address], [facility] Pcp:Arnaldo Nichols Subjective: * Chief Complaints: * [...] use of a nail nipper and/or dremel-type swing grinder, to a more viable healthy nail plate or bed tissue 1-5. Silver nitrate used for any petechial bleeding as necessary. Definitive antifungal treatment options have been reviewed and discussed with the patient. The patient chooses, no pharmaceutical tx - 06049.?Keratoma Treatment:?Parring or Cutting of Benign Hyperkeratotic Lesion(s)?(-57) More than 4 Lesions - The Benign hyperkeratotic lesions, as described above were pared, and/or cut utilizing a sterile 15 blade, tissue nippers, and/or dremel - 50187.?Nail Reduction:?Nail Reduction?(-27) Trimming of dystrophic nails performed to reduce/remove overall nail length and girth, by manual and electrical means with use of a nail nipper and/or dremel, to more viable healthy nail plate or bed tissue, any number - G0127.? * Procedure Codes:?G0127 JATINDER ING DYSTROPHIC NAILS ANY #, Modifiers: XS 21749 DEBRIDE NAIL, 1-5, Modifiers: XS 04747 TRIM SKIN LESIONS, OVER 4, Modifiers: XS [...] Sarmiento DPM Date:?2023 Generated for Paul gomez/Gilbert/eTransmitting on:?06/20/2024 09:18 AM EDT History and Physical Notes * [...]
--- OUTSIDE RECORDS SUMMARY | 2024-06-20 11:41 | XMS_ITS ---
Author Organization [facility] Address [address] [facility] [place] [address] Care Team Providers Care Tile Ditcher Name Role Phone Arnaldo Nichols Primary Care Provider Unavailab Jung Ma Unavailable [phone] Allergies Allergen (clinical drug ingredient) Drug/Non Drug [...] Ordered Date Performed Result Body Sit e 37755-LWZHWIC NAIL, 1-05/15/2024 N/A 51903-LXHC SKIN LESIONS, OVER 4 05/15/2024 N/A I8841-LAFCGNOU DYSTROPHIC NAILS ANY # 05/15/2024 N/A Encounters Encounter Location Date Provider Diagnosis [facility] [address] [address] 05/15/2024 Jung Sarmiento Type 2 diabetes mellitus with diabetic polyneuropathy E11.42 and Tinea unguium B35.1 Assessments Encounter Date Diagnosis (ICD Code) Assessment Notes Treatment Notes Treatment Clinical Notes Section Notes 05/15/2024 Type 2 diabetes mellitus with diabetic polyneuropathy (ICD-10 - E11.42) 05/15/2024 Tinea unguium (ICD-10 - B35.1) Plan Of Treatment Pending Test Test Name Order Date 65193-RAMAFVT NAIL, 1-5 05/15/2024 66968-HTYX SKIN LESIONS, OVER 4 05/15/19 25 M9168-RZEBISYC DYSTROPHIC NAILS ANY # Next Appt Details Follow Up: prn, Reason: Provider Name:Jung Sarmiento , 08/08/2024 02:15:00 PM, [address] [place] [address], [place], [address], Procedure Notes * Category Sub-Category Detail Notes [...] instrumentation by the physician of record - 48739 Debride Nails 1-5 Procedure: Due to the [...] necessary to maintain effective symptomatic relief - 26987 Nail Reduction Nail Reduction (-27) Trimming o [...] * Jarod ANDOB: [birth year] (83 yo M)Acc No.[id number]:05/15/2024 Progress Note Patient:?Jarod AN Provider:?Jung Sarmiento DPM :1940???Age:83 Y???Sex:Male Robbi e:05/15/2024 Address:[address] [place] [address], [address], [facility] Pcp:Arnaldo Nichols Subjective: * Chief Complaints: * [...] necessary to maintain effective symptomatic relief - 26936.?Keratoma Treatment:?Parring or Cutting of Benign Hyperkeratotic Lesion(s)?(-57) [...] instrumentation by the physician of record - 05259.?Nail Reduction:?Nail Reduction?(-27) Trimming of all dystrophic nails [...] ING DYSTROPHIC NAILS ANY #, Modifiers: XS 85321 DEBRIDE NAIL, 1-5, Modifiers: XS 63879 TRIM SKIN LESIONS, OVER 4, Modifiers: XS * Follow Up:?prn * Images: * Sign off status: Completed true * Provider:?Jung Sarmiento DPM Date:?2024 Generated for Paul gomez/Gilbert/Stephenie on:?06/20/2024 11:40 AM [...]
--- OUTSIDE RECORDS SUMMARY | 2024-06-20 11:41 | XMS_ITS | Patient Health Record ---
Author Organization [facility] Address [address] [facility] [place] [address] Care Team Providers Care Centrifugal Drier Operator Name Role Phone Arnaldo Nichols Primary Care Provider Unavailab Jung Ma Unavailable [phone] Allergies Allergen (clinical drug ingredient) Drug/Non Drug [...] Problem Acquired hammer toe of right foot (7150186313661696 ) Other hammer toe(s) (acquired), right foot (M20.41) Active confirmed Problem Acquired hammer toe of left foot (0100068256510715 ) Other hammer toe(s) (acquired), left foot (M20.42) Active confirmed Problem Polyneuropathy due to type 2 diabetes mellitus (218916248) Type 2 diabetes mellitus with diabetic polyneuropathy (E11.42) Active confirmed Vital Signs Height 5ft 11in in 05/15/2024 Weight 250 lbs 05/15/2024 BMI 34.86 kg/m2 05/15/2024 Procedures Procedure Date Ordered Date Performed Result Body Sit e 15581-RINOHZY NAIL, 1-5 11/13/2023 N/A 58398-WMNP SKIN LESIONS, OVER 4 11/13/2023 N/A A1057-MMHHZXTT DYSTROPHIC NAILS ANY # 11/13/2023 N/A 07910-RAEZVKW NAIL, 1-5 02/14/2024 N/A 86915-IODN SKIN LESIONS, OVER 4 02/14/2024 N/A U3954-NWSUDQHK DYSTROPHIC NAILS ANY # 02/14/2024 N/A 26688-WVNHVKG NAIL, 1-5 05/15/2024 N/A 51626-RBKW SKIN LESIONS, OVER 4 05/15/2024 N/A G9374-SMPQDMNW DYSTROPHIC NAILS ANY # 05/15/2024 N/A Encounters Encounter Location Date Provider Diagnosis [address] [address] 11/13/2023 Jung Guillermina Type 2 diabetes mellitus with diabetic polyneuropathy E11.42 ; Tinea unguium B35.1 and Xerosis of skin L85.[address] [address] 02/14/2024 Jungadam PryorGuillermina Type 2 diabetes mellitus with diabetic polyneuropathy E11.42 ; Tinea unguium B35.1 ; Other hammer toe(s) (acquired), right foot M20.41 ; Other hammer toe(s) (acquired), left foot M20.42 and Xerosis of skin L85.[address] [address] 05/15/2024 Jungadam Sarmiento Type 2 diabetes mellitus [...] Treatment Pending Test Test Name Order Date 53287-RHFRJNJ NAIL, -06/05/2023 03911-TUVLWZY NAIL, -11/13/2023 85534-RMUNJVB NAIL, -02/14/2024 79990-CLWPXXX NAIL, -05/15/2024 52703-LLOI SKIN LESIONS, OVER 4 05/15/19 25 79500-MVOD SKIN LESIONS, OVER 4 02/14/20 24 49500-FDIL SKIN LESIONS, OVER 4 06/05/19 24 41892-PAFY SKIN LESIONS, OVER 4 11/13/19 24 C9024-UKIFBEIF DYSTROPHIC NAILS ANY # A0241-DTILAQGO DYSTROPHIC NAILS ANY # L8836-ARSFAVOB DYSTROPHIC NAILS ANY # J3113-YBPXJXLV DYSTROPHIC NAILS ANY # Next Appt Details Provider Name:Jung Soares Guillermina , 08/08/2024 02:15:00 PM, [address] [place] [address], [place] [address], [place], [address], Insurance Providers Payer Name Payer Address Payer Phone Subscriber Number Group Number Insured Name Patient Relationship to Insured Coverage Start Date Coverage End Date Medicare National [employer] [address] [place] [address] [id number] Jarod An Self - [place] [address] [phone] [id number] Jarod An Self - patient is the insured Medical (General) History Medical History History ICD Code asthma Diabetic High blood pressure HIV Kidney disease Numbness Surgical History Surgery Date(Month/Year) Left hip replacement 2019
--- OUTSIDE RECORDS SUMMARY | 2024-06-20 11:41 | XMS_ITS ---
Author Organization [facility] Address [address] [place] [address] Care Team Providers Care Servicer Name Role Phone Arnaldo Nichols Primary Care Provider UnavailJoel Williamson Unavailable [phone] Allergies Allergen (clinical drug ingredient) Drug/Non Drug Allergy documented on EMR Reaction Allergy Type Onset Date Status Biaxin Unknown Drug Allergy Active REASON FOR VISIT Patient presents today for bloating,constipation Medications Medication SIG (Take, Route, Frequency, Duration) [...] A DAY tw twice a day Active Social History Tobacco Use: Social History Observation Description Date Details (start date - stop date) Never Smoker NA - NA Tobacco Use/Smoking Question Answer Notes Patient is a nonsmoker Alcohol Screen Question Answer Notes Did you have a drink containing alcohol in the p ast year? No Points 0 Interpretation Negative Section Notes: Nonsmoker; no sig alcohol Originally from [place] Vital Signs Blood pressure systolic 00 mm Hg 07/11/19 24 Blood pressure diastolic 00 mm Hg 024 Height 71 in 07/11/2023 Weight 232 lbs 07/11/2023 BMI 32.35 kg/m2 07/11/2023 Encounters Encounter Location Date Provider Diagnosis [facility] [address] [place] [address] 07/11/2023 Joel Garcia Other cirrhosis of liver [...] advised of his progress. Plan Of Treatment Next Appt Details Follow Up: 1 Year, Reason: Progress Notes * JAROD VEGA TDOB:[birth year] (83 yo M)Acc No.[id number]:07/11/2023 Progress Notes Patient:?JAROD VEGA Provider:?Joel Garcia MD :1940???Age:83 Y???Sex:Male Robbi e:07/11/2023 Address:[address] [place] [address] [address], [place] Pcp:Arnaldo Nichols Subjective: * Chief Complaints: * ???Patient presents today fo r bloating,constipation * HPI: ???incontinence:? I saw Jarod in followup today in regard to his underlying history of cirrhosis, pancreatic cysts, and some intermittent irregular bowel movements. ?Since I last saw Jarod in August of 2022 he reports that he has been doing well. After that visit he had laboratories revealing a normal alpha-fetoprotein level and CA 19-9 level. A followup MRI of the abdomen in September of 2022 described his known cirrhosis but no evidence of any liver mass. The small pancreatic cysts remained stable and without any change from his MRI 2020. There was no evidence of any suspicious changes within the pancreas to suggest anything more worrisome than intraductal papillary mucinous neoplasm(IPMN). ?Since that time he reports his been feeling well. He describes some bloating and some irregular bowel movements earlier this year but in retrospect relates that to perhaps having consumed too much cabbage on a daily basis. He describes having eliminated the cabbage from his diet and things are basically back to normal. He denies any significant constipation, diarrhea, hematochezia, or melena. He enjoys a good appetite, without any significant heartburn or dysphagia. He denies abdominal pain, jaundice, nor unintentional weight loss. He has not noticed any increased abdominal girth, edema, pruritus, nor fatigue. His laboratories from just last month revealed a completely normal CBC except for platelet count of 134,000, normal chemistries with a BUN of 17 and creatinine 1.5, and a completely normal liver profile. * Medical History:? * Surgical History:?Appendecto my Left Hip replacement 05/2019 Dr. Cordoba Cholecystectomy in 10/[address] Jimenez was negative for any lesions nor gallstones * Hospitalization/Major Diagno stic Procedure:?No Hospitalization History. * Family History:?Father: dece ased, diagnosed with Diabetes.?Mother: .?Maternal Grand Father: , colon/rectal cancer at aprox 70, diagnosed with Colon cancer.? No colorectal cancer except in a grandfather. No liver disease. * Social History:?Tobacco Use:?Tobacco Use/Smoking?Patient is a?nonsmoker.?Drugs/Alcohol:?Alcohol Screen?Did you have a drink containing alcohol in the past year??No,?Points?0,?Interpretation?Negative.?Miscellaneous:?Marital status: . Occupation: retired. ???Nonsmoker; no sig alcohol Originally from [place] [employer]. * Medications:?TakingFinasteri de 5 MG Tablet 1 tablet Orally three times a weekAdvair Diskus 100-50 MCG/DOSE Miscellaneous 1 puff Inhalation Twice a dayEliquis 2.5 MG Tablet TAKE 1 TABLET BY MOUTH TWICE A DAY Oral Furosemide 40 MG Tablet TAKE 1 /2TABLET BY MOUTH TWICE A DAY tw twice a dayTamsulosin HCl 0.4 MG Capsule TAKE 1 CAPSULE BY MOUTH EVERY EVENING Oral Abacavir sulfate 600 mg 1 tab Oral once a dayDolutegravir Sodium 50 MG Tablet 1 tablet Orally Once a dayLosartan Potassium 100 MG Tablet 1 tablet Orally Once a dayAtorvastatin Calcium 20 MG Tablet 1 tablet Orally Once a daylamiVUDine 100 MG Tablet TAKE 1 TABLET BY MOUTH DAILY Oral Metoprolol Succinate ER 25 MG Tablet Extended Release 24 Hour Oral Kerendia 20 MG Tablet TAKE 1 TABLET BY MOUTH EACH DAY Orally Once a daymetFORMIN HCl 500 MG Tablet TAKE 1 TABLET BY MOUTH IN THE MORNING AND 1 TABLET IN THE EVENING WITH MEALS. Oral Taking Finasteride 5 MG Tablet 1 tablet Orally three times a weekTaking Advair Diskus 100-50 MCG/DOSE Miscellaneous 1 puff Inhalation Twice a dayTaking Eliquis 2.5 MG Tablet TAKE 1 TABLET BY MOUTH TWICE A DAY Oral Taking Furosemide 40 MG Tablet TAKE 1 /2TABLET BY MOUTH TWICE A DAY tw twice a dayTaking Tamsulosin HCl 0.4 MG Capsule TAKE 1 CAPSULE BY MOUTH EVERY EVENING Oral Taking Abacavir sulfate 600 mg 1 tab Oral once a dayTaking Dolutegravir Sodium 50 MG Tablet 1 tablet Orally Once a dayTaking Losartan Potassium 100 MG Tablet 1 tablet Orally Once a dayTaking Atorvastatin Calcium 20 MG Tablet 1 tablet Orally Once a dayTaking lamiVUDine 100 MG Tablet TAKE 1 TABLET BY MOUTH DAILY Oral Taking Metoprolol Succinate ER 25 MG Tablet Extended Release 24 Hour Oral Taking Kerendia 20 MG Tablet TAKE 1 TABLET BY MOUTH EACH DAY Orally Once a dayTaking metFORMIN HCl 500 MG Tablet TAKE 1 TABLET BY MOUTH IN THE MORNING AND 1 TABLET IN THE EVENING WITH MEALS. Oral DiscontinuedVitamin D (Ergocalciferol) Medication List reviewed and reconciled with the patientDiscontinued Vitamin D (Ergocalciferol) Medication List reviewed and reconciled with the patient * Allergies:?Biaxinyes[Allergi es Verified] Objective: * Vitals:?Wt: 232 lbs, Ht: 71 in, BMI:32.35 Index, BP: 00/00 mm Hg. * Examination: ???General Examination: ?GENERAL APPEARANCE:?pleasant, well nourished, well developed, in no acute distress.?EYES:?sclera non-icteric.?ORAL CAVITY:?mucosa moist.?NECK/THYROID:?no cervical lymphadenopathy, neck supple.?SKIN:?nonjaundiced, no spider angiomata.?HEART:?S1, S2 normal.?LUNGS:?clear to auscultation bilaterally.?ABDOMEN:?normal bowel sounds, no guarding or rigidity, no guarding or rigidity, no masses palpable, soft, nontender, nondistended.?EXTREMITIES:?mild pedal edema.?NEUROLOGIC:?alert and oriented.? Assessment: * Assessment: 1.?Other cirrhosis of liver - K74.69 (Primary)?2.?IPMN (intraductal papillary mucinous neoplasm) - D49.0? Overall, Jarod appears suzan te well. He does not describe any symptoms nor have any signs on his exam of any progressive liver disease. We did review his MRI done last September revealing his known cirrhosis but no sign of any liver mass. His alpha-fetoprotein level was normal at that time as [...] to keep you advised of his progress. Plan: * Treatment: * Procedure Codes:?1036F TOBAC CO NON-XFIGH3620 BP SCR NOT PRFRM REC REASON NOS * Preventive Medicine:? ??Counseling:?Care goal follow-up plan:?Above Normal BMI Follow-up?Giving encouragement to exercise,?BMI management provided?Yes.? * Follow Up:?1 Year * * Sign off status: Completed true * Provider:?Joel Garcia MD Date:? 024 Generated for Paul gomez/Gilbert/Stephenie on:?06/20/2024 09:18 AM EDT History and Physical Notes * HPI (History of Present Illness) Category Sub-Category Detail Notes Category Not es incontinence I saw Jarod in followup today in regard to his underlying history of cirrhosis, pancreatic cysts, and some intermittent irregular bowel movements. Since I last saw Jarod in August of 2022 he reports that he has been doing well. After that visit he had laboratories revealing a normal alpha-fetoprotein level and CA 19-9 level. A followup MRI of the abdomen in September of 2022 described his known cirrhosis but no evidence of any liver mass. The small pancreatic cysts remained stable and without any change from his MRI 2020. There was no evidence of any suspicious changes within the pancreas to suggest anything more worrisome than intraductal papillary mucinous neoplasm(IPMN). Since that time he reports his been feeling well. He describes some bloating and some irregular bowel movements earlier this year but in retrospect relates that to perhaps having consumed too much cabbage on a daily basis. He describes having eliminated the cabbage from his diet and things are basically back to normal. He denies any significant constipation, diarrhea, hematochezia, or melena. He enjoys a good appetite, without any significant heartburn or dysphagia. He denies abdominal pain, jaundice, nor unintentional weight loss. He has not noticed any increased abdominal girth, edema, pruritus, nor fatigue. His laboratories from just last month revealed a completely normal CBC except for platelet count of 134,000, normal chemistries with a BUN of 17 and creatinine 1.5, and a completely normal liver profile. Examination Category Sub-Category Detail Notes Category Not es General Examination GENERAL APPEARANCE: pleasant , well [...]
[2024-06-20 11:54] LABS: Creatinine Urine 132.08 mg/dL
[2024-06-20 12:09] LABS: Microalbum/Creatinine Ratio Ur 1514.2 ug/mg cr (<30); Microalbumin Urine > 2000.0 mg/L; Protein/Creatinine Ratio, Ur 2.93 (<0.2); Total Protein Urine Random 387 mg/dL (<12)
== END 2024-06-20 09:41 | disposition home or self-care (01) ==
LOC: HO.LAB 09:40
PROVIDERS: PCP Physician Assistant; Visit Provider Internal Medicine Nephrology
DX: N18.32 Chronic kidney disease, stage 3b (principal); E11.21 Type 2 diabetes mellitus with diabetic nephropathy
CPT/HCPCS: 36415; 80051; 81001; 82040; 82043; 82306; 82310; 82565; 82570; 83735; 83970; 84100; 84156; 84520; 85025

== ENCOUNTER 2024-07-08 15:24 | Outpatient (REF) | payer MEDICARE, OTHER, SELFPAY ==
[2024-07-08 17:18] LABS: Prostate Specific Antigen 3.19 ng/mL (<0.05-4.0)
--- OUTSIDE RECORDS SUMMARY | 2024-07-08 17:24 | XMS_ITS | Encounter Summary ---
Author Organization [facility] Address [address] [facility] [address] [place] [address] Phone Care Team Providers Care Medical Office Receptionist Assistant Name Role Phone Arnaldo Nichols Primary Care Provider [phone] Encounter Details Date Type Department Care Team (Late Contact Info) Description 07/07/2020 Orders Only [facility] [address] [facility] [address] [place] [address] Provider, MD Galdino [address] [place] [address] Social History Tobacco Use Types Packs/Day [...] Care Team (Late st Contact Info) Description 01/06/2025 4:15 PM EDT Office Visit [facility] [address] [place] [phone] Yong Ruiz MD [address] [facility] [address] [place] [phone] documented as of this encounter Procedures Procedure [...] on filedocumented in this encounter Care Teams Medical Office Receptionist Assistant Relationship Specialty Start Date End Date Arnaldo Nichols PA [address] [place] [address], [address] [place] [address] PCP - General Physician Lpn Per Diem 07/02/20 documented as of this encounter
--- OUTSIDE RECORDS SUMMARY | 2024-07-08 17:24 | XMS_ITS | Clinical Summary ---
Author Organization [facility] Address [address] [facility] [address] [place] [address] Phone Care Team Providers Care Transfer Pumper Name Role Phone Arnaldo Nichols Primary Care Provider [phone] Allergies Active Allergy Reactions Criticality Noted Date Comments Clarithromycin Other (see comments) 07/02/2020 Medications apixaban (ELIQUIS) 2.5 MG tablet Take 1 tablet by mouth 2 (two) times a day Active dolutegravir (TIVICAY) 50 MG tablet Take 1 tablet by mouth 1 (one) time each day Active finasteride (PROSCAR) 5 MG tablet Take 1 tablet by mouth 1 (one) time each day Mon Active fluticasone-sa lmeterol (ADVAIR DISKUS) 100-50 MCG/DOSE diskus inhaler Activ e furosemide (LASIX) 40 MG tablet Take 1.5 tablets by mouth 1 (one) time each day 0 Active lamiVUDine (EPIVIR) 100 MG tablet Take [...] mouth 1 (one) time each day Active abacavir-dolut egravir-lamiVU Dine (Triumeq) 600-50-300 MG per tablet Take 1 tablet by mouth 1 (one) time each day Do not crush, chew, or split. Active ergocalciferol 1.25 MG (64188 UT) capsule Take 50,000 Units by mouth 1 (one) time per week Active metFORMIN (GLUCOPHAGE) 500 MG tablet TAKE 1 TABLET (500MG TOTAL) BY MOUTH IN THE MORNING AND TAKE 1 TABLET IN THE EVENING WITH MEALS 180 tablet 4 Active losartan (COZAAR) 100 MG tablet TAKE 1 TABLET BY MOUTH 1 TIME EACH DAY. 90 tablet 2 4 Active metFORMIN (GLUCOPHAGE) 500 MG tablet TAKE 1 TABLET (500 MG TOTAL) BY MOUTH IN THE MORNING 90 tablet 4 Active Kerendia 20 MG tablet TAKE 1 TABLET BY MOUTH ONCE A DAY 90 tablet 1 4 Active amLODIPine (NORVASC) 2.5 MG tablet TAKE 1 TABLET BY MOUTH EVERY DAY 90 tablet 5 Active amLODIPine (NORVASC) 2.5 MG tablet TAKE 1 TABLET BY MOUTH 1 TIME EACH DAY. 90 tablet 5 07/05/19 25 Discontinued Active Problems Problem Noted Date Diagnosed Date Stage 3a chronic kidney disease 07/01/2024 Stage 3b chronic kidney disease 12/28/2020 Chronic kidney disease stage 3 07/02/2020 Cirrhosis of liver 07/02/2020 Essential hypertension 07/02/2020 Polyneuropathy 07/02/2020 Pure hypercholesterolemia 07/02/2020 Renal disorder due to type 2 diabetes mellitus 0 07/02/2020 Type 2 diabetes mellitus 07/02/2020 Stage 3b chronic kidney disease 07/02/2020 HIV positive 07/02/2020 Proteinuria 07/02/2020 Encounters Date Type Department Care Team Description 07/03/2024 Refill [facility] [address] [place] [address] Claudio Nunez MD 07/01/2024 3:30 PM EDT Office Visit [facility] [address] [place] [address] Yong Ruiz MD Stage 3a chronic kidney disease (HCC) (Primary Dx); Renal disorder due to type 2 diabetes mellitus <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); Persistent proteinuria 06/20/2024 Orders Only [facility] [address] [place] [address] Yong Ruiz MD 05/28/2024 Orders Only [facility] [address] [place] [address] Yong Ruiz MD Stage 3b chronic kidney disease (HCC); Renal disorder due to type 2 diabetes mellitus <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); Persistent proteinuria; Essential hypertension 04/22/2024 Refill [facility] [address] [place] [address] Yong Ruiz MD from Last 3 Months [...] Pressure 140/88 02/26/2024 1:34 PM EST Pulse 83 07/01/2024 3:13 PM EDT Temperature - - Respiratory Rate - - Oxygen Saturation 99% 07/01/2024 3:13 PM EDT Inhaled Oxygen Concentration - - Weight 105 kg (231 lb 12.8 oz) 07/01/2024 3:13 P M EDT Height 180.3 cm (5' 11 ) 02/07/2022 1:05 PM EDT Body Mass Index 32.33 02/07/2022 1:05 PM EDT Plan of Treatment Upcoming Encounters Date Type Department Care Team (Late st Contact Info) Description 01/06/2025 4:15 PM EDT Office [facility] [address] [place] [address] Yong Ruiz MD [address] [facility] [address] [place] [phone] Health Maintenance Due Date Last Done Comments Pneumococcal Vaccine: 65+ Years (1 of 2 - PCV) 949 Hepatitis B Vaccine (1 of 3 - Risk 3-dose series) 09/2002 Diabetes: Hemoglobin A1C 05/11/2020 06/27/2019 Diabetes: Ophthalmology Exam 05/11/2020 Diabetes: Pedal Pulse Checked 05/11/2020 Diabetes: Sensory Foot Exam 05/11/2020 Diabetes: Visual Foot Exam 05/11/2020 Influenza Vaccine (#1) 2023 Procedures Procedure Name Priority Date/Time Associated Diagnosis Comments ALBUMIN, URINE, RANDOM Routine 06/20/2024 11:01 AM EDT URINALYSIS Routine 06/20/2024 11:01 AM EDT PROTEIN / CREATININE RATIO, URINE Routine 06/20/2024 11:01 AM EDT Stage 3b chronic kidney disease (HCC) 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 Essential hypertension URINALYSIS WITH MICROSCOPIC Routine 06/20/2024 11:01 AM [...] <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) Persistent proteinuria Essential hypertension VITAMIN D 25 HYDROXY Routine 06/20/2024 10:08 AM EDT Stage 3b chronic kidney disease (HCC) 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 Essential hypertension HEMOGLOBIN A1C Routine 06/27/2019 9:20 AM EDT from Last 3 Months or Most Recently Relevant to Health Maintenance Results * (ABNORMAL) Protein, Total, Random Urine w/Creatinine (Protein/Creat Ratio) (06/20/2024 11:01 AM EDT) Protein Urine Random 387(H) <12 mg/dL See order comments Protein/Creati nine Ratio, Urine 2.93(H) <0.2 See order comments Comment: The spot urine protein:creatinine ratio may increase to 0.3 during normal . Urine (Urine, Clean Catch) 06/20/2024 11:01 AM EDT 06/20/2024 11:01 AM EDT us Yong Ruiz MD LAB URINE ORDERABLES Final Re sult [place] See order comments [place] [address] * (ABNORMAL) Albumin, urine, random (06/20/2024 11:01 AM EDT) Creatinine, Urine 132.08 mg/dL Se e order comments Urine Microalbumin >2,000.0 mg/L See order comments Microalbumin/Crea tinine Ratio 1,514.2(H ) <30 ug/mg cr See order comments Comment: ?Albumin/Creatinine Ratio Reference Ranges: ?Normal: < 30 ug/mg creatinine ?Microalbuminuria: ??30 - 300 ug/mg creatinine Clinical Albuminuria: ??> 300 ug/mg creatinine 06/20/2024 11:0 1 AM EDT 06/20/2024 11:01 AM EDT us Yong Ruiz MD LAB URINE ORDERABLES Final Re sult [place] See order comments [place] [address] * (ABNORMAL) Urinalysis with microscopic (06/20/2024 11:01 AM EDT) Color Urine Yellow See orde r comments Appearance Urine Clear See order comments pH Urine 5.5 5.0 - 9.0 See order comments Glucose Urine Negative Negative mg/dL See order comments Blood, Urine Small (1+)(A) Negative See order comments Specific [place] Urine 1.015 1.005 - 1.025 See order [...] MD LAB URINE ORDERABLES Final Re sult [place] See order comments [place] [address] * (ABNORMAL) Urinalysis (06/20/2024 11:01 AM EDT) Color Urine Yellow See orde r comments Appearance Urine Clear See order comments pH Urine 5.5 5.0 - 9.0 See order comments Glucose Urine Negative Negative mg/dL See order comments Blood, Urine Small (1+)(A) Negative See order comments Specific [place] Urine 1.015 1.005 - 1.025 See order comments Protein Urine 300 (3+)(A) Neg-Trace mg/dL See order comments Ketones, Urine Negative Negative mg/dL See order comments Nitrite, Urine Negative Negative See o rder comments Leukocyte Esterase Urine Negative Negative See order comments 06/20/2024 11:0 1 AM EDT 06/20/2024 11:01 AM EDT Yong Ruiz MD LAB URINE ORDERABLES Final Re sult Performing Organization Address [facility] Co de Phone Number [facility] See order comments [place] [address] * (ABNORMAL) Creatinine (06/20/2024 10:08 AM EDT) Creatinine Serum 1.41(H) 0.5 - 1.4 mg/dL See order comments eGFR 48 See order comments Comment: Chronic Kidney Disease: ??Estimated GFR < 60 mL/min/1.73m2 Severe Kidney Disease: ??Estimated GFR < 15 mL/min/1.73m2 06/20/2024 10:0 8 AM EDT 06/20/2024 10:08 AM EDT Yong Ruiz MD LAB BLOOD ORDERABLES Final Re sult [place] See order comments [place] [address] * (ABNORMAL) PTH, Intact (06/20/2024 10:08 AM EDT) Parathyroid Hormone, Intact 143.9(H) 8.7 - 77.1 pg/mL See order comments 06/20/2024 10:0 8 AM EDT 06/20/2024 10:08 AM EDT Yong Ruiz MD LAB [id number] SOLICITED RESULTS Final Result Performing Organization Address [facility]/ZIP Co de Phone Number [place] See order comments [place] [address] * (ABNORMAL) Vitamin D 25 Hydroxy (06/20/2024 10:08 AM EDT) Vitamin D, 25-Hydroxy 17.2(L) >30 ng/mL See order comments Comment: Health Based Reference Values* < 20 ??ng/mL ??Deficient 20-30 ng/mL ??Insufficient > 30 ??ng/mL ??Sufficient *Tristin WILLIAM. N Engl J Med. 2007;357:266-280 There is no well-established upper level of normal vitamin D levels. Some laboratories use 50 ng/mL as an upper limit of normal. However, toxicity is patient-dependent and may occur at any level. Careful correlation with the patient's presentation is necessary and, if there is concern for vitamin D toxicity, treatment should be considered irrespective of the serum level. Care must be taken in interpreting Vitamin D results from different laboratories and methodologies. ??Published data demonstrated that results from patients undergoing hemodialysis may show a negative bias when tested with various automated 25-OH vitamin D assays when compared to LC-MS/MS. When testing samples from patients whose predominant form of Vitamin D is Vitamin D2, such as patients receiving Vitamin D2 supplementation, results that are subtherapeutic should be confirmed with another method such as LC-MS/MS. Blood (Blood, Venous) 06/20/2024 10:08 AM EDT 06/20/2024 10:08 AM EDT us Yong Ruiz MD LAB BLOOD ORDERABLES Final Re sult [place] See order comments [place] [address] * (ABNORMAL) CBC and Differential (06/20/2024 10:08 [...] MD LAB BLOOD ORDERABLES Final Re sult [place] See order comments [place] [address] * (ABNORMAL) BUN (06/20/2024 10:08 AM EDT) BUN 18(H) 9 - 16 mg/dL See order comments 06/20/2024 10:0 8 AM EDT 06/20/2024 10:08 AM EDT Yong Ruiz MD LAB BLOOD ORDERABLES Final Re sult Performing Organization Address [facility] Phone Number [place] See order comments [place] [address] * Phosphorus (06/20/2024 10:08 AM EDT) Phosphorus, Serum 3.7 2.7 - 4.5 mg/dL See order comments Blood (Blood, Venous) 06/20/2024 10:08 AM EDT 06/20/2024 10:08 AM EDT Yong Ruiz MD LAB BLOOD ORDERABLES Final Re sult Performing Organization Address [facility] de Phone Number [place] See order comments [place] [address] * Magnesium (06/20/2024 10:08 AM EDT) Magnesium 2.0 1.6 - 2.6 mg/dL See order comments Blood (Blood, Venous) 06/20/2024 10:08 AM EDT 06/20/2024 10:08 AM EDT Yong Ruiz MD LAB BLOOD ORDERABLES Final Re sult Performing Organization Address [facility] de Phone Number [place] See order comments [place] [address] * Calcium (06/20/2024 10:08 AM EDT) Calcium 9.1 8.4 - 10.2 mg/dL See order comments Blood (Blood, Venous) 06/20/2024 10:08 AM EDT 06/20/2024 10:08 AM EDT Yong Ruiz MD LAB BLOOD ORDERABLES Final Re sult Performing Organization Address [facility] Co de Phone Number [place] See order comments [place] [address] * (ABNORMAL) Albumin (06/20/2024 10:08 AM EDT) Albumin 3.4(L) 3.5 - 5.0 g/dL See order comments Blood (Blood, Venous) 06/20/2024 10:08 AM EDT 06/20/2024 10:08 AM EDT Yong Ruiz MD LAB BLOOD ORDERABLES Final Re sult Performing Organization Address [facility] Co de Phone Number [place] See order comments [place] [address] * (ABNORMAL) Electrolyte panel (06/20/2024 10:08 AM EDT) Sodium 144 135 - 145 mmol/L See order comments Potassium 4.5 3.3 - 5.1 mmol/L See order comments Chloride 112(H) 96 - 108 mmol/L See order comments Bicarbonate (CO2) 24 22 - 29 mmol/L See order comments Anion Gap 13 12 - 20 See order comments 06/20/2024 10:0 8 AM EDT 06/20/2024 10:08 AM EDT Yong Ruiz MD LAB BLOOD ORDERABLES Final Re sult Performing Organization Address [facility] Co de Phone Number [place] See order comments [place] [address] * Hemoglobin A1c (06/27/2019 9:20 AM EDT) Estimated Average Glucose 111 MG/DL [place] Comment: eAG = Estimated average glucose which is %A1C expressed as average glucose, using the formula of the A3A-Yuipzjn Average Glucose study (ADAG), Diabetes Care, Vol.31,#8, 2007 Hemoglobin A1C 5.5 % [place] Comment: [...] [place] LAB BLOOD ORDERABLES [facility] Last 3 Months or Most Recently Relevant to Health Maintenance Insurance MEDICARE [facility] [address] MEDICARE [facility] Care Teams Transfer Pumper Relationship Specialty Start Date End Date Arnaldo Nichols PA [address] [place] [address], [address] [place] [address] PCP - General Physician Geodetic Survey Director 07/02/20
--- OUTSIDE RECORDS SUMMARY | 2024-07-08 17:24 | XMS_ITS | Patient Health Record ---
Author Organization [facility] Address [address] [place] [address] Care Team Providers Care Bobbin Cleaner Name Role Phone Arnaldo Nichols Primary Care Provider Unavailab Joel Quiroz Unavailable [phone] Allergies Allergen (clinical drug ingredient) Drug/Non Drug [...] Notes: Nonsmoker; no sig alcohol Originally from [place] Nonsmoker; no sig alcohol Originally [place] Nonsmoker; no sig alcohol Originally [place] Nonsmoker; no sig alcohol Originally [place] Nonsmoker; no sig alcohol Originally [place] Nonsmoker; no sig alcohol Originally [place] Nonsmoker; no sig alcohol Originally [place] Nonsmoker; no sig alcohol Originally [place] Problems Problem Type SNOMED Code ICD Code Onset Dates Problem Status W/U Status Risk Notes Problem 173985127 Encounter for screening for malignant neoplasm of colon (Z12.11) Active confirmed Problem 56955303 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) Active confirmed Problem Diverticulosis of sigmoid colon (004953384) Diverticulosis of sigmoid colon (K57.30) Active confirmed Problem 68639755 Hypertension, unspecified type (I10) Active confirmed Problem 395204661 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 Problem 505970132 Positive colorectal cancer screening using Cologuard test (R19.5) Active confirmed Problem 66929249 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) Active confirmed Problem 73800071 IPMN (intraducta l papillary mucinous neoplasm) (D49.0) Active confirmed Vital Signs Blood pressure diastolic 00 mm Hg 07/11/2023 Height 71 in 07/11/2023 Blood pressure systolic 00 mm Hg 07/11/2023 Weight 232 lbs 07/11/2023 BMI 32.35 kg/m2 07/11/2023 Encounters Encounter Location Date Provider Diagnosis [facility] [address] [place] [address] 07/11/2023 Joel Garcia Other cirrhosis of liver [...] Start Date Coverage End Date MEDICARE OF [facility] [address] [place] [address] [id number] JAROD VEGA Self - [place] [address] [id number] ODALISJAROD LUCERO Self - patient is the insured Medical (General) History Medical History History ICD Code Denies CA,CVA,renal disease Hypertension 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 Frieda milan Takes Finasteride for hair loss Colonoscopy at age 72 in [place], [place]--polyps were removed--not clear as to what [...] stone & stent--Dr. Terrence Groves--seen by [facility]--on [facility] CT of abdomen in June 20 revealed [...] replacement 05/2019 Dr. Cordoba Cholecystectomy in 10/[address] [facility] [address] Jimenez was negative for any lesions nor gallstones
--- OUTSIDE RECORDS SUMMARY | 2024-07-08 17:24 | XMS_ITS ---
Author Organization [facility] Address [address] [place] [address] Care Team Providers Care Nursing Aide Name Role Phone Arnaldo Nichols Primary Care Provider UnavailJoel Williamson Unavailable [phone] Allergies Allergen (clinical drug ingredient) Drug/Non Drug [...] Notes: Nonsmoker; no sig alcohol Originally from [place] Vital Signs Blood pressure systolic 00 mm Hg 07/11/19 24 Blood pressure diastolic 00 mm Hg 024 Height 71 in 07/11/2023 Weight 232 lbs 07/11/2023 BMI 32.35 kg/m2 07/11/2023 Encounters Encounter Location Date Provider Diagnosis [facility] [address] [place] [address] 07/11/2023 Joel Garcia Other cirrhosis of liver [...] * JAROD VEGA TDOB:[birth year] (83 yo M)Acc No.[id number]:07/11/2023 Progress Notes Patient:?JAROD VEGA Provider:?Joel Garcia MD :1940???Age:83 Y???Sex:Male Robbi e:07/11/2023 Address:[address] [place] [address] [address], [place], [place] Pcp:Arnaldo Nichols Subjective: * Chief Complaints: * [...] retired. ???Nonsmoker; no sig alcohol Originally from [place] [facility]. * Medications:?TakingFinasteri de 5 MG Tablet 1 [...] * Treatment: * Procedure Codes:?1036F TOBAC CO NON-[id number] BP SCR NOT PRFRM REC REASON NOS * Preventive Medicine:? ??Counseling:?Care goal follow-up plan:?Above Normal BMI Follow-up?Giving encouragement to exercise,?BMI management provided?Yes.? * Follow Up:?1 Year * * Sign off status: Completed true * Provider:?Joel Garcia MD Date:? 024 Generated for Paul gomez/Gilbert/Stephenie on:?07/08/2024 05:24 PM EDT History and Physical Notes * HPI [...]
--- OUTSIDE RECORDS SUMMARY | 2024-07-08 17:24 | XMS_ITS ---
Author Organization [facility] Address [address] [facility] [place] [address] Care Team Providers Care Family Practice Physician Assistant Name Role Phone Arnaldo Nichols Primary Care Provider Unavailab Jung Ma Unavailable [phone] REASON FOR VISIT At Risk Footcare, Skin [...] Ordered Date Performed Result Body Sit e 79698-ZELBWGL NAIL, 1-11/13/2023 N/A 88058-GTPB SKIN LESIONS, OVER 11/13/2023 N/A [id number] DYSTROPHIC NAILS ANY # 11/13/2023 N/A Encounters Encounter Location Date Provider Diagnosis [facility] [address] [address] 11/13/2023 Jung Sarmiento Type 2 diabetes mellitus [...] days Pending Test Test Name Order Date [id number] NAIL, 1-5 11/13/2023 58495-MKKW SKIN LESIONS, OVER 4 11/13/19 24 [id number] DYSTROPHIC NAILS ANY # Next Appt Details Follow Up: prn, Reason: Provider Name:Jung Sarmiento , 08/08/2024 02:15:00 PM, [address] [facility], [address], [place], [address], Procedure Notes * Category Sub-Category Detail Notes Keratoma Treatment Parring or Cutting o f Benign Hyperkeratotic Lesion(s) 02339 ( More than 4 Lesions ) - [...] as necessary. Patient chooses, no pharmaceutical tx (39445) Nail Reduction Nail Reduction Trimming of dyst rophic nails performed to reduce/remove overall nail length and girth, by manual and electrical means with use of a nail nipper and/or dremel, to more viable healthy nail plate or bed tissue (G0127) Progress Notes * Jarod ANDOB: [birth year] (83 yo M)Acc No.[id number]:11/13/2023 Progress Note Patient:?Jannetdeneenortiz Jarod Provider:?Jung Sarmiento DPM :1940???Age:83 Y???Sex:Male Robbi e:11/13/2023 Address:[address] [place] [address] [address], [place], [place] Pcp:Arnaldo Nichols Subjective: * Chief Complaints: * [...] as necessary. Patient chooses, no pharmaceutical tx (74561).?Keratoma Treatment:?Parring or Cutting of Benign Hyperkeratotic Lesion(s)?61401 ( More than 4 Lesions ) - [...] ING DYSTROPHIC NAILS ANY #, Modifiers: XS 39055 DEBRIDE NAIL, 1-5, Modifiers: XS 12269 TRIM SKIN LESIONS, OVER 4, Modifiers: XS [...] Sarmiento DPM Date:?2023 Generated for Paul gomez/Gilbert/Stephenie on:?07/08/2024 05:24 PM [...]
--- OUTSIDE RECORDS SUMMARY | 2024-07-08 17:24 | XMS_ITS | Encounter Summary ---
Author Organization [facility] Address [address] [address] Phone Care Team Providers Care Drum Drier Name Role Phone Arnaldo Nichols Primary Care Provider [phone] Reason for Visit * Reason Comments Med Refill Encounter Details Date Type Department Care Team (Late Contact Info) Description 07/03/2024 Refill [facility] [address] [place] [address] Claudio Nunez MD [address] [address] Social History Tobacco Use Types [...] Office Visit [facility] [address] [place] [address] Yong Ruiz MD [address] [address] documented as of this encounter Visit Diagnoses Not on filedocumented in this encounter Care Teams Drum Drier Relationship Specialty Start Date End Date Arnaldo Nichols PA [address] [place] [address], [address] [place] [address] PCP - General Physician Tool Inspector 07/02/20 documented as of this encounter
--- OUTSIDE RECORDS SUMMARY | 2024-07-08 17:24 | XMS_ITS ---
Author Organization [facility] Address [address] [facility] [place] [address] Care Team Providers Care Campus Supervisor Name Role Phone Arnaldo Nichols Primary Care Provider Unavailab Jung Ma Unavailable [phone] Allergies Allergen (clinical drug ingredient) Drug/Non Drug [...] Ordered Date Performed Result Body Sit e 78736-HAVQYHP NAIL, 1-5 02/14/2024 N/A 63078-GEFY SKIN LESIONS, OVER 4 02/14/2024 N/A K3216-PLUVFEVV DYSTROPHIC NAILS ANY # 02/14/2024 N/A Encounters Encounter Location Date Provider Diagnosis [facility] [address] [address] 02/14/2024 Jung Sarmiento Type 2 diabetes mellitus [...] INSTRUCTIONS.pdf) Pending Test Test Name Order Date 31064-DADFTFL NAIL, 1-5 02/14/2024 96282-YHCJ SKIN LESIONS, OVER 4 02/14/20 24 Q1662-MAQPYOPD DYSTROPHIC NAILS ANY # Next Appt Details Follow Up: prn, Reason: Provider Name:Jung Sarmiento , 08/08/2024 02:15:00 PM, [address] [facility], [address], [place], [address], Procedure Notes * Category Sub-Category Detail Notes Keratoma Treatment Parring or Cutting o f Benign Hyperkeratotic Lesion(s) (-57) More than 4 Lesions - The Benign hyperkeratotic lesions, as described above were pared, and/or cut utilizing a sterile 15 blade, tissue nippers, and/or dremel - 92661 Debride Nails 1-5 Procedure: Performance of this nail treatment by a nonprofessional would put this patients foot and overall health at risk. Therefore, nail debridement was performed extensively to reduce/remove overall nail length, girth, thickness, subungual debris, and necrotic tissue, by manual and/or electrical means through the use of a nail nipper and/or dremel-type back grinder, to a more viable healthy nail plate or bed tissue 1-5. Silver nitrate used for any petechial bleeding as necessary. Definitive antifungal treatment options have been reviewed and discussed with the patient. The patient chooses, no pharmaceutical tx - 41947 Nail Reduction Nail Reduction (-27) Trimming o f dystrophic nails performed to reduce/remove overall nail length and girth, by manual and electrical means with use of a nail nipper and/or dremel, to more viable healthy nail plate or bed tissue, any number - G0127 Progress Notes * Jarod ANDOB: [birth year] (83 yo M)Acc No.[id number]:02/14/2024 Progress Note Patient:?Jarod AN Provider:?Jung Sarmiento DPM :1940???Age:83 Y???Sex:Male Robbi e:02/14/2024 Address:[address] [place] [address], [address], [facility] Pcp:Arnaldo Nichols Subjective: * Chief Complaints: * [...] use of a nail nipper and/or dremel-type back grinder, to a more viable healthy nail plate or bed tissue 1-5. Silver nitrate used for any petechial bleeding as necessary. Definitive antifungal treatment options have been reviewed and discussed with the patient. The patient chooses, no pharmaceutical tx - 74584.?Keratoma Treatment:?Parring or Cutting of Benign Hyperkeratotic Lesion(s)?(-57) More than 4 Lesions - The Benign hyperkeratotic lesions, as described above were pared, and/or cut utilizing a sterile 15 blade, tissue nippers, and/or dremel - 93852.?Nail Reduction:?Nail Reduction?(-27) Trimming of dystrophic nails performed to reduce/remove overall nail length and girth, by manual and electrical means with use of a nail nipper and/or dremel, to more viable healthy nail plate or bed tissue, any number - G0127.? * Procedure Codes:?G0127 JATINDER ING DYSTROPHIC NAILS ANY #, Modifiers: XS 39045 DEBRIDE NAIL, 1-5, Modifiers: XS 95190 TRIM SKIN LESIONS, OVER 4, Modifiers: XS [...] * Sign off status: Completed true * Provider:?Jnug Sarmiento DPM Date:?2023 Generated for Paul gomez/Gilbert/eTransmitting on:?07/08/2024 05:24 PM EDT History and Physical [...] (-) Charcot col lapse/destruction noted at [facility] FOOTWEAR EVALUATION: worn, non-supportiv e, shoe gear properties exacerbate patient's foot/toe deformity [...]
--- OUTSIDE RECORDS SUMMARY | 2024-07-08 17:24 | XMS_ITS ---
Author Organization [facility] Address [address] [facility] [place] [address] Care Team Providers Care Rn Transfer Name Role Phone Arnaldo Nichols Primary Care Provider Unavailab Jung Ma Unavailable [phone] Allergies Allergen (clinical drug ingredient) Drug/Non Drug [...] Ordered Date Performed Result Body Sit e 94375-YHDYGCX NAIL, 1-05/15/2024 N/A 91281-QEDG SKIN LESIONS, OVER 4 05/15/2024 N/A U3237-AKRUWCON DYSTROPHIC NAILS ANY # 05/15/2024 N/A Encounters Encounter Location Date Provider Diagnosis [facility] [address] [address] 05/15/2024 Jung Sarmiento Type 2 diabetes mellitus with diabetic polyneuropathy E11.42 and Tinea unguium B35.1 Assessments Encounter Date Diagnosis (ICD Code) Assessment Notes Treatment Notes Treatment Clinical Notes Section Notes 05/15/2024 Type 2 diabetes mellitus with diabetic polyneuropathy (ICD-10 - E11.42) 05/15/2024 Tinea unguium (ICD-10 - B35.1) Plan Of Treatment Pending Test Test Name Order Date 42908-RDQMNPV NAIL, 1-5 05/15/2024 67287-DGWE SKIN LESIONS, OVER 4 05/15/19 25 F9221-VBYCUPXF DYSTROPHIC NAILS ANY # Next Appt Details Follow Up: prn, Reason: Provider Name:Jung Sarmiento , 08/08/2024 02:15:00 PM, [address] [place] [address], [place], [address], Procedure Notes * Category Sub-Category Detail Notes [...] instrumentation by the physician of record - 17956 Debride Nails 1-5 Procedure: Due to the [...] necessary to maintain effective symptomatic relief - 13985 Nail Reduction Nail Reduction (-27) Trimming o [...] * Jarod ANDOB: [birth year] (83 yo M)Acc No.[id number]:05/15/2024 Progress Note Patient:?Jarod AN Provider:?Jung Sarmiento DPM :1940???Age:83 Y???Sex:Male Robbi e:05/15/2024 Address:[address] [place] [address], [address], [facility] Pcp:Arnaldo Nichols Subjective: * Chief Complaints: * [...] necessary to maintain effective symptomatic relief - 63154.?Keratoma Treatment:?Parring or Cutting of Benign Hyperkeratotic Lesion(s)?(-57) [...] instrumentation by the physician of record - 84373.?Nail Reduction:?Nail Reduction?(-27) Trimming of all dystrophic nails [...] ING DYSTROPHIC NAILS ANY #, Modifiers: XS 61903 DEBRIDE NAIL, 1-5, Modifiers: XS 31648 TRIM SKIN LESIONS, OVER 4, Modifiers: XS * Follow Up:?prn * Images: * Sign off status: Completed true * Provider:?Jung Sarmiento DPM Date:?2024 Generated for Paul gomez/Gilbert/Stephenie on:?07/08/2024 05:24 PM [...]
--- OUTSIDE RECORDS SUMMARY | 2024-07-08 17:25 | XMS_ITS | Patient Health Record ---
Author Organization [facility] Address [address] [facility] [place] [address] Care Team Providers Care Cyanide Case Hardener Name Role Phone Arnaldo Nichols Primary Care Provider Unavailab Jung Ma Unavailable [phone] Allergies Allergen (clinical drug ingredient) Drug/Non Drug [...] Problem Acquired hammer toe of right foot (1442549747276436 ) Other hammer toe(s) (acquired), right foot (M20.41) Active confirmed Problem Acquired hammer toe of left foot (1265684442494845 ) Other hammer toe(s) (acquired), left foot (M20.42) Active confirmed Problem Polyneuropathy due to type 2 diabetes mellitus (913136069) Type 2 diabetes mellitus with diabetic polyneuropathy (E11.42) Active confirmed Vital Signs Height 5ft 11in in 05/15/2024 Weight 250 lbs 05/15/2024 BMI 34.86 kg/m2 05/15/2024 Procedures Procedure Date Ordered Date Performed Result Body Sit e 66016-MAOHDRM NAIL, 1-5 11/13/2023 N/A 43068-FMWY SKIN LESIONS, OVER 4 11/13/2023 N/A D8594-HUPSHJNA DYSTROPHIC NAILS ANY # 11/13/2023 N/A 16357-CVEZYLL NAIL, 1-5 02/14/2024 N/A 81216-LQPZ SKIN LESIONS, OVER 4 02/14/2024 N/A Y3901-WMAKARCP DYSTROPHIC NAILS ANY # 02/14/2024 N/A 30155-JEPNCTZ NAIL, 1-5 05/15/2024 N/A 27508-VQUT SKIN LESIONS, OVER 4 05/15/2024 N/A V6653-ILPVXFNL DYSTROPHIC NAILS ANY # 05/15/2024 N/A Encounters Encounter Location Date Provider Diagnosis [address] [address] 11/13/2023 Jung Guillermina Type 2 diabetes mellitus with diabetic polyneuropathy E11.42 ; Tinea unguium B35.1 and Xerosis of skin L85.[address] [address] 02/14/2024 Jungadam PryorGuillermina Type 2 diabetes mellitus with diabetic polyneuropathy E11.42 ; Tinea unguium B35.1 ; Other hammer toe(s) (acquired), right foot M20.41 ; Other hammer toe(s) (acquired), left foot M20.42 and Xerosis of skin L85.[address] [address] 05/15/2024 Jungadam Sarmiento Type 2 diabetes mellitus [...] Treatment Pending Test Test Name Order Date 40770-LQBVZNW NAIL, -06/05/2023 14025-MMPNKCL NAIL, -11/13/2023 55144-HTBQVRW NAIL, -02/14/2024 99930-VLPJXSF NAIL, -05/15/2024 89372-KQKR SKIN LESIONS, OVER 4 05/15/19 25 32017-AQUV SKIN LESIONS, OVER 4 02/14/20 24 97797-OKIY SKIN LESIONS, OVER 4 06/05/19 24 35229-UYPC SKIN LESIONS, OVER 4 11/13/19 24 Z9618-LULUBDVX DYSTROPHIC NAILS ANY # E2557-BQGCJLUG DYSTROPHIC NAILS ANY # Y8406-CJSCRWDC DYSTROPHIC NAILS ANY # S5645-JIQBARQS DYSTROPHIC NAILS ANY # Next Appt Details Provider Name:Jung Soares Guillermina , 08/08/2024 02:15:00 PM, [address] [place] [address], [place] [address], [place], [address], Insurance Providers Payer Name Payer Address Payer Phone Subscriber Number Group Number Insured Name Patient Relationship to Insured Coverage Start Date Coverage End Date Medicare National [employer] [address] [place] [address] [id number] Jarod An Self - [place] [address] [id number] Jarod An Self - patient is the insured Medical (General) History Medical History History ICD Code asthma Diabetic High blood pressure HIV Kidney disease Numbness Surgical History Surgery Date(Month/Year) Left hip replacement 2019
== END 2024-07-08 15:25 | disposition home or self-care (01) ==
LOC: HO.LAB 15:24
PROVIDERS: PCP Physician Assistant; Visit Provider Urology
DX: N40.1 Benign prostatic hyperplasia with lower urinary tract symptoms (principal); N13.8 Other obstructive and reflux uropathy; Z12.5 Encounter for screening for malignant neoplasm of prostate
CPT/HCPCS: 36415; 84153

== ENCOUNTER → 2024-07-24 13:15 | Outpatient (BNVA) | payer MEDICARE, OTHER, SELFPAY | PROVIDERS: PCP Physician Assistant; Visit Provider Urology | DX: N20.0 Calculus of kidney (principal); N40.1 Benign prostatic hyperplasia with lower urinary tract symptoms | CPT/HCPCS: 99212 ==

== ENCOUNTER → 2024-07-24 13:15 | Outpatient (AMB) | payer MEDICARE, OTHER, SELFPAY ==
--- NOTE | 2024-07-24 13:27 | A.OFFVIS_ITS ---
Intake Visit Reasons: 1y/PSA Intake Note: Patient is Present for Follow Up Urology Medication: Finasteride, Tamsulosin Antibiotic Allergies: Clarithromycin Blood Thinners: Eliquis Boilers Inspector Required: No Allergies clarithromycin [From BIAXIN] Allergy (Unknown, Verified 07/24/24 13:35) ANAPHYLAXIS HPI Comments Details: Jarod is a pleasant male. He is a patient of Dr. Nichols. He seen for the following urologic conditions - lower urinary tract symptoms - nephrolithiasis - erectile dysfunction Yearly review Previously on combination therapy Prior discussion regarding stopping tamsulosin PVR 90 cc Longstanding background of HIV management. Has HIV induced diabetes. Prior balanitis secondary to SGLT2 Good response to finasteride Monday, Monday, Monday Lower urinary tract symptoms Has been on tamsulosin with good effect Has been on finasteride as well which is shrinking the prostate Current symptoms - on Lasix which leads to large volume of urine Laboratories - 12/28 PSA 1.8, 06/28 1.8, 06/29 1.8, 07/01 1.8, 07/02 3.1 Nephrolithiasis Longstanding Imaging - 04/30 renal ultrasound - right renal cysts but no stones - 06/02 renal ultrasound bilateral cysts stable up to 6 cm, further ultrasound imaging for cysts is not recommended Can follow Erectile dysfunction Good response to sildenafil PFSH Medical History Urination decrease HLD (hyperlipidemia) Cirrhosis Prophylactic antibiotic for dental procedure indicated due to prior joint replacement Mass of gallbladder DMII (diabetes mellitus, type 2) 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 Mother No problems noted. Social History Housing: House Alcohol intake: never Patient Tobacco Use Status: Never used Tobacco e-Cigarette/Vaping Use: Never Used Current occupational status: retired Cognitive needs: No Hearing needs: No Vision needs: No Review of Systems Const Denies chills and Denies fever(s) Card Reports no additional complaints and Denies syncope Resp Denies cough GI Denies abdominal pain and Denies heartburn Reports as per HPI and Denies change in libido Neuro Denies syncope Psych Denies change in libido Endo Denies change in libido Physical Exam Const General: cooperative, healthy appearing, comfortable and no acute distress Orientation/consciousness: patient oriented x3 HEENT Face and sinus: Yes normal facial exam Mouth: moist mucous membranes Neck Neck: Yes normal visual inspection, Yes full ROM and Yes trachea midline Chest Chest palpation & inspection: normal inspection of the chest Resp Effort & Inspection: normal respiratory effort, able to speak in complete sentences and no respiratory distress GI Inspection: Yes normal to inspection Back/Spine/Pelvis Cervical Spine: normal cervical lordosis Thoracic/Lumbar Spine: thoracic and lumbar spine normal to inspection Skin General skin exam: no rashes or lesions noted Neuro General: patient oriented x3, gait normal, tone normal and moves all extremities Extrem General: Yes normal to inspection and Yes capillary refill normal Assessment & Plan Assessment & Plan (1) Nephrolithiasis: Code(s): N20.0 - Calculus of kidney Category: Medical (2) BPH loc w urin obs/LUTS: Code(s): N40.1 - Benign prostatic hyperplasia with lower urinary tract symptoms Category: Medical Plan Twelve month follow-up PSA Orders: Orders PSA,Total (Free>4and<10) 12 Months N40.1 - Benign prostatic hyperplasia with lower urinary tract symptoms Patient Instructions: This note is constructed using voice recognition software. While every effort has been made to ensure accuracy director shopper marketing errors may have been included. Imaging studies, laboratory and physical exam results were discussed and reviewed in detail. No major barriers to patient understanding were identified. An opportunity to ask questions regarding the treatment plan was provided. All questions were answered. The patient expressed understanding and agreement with the above treatment plan. The patient is aware they should contact our office by phone for worsening of their current condition or the appearance of new urologic symptoms. Compliance is encouraged with any medications and followup testing that is ordered. It is a privilege to participate in the urologic care of your patient. If you have any questions or concerns regarding treatment for the above conditions, or other urologic issues, please do not hesitate to contact me. The office telephone contact is [phone]. Sincerely, Dr Quinn Ocampo MD, [facility] - Urology Compassionate Specialist Care for the Genitourinary System Coding Level of Care Code Est Pt Level 4 (88149) Diagnoses Nephrolithiasis N20.0 BPH loc w urin obs/LUTS N40.1
--- OUTSIDE RECORDS SUMMARY | 2024-07-24 15:44 | XMS_ITS ---
Author Organization [facility] Address [address] [place] [address] Care Team Providers Care Carbon Sequestration Plant Engineer Name Role Phone Arnaldo Nichols Primary Care Provider UnavailJoel Williamson Unavailable [phone] Allergies Allergen (clinical drug ingredient) Drug/Non Drug [...] Notes: Nonsmoker; no sig alcohol Originally from [place] and [place] Vital Signs Blood pressure systolic 00 mm Hg 07/11/19 24 Blood pressure diastolic 00 mm Hg 024 Height 71 in 07/11/2023 Weight 232 lbs 07/11/2023 BMI 32.35 kg/m2 07/11/2023 Encounters Encounter Location Date Provider Diagnosis [facility] [address] [place] [address] 07/11/2023 Joel Garcia Other cirrhosis of liver [...] * JAROD VEGA TDOB:[birth year] (83 yo M)Acc No.[id number]:07/11/2023 Progress Notes Patient:?JAROD VEGA Provider:?Joel Garcia MD :1940???Age:83 Y???Sex:Male Robbi e:07/11/2023 Address:[address] [place] [address] [address], [place], [place] Pcp:Arnaldo Nichols Subjective: * Chief Complaints: * [...] retired. ???Nonsmoker; no sig alcohol Originally from [place] [facility]. * Medications:?TakingFinasteri de 5 MG Tablet [...] * Treatment: * Procedure Codes:?1036F TOBAC CO NON-MZHQK2822 BP SCR NOT PRFRM REC REASON NOS * Preventive Medicine:? ??Counseling:?Care goal follow-up plan:?Above Normal BMI Follow-up?Giving encouragement to exercise,?BMI management provided?Yes.? * Follow Up:?1 Year * * Sign off status: Completed true * Provider:?Joel Garcia MD Date:? 024 Generated for Paul gomez/Gilbert/Stephenie on:?07/24/2024 03:44 PM EDT History and Physical Notes * [...]
--- OUTSIDE RECORDS SUMMARY | 2024-07-24 15:44 | XMS_ITS | Clinical Summary ---
Author Organization [facility] Address [address] [place] [address] Phone Care Team Providers Care Reaming Press Operator Name Role Phone Arnaldo Nichols Primary Care Provider [phone] Allergies Active Allergy Reactions Criticality Noted Date [...] chew, or split. Active ergocalciferol 1.25 MG (87067 UT) capsule Take 50,000 Units by mouth [...] 07/03/2024 Refill [facility] [address] [place] [address] Claudio Nunez MD 07/01/2024 3:30 PM EDT Office Visit [facility] [address] [place] [address] Yong Ruiz MD Stage 3a chronic kidney disease (HCC) (Primary Dx); Renal disorder due to type 2 diabetes mellitus <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); Persistent proteinuria 06/20/2024 Orders Only [facility] [address] [place] [address] Yong Ruiz MD 05/28/2024 Orders Only [facility] [address] [place] [address] Yong Ruiz MD Stage 3b chronic kidney disease (HCC); Renal disorder due to type 2 diabetes mellitus <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); Persistent proteinuria; Essential hypertension from Last 3 Months Family History Medical [...] kg (231 lb 12.8 oz) 07/01/2024 3:13 PM EDT Height 180.3 cm (5' 11 ) 02/07/2022 1:05 PM EDT Body Mass Index 32.33 02/07/2022 1:05 PM EDT Plan of Treatment Upcoming Encounters Date Type Department Care Team (Late st Contact Info) Description 01/06/2025 4:15 PM EDT Office Visit [facility] [address] [place] [address] Yong Ruiz MD [address] [facility] [address] [place] [address] Health Maintenance Due Date Last Done Comments Pneumococcal Vaccine: 50+ Ye ars (1 of 2 - PCV) 1959 Diabetes: Hemoglobin A1C 05/11/2020 06/27/2019 Diabetes: Ophthalmology Exam 05/11/2020 Diabetes: Pedal Pulse Checked 05/11/2020 Diabetes: Sensory Foot Exam 05/11/2020 Diabetes: Visual Foot Exam 05/11/2020 Influenza Vaccine (Season Ended) 2024 Hepatitis B Vaccine Aged Out No longe [...] order comments [place] [address] * (ABNORMAL) Albumin, urine, random (06/20/2024 11:01 [...] ORDERABLES Final Re sult Performing Organization Address [facility] de Phone Number JONATHAN See order comments [place] [address] * (ABNORMAL) Urinalysis with microscopic (06/20/2024 11:01 AM EDT) Color Urine Yellow See orde r comments Appearance Urine Clear See order comments pH Urine 5.5 5.0 - 9.0 See order comments Glucose Urine Negative Negative mg/dL See order comments Blood, Urine Small (1+)(A) Negative See order comments Specific [place] Urine 1.015 1.005 - 1.025 See order [...] ORDERABLES Final Re sult Performing Organization Address [facility] Co de Phone Number HOLKE See order comments [place] [address] * (ABNORMAL) Urinalysis (06/20/2024 11:01 AM EDT) Color Urine Yellow See orde r comments Appearance Urine Clear See order comments pH Urine 5.5 5.0 - 9.0 See order comments Glucose Urine Negative Negative mg/dL See order comments Blood, Urine Small (1+)(A) Negative See order comments Specific [place] Urine 1.015 1.005 - 1.025 See order comments Protein Urine 300 (3+)(A) Neg-Trace mg/dL See order comments Ketones, Urine Negative Negative mg/dL See order comments Nitrite, Urine Negative Negative See o rder comments Leukocyte Esterase Urine Negative Negative See order comments 06/20/2024 11:0 1 AM EDT 06/20/2024 11:01 AM EDT Yong Ruiz MD LAB URINE ORDERABLES Final Re sult Performing Organization Address [facility] de Phone Number JONATHAN See order comments [place] [address] * (ABNORMAL) Creatinine (06/20/2024 10:08 AM EDT) Creatinine Serum 1.41(H) 0.5 - 1.4 mg/dL See order comments eGFR 48 See order comments Comment: Chronic Kidney Disease: ??Estimated GFR < 60 mL/min/1.73m2 Severe Kidney Disease: ??Estimated GFR < 15 mL/min/1.73m2 06/20/2024 10:0 8 AM EDT 06/20/2024 10:08 AM EDT Yong Ruiz MD LAB BLOOD ORDERABLES Final Re sult Performing Organization Address [facility] de Phone Number JONATHAN See order comments [place] [address] * (ABNORMAL) PTH, Intact (06/20/2024 10:08 AM EDT) Parathyroid Hormone, Intact 143.9(H) 8.7 - 77.1 pg/mL See order comments 06/20/2024 10:0 8 AM EDT 06/20/2024 10:08 AM EDT Yong Ruiz MD LAB [id number]-GA SOLICITED RESULTS Final Result [place] See order comments [place] [address] * (ABNORMAL) Vitamin D 25 Hydroxy (06/20/2024 [...] order comments [place] [address] * (ABNORMAL) CBC and Differential (06/20/2024 10:08 [...] order comments [place] [address] * (ABNORMAL) BUN (06/20/2024 10:08 AM EDT) BUN 18(H) 9 - 16 mg/dL See order comments 06/20/2024 10:0 8 AM EDT 06/20/2024 10:08 AM EDT Yong Ruiz MD LAB BLOOD ORDERABLES Final Re sult Performing Organization Address [facility] de Phone Number RANDALL See order comments [place] [address] * Phosphorus (06/20/2024 10:08 AM EDT) Phosphorus, Serum 3.7 2.7 - 4.5 mg/dL See order comments Blood (Blood, Venous) 06/20/2024 10:08 AM EDT 06/20/2024 10:08 AM EDT Yong Ruiz MD LAB BLOOD ORDERABLES Final Re sult Performing Organization Address [facility] de Phone Number RANDALL See order comments [place] [address] * Magnesium (06/20/2024 10:08 AM EDT) Magnesium 2.0 1.6 - 2.6 mg/dL See order comments Blood (Blood, Venous) 06/20/2024 10:08 AM EDT 06/20/2024 10:08 AM EDT Yong Ruiz MD LAB BLOOD ORDERABLES Final Re sult Performing Organization Address [facility] de Phone Number RANDALL See order comments [place] [address] * Calcium (06/20/2024 10:08 AM EDT) Calcium 9.1 8.4 - 10.2 mg/dL See order comments Blood (Blood, Venous) 06/20/2024 10:08 AM EDT 06/20/2024 10:08 AM EDT Yong Ruiz MD LAB BLOOD ORDERABLES Final Re sult Performing Organization Address [facility] de Phone Number RANDALL See order comments [place] [address] * (ABNORMAL) Albumin (06/20/2024 10:08 AM EDT) [facility] Albumin 3.4(L) 3.5 - 5.0 g/dL See order comments Blood (Blood, Venous) 06/20/2024 10:08 AM EDT 06/20/2024 10:08 AM EDT Yong Ruiz MD LAB BLOOD ORDERABLES Final Re [facility] Performing Organization Address [facility] de Phone Number RANDALL See order comments [place] [address] * (ABNORMAL) Electrolyte panel (06/20/2024 10:08 AM EDT) [facility] Sodium 144 135 - 145 mmol/L See order comments Potassium 4.5 3.3 - 5.1 mmol/L See order comments Chloride 112(H) 96 - 108 mmol/L See order comments Bicarbonate (CO2) 24 22 - 29 mmol/L See order comments Anion Gap 13 12 - 20 See order comments 06/20/2024 10:0 8 AM EDT 06/20/2024 10:08 AM EDT Yong Ruiz MD LAB BLOOD ORDERABLES [facility] Performing Organization Address [facility] de Phone Number RANDALL See order comments [place] [address] * Hemoglobin A1c (06/27/2019 9:20 AM EDT) [facility] Estimated Average Glucose 111 MG/DL [place] Comment: eAG = Estimated average glucose which is %A1C expressed as average glucose, using the formula of the I4K-Uyegdxd Average Glucose study (ADAG), Diabetes Care, Vol.31,#8, [...] Most Recently Relevant to Health Maintenance Insurance Medicare [facility] [place] [address] Medicare [facility] Care Teams Reaming Press Operator Relationship Specialty Start Date End Date Arnaldo Nichols PA [address] [place] [address], [address] [place] [address] PCP - General Physician Clearance Coordinator 07/02/20
--- OUTSIDE RECORDS SUMMARY | 2024-07-24 15:44 | XMS_ITS ---
Author Organization [facility] Address [address] [place] [address] Care Team Providers Care Policy Change Clerk Name Role Phone Arnaldo Nichols Primary Care Provider Unavailab Jung Ma Unavailable [phone] REASON FOR VISIT At Risk Footcare, Skin [...] Ordered Date Performed Result Body Sit e 83093-CJFVZYD NAIL, 1-11/13/2023 N/A 25732-AQFY SKIN LESIONS, OVER 11/13/2023 N/A A9184-QDFORVYE DYSTROPHIC NAILS ANY # 11/13/2023 N/A Encounters Encounter Location Date Provider Diagnosis [facility] [address] [address] 11/13/2023 Jung Sarmiento Type 2 diabetes mellitus [...] days Pending Test Test Name Order Date 13590-XJPGUZZ NAIL, 1-5 11/13/2023 31903-LPNE SKIN LESIONS, OVER 4 11/13/19 24 F4767-ZZSOVPMR DYSTROPHIC NAILS ANY # Next Appt Details Follow Up: prn, Reason: Provider Name:Jung Sarmiento , 08/08/2024 02:15:00 PM, [address] [facility], [address], [place], [address], Procedure Notes * Category Sub-Category Detail Notes Keratoma Treatment Parring or Cutting o f Benign Hyperkeratotic Lesion(s) 55334 ( More than 4 Lesions ) - [...] as necessary. Patient chooses, no pharmaceutical tx (76294) Nail Reduction Nail Reduction Trimming of dyst rophic nails performed to reduce/remove overall nail length and girth, by manual and electrical means with use of a nail nipper and/or dremel, to more viable healthy nail plate or bed tissue (G0127) Progress Notes * Jarod ANDOB: [birth year] (83 yo M)Acc No.[id number]:11/13/2023 Progress Note Patient:?Jannetdeneenortiz Jarod Provider:?Jung Sarmiento DPM :1940???Age:83 Y???Sex:Male Robbi e:11/13/2023 Address:[address] [place] [address] Rd, [address], [place], [place] Pcp:Arnaldo Nichols Subjective: * Chief Complaints: * [...] as necessary. Patient chooses, no pharmaceutical tx (75134).?Keratoma Treatment:?Parring or Cutting of Benign Hyperkeratotic Lesion(s)?04705 ( More than 4 Lesions ) - [...] ING DYSTROPHIC NAILS ANY #, Modifiers: XS 69979 DEBRIDE NAIL, 1-5, Modifiers: XS 03432 TRIM SKIN LESIONS, OVER 4, Modifiers: XS [...] Sarmiento DPM Date:?2023 Generated for Paul gomez/Gilbert/Stephenie on:?07/24/2024 03:43 PM EDT History and Physical Notes * [...]
--- OUTSIDE RECORDS SUMMARY | 2024-07-24 15:44 | XMS_ITS ---
Author Organization [facility] Address [address] [facility] [place] [address] Care Team Providers Care Supervisor Drying And Winding Name Role Phone Arnaldo Nichols Primary Care Provider Unavailab Jung Ma Unavailable [phone] Allergies Allergen (clinical drug ingredient) Drug/Non Drug [...] Ordered Date Performed Result Body Sit e 34524-CLVZFMX NAIL, 1-05/15/2024 N/A 40568-FEKS SKIN LESIONS, OVER 4 05/15/2024 N/A N3280-FBMDAFVF DYSTROPHIC NAILS ANY # 05/15/2024 N/A Encounters Encounter Location Date Provider Diagnosis [facility] [address] [address] 05/15/2024 Jung Sarmiento Type 2 diabetes mellitus with diabetic polyneuropathy E11.42 and Tinea unguium B35.1 Assessments Encounter Date Diagnosis (ICD Code) Assessment Notes Treatment Notes Treatment Clinical Notes Section Notes 05/15/2024 Type 2 diabetes mellitus with diabetic polyneuropathy (ICD-10 - E11.42) 05/15/2024 Tinea unguium (ICD-10 - B35.1) Plan Of Treatment Pending Test Test Name Order Date 95066-LEREPHM NAIL, 1-5 05/15/2024 52567-SPFN SKIN LESIONS, OVER 4 05/15/19 25 P8073-RLMYZZXH DYSTROPHIC NAILS ANY # Next Appt Details Follow Up: prn, Reason: Provider Name:Jung Sarmiento , 08/08/2024 02:15:00 PM, [address] [place] [address], [place], [address], Procedure Notes * Category Sub-Category Detail Notes [...] instrumentation by the physician of record - 09904 Debride Nails 1-5 Procedure: Due to the [...] necessary to maintain effective symptomatic relief - 62937 Nail Reduction Nail Reduction (-27) Trimming o [...] * Jarod ANDOB: [birth year] (83 yo M)Acc No.[id number]:05/15/2024 Progress Note Patient:?Jarod AN Provider:?Jung Sarmiento DPM :1940???Age:83 Y???Sex:Male Robbi e:05/15/2024 Address:[address] [place] [address], [address], [facility] Pcp:Arnaldo Nichols Subjective: * Chief Complaints: * [...] necessary to maintain effective symptomatic relief - 03695.?Keratoma Treatment:?Parring or Cutting of Benign Hyperkeratotic Lesion(s)?(-57) [...] instrumentation by the physician of record - 86694.?Nail Reduction:?Nail Reduction?(-27) Trimming of all dystrophic nails [...] ING DYSTROPHIC NAILS ANY #, Modifiers: XS 63006 DEBRIDE NAIL, 1-5, Modifiers: XS 80005 TRIM SKIN LESIONS, OVER 4, Modifiers: XS * Follow Up:?prn * Images: * Sign off status: Completed true * Provider:?Jung Sarmiento DPM Date:?2024 Generated for Paul gomez/Gilbert/Stephenie on:?07/24/2024 03:44 PM [...]
--- OUTSIDE RECORDS SUMMARY | 2024-07-24 15:44 | XMS_ITS | Patient Health Record ---
Author Organization [facility] Address [address] [place] [address] Care Team Providers Care Machine Grinder Name Role Phone Arnaldo Nichols Primary Care Provider Unavailab Joel Quiroz Unavailable [phone] Allergies Allergen (clinical drug ingredient) Drug/Non Drug [...] no sig alcohol [place] Nonsmoker; no sig alcohol [place] Nons[place]; no sig alcohol [place] Nons[place]; no sig alcohol Originally [place] Nonsm[place]; no sig alcohol Originally [place] Nonsmoker; no sig alcohol Originally [place] Nonsm[place]; no sig alcohol Originally [place] Nonsmoker; no sig alcohol Originally [place] Problems Problem Type SNOMED Code ICD Code Onset Dates Problem Status W/U Status Risk Notes Problem 932933848 Encounter for screening for malignant neoplasm of colon (Z12.11) Active confirmed Problem 67241237 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) Active confirmed Problem Diverticulosis of sigmoid colon (460541670) Diverticulosis of sigmoid colon (K57.30) Active confirmed Problem 77629113 Hypertension, unspecified type (I10) Active confirmed Problem 804201977 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 Problem 654336025 Positive colorectal cancer screening using Cologuard test (R19.5) Active confirmed Problem 61851585 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 Frieda milan Takes Finasteride for hair loss Colonoscopy at age 72 in [place], [place]--polyps were removed--not clear as to what kind of polyps they were, Hemoccults neg x 3 in 2018 Asthma Cirrhosis and slightly eleva dahlia LFT's--neg. abdominal U/S in 2016; and neg Hep C Ab and viral [...] Kidney stone & stent--Dr. Terrence Groves--seen by [facility]--on [facility] CT of abdomen in June 20 revealed [...] replacement 05/2019 Dr. Cordoba Cholecystectomy in 10/2020 [facility] Dr. Jimenez was negative for any lesions nor gallstones
--- OUTSIDE RECORDS SUMMARY | 2024-07-24 15:44 | XMS_ITS | Encounter Summary ---
Author Organization [facility] Address [address] [facility] [address] [place] [address] Phone Care Team Providers Care Java Tech Name Role Phone Arnaldo Nichols Primary Care Provider [phone] Encounter Details Date Type Department Care Team (Late Contact Info) Description 07/07/2020 Orders Only [facility] [address] [facility] [address] [place] [address] Provider, MD Galdino [address] [place] [address] Social History Tobacco Use Types Packs/Day [...] Visit [facility] [address] [place] [id number] Yong Ruiz MD [address] [facility] [address] [place] [address] documented as of this encounter Procedures Procedure [...] on filedocumented in this encounter Care Teams Java Tech Relationship Specialty Start Date End Date Arnaldo Nichols PA [address] [place] [address], [address] [place] [address] PCP - General Physician Electronic Equipment Maint Tech 07/02/20 documented as of this encounter
--- OUTSIDE RECORDS SUMMARY | 2024-07-24 15:44 | XMS_ITS | Patient Health Record ---
Author Organization [facility] Address [address] [facility] [place] [address] Care Team Providers Care Land Surveyor Assistant Name Role Phone Arnaldo Nichols Primary Care Provider Unavailab Jung Ma Unavailable [phone] Allergies Allergen (clinical drug ingredient) Drug/Non Drug [...] Problem Acquired hammer toe of right foot (5575985118365570 ) Other hammer toe(s) (acquired), right foot (M20.41) Active confirmed Problem Acquired hammer toe of left foot (3382695376650013 ) Other hammer toe(s) (acquired), left foot (M20.42) Active confirmed Problem Polyneuropathy due to type 2 diabetes mellitus (423298800) Type 2 diabetes mellitus with diabetic polyneuropathy (E11.42) Active confirmed Vital Signs Height 5ft 11in in 05/15/2024 Weight 250 lbs 05/15/2024 BMI 34.86 kg/m2 05/15/2024 Procedures Procedure Date Ordered Date Performed Result Body Sit e 64192-HIDVAVB NAIL, 1-5 11/13/2023 N/A 07878-EGEY SKIN LESIONS, OVER 4 11/13/2023 N/A N8552-RNZYZAIZ DYSTROPHIC NAILS ANY # 11/13/2023 N/A 86686-PZFUBFB NAIL, 1-5 02/14/2024 N/A 58040-NHPS SKIN LESIONS, OVER 4 02/14/2024 N/A N3785-OAIVQDYT DYSTROPHIC NAILS ANY # 02/14/2024 N/A 48193-GFQXNDH NAIL, 1-5 05/15/2024 N/A 65571-VQZI SKIN LESIONS, OVER 4 05/15/2024 N/A U5321-ZETRMTCE DYSTROPHIC NAILS ANY # 05/15/2024 N/A Encounters Encounter Location Date Provider Diagnosis [address] [address] 11/13/2023 Jung Guillermina Type 2 diabetes mellitus with diabetic polyneuropathy E11.42 ; Tinea unguium B35.1 and Xerosis of skin L85.[address] [address] 02/14/2024 Jungadam PryorGuillermina Type 2 diabetes mellitus with diabetic polyneuropathy E11.42 ; Tinea unguium B35.1 ; Other hammer toe(s) (acquired), right foot M20.41 ; Other hammer toe(s) (acquired), left foot M20.42 and Xerosis of skin L85.[address] [address] 05/15/2024 Jungadam Sarmiento Type 2 diabetes mellitus [...] Treatment Pending Test Test Name Order Date 62842-EDWBWPL NAIL, -06/05/2023 64690-HEJITNY NAIL, -11/13/2023 95124-WFOSUOY NAIL, -02/14/2024 23685-YQYRYNG NAIL, -05/15/2024 63016-NKFX SKIN LESIONS, OVER 4 05/15/19 25 18644-OJCB SKIN LESIONS, OVER 4 02/14/20 24 66759-EZZL SKIN LESIONS, OVER 4 06/05/19 24 03852-DZVW SKIN LESIONS, OVER 4 11/13/19 24 U3520-EOPYHPFF DYSTROPHIC NAILS ANY # D3998-KJJIHGMJ DYSTROPHIC NAILS ANY # K3265-VKOLXKDZ DYSTROPHIC NAILS ANY # Y4872-SZDHAFTY DYSTROPHIC NAILS ANY # Next Appt Details Provider Name:Jung Soares Guillermina , 08/08/2024 02:15:00 PM, [address] [place] [address], [place] [address], [place], [address], Insurance Providers Payer Name Payer Address Payer Phone Subscriber Number Group Number Insured Name Patient Relationship to Insured Coverage Start Date Coverage End Date Medicare [employer] [address] [place] [address] [id number] Jarod An Self - [place] [address] [id number] Jarod An Self - patient is the insured Medical (General) History Medical History History ICD Code asthma Diabetic High blood pressure HIV Kidney disease Numbness Surgical History Surgery Date(Month/Year) Left hip replacement 2019
--- OUTSIDE RECORDS SUMMARY | 2024-07-24 15:44 | XMS_ITS ---
Author Organization [facility] Address [address] [facility] [place] [address] Care Team Providers Care Manager Transit Name Role Phone Arnaldo Nichols Primary Care Provider Unavailab Jung Ma Unavailable [phone] Allergies Allergen (clinical drug ingredient) Drug/Non Drug [...] Ordered Date Performed Result Body Sit e 20432-PMJETYW NAIL, 1-5 02/14/2024 N/A 04372-ZYXX SKIN LESIONS, OVER 4 02/14/2024 N/A C5914-YAUJXUAX DYSTROPHIC NAILS ANY # 02/14/2024 N/A Encounters Encounter Location Date Provider Diagnosis [facility] [address] [address] 02/14/2024 Jung Sarmiento Type 2 diabetes mellitus [...] INSTRUCTIONS.pdf) Pending Test Test Name Order Date 27235-QTGTOGW NAIL, 1-5 02/14/2024 41294-XMPS SKIN LESIONS, OVER 4 02/14/20 24 B0221-TMDUSMRR DYSTROPHIC NAILS ANY # Next Appt Details Follow Up: prn, Reason: Provider Name:Jung Sarmiento , 08/08/2024 02:15:00 PM, [address] [facility], [address], [place], [address], Procedure Notes * Category Sub-Category Detail Notes Keratoma Treatment Parring or Cutting o f Benign Hyperkeratotic Lesion(s) (-57) More than 4 Lesions - The Benign hyperkeratotic lesions, as described above were pared, and/or cut utilizing a sterile 15 blade, tissue nippers, and/or dremel - 53277 Debride Nails 1-5 Procedure: Performance of this nail treatment by a nonprofessional would put this patients foot and overall health at risk. Therefore, nail debridement was performed extensively to reduce/remove overall nail length, girth, thickness, subungual debris, and necrotic tissue, by manual and/or electrical means through the use of a nail nipper and/or dremel-type skull grinder, to a more viable healthy nail plate or bed tissue 1-5. Silver nitrate used for any petechial bleeding as necessary. Definitive antifungal treatment options have been reviewed and discussed with the patient. The patient chooses, no pharmaceutical tx - 12305 Nail Reduction Nail Reduction (-27) Trimming o f dystrophic nails performed to reduce/remove overall nail length and girth, by manual and electrical means with use of a nail nipper and/or dremel, to more viable healthy nail plate or bed tissue, any number - G0127 Progress Notes * Jarod ANDOB: [birth year] (83 yo M)Acc No.[id number]:02/14/2024 Progress Note Patient:?Jarod AN Provider:?Jung Sarmiento DPM :1940???Age:83 Y???Sex:Male Robbi e:02/14/2024 Address:[address] [place] [address], [address], [facility] Pcp:Arnaldo Nichols Subjective: * Chief Complaints: * [...] use of a nail nipper and/or dremel-type skull grinder, to a more viable healthy nail plate or bed tissue 1-5. Silver nitrate used for any petechial bleeding as necessary. Definitive antifungal treatment options have been reviewed and discussed with the patient. The patient chooses, no pharmaceutical tx - 26252.?Keratoma Treatment:?Parring or Cutting of Benign Hyperkeratotic Lesion(s)?(-57) More than 4 Lesions - The Benign hyperkeratotic lesions, as described above were pared, and/or cut utilizing a sterile 15 blade, tissue nippers, and/or dremel - 66143.?Nail Reduction:?Nail Reduction?(-27) Trimming of dystrophic nails performed to reduce/remove overall nail length and girth, by manual and electrical means with use of a nail nipper and/or dremel, to more viable healthy nail plate or bed tissue, any number - G0127.? * Procedure Codes:?G0127 JATINDER ING DYSTROPHIC NAILS ANY #, Modifiers: XS 75264 DEBRIDE NAIL, 1-5, Modifiers: XS 69808 TRIM SKIN LESIONS, OVER 4, Modifiers: XS [...] Sarmiento DPM Date:?2023 Generated for Paul gomez/Gilbert/eTransmitting on:?07/24/2024 03:44 PM EDT History and Physical [...]
== END ==
LOC: HO.HUSH 13:16
PROVIDERS: PCP Physician Assistant; Visit Provider Urology
DX: N20.0 Calculus of kidney (principal); N40.1 Benign prostatic hyperplasia with lower urinary tract symptoms
CPT/HCPCS: 99214

== ENCOUNTER 2024-08-14 09:19 | Outpatient (REF) | payer MEDICARE, OTHER, SELFPAY ==
[2024-08-14 09:39] LABS: Appearance Urine Clear; Color Urine Yellow; Glucose Urine UA Negative (Negative); Leukocyte Esterase Urine Negative (Negative); Nitrite Urine Negative (Negative); PH 6.5 (5.0-9.0); UMIC TRIGGER UA YES; Urine Blood Negative (Negative); Urine Ketones Negative (Negative); Urine Protein 300 (3+) mg/dL (Neg-Trace)
[2024-08-14 09:39] LABS: Hematocrit 46.8 % (42.0-52.0); Hemoglobin 16.2 g/dl (14.0-18.0); Mean Corpuscular HGB Conc 34.6 g/dl (31.0-36.0); Mean Corpuscular Hemoglobin 33.9 pg (27.0-33.0); Mean Corpuscular Volume 97.9 fL (80.0-98.0); Mean Platelet Volume 10.2 fL (9.4-12.4); Platelet Count 136 X10*3/uL (160-400); Red Blood Count 4.78 X10*6/uL (4.60-5.80); Red Cell Distribution Width 12.4 % (11.0-16.0); White Blood Count 5.9 X10*3/uL (4.8-10.8)
[2024-08-14 09:44] LABS: Bacteria Urine None Seen (None Seen); Hyaline Casts Urine 0-2 /LPF (0-2); RBC Urine 0-2 /HPF (0-2); Squamous Epithelial Cell Urine 0-2 /HPF (0-2); WBC Urine 0-5 /HPF (0-5)
--- OUTSIDE RECORDS SUMMARY | 2024-08-14 09:59 | XMS_ITS | Encounter Summary ---
Author Organization [facility] Address [address] [facility] [address] [place] [address] Phone Care Team Providers Care Director Of Manufacturing Operations Name Role Phone Arnaldo Nichols Primary Care Provider [phone] Encounter Details Date Type Department Care Team (Late Contact Info) Description 07/07/2020 Orders Only [facility] [address] [facility] [address] [place] [address] Provider, MD Galdino [address] [place] [address] Social History Tobacco Use Types Packs/Day [...] Visit [facility] [address] [place] [id number] Yong Ruiz MD [address] [facility] [address] [place] [id number] documented as of this encounter Procedures Procedure [...] on filedocumented in this encounter Care Teams Director Of Manufacturing Operations Relationship Specialty Start Date End Date Arnaldo Nichols PA [address] [place] [address], [address] [place] [address] PCP - General Physician Drafting Supervisor 07/02/20 documented as of this encounter
--- OUTSIDE RECORDS SUMMARY | 2024-08-14 09:59 | XMS_ITS ---
Author Organization [facility] Address [address] [facility] [place] [address] Care Team Providers Care Surgery Tech Name Role Phone Arnaldo Nichols Primary Care Provider Unavailab Jung Ma Unavailable [phone] Allergies Allergen (clinical drug ingredient) Drug/Non Drug Allergy documented on EMR Reaction Allergy Type Onset Date Status Ragweed Unknown Allergy Active REASON FOR VISIT At Risk Footcare, Toe Irritation Medications Medication SIG (Take, Route, Frequency, Duration) Notes Start Date End Date Status Kerendia 20 MG 1 tablet Orally Once [...] nce a day for 30 day(s) Active Finasteride 5 MG 1 tablet Orally Once a day for 30 day(s) Active Eliquis 2.5 MG as directed Orally Active Advair Diskus 100-50 MCG/ACT 1 puff Inhalation Twice a day Not-Taking Breo Ellipta Active Atorvastatin Calcium 20 MG 1 tablet Orally Once a day for 30 day(s) Active Metoprolol Succinate ER 25 MG 1 tablet Orally Once a day for 30 day(s) Not-Taking Extra Depth Orthopedic Shoes (1 Pair) with Customized Heat Molded Multidensity Innersoles (3 Pair) as directed Dx: NIDDM/Polyneuropathy (E11.42), Hammertoe Foot Deformity (M20.41,M20.42), Preulcerative Skin Lesion(s) (L85.1 Active Ammonium Lactate 12 % 1 application Exte rnally Twice a day for 30 days Active Abacavir Sulfate Act mayda Tivicay 50 MG 1 tablet Orally Once a day for 30 day(s) Active lamiVUDine 100 MG 1 tablet Orally Once a day for 10 day(s) Active Social History Tobacco Use: Social [...] nsmoker Vital Signs Height 5ft 11in in 08/08/2024 Weight 250 lbs 08/08/2024 BMI 34.86 kg/m2 08/08/2024 Blood pressure systolic 131 mm Hg 08/09/19 25 Blood pressure diastolic 68 mm Hg 025 Procedures Procedure Date Ordered Date Performed Result Body Sit e 62721-CNEDVQH NAIL, 1-5 08/08/2024 N/A 97356-TGOF SKIN LESIONS, OVER 4 08/08/2024 N/A Z1172-QYYWIPZM DYSTROPHIC NAILS ANY # 08/08/2024 N/A Encounters Encounter Location Date Provider Diagnosis [facility] [address] [address] 08/08/2024 Jung Sarmiento Type 2 diabetes mellitus with diabetic polyneuropathy E11.42 ; Tinea unguium B35.1 ; Other hammer toe(s) (acquired), right foot M20.41 and Other hammer toe(s) (acquired), left foot M20.42 Assessments Encounter Date Diagnosis (ICD Code) Assessment Notes Treatment Notes Treatment Clinical Notes Section Notes 08/08/2024 Type 2 diabetes mellitus with diabetic polyneuropathy (ICD-10 - E11.42) 08/08/2024 Tinea unguium (ICD-10 - B35.1) 08/08/2024 Other hammer toe(s) (acquired), right foot (ICD-10 - M20.41) 08/08/2024 Other hammer toe(s) (acquired), left foot (ICD-10 - M20.42) Plan Of Treatment Pending Test Test Name Order Date 42266-JKPONJF NAIL, 1-5 08/08/2024 89843-BCXM SKIN LESIONS, OVER 4 08/09/19 R4051-ALNETHQS DYSTROPHIC NAILS ANY # Next Appt Details Follow Up: prn, Reason: Provider Name:Jung Sarmiento , 11/11/2024 11:30:00 AM, [address], [place], [address], Procedure Notes * Category Sub-Category Detail Notes [...] instrumentation by the physician of record - 75663 Debride Nails 1-5 Procedure: Due to the [...] necessary to maintain effective symptomatic relief - 53524 Nail Reduction Nail Reduction (-27) Trimming o [...] G0127 Progress Notes * Jarod ANDOB: [birth year] (84 yo M)Acc No.[id number]:08/08/2024 Progress Note Patient:?Jarod AN Provider:?Jung Sarmiento DPM :1940???Age:84 Y???Sex:Male Robbi e:08/08/2024 Address:[address] [place] [address], [address] Pcp:Arnaldo Nichols Subjective: * Chief Complaints: * ???At Risk FootcareToe Irrit ation * HPI: ???At Risk footcare:?Pt States Last PCP Visit:?Date?02/29/2024 States has an appt with PCP soon - 08/31 ???Toe pain:?Treatments:?Rx shoes.? * ROS:?General/Constitutional:?Nausea?denies.?Vomiting?denies.?Hunger Thirst?denies.?Loss appetite?denies.?Chills?denies.?Fatigue?denies.?Fever?denies.?Night Sweats?denies.?Unexplained weight loss?denies.?Unexplained [...] the past year??No ?Points?0 ?Interpretation?Negative ???Miscellaneous:?Caffeine: yes. ?Children: yes. ?Exercise: yes, walking. ?Marital status: . [...] 25 0, BMI: 34.86, Shoe size: 11, BP:131/68mm Hg, Wt-k.4 kg. * ???Past Orders: ???Lab:HEMOGLOBIN A1C (GLYCO HEMOGLOBIN) (Order Date - 03/10/2024) (Collection Date & Time - 03/11/2024 02:16 PM) ? Value Reference Range ?HEMOGLOBIN A1C [...] 5 , B/L , Plantar, Heel(s) , B/L.?Orthopedic: ?DIGITAL DEFORMITIES:?Syndactyly noted T/T2, Digital contracture, PIPJ, 2-5 B/L, incompl-reducible to push-up test, no over, nor underlapping, no longer, with evidence of shoe producing skin irritation.?FOOTWEAR EVALUATION:?good condition, exhibit proper fit and accommodation for pedal deformities. OT were inspected and noted to be worn, but in good condition giving proper support at the present time.?General Examination: ?GENERAL APPEARANCE:?Reveals a pleasant, alert, well nourished, well- developed, well hydrated individual, who demonstrates proper attention to hygiene/body habitus, and is in no acute distress, Pt serves as own historian for office visit today.?ORIENTED:?person, place, and time.?FOOT EXAM:?Lower Extremity Neurological Exam performed:?Yes ?Visual exam of foot performed:?Yes ?Date?08/08/2024 ?Footwear Evaluation?Footwear Evaluation performed:?Yes??? Assessment: * Assessment: 1.?Tinea unguium - B35.1???2 .?Type 2 diabetes mellitus with diabetic polyneuropathy - E11.42 (Primary)???3.?Other hammer toe(s) (acquired), right foot - M20.41???Specify :Chronic problem, Stable (1=3,2=4), Response to treatment - Improvement???4.?Other hammer toe(s) (acquired), left foot - M20.42???Specify :Chronic problem, Stable (1=3,2=4), Response to treatment - Improvement??? Plan: * Treatment: * Procedures:?Debride Nails 1-5:?Procedure:?Due [...] necessary to maintain effective symptomatic relief - 78896.?Keratoma Treatment:?Parring or Cutting of Benign Hyperkeratotic Lesion(s)?(-57) [...] instrumentation by the physician of record - 57583.?Nail Reduction:?Nail Reduction?(-27) Trimming of all dystrophic nails [...] ING DYSTROPHIC NAILS ANY #, Modifiers: XS 14674 DEBRIDE NAIL, 1-5, Modifiers: XS 54986 TRIM SKIN LESIONS, OVER 4, Modifiers: XS [...] have encouraged the patient to call the office.?Shoe Gear Counseling:?A thorough inspection of the patients Rxed shoegear and inserts was performed and findings communicated. We reviewed the many important medical advantages for adhering to regularly wearing these shoe and insert accomidative devices daily as well as reviewed the fact that a failure in accepting these recommedations may be deleterious, unable to prevent, and disadvantagely result in, many pedal complications such as skin irritation, skin ulceration, infection, and even loss of toe/foot/leg/or even their life. Time was also spent reviewing the proper footcare techniques including daily skin moisturization, daily foot inspection for any interruption in skin integrity, open lesions, or sign of infection such as redness/malodor/drainage/swelling as well as daily shoe inspection for the presence of internal foreign bodies and shoe as well as insert wear. Patient questions re: shoes, inserts, and self foot inspections were answered to their satisfaction as the patient verbally confirmed a full understanding of the above information.? ??Screening/Special Tests:?Fall Risk?Screening:?No falls in the past year ?FALLS: Screening for Future Fall Risk?Have you had any falls with injury in the past year??No * Follow Up:?prn * Images: * Sign off status: Completed true * Provider:?Jung Sarmiento DPM Date:?2024 Generated for Paul gomez/Gilbert/[place] on:?08/14/2024 09:59 AM EDT History and Physical Notes * HPI (History of Present Illness) Category Sub-Category Detail Notes Category Not es Toe pain Treatments: Rx shoes At Risk footcare Pt States Last PCP Visit: Date: 02/29/2024 States has an appt with PCP 08/31 Examination Category Sub-Category Detail Notes Category Not [...] , B/L , Plantar, Heel(s) , B/L Orthopedic FOOTWEAR EVALUATION: good condit ion, exhibit proper fit and accommodation for pedal deformities. OT were inspected and noted to be worn, but in good condition giving proper support at the present time DIGITAL DEFORMITIES: Syndactyly noted T/ T2, Digital contracture, PIPJ, 2-5 B/L, incompl-reducible to push-up test, no over, nor underlapping, no longer, with evidence of shoe producing skin irritation General Examination GENERAL APPEARANCE: Reveals a pleasant, alert, well nourished, well-developed, well hydrated individual, who demonstrates proper attention to hygiene/body habitus, and is in no acute distress, Pt serves as own historian for office visit today FOOT EXAM: Lower Extremity Neurological Exa m performed:: Yes Visual exam of foot performed:: Yes Date: 08/08/2024 ORIENTED: person, place, and t norma Footwear [...]
--- OUTSIDE RECORDS SUMMARY | 2024-08-14 09:59 | XMS_ITS | Clinical Summary ---
Author Organization [facility] Address [address] [place] [address] Phone Care Team Providers Care Washing Machine Striper Name Role Phone Arnaldo Nichols Primary Care Provider [phone] Allergies Active Allergy Reactions Criticality Noted Date [...] chew, or split. Active ergocalciferol 1.25 MG (27577 UT) capsule Take 50,000 Units by mouth 1 (one) time per week Active metFORMIN (GLUCOPHAGE) 500 MG tablet TAKE 1 TABLET (500MG TOTAL) BY MOUTH IN THE MORNING AND TAKE 1 TABLET IN THE EVENING WITH MEALS 180 tablet 4 Active losartan (COZAAR) 100 MG tablet TAKE 1 TABLET BY MOUTH 1 TIME EACH DAY. 90 tablet 2 4 Active Kerendia 20 MG tablet TAKE 1 TABLET BY MOUTH ONCE A DAY 90 tablet 1 4 Active amLODIPine (NORVASC) 2.5 MG tablet TAKE 1 TABLET BY MOUTH EVERY DAY 90 tablet 5 Active metFORMIN (GLUCOPHAGE) 500 MG tablet TAKE 1 TABLET (500 MG TOTAL) BY MOUTH IN THE MORNING 90 tablet 5 11/04/19 25 Active metFORMIN (GLUCOPHAGE) 500 MG tablet TAKE 1 TABLET (500 MG TOTAL) BY MOUTH IN THE MORNING 90 tablet 4 07/27/19 Discontinued metFORMIN (GLUCOPHAGE) 500 MG tablet TAKE 1 TABLET (500 MG TOTAL) BY MOUTH IN THE MORNING 90 tablet 5 08/06/19 Discontinued Active Problems Problem Noted Date Diagnosed [...] Encounters Date Type Department Care Team Description 08/02/2024 Refill [facility] [address] [place] [address] Yong Ruiz MD 07/25/2024 Refill [facility] [address] [place] [address] Yong Ruiz MD 07/03/2024 Refill [facility] [address] [place] [address] Claudio Nunez MD 07/01/2024 3:30 PM EDT Office Visit [facility] [address] [place] [address] Yong Ruiz MD Stage 3a chronic kidney disease (HCC) (Primary Dx); Renal disorder due to type 2 diabetes mellitus <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); Persistent proteinuria 06/20/2024 Orders Only [facility] [address] [place] [address] Yong Ruiz MD 05/28/2024 Orders Only [facility] [address] [place] [address] Yong Ruiz MD Stage 3b chronic kidney [...] Visit [facility] [address] [place] [address] Yong Ruiz MD [address] [facility] [address] [place] [address] Health Maintenance Due Date Last [...] order comments [place] [address] * (ABNORMAL) Albumin, urine, random (06/20/2024 11:01 [...] ORDERABLES Final Re sult Performing Organization Address City/State/[facility] Co de Phone Number HOLJON[place]AN See order comments [place] [address] * (ABNORMAL) Urinalysis with microscopic (06/20/2024 11:01 AM EDT) Color Urine Yellow See orde r comments Appearance Urine Clear See order comments pH Urine 5.5 5.0 - 9.0 See order comments Glucose Urine Negative Negative mg/dL See order comments Blood, Urine Small (1+)(A) Negative See order comments Specific [place] Urine 1.015 1.005 - 1.025 See order [...] ORDERABLES Final Re sult Performing Organization Address [facility] de Phone Number [place] See order comments [place] [address] * (ABNORMAL) Urinalysis (06/20/2024 11:01 AM EDT) Color Urine Yellow See orde r comments Appearance Urine Clear See order comments pH Urine 5.5 5.0 - 9.0 See order comments Glucose Urine Negative Negative mg/dL See order comments Blood, Urine Small (1+)(A) Negative See order comments Specific [place] Urine 1.015 1.005 - 1.025 See order comments Protein Urine 300 (3+)(A) Neg-Trace mg/dL See order comments Ketones, Urine Negative Negative mg/dL See order comments Nitrite, Urine Negative Negative See o rder comments Leukocyte Esterase Urine Negative Negative See order comments 06/20/2024 11:0 1 AM EDT 06/20/2024 11:01 AM EDT Yong Ruiz MD LAB URINE ORDERABLES Final Re sult Performing Organization Address [facility] de Phone Number [place] See order comments [place] [address] * (ABNORMAL) Creatinine (06/20/2024 10:08 AM EDT) Creatinine Serum 1.41(H) 0.5 - 1.4 mg/dL See order comments eGFR 48 See order comments Comment: Chronic Kidney Disease: ??Estimated GFR < 60 mL/min/1.73m2 Severe Kidney Disease: ??Estimated GFR < 15 mL/min/1.73m2 06/20/2024 10:0 8 AM EDT 06/20/2024 10:08 AM EDT us Yong Ruiz MD LAB BLOOD ORDERABLES Final Re sult Performing Organization Address [facility] de Phone Number [place] See order comments [place] [address] * (ABNORMAL) PTH, Intact (06/20/2024 10:08 AM EDT) Parathyroid Hormone, Intact 143.9(H) 8.7 - 77.1 pg/mL See order comments 06/20/2024 10:0 8 AM EDT 06/20/2024 10:08 AM EDT Yong Ruiz MD LAB [id number] SOLICITED RESULTS Final Result Performing Organization Address [facility]/State/[facility] Co de Phone Number [place] See order comments [place] [address] * (ABNORMAL) Vitamin D 25 Hydroxy (06/20/2024 [...] order comments [place] [address] * (ABNORMAL) CBC and Differential (06/20/2024 10:08 [...] ORDERABLES Final Re sult Performing Organization Address [facility] Phone Number [place] See order comments [place] [address] * (ABNORMAL) BUN (06/20/2024 10:08 AM EDT) BUN 18(H) 9 - 16 mg/dL See order comments 06/20/2024 10:0 8 AM EDT 06/20/2024 10:08 AM EDT Yong Ruiz MD LAB BLOOD ORDERABLES Final Re sult Performing Organization Address [facility] Phone Number [place] See order comments [place] [address] * Phosphorus (06/20/2024 10:08 AM EDT) Phosphorus, Serum 3.7 2.7 - 4.5 mg/dL See order comments Blood (Blood, Venous) 06/20/2024 10:08 AM EDT 06/20/2024 10:08 AM EDT us Yong Ruiz MD LAB BLOOD ORDERABLES Final Re sult Performing Organization Address [facility] Phone Number [place] See order comments [place] [address] * Magnesium (06/20/2024 10:08 AM EDT) Magnesium 2.0 1.6 - 2.6 mg/dL See order comments Blood (Blood, Venous) 06/20/2024 10:08 AM EDT 06/20/2024 10:08 AM EDT us Yong Ruiz MD LAB BLOOD ORDERABLES Final Re sult Performing Organization Address [facility] de [facility] See order comments [place] [address] * Calcium (06/20/2024 10:08 AM EDT) Calcium 9.1 8.4 - 10.2 mg/dL See order comments Blood (Blood, Venous) 06/20/2024 10:08 AM EDT 06/20/2024 10:08 AM EDT Yong Ruiz MD LAB BLOOD ORDERABLES Final Re sult Performing Organization Address [facility] Phone Number [place] See order comments [place] [address] * (ABNORMAL) Albumin (06/20/2024 10:08 AM EDT) Albumin 3.4(L) 3.5 - 5.0 g/dL See order comments Blood (Blood, Venous) 06/20/2024 10:08 AM EDT 06/20/2024 10:08 AM EDT Yong Ruiz MD LAB BLOOD ORDERABLES Final Re sult Performing Organization Address [facility] Phone Number [place] See order comments [place] [address] * (ABNORMAL) Electrolyte panel (06/20/2024 10:08 AM EDT) Pathologist [facility] Sodium 144 135 - 145 mmol/L See [...] ORDERABLES Final Re sult Performing Organization Address [facility] Phone Number [place] See order comments [place] [address] * Hemoglobin A1c (06/27/2019 9:20 AM EDT) Pathologist [facility] Estimated Average Glucose 111 MG/DL [facility] Comment: eAG = Estimated average glucose which is %A1C expressed as average glucose, using the formula of the [id number]-[id number] Average Glucose study (ADAG), Diabetes Care, Vol.31,#8, [...] Recently Relevant to Health Maintenance Insurance Medicare [facility] Medicare [facility] Care Teams Washing Machine Striper Relationship Specialty Start Date End Date Arnaldo Nichols PA [address] [place] [address], [address] [place] [address] PCP - General Physician Recreational Leader 07/02/20
--- OUTSIDE RECORDS SUMMARY | 2024-08-14 09:59 | XMS_ITS | Patient Health Record ---
Author Organization [facility] Address [address] [place] [address] Care Team Providers Care Annealer Name Role Phone Arnaldo Nichols Primary Care Provider Unavailab Joel Quiroz Unavailable [phone] Allergies Allergen (clinical drug ingredient) Drug/Non Drug [...] Notes: Nonsmoker; no sig alcohol Originally from [place] Nonsmoker; no sig alcohol [place] Nonsmoker; no sig alcohol Originally [place] Nonsmoker; no sig alcohol Originally [place] Nonsmoker; no sig alcohol Originally [place] Nonsmoker; no sig alcohol Originally [place] Nonsmoker; no sig alcohol Originally [place] Nonsmoker; no sig alcohol Originally [place] Problems Problem Type SNOMED Code ICD Code Onset Dates Problem Status W/U Status Risk Notes Problem 294082231 Encounter for screening for malignant neoplasm of colon (Z12.11) Active confirmed Problem 41430379 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) Active confirmed Problem Diverticulosis of sigmoid colon (499781316) Diverticulosis of sigmoid colon (K57.30) Active confirmed Problem 35358475 Hypertension, unspecified type (I10) Active confirmed Problem 803820946 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 Problem 066334968 Positive colorectal cancer screening using Cologuard test (R19.5) Active confirmed Problem 78731677 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) Active confirmed Problem 60648038 IPMN (intraducta l papillary mucinous neoplasm) (D49.0) Active confirmed Plan Of Treatment Pending Test Test Name Order Date BUN 08/25/2020 CREATININE 08/25/2020 PROTHROMBIN TIME (PT, INR) 08/11/2020 ALPHA-FETOPROTEIN,TUMOR MARKER CA 19-9 08/25/2020 CA 19-9 08/11/2022 MRI ABD W&WO CONTRAST 08/11/2022 MRI ABD W&WO CONTRAST 08/25/2020 US ABD 08/11/2020 Future Test Test Name Order Date UPPER GI ENDOSCOPY 06/14/2018 COLONOSCOPY 09/15/2020 Next Appt Details Provider Name:Joel Garcia , 10/17/2024 10:40:00 AM, [address] [place] [address], [address], [place], [address], Insurance Providers Payer Name Payer Address Payer Phone Subscriber Number Group Number Insured Name Patient Relationship to Insured Coverage Start Date Coverage End Date MEDICARE OF [place] [address] [place] [address] [phone] [id number] GIFTY VEGA Self - [place] [address] [id number] GIFTY VEGA Self - patient is the insured Medical (General) History Medical History History ICD Code Denies HI,CVA,renal disease Hypertension 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 Frieda milan Takes Finasteride for hair loss Colonoscopy at age 72 in [place], [place]--polyps were removed--not clear as to what [...] Kidney stone & stent--Dr. Terrence Groves--[facility] Cardiology--on [facility] CT of abdomen in June revealed [...] replacement 05/2019 Dr. Cordoba Cholecystectomy in 10/2020 [facility] [address]. Jimenez was negative for any lesions nor gallstones
--- OUTSIDE RECORDS SUMMARY | 2024-08-14 09:59 | XMS_ITS ---
Author Organization [facility] Address [address] [facility] [place] [address] Care Team Providers Care Tire And Tube Repairer Name Role Phone Arnaldo Nichols Primary Care Provider Unavailab Jung Ma Unavailable [phone] Allergies Allergen (clinical drug ingredient) Drug/Non Drug [...] Ordered Date Performed Result Body Sit e 85858-BRSQHAB NAIL, 1-5 02/14/2024 N/A 74384-SUGX SKIN LESIONS, OVER 4 02/14/2024 N/A P3924-EKKZODAV DYSTROPHIC NAILS ANY # 02/14/2024 N/A Encounters Encounter Location Date Provider Diagnosis [facility] [address] [address] 02/14/2024 Jung Sarmiento Type 2 diabetes mellitus [...] INSTRUCTIONS.pdf) Pending Test Test Name Order Date 89192-WIUDHVI NAIL, 1-5 02/14/2024 83323-VTIC SKIN LESIONS, OVER 4 02/14/20 24 C0753-XIHBESHE DYSTROPHIC NAILS ANY # Next Appt Details Follow Up: prn, Reason: Provider Name:Jung Sarmiento , 11/11/2024 11:30:00 AM, [address] [facility], [address], [place], [address], Procedure Notes * Category Sub-Category Detail Notes Keratoma Treatment Parring or Cutting o f Benign Hyperkeratotic Lesion(s) (-57) More than 4 Lesions - The Benign hyperkeratotic lesions, as described above were pared, and/or cut utilizing a sterile 15 blade, tissue nippers, and/or dremel - 06265 Debride Nails 1-5 Procedure: Performance of this nail treatment by a nonprofessional would put this patients foot and overall health at risk. Therefore, nail debridement was performed extensively to reduce/remove overall nail length, girth, thickness, subungual debris, and necrotic tissue, by manual and/or electrical means through the use of a nail nipper and/or dremel-type clay grinder, to a more viable healthy nail plate or bed tissue 1-5. Silver nitrate used for any petechial bleeding as necessary. Definitive antifungal treatment options have been reviewed and discussed with the patient. The patient chooses, no pharmaceutical tx - 26292 Nail Reduction Nail Reduction (-27) Trimming o f dystrophic nails performed to reduce/remove overall nail length and girth, by manual and electrical means with use of a nail nipper and/or dremel, to more viable healthy nail plate or bed tissue, any number - G0127 Progress Notes * Jarod ANDOB: [birth year] (83 yo M)Acc No.[id number]:02/14/2024 Progress Note Patient:?Jarod AN Provider:?Jung Sarmiento DPM :1940???Age:83 Y???Sex:Male Robbi e:02/14/2024 Address:[address] [place] [address], [address] Pcp:Arnaldo Nichols Subjective: * Chief Complaints: * [...] use of a nail nipper and/or dremel-type clay grinder, to a more viable healthy nail plate or bed tissue 1-5. Silver nitrate used for any petechial bleeding as necessary. Definitive antifungal treatment options have been reviewed and discussed with the patient. The patient chooses, no pharmaceutical tx - 23533.?Keratoma Treatment:?Parring or Cutting of Benign Hyperkeratotic Lesion(s)?(-57) More than 4 Lesions - The Benign hyperkeratotic lesions, as described above were pared, and/or cut utilizing a sterile 15 blade, tissue nippers, and/or dremel - 18329.?Nail Reduction:?Nail Reduction?(-27) Trimming of dystrophic nails performed to reduce/remove overall nail length and girth, by manual and electrical means with use of a nail nipper and/or dremel, to more viable healthy nail plate or bed tissue, any number - G0127.? * Procedure Codes:?G0127 JATINDER ING DYSTROPHIC NAILS ANY #, Modifiers: XS 50120 DEBRIDE NAIL, 1-5, Modifiers: XS 52019 TRIM SKIN LESIONS, OVER 4, Modifiers: XS [...] Sarmiento DPM Date:?2023 Generated for Paul gomez/Gilbert/eTransmitting on:?08/14/2024 09:59 AM EDT History and Physical [...]
--- OUTSIDE RECORDS SUMMARY | 2024-08-14 09:59 | XMS_ITS ---
Author Organization [facility] Address [address] [address] Care Team Providers Care Residential Air Sealing Technician Name Role Phone Arnaldo Nichols Primary Care Provider Unavailab Jung Ma Unavailable [phone] Allergies Allergen (clinical drug ingredient) Drug/Non Drug [...] Ordered Date Performed Result Body Sit e 93714-SGDRSKS NAIL, 1-05/15/2024 N/A 84159-FJRV SKIN LESIONS, OVER 4 05/15/2024 N/A J0478-JZCSIPPT DYSTROPHIC NAILS ANY # 05/15/2024 N/A Encounters Encounter Location Date Provider Diagnosis [facility] [place] [address] [place] [address] 05/15/2024 Jung Sarmiento Type 2 diabetes mellitus with diabetic polyneuropathy E11.42 and Tinea unguium B35.1 Assessments Encounter Date Diagnosis (ICD Code) Assessment Notes Treatment Notes Treatment Clinical Notes Section Notes 05/15/2024 Type 2 diabetes mellitus with diabetic polyneuropathy (ICD-10 - E11.42) 05/15/2024 Tinea unguium (ICD-10 - B35.1) Plan Of Treatment Pending Test Test Name Order Date 79541-UBSTOLI NAIL, 1-5 05/15/2024 05971-MRIL SKIN LESIONS, OVER 4 05/15/19 25 F9826-RMAQVMQO DYSTROPHIC NAILS ANY # Next Appt Details Follow Up: prn, Reason: Provider Name:Jung Sarmiento , 11/11/2024 11:30:00 AM, [address] [address], [place], [address], Procedure Notes * Category Sub-Category Detail Notes [...] instrumentation by the physician of record - 24343 Debride Nails 1-5 Procedure: Due to the [...] necessary to maintain effective symptomatic relief - 08763 Nail Reduction Nail Reduction (-27) Trimming o [...] * Jarod ANDOB: [birth year] (83 yo M)Acc No.[id number]:05/15/2024 Progress Note Patient:?Jarod AN Provider:?Jung Sarmiento DPM :1940???Age:83 Y???Sex:Male Robbi e:05/15/2024 Address:[address] [place] [address], [address], [id number] Pcp:Arnaldo Nichols Subjective: * Chief Complaints: * [...] necessary to maintain effective symptomatic relief - 48520.?Keratoma Treatment:?Parring or Cutting of Benign Hyperkeratotic Lesion(s)?(-57) [...] instrumentation by the physician of record - 24664.?Nail Reduction:?Nail Reduction?(-27) Trimming of all dystrophic nails [...] ING DYSTROPHIC NAILS ANY #, Modifiers: XS 17751 DEBRIDE NAIL, 1-5, Modifiers: XS 66096 TRIM SKIN LESIONS, OVER 4, Modifiers: XS * Follow Up:?prn * Images: * Sign off status: Completed true * Provider:?Jung Sarmiento DPM Date:?2024 Generated for Paul gomez/Gilbert/Stephenie on:?08/14/2024 09:59 AM EDT History and Physical [...]
--- OUTSIDE RECORDS SUMMARY | 2024-08-14 09:59 | XMS_ITS ---
Author Organization [facility] Address [address] [place] [address] Care Team Providers Care Glueline Worker Name Role Phone Arnaldo Nichols Primary Care Provider UnavailJoel Williamson Unavailable [phone] Allergies Allergen (clinical drug ingredient) Drug/Non Drug [...] Notes: Nonsmoker; no sig alcohol Originally from [place] and [place] Vital Signs Blood pressure systolic 00 mm Hg 07/11/19 24 Blood pressure diastolic 00 mm Hg 024 Height 71 in 07/11/2023 Weight 232 lbs 07/11/2023 BMI 32.35 kg/m2 07/11/2023 Encounters Encounter Location Date Provider Diagnosis [facility] [address] [place] [address] 07/11/2023 Joel Garcia Other cirrhosis of liver [...] Appt Details Follow Up: 1 Year, Reason: Provider Name:Joel Garcia , 10/17/2024 10:40:00 AM, [address] [place] [address], [address], [place], [address], Progress Notes * JAROD VEGA TDOB:[birth year] (83 yo M)Acc No.[id number]:07/11/2023 Progress Notes Patient:?JAROD VEGA Provider:?Joel Garcia MD :1940???Age:83 Y???Sex:Male Robbi e:07/11/2023 Address:[address] [place] [address], [place], [place] Pcp:Arnaldo Nichols Subjective: * Chief Complaints: * [...] retired. ???Nonsmoker; no sig alcohol Originally from [place] and [place]. * Medications:?TakingFinasteri de 5 MG Tablet 1 [...] * Treatment: * Procedure Codes:?1036F TOBAC CO NON-AYNXI3295 BP SCR NOT PRFRM REC REASON NOS * Preventive Medicine:? ??Counseling:?Care goal follow-up plan:?Above Normal BMI Follow-up?Giving encouragement to exercise,?BMI management provided?Yes.? * Follow Up:?1 Year * * Sign off status: Completed true * Provider:?Joel Garcia MD Date:? 024 Generated for Paul gomez/Gilbert/Jarodsmitting on:?08/14/2024 09:59 AM EDT History and Physical [...]
--- OUTSIDE RECORDS SUMMARY | 2024-08-14 10:00 | XMS_ITS | Patient Health Record ---
Author Organization [facility] Address [address] [facility] [address] Care Team Providers Care Checker Loader Name Role Phone Arnaldo Nichols Primary Care Provider Unavailab Jung Ma Unavailable [phone] Allergies Allergen (clinical drug ingredient) Drug/Non Drug [...] (HH) 6.0 HEMOGLOBIN A1C (GLYCOHEMOGLO BIN) Reviewed date:08/08/2024 02:16:43 PM Interpretation: Performing Lab: Notes/Report: HEMOGLOBIN A1C % (HH) 6.0 Reason For Referral No Information Medications Medication SIG (Take, Route, Frequency, Duration) Notes Start Date End Date Status Finasteride 5 MG 1 tablet Orally Once a day for 30 day(s) Active Metoprolol Succinate ER 25 MG 1 tablet Orally Once a day for 30 day(s) Not-Taking Eliquis 2.5 MG as directed Orally Active Extra Depth Orthopedic Shoes (1 Pair) with Customized Heat Molded Multidensity Innersoles (3 Pair) as directed Dx: NIDDM/Polyneuropathy (E11.42), Hammertoe Foot Deformity (M20.41,M20.42), Preulcerative Skin Lesion(s) (L85.1 Active Kerendia 20 MG 1 tablet Orally Once a day for 30 day(s) Active Furosemide 40 MG 1 tablet Orally Once a day for 30 day(s) Active Advair Diskus 100-50 MCG/ACT 1 puff Inhalation Twice a day Not-Taking Breo Ellipta Active Ammonium Lactate 12 % 1 application [...] Once a day for 10 day(s) Active Tamsulosin HCl 0.4 MG 1 capsule Orally O nce a day for 30 day(s) Active Social [...] Problem Acquired hammer toe of right foot (4177488614919863 ) Other hammer toe(s) (acquired), right foot (M20.41) Active confirmed Problem Acquired hammer toe of left foot (9370403474423936 ) Other hammer toe(s) (acquired), left foot (M20.42) Active confirmed Problem Polyneuropathy due to type 2 diabetes mellitus (225515241) Type 2 diabetes mellitus with diabetic polyneuropathy (E11.42) Active confirmed Vital Signs Blood pressure diastolic 68 mm Hg 08/08/2024 Height 5ft 11in in 08/08/2024 Blood pressure systolic 131 mm Hg 08/08/2024 Weight 250 lbs 08/08/2024 BMI 34.86 kg/m2 08/08/2024 Procedures Procedure Date Ordered Date Performed Result Body Sit e 43586-YDPCORZ NAIL, 1-5 11/13/2023 N/A 46800-MYYD SKIN LESIONS, OVER 4 11/13/2023 N/A Q3799-QMEJMTNU DYSTROPHIC NAILS ANY # 11/13/2023 N/A 44334-TDUOPXY NAIL, 1-5 02/14/2024 N/A 76944-FYSW SKIN LESIONS, OVER 4 02/14/2024 N/A V7678-ONDXHCEA DYSTROPHIC NAILS ANY # 02/14/2024 N/A 08339-AHVSBOU NAIL, 1-5 05/15/2024 N/A 08346-CSGV SKIN LESIONS, OVER 4 05/15/2024 N/A A7320-BSXHEMHU DYSTROPHIC NAILS ANY # 05/15/2024 N/A 15612-NVMWDDY NAIL, 1-5 08/08/2024 N/A 16648-FLAV SKIN LESIONS, OVER 4 08/08/2024 N/A Q3682-GJNIIBBF DYSTROPHIC NAILS ANY # 08/08/2024 N/A Encounters Encounter Location Date Provider Diagnosis [address] [address] 11/13/2023 Jung Guillermina Type 2 diabetes mellitus with diabetic polyneuropathy E11.42 ; Tinea unguium B35.1 and Xerosis of skin L85.[address] [address] 02/14/2024 Jung Guillermina Type 2 diabetes mellitus with diabetic polyneuropathy E11.42 ; Tinea unguium B35.1 ; Other hammer toe(s) (acquired), right foot M20.41 ; Other hammer toe(s) (acquired), left foot M20.42 and Xerosis of skin L85.[address] [address] 05/15/2024 Jung Guillermina Type 2 diabetes mellitus with diabetic polyneuropathy E11.42 and Tinea unguium B35.[address] [address] 08/08/2024 Jung Guillermina Type 2 diabetes mellitus with [...] 08/08/2024 Tinea unguium (ICD-10 - B35.1) 08/08/2024 Type 2 diabetes mellitus with diabetic polyneuropathy (ICD-10 - E11.42) 08/08/2024 Other hammer toe(s) (acquired), right foot (ICD-10 - M20.41) 02/14/2024 Other hammer toe(s) (acquired), right foot (ICD-10 - M20.41) Patient Educated with: DIABETIC FOOT CARE INSTRUCTIONS. pdf (DIABETIC FOOT CARE INSTRUCTIONS. pdf) 02/14/2024 Other hammer toe(s) (acquired), left foot (ICD-10 - M20.42) 11/13/2023 Xerosis of skin (ICD-10 - L85.3) 08/08/2024 Other hammer toe(s) (acquired), left foot (ICD-10 - M20.42) 02/14/2024 Xerosis of skin (ICD-10 - L85.3) Plan Of Treatment Pending Test Test Name Order Date 93160-MNLESMQ NAIL, -06/05/2023 66048-FTDQTWL NAIL, -11/13/2023 90357-EGYELYG NAIL, -02/14/2024 10993-RFIGLHC NAIL, -05/15/2024 02716-NPBXNHO NAIL, -08/08/2024 35393-RDXK SKIN LESIONS, OVER 4 08/09/19 25 20985-XCVY SKIN LESIONS, OVER 4 05/15/19 25 10930-KRLV SKIN LESIONS, OVER 4 02/14/20 24 16578-TOEC SKIN LESIONS, OVER 4 06/05/19 24 82923-MFSA SKIN LESIONS, OVER 4 11/13/19 24 L3396-QXOVIFNQ DYSTROPHIC NAILS ANY # M1273-PVNDUXMD DYSTROPHIC NAILS ANY # Z1668-VTUVCHBT DYSTROPHIC NAILS ANY # G2864-AGDZIOMS DYSTROPHIC NAILS ANY # Y6251-MADULSSO DYSTROPHIC NAILS ANY # Next Appt Details Provider Name:Jung Soares Guillermina , 11/11/2024 11:30:00 AM, [address] [facility], [address], [place], [address], Insurance Providers Payer Name Payer Address Payer Phone Subscriber Number Group Number Insured Name Patient Relationship to Insured Coverage Start Date Coverage End Date Medicare National [employer] [address] [facility] [place] [place] [address] [id number] Jarod An Self - patient is the insured [facility] Johana GardnerahMYA cantu [id number] [phone] [id number] Jarod An Self - patient is the insured Medical (General) History Medical History History ICD Code asthma Diabetic High blood pressure HIV Kidney disease Numbness Surgical History Surgery Date(Month/Year) Left hip replacement 2019
[2024-08-14 10:03] LABS: Estimated Average Glucose 126 mg/dL; Hemoglobin A1C 173.9851 umol/L; Total Hemoglobin (HGBA1C) 4097.8095 umol/L
[2024-08-14 10:04] LABS: Alanine Aminotransferase 22 U/L (0-40); Albumin Level 3.6 g/dL (3.5-5.0); Alkaline Phosphatase 71 U/L (39-117); Anion Gap 11 (12-20); Aspartate Amino Transferase 30 U/L (5-37); Bilirubin Total 1.3 mg/dL (0.0-1.0); Blood Urea Nitrogen 22 mg/dL (9-16); Calcium 8.8 mg/dL (8.4-10.2); Carbon Dioxide 25 mmol/L (22-29); Chloride 109 mmol/L (96-108); Cholesterol 179 mg/dL (<200); Estimated Glomerular Filt Rate 42; Glucose Fasting 124 mg/dL (60-99); HDL Cholesterol 75 mg/dL (>40); LDL Cholesterol Calculated 89 mg/dL (<100); Potassium 4.6 mmol/L (3.3-5.1); Sodium 140 mmol/L (135-145); Total Protein 6.9 g/dL (6.5-8.0); Triglycerides 76 mg/dL (<150)
[2024-08-18 16:24] LABS: Absolute CD3 Count 1502 cells/uL (840-3060); Absolute CD4 Count 608 cells/uL (490-1740); Absolute CD8 Count 883 cells/uL (180-1170); Absolute Lymphocytes 1688 cells/uL (850-3900); CD4 CD8 Ratio 0.69 (0.86-5.00); Percent CD3 Cells 89 % (57-85); Percent CD4 Cells 36 % (30-61); Percent CD8 Cells 52 % (12-42)
== END 2024-08-14 09:20 | disposition home or self-care (01) ==
LOC: HO.LAB 09:19
PROVIDERS: Internal Medicine; PCP Physician Assistant; Visit Provider Physician Assistant
DX: E78.2 Mixed hyperlipidemia (principal); E11.65 Type 2 diabetes mellitus with hyperglycemia; B20 Human immunodeficiency virus [HIV] disease
CPT/HCPCS: 36415; 80053; 80061; 81001; 83036; 85027; 86359; 86360

== ENCOUNTER 2024-08-28 14:10 | Outpatient (AMB) | payer MEDICARE, OTHER, SELFPAY ==
--- OUTSIDE RECORDS SUMMARY | 2024-08-28 14:34 | XMS_ITS | Clinical Summary ---
Author Organization [facility] Address [address] [place] [address] Phone Care Team Providers Care Psychosocial Rehabilitation Counselor Name Role Phone Arnaldo Nichols Primary Care Provider Allergies Active Allergy Reactions Criticality Noted Date [...] chew, or split. Active ergocalciferol 1.25 MG (84183 UT) capsule Take 50,000 Units by mouth [...] [place] [address] [place] [address] Yong Ruiz MD 07/25/2024 Refill [facility] [address] [place] [address] Yong Ruiz MD 07/03/2024 Refill [facility] [address] [place] [address] Claudoi Nunez MD 07/01/2024 3:30 PM EDT Office Visit [facility] [address] [place] [address] Yong uRiz MD Stage 3a chronic kidney disease (HCC) (Primary Dx); Renal disorder due to type 2 diabetes mellitus <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); Persistent proteinuria 06/20/2024 Orders Only [facility] [address] [address] Yong Ruiz MD from Last 3 Months [...] Office Visit [facility] [address] [place] [address] [place] [address] [place] [address] Health Maintenance Due Date Last Done [...] increase to 0.3 during normal . Urine specimen (specimen) Urine specimen obtained by clean catch procedure / Unknown 06/20/2024 11:01 AM EDT 06/20/2024 11:01 AM EDT us Yong Ruiz MD LAB URINE ORDERABLES Final Re sult [place] See order comments [place] [address] * (ABNORMAL) Albumin, urine, random (06/20/2024 11:01 [...] Ruiz MD LAB URINE ORDERABLES Final Re sul Performing Organization Address [facility] de Phone Number [place] See order comments [place] [address] * (ABNORMAL) Urinalysis with microscopic (06/20/2024 11:01 AM EDT) Color Urine Yellow See orde r comments Appearance Urine Clear See order comments pH Urine 5.5 5.0 - 9.0 See order comments Glucose Urine Negative Negative mg/dL See order comments Blood, Urine Small (1+)(A) Negative See order comments Specific [place] Urine 1.015 1.005 - 1.025 See order [...] - 2 /LPF See order comments Urine specimen (specimen) Urine specimen obtained by clean catch procedure / Unknown 06/20/2024 11:01 AM EDT 06/20/2024 11:01 AM EDT Yong Ruiz MD LAB URINE ORDERABLES Final Re sult Performing Organization Address [facility] de Phone Number [place] See order comments [place] [address] * (ABNORMAL) Urinalysis (06/20/2024 11:01 AM EDT) Color Urine Yellow See orde r comments Appearance Urine Clear See order comments pH Urine 5.5 5.0 - 9.0 See order comments Glucose Urine Negative Negative mg/dL See order comments Blood, Urine Small (1+)(A) Negative See order comments Specific [place] Urine 1.015 1.005 - 1.025 See order comments Protein Urine 300 (3+)(A) Neg-Trace mg/dL See order comments Ketones, Urine Negative Negative mg/dL See order comments Nitrite, Urine Negative Negative See o rder comments Leukocyte Esterase Urine Negative Negative See order comments 06/20/2024 11:0 1 AM EDT 06/20/2024 11:01 AM EDT Yong Ruiz MD LAB URINE ORDERABLES Final Re sult Performing Organization Address City/[facility]/ZIP Co de Phone Number [place] See order comments [place] [address] * (ABNORMAL) Creatinine (06/20/2024 10:08 AM EDT) Pathologist [facility] Creatinine Serum 1.41(H) 0.5 - 1.4 mg/dL See order comments eGFR (Calc) 48 See orde r comments Comment: Chronic Kidney Disease: ??Estimated GFR < 60 mL/min/1.73m2 Severe Kidney Disease: ??Estimated GFR < 15 mL/min/1.73m2 06/20/2024 10:0 8 AM EDT 06/20/2024 10:08 AM EDT Yong Ruiz MD LAB BLOOD ORDERABLES Final Re sult [place] See order comments [place] [address] * (ABNORMAL) PTH, Intact (06/20/2024 10:08 AM EDT) Parathyroid Hormone, Intact 143.9(H) 8.7 - 77.1 pg/mL See order comments 06/20/2024 10:0 8 AM EDT 06/20/2024 10:08 AM EDT Yong Ruiz MD LAB [id number] SOLICITED RESULTS Final Result [place] See order comments [place] [address] * (ABNORMAL) Vitamin D 25 Hydroxy (06/20/2024 [...] with another method such as LC-MS/MS. Blood specimen (specimen) Venous blood / Unknown 06/20/2024 10:08 AM EDT 06/20/2024 10:08 AM EDT us Yong Ruiz MD LAB BLOOD ORDERABLES Final Re sult [place] See order comments [place] [address] * (ABNORMAL) CBC and Differential (06/20/2024 10:08 [...] order comments [place] [address] * (ABNORMAL) BUN (06/20/2024 10:08 AM EDT) BUN 18(H) 9 - 16 mg/dL See order comments 06/20/2024 10:0 8 AM EDT 06/20/2024 10:08 AM EDT us Yong Ruiz MD LAB BLOOD ORDERABLES Final Re sult Performing Organization Address [facility] de Phone Number [place] See order comments [place] [address] * Phosphorus (06/20/2024 10:08 AM EDT) Phosphorus, Serum 3.7 2.7 - 4.5 mg/dL See order comments Blood specimen (specimen) Venous blood / Unknown 06/20/2024 10:08 AM EDT 06/20/2024 10:08 AM EDT us Yong Ruiz MD LAB BLOOD ORDERABLES Final Re sult Performing Organization Address [facility] de Phone Number [place] See order comments [place] [address] * Magnesium (06/20/2024 10:08 AM EDT) Magnesium 2.0 1.6 - 2.6 mg/dL See order comments Blood specimen (specimen) Venous blood / Unknown 06/20/2024 10:08 AM EDT 06/20/2024 10:08 AM EDT us Yong Ruiz MD LAB BLOOD ORDERABLES Final Re sult Performing Organization Address [facility] de Phone Number [facility] See order comments [place] [address] * Calcium (06/20/2024 10:08 AM EDT) Calcium 9.1 8.4 - 10.2 mg/dL See order comments Blood specimen (specimen) Venous blood / Unknown 06/20/2024 10:08 AM EDT 06/20/2024 10:08 AM EDT us Yong Ruiz MD LAB BLOOD ORDERABLES Final Re sult Performing Organization Address [facility]/ZIP Co de Phone Number See order comments [place] [address] * (ABNORMAL) Albumin (06/20/2024 10:08 AM EDT) Albumin 3.4(L) 3.5 - 5.0 g/dL See order comments Blood specimen (specimen) Venous blood / Unknown 06/20/2024 10:08 AM EDT 06/20/2024 10:08 AM EDT Yong Ruiz MD LAB BLOOD ORDERABLES Final Re sult Performing Organization Address [facility] Co de Phone Number [place] See order comments [place] [address] * (ABNORMAL) Electrolyte panel (06/20/2024 10:08 AM [...] ORDERABLES Final Re sult Performing Organization Address [facility] Co de Phone Number See order comments [place] [address] * Hemoglobin A1c (06/27/2019 9:20 AM EDT) Estimated Average Glucose 111 MG/DL [place] Comment: eAG = Estimated average glucose which is %A1C expressed as average glucose, using the formula of the E2S-Khhxhzd Average Glucose study (ADAG), Diabetes Care, Vol.31,#8, [...] [place] LAB BLOOD ORDERABLES [facility] from Last 3 Months or Most Recently Relevant to Health Maintenance Insurance Medicare [facility] [place] [address] Medicare [facility] [place] [address] Care Teams Psychosocial Rehabilitation Counselor Relationship Specialty Start Date End Date Arnaldo Nichols PA [address] [place] [address], [address] [place] [address] PCP - General Physician Fork Lift Technician 07/02/20
--- OUTSIDE RECORDS SUMMARY | 2024-08-28 14:34 | XMS_ITS | Encounter Summary ---
Author Organization [facility] Address [address] [facility] [address] [place] [address] Phone Care Team Providers Care Classification And Treatment Director Name Role Phone Arnaldo Nichols Primary Care Provider [phone] Encounter Details Date Type Department Care Team (Late Contact Info) Description 07/07/2020 Orders Only [facility] [address] [facility] [address] [place] [address] Provider, MD Galdino [address] [place] [address] Social History Tobacco Use Types Packs/Day [...] Visit [facility] [address] [place] [phone] Yong Ruiz MD [address] [facility] [address] [place] [address] documented as of this encounter Procedures Procedure [...] on filedocumented in this encounter Care Teams Classification And Treatment Director Relationship Specialty Start Date End Date Arnaldo Nichols PA [address] [place] [address], [address] [place] [address] PCP - General Physician Tractor Operator 07/02/20 documented as of this encounter
--- OUTSIDE RECORDS SUMMARY | 2024-08-28 14:34 | XMS_ITS | Patient Health Record ---
Author Organization [facility] Address [address] [place] [address] Care Team Providers Care Computer Clerk Name Role Phone Arnaldo Nichols Primary Care Provider Unavailab Joel Quiroz Unavailable [phone] Allergies Allergen (clinical drug ingredient) Drug/Non Drug [...] Notes: Nonsmoker; no sig alcohol Originally from [place] Nonsmoker; no sig alcohol Originally [place] Nonsmoker; no sig alcohol Originally [place] Nonsmoker; no sig alcohol Originally [place] Nonsmoker; no sig alcohol Originally [place] Nonsmoker; no sig alcohol Originally [place] Nonsmoker; no sig alcohol Originally [place] Nonsmoker; no sig alcohol Originally from [place] Problems Problem Type SNOMED Code ICD Code Onset Dates Problem Status W/U Status Risk Notes Problem 201340717 Encounter for screening for malignant neoplasm of colon (Z12.11) Active confirmed Problem 84336249 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) Active confirmed Problem Diverticulosis of sigmoid colon (151338371) Diverticulosis of sigmoid colon (K57.30) Active confirmed Problem 79746556 Hypertension, unspecified type (I10) Active confirmed Problem 058009283 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 Problem 841443446 Positive colorectal cancer screening using Cologuard test (R19.5) Active confirmed Problem 90693500 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) Active confirmed Problem 07404040 IPMN (intraducta l papillary mucinous neoplasm) (D49.0) [...] Provider Name:Joel Garcia , 10/17/2024 10:40:00 AM, [address] [place] [address], [address], [place], [address], Insurance Providers Payer Name Payer Address Payer Phone Subscriber Number Group Number Insured Name Patient Relationship to Insured Coverage Start Date Coverage End Date [employer] [address] [place] [address] [phone] [id number] GIFTY VEGA Self - [place] [address] [id number] GIFTY VEGA Self - patient is the insured Medical (General) History Medical History History ICD Code Denies MD,CVA,renal disease Hypertension 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 Frieda milan Takes Finasteride for hair loss Colonoscopy at age 72 in [place], [place]--polyps were removed--not clear as to what [...] [facility] Cardiology--on [facility] CT of abdomen in June [...] replacement 05/2019 Dr. Cordoba Cholecystectomy in 10/2020 [facility] Dr. Jimenez was negative for any lesions nor gallstones
--- OUTSIDE RECORDS SUMMARY | 2024-08-28 14:35 | XMS_ITS ---
[facility] Address [address] [facility] [place] [address] Care Team Providers Care Agricultural Consultant Name Role Phone Arnaldo Nichols Primary Care Provider Unavailab Jung Ma Unavailable [phone] Allergies Allergen (clinical drug ingredient) Drug/Non Drug [...] Ordered Date Performed Result Body Sit e 06469-OZRNMKI NAIL, 1-5 08/08/2024 N/A 82828-VHJN SKIN LESIONS, OVER 4 08/08/2024 N/A W0690-YIETXESP DYSTROPHIC NAILS ANY # 08/08/2024 N/A Encounters Encounter Location Date Provider Diagnosis [facility] [address] [address] 08/08/2024 Jung Sarmiento Type 2 diabetes mellitus [...] Treatment Pending Test Test Name Order Date 24699-NVNVGUA NAIL, 1-5 08/08/2024 24929-ZULD SKIN LESIONS, OVER 4 08/09/19 W9121-YFNEABCJ DYSTROPHIC NAILS ANY # Next Appt Details Follow Up: prn, Reason: Provider Name:Jung Sarmiento , 11/11/2024 11:30:00 AM, [address], [place], [address], Procedure Notes * Category Sub-Category Detail Notes [...] instrumentation by the physician of record - 83547 Debride Nails 1-5 Procedure: Due to the [...] necessary to maintain effective symptomatic relief - 38504 Nail Reduction Nail Reduction (-27) Trimming o [...] * Jarod ANDOB: [birth year] (84 yo M)Acc No.[id number]:08/08/2024 Progress Note Patient:?Jarod AN Provider:?Jung Sarmiento DPM :1940???Age:84 Y???Sex:Male Robbi e:08/08/2024 Address:[address] [place] [address], [address], [facility] Pcp:Arnaldo Nichols Subjective: * Chief Complaints: * [...] necessary to maintain effective symptomatic relief - 40997.?Keratoma Treatment:?Parring or Cutting of Benign Hyperkeratotic Lesion(s)?(-57) [...] instrumentation by the physician of record - 83155.?Nail Reduction:?Nail Reduction?(-27) Trimming of all dystrophic nails [...] ING DYSTROPHIC NAILS ANY #, Modifiers: XS 70162 DEBRIDE NAIL, 1-5, Modifiers: XS 05088 TRIM SKIN LESIONS, OVER 4, Modifiers: XS [...] Provider:?Jung Sarmiento DPM Date:?2024 Generated for Paul gomez/Gilbert/Jarodsmitting on:?08/28/2024 02:34 PM EDT History and Physical Notes * [...]
--- OUTSIDE RECORDS SUMMARY | 2024-08-28 14:35 | XMS_ITS ---
Author Organization [facility] Address [address] [place] [address] Care Team Providers Care Center Administrator Name Role Phone Arnaldo Nichols Primary Care Provider UnavailJoel Williamson Unavailable [phone] Allergies Allergen (clinical drug ingredient) Drug/Non Drug [...] Notes: Nonsmoker; no sig alcohol Originally from [place] and [place] Vital Signs Blood pressure systolic 00 mm Hg 07/11/19 24 Blood pressure diastolic 00 mm Hg 024 Height 71 in 07/11/2023 Weight 232 lbs 07/11/2023 BMI 32.35 kg/m2 07/11/2023 Encounters Encounter Location Date Provider Diagnosis [facility] [address] [place] [address] 07/11/2023 Joel Garcia Other cirrhosis of liver [...] questions I can be of assistance with. Jaord was comfortable with this plan. Thank you again for allowing me to participate in Jarod's care. I shall continue to keep you advised of his progress. Plan Of Treatment Next Appt Details Follow Up: 1 Year, Reason: Provider Name:Joel Garcia , 10/17/2024 10:40:00 AM, [address] [place] [address], [address], [place], [address], Progress Notes * JAROD VEGA TDOB:[birth year] (83 yo M)Acc No.[id number]:07/11/2023 Progress Notes Patient:?JAROD VEGA Provider:?Joel Garcia MD :1940???Age:83 Y???Sex:Male Robbi e:07/11/2023 Address:[address] [place] [address], [place], [place] Pcp:Arnaldo Nichols Subjective: * Chief Complaints: * [...] retired. ???Nonsmoker; no sig alcohol Originally from [place]. * Medications:?TakingFinasteri de 5 MG Tablet 1 [...] * Treatment: * Procedure Codes:?1036F TOBAC CO NON-FKQAE7975 BP SCR NOT PRFRM REC REASON NOS * Preventive Medicine:? ??Counseling:?Care goal follow-up plan:?Above Normal BMI Follow-up?Giving encouragement to exercise,?BMI management provided?Yes.? * Follow Up:?1 Year * * Sign off status: Completed true * Provider:?Joel Garcia MD Date:? 024 Generated for Paul gomez/Gilbert/Karolinaitting on:?08/28/2024 02:34 PM EDT History and Physical [...]
--- OUTSIDE RECORDS SUMMARY | 2024-08-28 14:35 | XMS_ITS | Patient Health Record ---
Author Organization [facility] Address [address] [facility] [place] [address] Care Team Providers Care Credit Verification Clerk Name Role Phone Arnaldo Nichols Primary Care Provider Unavailab Jung Ma Unavailable [phone] Allergies Allergen (clinical drug ingredient) Drug/Non Drug [...] Problem Acquired hammer toe of right foot (0600845864428449 ) Other hammer toe(s) (acquired), right foot (M20.41) Active confirmed Problem Acquired hammer toe of left foot (0034339714924415 ) Other hammer toe(s) (acquired), left foot (M20.42) Active confirmed Problem Polyneuropathy due to type 2 diabetes mellitus (936604031) Type 2 diabetes mellitus with diabetic polyneuropathy (E11.42) Active confirmed Vital Signs Blood pressure diastolic 68 mm Hg 08/08/2024 Height 5ft 11in in 08/08/2024 Blood pressure systolic 131 mm Hg 08/08/2024 Weight 250 lbs 08/08/2024 BMI 34.86 kg/m2 08/08/2024 Procedures Procedure Date Ordered Date Performed Result Body Sit e 03148-SNEEEGY NAIL, 1-5 11/13/2023 N/A 94525-MQUC SKIN LESIONS, OVER 4 11/13/2023 N/A F6491-NTGTLXSY DYSTROPHIC NAILS ANY # 11/13/2023 N/A 82969-TCOZIHO NAIL, 1-5 02/14/2024 N/A 84731-OAMA SKIN LESIONS, OVER 4 02/14/2024 N/A T8201-QHPCXMDB DYSTROPHIC NAILS ANY # 02/14/2024 N/A 27546-DQNYKED NAIL, 1-5 05/15/2024 N/A 09000-WKZM SKIN LESIONS, OVER 4 05/15/2024 N/A C9231-YCZFPPKF DYSTROPHIC NAILS ANY # 05/15/2024 N/A 58786-MATBXKR NAIL, 1-5 08/08/2024 N/A 48151-YOLH SKIN LESIONS, OVER 4 08/08/2024 N/A T9870-BLYPYJQJ DYSTROPHIC NAILS ANY # 08/08/2024 N/A Encounters Encounter Location Date Provider Diagnosis [address] [address] 11/13/2023 Jung Guillermina Type 2 diabetes mellitus with diabetic polyneuropathy E11.42 ; Tinea unguium B35.1 and Xerosis of skin L85.[address] [address] 02/14/2024 Jung Guillermina Type 2 diabetes mellitus with diabetic polyneuropathy E11.42 ; Tinea unguium B35.1 ; Other hammer toe(s) (acquired), right foot M20.41 ; Other hammer toe(s) (acquired), left foot M20.42 and Xerosis of skin L85.[address] [address] 05/15/2024 Jung Guillermina Type 2 diabetes mellitus with diabetic polyneuropathy E11.42 and Tinea unguium B35.[address] [address] 08/08/2024 Jung Guillermina Type 2 diabetes mellitus [...] Treatment Pending Test Test Name Order Date 56836-RSYXYOM NAIL, -06/05/2023 14500-CXUEECF NAIL, -11/13/2023 50030-RMFUEFD NAIL, -02/14/2024 62850-XWPOOLT NAIL, -05/15/2024 70822-DVIHJKT NAIL, -08/08/2024 72204-FIQA SKIN LESIONS, OVER 4 08/09/19 25 46482-QBOD SKIN LESIONS, OVER 4 05/15/19 25 23960-YGIF SKIN LESIONS, OVER 4 02/14/20 24 52799-BXXG SKIN LESIONS, OVER 4 06/05/19 24 17358-VFIO SKIN LESIONS, OVER 4 11/13/19 24 J0692-XNSKIDBZ DYSTROPHIC NAILS ANY # G7938-QRBBDOQD DYSTROPHIC NAILS ANY # G1079-VQTSUXPS DYSTROPHIC NAILS ANY # Q6296-VUTGROVK DYSTROPHIC NAILS ANY # U3715-MHWYMYTW DYSTROPHIC NAILS ANY # Next Appt Details Provider Name:Jung Soares Guillermina , 11/11/2024 11:30:00 AM, [address] [facility], [address], [place], [address], Insurance Providers Payer Name Payer Address Payer Phone Subscriber Number Group Number Insured Name Patient Relationship to Insured Coverage Start Date Coverage End Date Medicare National [employer] [address] [facility] [place] [address] [id number] Jarod An Self - patient is the insured [facility] Johana GardnerahMYA cantu [id number] Jarod An Self - patient is the insured Medical (General) History Medical History History ICD Code asthma Diabetic High blood pressure HIV Kidney disease Numbness Surgical History Surgery Date(Month/Year) Left hip replacement 2019
--- OUTSIDE RECORDS SUMMARY | 2024-08-28 14:35 | XMS_ITS ---
Author Organization [facility] Address [address] [facility] [place] [address] Care Team Providers Care Community Relations Advisor Name Role Phone Arnaldo Nichols Primary Care Provider Unavailab Jung Ma Unavailable [phone] Allergies Allergen (clinical drug ingredient) Drug/Non Drug [...] Ordered Date Performed Result Body Sit e 66824-XEZFFDO NAIL, 1-05/15/2024 N/A 29413-BLWX SKIN LESIONS, OVER 4 05/15/2024 N/A B3817-KEXCUZVX DYSTROPHIC NAILS ANY # 05/15/2024 N/A Encounters Encounter Location Date Provider Diagnosis [facility] [place] [address] [place] [address] 05/15/2024 Jung Sarmiento Type 2 diabetes mellitus with diabetic polyneuropathy E11.42 and Tinea unguium B35.1 Assessments Encounter Date Diagnosis (ICD Code) Assessment Notes Treatment Notes Treatment Clinical Notes Section Notes 05/15/2024 Type 2 diabetes mellitus with diabetic polyneuropathy (ICD-10 - E11.42) 05/15/2024 Tinea unguium (ICD-10 - B35.1) Plan Of Treatment Pending Test Test Name Order Date 96588-GCWJEZK NAIL, 1-5 05/15/2024 19880-TMCF SKIN LESIONS, OVER 4 05/15/19 25 N4393-OJQLKHOY DYSTROPHIC NAILS ANY # Next Appt Details Follow Up: prn, Reason: Provider Name:Jung Sarmiento , 11/11/2024 11:30:00 AM, [address] [address], [place], [address], Procedure Notes * Category Sub-Category Detail Notes [...] instrumentation by the physician of record - 56047 Debride Nails 1-5 Procedure: Due to the [...] necessary to maintain effective symptomatic relief - 25398 Nail Reduction Nail Reduction (-27) Trimming o [...] * Jarod ANDOB: [birth year] (83 yo M)Acc No.[id number]:05/15/2024 Progress Note Patient:?Jarod AN Provider:?Jung Sarmiento DPM :1940???Age:83 Y???Sex:Male Robbi e:05/15/2024 Address:[address] [place] [address], [address], [facility] Pcp:Arnaldo Nichols Subjective: * Chief Complaints: * [...] necessary to maintain effective symptomatic relief - 66837.?Keratoma Treatment:?Parring or Cutting of Benign Hyperkeratotic Lesion(s)?(-57) [...] instrumentation by the physician of record - 68182.?Nail Reduction:?Nail Reduction?(-27) Trimming of all dystrophic nails [...] ING DYSTROPHIC NAILS ANY #, Modifiers: XS 80092 DEBRIDE NAIL, 1-5, Modifiers: XS 74064 TRIM SKIN LESIONS, OVER 4, Modifiers: XS * Follow Up:?prn * Images: * Sign off status: Completed true * Provider:?Jung Sarmiento DPM Date:?2024 Generated for Paul gomez/Gilbert/Stephenie on:?08/28/2024 02:34 PM EDT History and Physical [...]
--- OUTSIDE RECORDS SUMMARY | 2024-08-28 14:35 | XMS_ITS ---
Author Organization [facility] Address [address] [facility] [place] [address] Care Team Providers Care Flask Handler Name Role Phone Arnaldo Nichols Primary Care Provider Unavailab Jung Ma Unavailable [phone] Allergies Allergen (clinical drug ingredient) Drug/Non Drug [...] Ordered Date Performed Result Body Sit e 44949-SOIPCUR NAIL, 1-5 02/14/2024 N/A 99311-GVIB SKIN LESIONS, OVER 4 02/14/2024 N/A Y0288-NYZROQGD DYSTROPHIC NAILS ANY # 02/14/2024 N/A Encounters Encounter Location Date Provider Diagnosis [facility] [address] [address] 02/14/2024 Jung Sarmiento Type 2 diabetes mellitus [...] INSTRUCTIONS.pdf) Pending Test Test Name Order Date 13518-ELMIXHM NAIL, 1-5 02/14/2024 70984-HENN SKIN LESIONS, OVER 4 02/14/20 24 B4379-EOLYJEYC DYSTROPHIC NAILS ANY # Next Appt Details Follow Up: prn, Reason: Provider Name:Jung Sarmiento , 11/11/2024 11:30:00 AM, [address] [facility], [address], [place], [address], Procedure Notes * Category Sub-Category Detail Notes Keratoma Treatment Parring or Cutting o f Benign Hyperkeratotic Lesion(s) (-57) More than 4 Lesions - The Benign hyperkeratotic lesions, as described above were pared, and/or cut utilizing a sterile 15 blade, tissue nippers, and/or dremel - 66204 Debride Nails 1-5 Procedure: Performance of this nail treatment by a nonprofessional would put this patients foot and overall health at risk. Therefore, nail debridement was performed extensively to reduce/remove overall nail length, girth, thickness, subungual debris, and necrotic tissue, by manual and/or electrical means through the use of a nail nipper and/or dremel-type custom grinder, to a more viable healthy nail plate or bed tissue 1-5. Silver nitrate used for any petechial bleeding as necessary. Definitive antifungal treatment options have been reviewed and discussed with the patient. The patient chooses, no pharmaceutical tx - 88398 Nail Reduction Nail Reduction (-27) Trimming o f dystrophic nails performed to reduce/remove overall nail length and girth, by manual and electrical means with use of a nail nipper and/or dremel, to more viable healthy nail plate or bed tissue, any number - G0127 Progress Notes * Jarod ANDOB: [birth year] (83 yo M)Acc No.[id number]:02/14/2024 Progress Note Patient:?Jarod AN Provider:?Jung Sarmiento DPM :1940???Age:83 Y???Sex:Male Robbi e:02/14/2024 Address:[address] [place] [address], [address], [id number] Pcp:Arnaldo Nichols Subjective: * Chief Complaints: * [...] use of a nail nipper and/or dremel-type custom grinder, to a more viable healthy nail plate or bed tissue 1-5. Silver nitrate used for any petechial bleeding as necessary. Definitive antifungal treatment options have been reviewed and discussed with the patient. The patient chooses, no pharmaceutical tx - 53150.?Keratoma Treatment:?Parring or Cutting of Benign Hyperkeratotic Lesion(s)?(-57) More than 4 Lesions - The Benign hyperkeratotic lesions, as described above were pared, and/or cut utilizing a sterile 15 blade, tissue nippers, and/or dremel - 67737.?Nail Reduction:?Nail Reduction?(-27) Trimming of dystrophic nails performed to reduce/remove overall nail length and girth, by manual and electrical means with use of a nail nipper and/or dremel, to more viable healthy nail plate or bed tissue, any number - G0127.? * Procedure Codes:?G0127 JATINDER ING DYSTROPHIC NAILS ANY #, Modifiers: XS 00039 DEBRIDE NAIL, 1-5, Modifiers: XS 51261 TRIM SKIN LESIONS, OVER 4, Modifiers: XS [...] Sarmiento DPM Date:?2023 Generated for Paul gomez/Gilbert/eTransmitting on:?08/28/2024 02:34 PM EDT History and Physical [...]
--- NOTE | 2024-08-28 14:53 | A.OFFVIS_ITS ---
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: No Accompanied by: Self / Same As Patient Allergies clarithromycin [From BIAXIN] Allergy (Unknown, Verified 08/28/24 15:13) ANAPHYLAXIS Medication List - Last Reconciled 08/28/24 by Arnaldo Nichols PA-C ioesgpva-tneejyicqipo-pikhkfp 600-50-300 mg (Triumeq) 1 tab PO DAILY 90 days amlodipine 2.5 mg PO DAILY apixaban (Eliquis) 2.5 mg PO BID atorvastatin 20 mg PO BEDTIME finasteride 5 mg orally take on Mondays, Wednesdays, Fridays 90 days finerenone (Kerendia) 20 mg PO DAILY fluticasone furoate-vilanterol 100-25 mcg/dose (Breo Ellipta) 1 inh inhalation DAILY furosemide 20 mg PO BID losartan 100 mg PO DAILY metformin 500 mg PO DAILY tamsulosin 0.4 mg PO BEDTIME HPI AWV HPI Details Patient is a 84 year old male here today for an annual wellness visit? Patient has a past medical history significant for HIV, hypertension, obstructive uropathy with Stent placement, CKD stage 3, paroxysmal AFIB. Today we discussed patient's end of life planning and comprehensive care plan which was scanned into patient's documents. Colorectal cancer screening: aged out HDL vaccines: Up-to-date with all vaccines HPI Comments History of Present Illness Details reviewed past medical history- yes reviewed surgical / hospitalization history- yes reviewed current medications- yes reviewed family history- yes home safety throw rugs? grab bars? raised toilet seat? working smoke detectors? activities of daily living difficulty bathing or showering? difficulty dressing? difficulty using the toilet? difficulty getting in and out of bed? difficulty walking? receives help from other person's with any of the above tasks? instrumental activities of daily living uses telephone - gets to place out of walking distance- go shopping for groceries- repairs own meals- does own minor home maintenance- does own laundry- does own housework- manages own money- currently takes medication- end of life planning discussed advanced directives- yes advanced directives on file? discussed wishes expressed in advanced directives. fall risk have you had any falls with injuries in the past year? have you had 2 or more falls in the past year? 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 Mother No problems noted. Social History Housing: House Alcohol intake: never Patient Tobacco Use Status: Never used Tobacco e-Cigarette/Vaping Use: Never Used Current occupational status: retired Cognitive needs: No Hearing needs: No Vision needs: No Questionnaire Mini Mental State Exam (MMSE) Orientation What is the (year) (season) (date) (day) (month)?: year Where are we (state) (county) (town or city) (hospital) (floor)?: town or city Attention & Calculation (CHOOSE ONE) Spell WORLD backwards (DLROW): 1 letter Score Score: 3 Activity of Daily Living Bathing - sponge bath, tub bath or shower: receives no assistance (gets in/out by self, if usual bathing means Dressing - getting clothes from closets & drawers, including inner/outer garments & fasteners.: gets clothes & gets completely dressed without help Toileting - going to the 'toilet room' for urine/bowel elimination & cleaning self/arranging clothes: goes to toilet room, cleans self, arranges clothes without help Transfer: moves in & out of bed and chair without help (may use support object) Continence: controls urination/bowel movements completely by self Feeding: feeds self without help Total Score: 0 Information obtained from: patient Using telephone: independent Traveling: independent Shopping: independent Preparing meals: independent Housework: independent Taking medicine: independent Managing money: independent Physical Exam Vital Signs: Last Vital Signs Temp 97.1 F 08/28/24 15:01 Pulse 63 08/28/24 15:01 BP 148/72 H 08/28/24 15:01 Pulse Ox 98 08/28/24 15:01 Oxygen Delivery Method Room Air 08/28/24 15:01 BMI result Body Mass Index 32.0 HEENT Other: hearing screening whisper test- passed Eyes Other: vision screening- 20 20 OS OD OU Other: urinary incontinence? no Neuro Other: balance Romberg-normal tandem walk test- able walk-in turned test- able rise from sit to stand-within do sec Assessment & Plan Assessment & Plan (1) Annual wellness visit: Code(s): Z00.00 - Encounter for general adult medical examination without abnormal findings Plan: As per HPI (2) HTN (hypertension): Code(s): I10 - Essential (primary) hypertension Qualifiers: Hypertension type: essential hypertension Qualified Code(s): I10 - Essential (primary) hypertension Plan: Noted elevated blood pressure reading today in office. Will increase his amlodipine dose to 5 mg for better blood pressure control. Goal blood pressures to be below 140/90 Orders: Orders Microalbumin, Random (w Creat) 08/28/24 I10 - Essential (primary) hypertension Lipid Panel 08/28/24 E78.2 - Mixed hyperlipidemia Complete Blood Count no Diff 08/28/24 E11.65 - Type 2 diabetes mellitus with hyperglycemia Comprehensive [place]. Panel Fast 08/28/24 E11.65 - Type 2 diabetes mellitus with hyperglycemia Medications: New albuterol sulfate 2.5 mg (3 mL) inhalation Q6H PRN 75 mL 0RF shortness of breath or wheezing 15 days J45.20 - Mild intermittent asthma, uncomplicated amlodipine 5 mg PO DAILY 90 tabs 1RF 90 days I10 - Essential (primary) hypertension Changed From fluticasone furoate-vilanterol 100-25 mcg/dose 1 inh inhalation DAILY 60 ea 3RF J45.20 - Mild intermittent asthma, uncomplicated To fluticasone furoate-vilanterol 100-25 mcg/dose (Breo Ellipta) 1 inh inhalation DAILY 30 days 60 ea 3RF J45.20 - Mild intermittent asthma, uncomplicated Coding Level of Care Code Medicare First (G0438) Est Pt Level 3 (38781) Diagnoses Annual wellness visit Z00.00 Essential hypertension I10 Hypertension type: essential hypertension CPT Codes Advance Care Planning - Advance Care Planning discussion: On file, no changes ([id number]) Advance Care Planning - Time spent: 1-15 minutes, on File ([id number]) Advance Care Planning Advance Care Planning discussion: On file, no changes Date of discussion: 08/28/24 Forms completed: MOLST Time spent: 1-15 minutes, on File Actual minutes spent: 1
[2024-08-28 15:01] VITALS: BP 148/72; PULSE 63; TEMP 36.2; O2SAT 98; BMI 32.0
== END 2024-08-28 15:45 | disposition home or self-care (01) ==
LOC: HO.HMCH 14:10
PROVIDERS: PCP Physician Assistant; Visit Provider Physician Assistant
DX: Z00.00 Encounter for general adult medical examination without abnormal findings (principal); I10 Essential (primary) hypertension

== ENCOUNTER → 2024-08-28 14:10 | Outpatient (BNVA) | payer MEDICARE, OTHER, SELFPAY | PROVIDERS: PCP Physician Assistant; Visit Provider Physician Assistant | DX: Z00.00 Encounter for general adult medical examination without abnormal findings (principal); I10 Essential (primary) hypertension; E78.2 Mixed hyperlipidemia; E11.65 Type 2 diabetes mellitus with hyperglycemia; J45.20 Mild intermittent asthma, uncomplicated | CPT/HCPCS: 99212 ==

== ENCOUNTER 2024-10-07 13:08 | Outpatient (AMB) | payer MEDICARE, OTHER, SELFPAY ==
[2024-10-07 13:31] VITALS: BP 124/52; PULSE 72; BMI 32.1
--- NOTE | 2024-10-07 13:31 | MHC.OFFVIS ---
Vital Signs 10/07/24 13:31 Height 5 ft 11 in Weight 230 lb 2.601 oz BMI 32.1 BP 124/52 L Blood Pressure Location Lt brachial Position Sitting Pulse 72 Pulse Source Pulse Oximeter Intake Visit Reasons: 6m follow up Information Architect Required: No Allergies clarithromycin (From BIAXIN) Allergy (Unknown, Verified 10/07/24 13:33) ANAPHYLAXIS Medication List - Last Reconciled 10/07/24 by Molly Avelar NP-C doqtsagq-xknyxhhbunmc-clyqnfu 600-50-300 mg (Triumeq) 1 tab PO DAILY 90 days albuterol sulfate 2.5 mg (3 mL) inhalation Q6H PRN 15 days amlodipine 5 mg PO DAILY 90 days apixaban (Eliquis) 2.5 mg PO BID atorvastatin 20 mg PO BEDTIME Breo Ellipta 100-25 mcg/dose (fluticasone furoate-vilanterol) 1 inh inhalation DAILY 30 days NS finasteride 5 mg orally take on Mondays, Wednesdays, Fridays 90 days finerenone (Kerendia) 20 mg PO DAILY furosemide 20 mg PO BID losartan 100 mg PO DAILY metformin 500 mg PO DAILY tamsulosin 0.4 mg PO BEDTIME HPI HPI 6m follow up: Details: Jarod is an 84-year-old male with past medical history of hypertension, hyperlipidemia, diabetes, chronic kidney disease, HIV, persistent AFib who presents for follow-up. Today he reports feeling well since his last visit 04/22/2024. He does report some fatigue and still takes a nap usually once a day. He says he wakes up up to 4 times nightly to urinate which interrupts his sleep. He denies chest discomfort at rest or with activity. He has had some very mild shortness of breath with exertion. No shortness of breath at rest, PND, orthopnea or concerning edema. No presyncope, syncope, falls. No bleeding issues reported. He remains active each day. His HIV has remained stable. He follows closely with Dr. Gacria for GI, Dr. Ruiz for Nephrology and Dr. Ashton for HIV. Taking all meds as directed. 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 Mother No problems noted. Social History Housing: House Alcohol intake: never Patient Tobacco Use Status: Never used Tobacco e-Cigarette/Vaping Use: Never Used Current occupational status: retired Cognitive needs: No Hearing needs: No Vision needs: No Review of Systems Const All systems reviewed & are unremarkable except as noted in HPI and below ENT Denies dizziness Card Denies chest pain, Denies chest pain at rest, Denies chest pain with activity, Denies rapid heart rate, Denies pedal edema, Denies edema, Denies leg edema, Denies lightheadedness, Denies palpitations, Denies dyspnea, Denies dyspnea on exertion and Denies orthopnea Resp Denies cough, Denies dyspnea and Denies dyspnea on exertion GI Denies hematochezia and Denies change in stool character Musc Denies abnormal gait, Denies limited range of motion, Denies muscle cramps, Denies muscle weakness, Denies numbness, Denies radiating pain into limb, Denies stiffness and Denies tingling Neuro Denies abnormal gait, Denies dizziness, Denies numbness and Denies tingling Endo Denies palpitations Physical Exam Vital Signs: Last Vital Signs Pulse 72 10/07/24 13:31 BP 124/52 L 10/07/24 13:31 BMI result Body Mass Index 32.1 Const General: cooperative, healthy appearing, comfortable and no acute distress Orientation/consciousness: patient oriented x3 Neck Neck: Yes normal visual inspection Resp Effort & Inspection: normal respiratory effort Auscultation: clear to auscultation bilaterally, no rales, no rhonchi and no wheezes Cardio Jugular venous distension: no JVD Rate: regular rate Rhythm: regular rhythm Heart sounds: S1 normal heart sound present, S2 normal heart sound present, no gallops, no murmurs and no rubs Neuro General: patient oriented x3 Extrem Other: trace edema of lower legs General: Yes normal to inspection Psych Appearance: grossly normal Mental Status: mental status grossly normal Speech and movement: Normal speech and movement present Assessment & Plan Assessment & Plan (1) Afib: Code(s): I48.91 - Unspecified atrial fibrillation Category: Medical Qualifiers: Atrial fibrillation type: longstanding persistent Qualified Code(s): I48.11 - Longstanding persistent atrial fibrillation Plan: Chronic atrial fibrillation, asymptomatic. On Metoprolol for heart rate control and on Eliquis 2.5 mg b.i.d for anticoagulation. 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 No bleeding problems have been reported. Last Holter monitor 02/07/2024 showed AFib with average heart rate 47, 70% of the time heart rate less than 60. His metoprolol dose was initially reduced then stopped. Pulse check today shows heart rate normal range, 72 beats per minute. He does report some fatigue which is not new. Labs 08/14/2024 showed hematocrit 46.8, creatinine 1.6. Continue activity as tolerated. Continue Eliquis. Cardiology followup in 6 months, sooner if needed. (2) HTN (hypertension): Code(s): I10 - Essential (primary) hypertension Category: Medical Qualifiers: Hypertension type: essential hypertension Qualified Code(s): I10 - Essential (primary) hypertension Plan: Blood pressure goal less than 130/80. Well controlled today. Continue amlodipine, losartan, Lasix. If blood pressure does become more elevated would avoid a dose of 10 mg daily as he has had issues with chronic ankle edema. (3) CKD (chronic kidney disease): Code(s): N18.9 - Chronic kidney disease, unspecified Category: Medical Qualifiers: Chronic kidney disease stage: stage 3 (moderate) Chronic kidney disease stage 3 subtype: stage 3b (GFR 30-44) Qualified Code(s): N18.32 - Chronic kidney disease, stage 3b Plan: Follows with Dr Ruiz. (4) Abnormal echocardiogram findings without diagnosis: Code(s): R93.1 - Abnormal findings on diagnostic imaging of heart and coronary circulation Category: Medical Plan: Echo done 01/11/21 shows EF 55-60%, mild TR, mild pulm HTN, basal inferior akinetic - the report does state that the WMA was noted on review of the prior echo images. . Nuclear stress test 02/15/17 showed normal myocardial perfusion imaging. No report of anginal sounding symptoms. A repeat echocardiogram was done 01/27/2023 which shows normal EF and no regional wall motion abnormalities. Today he reports some mild shortness of breath with exertion. He is not fluid overloaded on exam. He expresses concern and will plan to update echo prior to his next visit. Plan I discussed with the patient the importance of monitoring his atrial fibrillation and ensuring his heart rate remains controlled without metoprolol. We plan to perform an echocardiogram before the next visit to assess cardiac function, especially if symptoms like shortness of breath worsen. I advised him to continue hypertension management with amlodipine and to monitor for any swelling. He should use furosemide as needed, avoiding it when going out to prevent inconvenience. We will continue to monitor his chronic kidney disease with regular nephrology follow-ups, ensuring creatinine levels remain stable. His HIV management will continue under Dr. Ashton's care. I encouraged him to maintain physical activity and report any new or worsening symptoms, particularly shortness of breath or palpitations. Orders: Orders CA echo transthoracic complete 03/17/25 I10 - Essential (primary) hypertension, I48.11 - Longstanding persistent atrial fibrillation, R93.1 - Abnormal findings on diagnostic imaging of heart and coronary circulation Patient Instructions: - Monitor heart rate and report any changes. - Plan for an echocardiogram before the next visit. - Continue taking amlodipine and monitor for swelling. - Use furosemide as needed, avoid when going out. - Follow up with nephrology for kidney disease management. - Continue HIV care with Dr. Nicholas. - Stay active and report any new or worsening symptoms. Patient was informed and verbally consented to the use of an ambient scribe for clinic note documentation during this visit. Visit time spent on chart review, interview, assessment, orders, documentation. Coding Level of Care Code Est Pt Level 4 (38851) Complex EM visit Add On G2211 Diagnoses Longstanding persistent atrial fibrillation I48.11 Atrial fibrillation type: longstanding persistent Essential hypertension I10 Hypertension type: essential hypertension Stage 3b chronic kidney disease N18.32 Chronic kidney disease stage: stage 3 (moderate) Chronic kidney disease stage 3 subtype: stage 3b (GFR 30-44) Abnormal echocardiogram findings without diagnosis R93.1 Time Spent (min) 32
--- OUTSIDE RECORDS SUMMARY | 2024-10-07 13:37 | XMS_ITS | Patient Health Record ---
Author Organization [facility] Address [address] [place] [address] Care Team Providers Care Viscosity Tester Name Role Phone Arnaldo Nichols Primary Care Provider Unavailab Joel Quiroz Unavailable [phone] Allergies Allergen (clinical drug ingredient) Drug/Non Drug [...] no sig alcohol [place]; no sig alcohol [place]; no sig alcohol [place]; no sig alcohol [place]; no sig alcohol [place]; no sig alcohol [place]; no sig alcohol [place]; no sig alcohol [place] Problems Problem Type SNOMED Code ICD Code Onset Dates Problem Status W/U Status Risk Notes Problem 863738103 Encounter for screening for malignant neoplasm of colon (Z12.11) Active confirmed Problem 74154319 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) Active confirmed Problem Diverticulosis of sigmoid colon (942283362) Diverticulosis of sigmoid colon (K57.30) Active confirmed Problem 87073539 Hypertension, unspecified type (I10) Active confirmed Problem 012139338 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 Problem 307922839 Positive colorectal cancer screening using Cologuard test (R19.5) Active confirmed Problem 32082517 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) Active confirmed Problem 02137795 IPMN (intraducta l papillary mucinous neoplasm) (D49.0) [...] Provider Name:Joel Garcia , 10/17/2024 10:40:00 AM, [address] [place] [address], [address], [place], [address], Insurance Providers Payer Name Payer Address Payer Phone Subscriber Number Group Number Insured Name Patient Relationship to Insured Coverage Start Date Coverage End Date [employer] [address] [place] [address] [phone] [id number] GIFTY VEGA Self - [place] [address] [id number] GIFTY VEGA Self - patient is the insured Medical (General) History Medical History History ICD Code Denies IA,CVA,renal disease Hypertension 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 Frieda milan Takes Finasteride for hair loss Colonoscopy at age 72 in [place], [place]--polyps were removed--not clear as to what [...] Kidney stone & stent--Dr. Terrence Groves--seen by [facility]--[facility] CT of abdomen in June revealed portal [...] replacement 05/2019 Dr. Cordoba Cholecystectomy in 10/[facility] [address]. Jimenez was negative for any lesions nor gallstones
--- OUTSIDE RECORDS SUMMARY | 2024-10-07 13:37 | XMS_ITS | Patient Health Record ---
Author Organization [facility] Address [address] [place] [address] Care Team Providers Care Test Architect Name Role Phone Arnaldo Nichols Primary Care Provider Unavailab Jung Ma Unavailable [phone] Allergies Allergen (clinical drug ingredient) Drug/Non Drug [...] 5 MG 1 tablet Orally Once a day; Duration: 30 day(s) Active Metoprolol Succinate ER 25 MG 1 tablet Orally Once a day; Duration: 30 day(s) Not-Jamie ing Eliquis 2.5 MG as directed Orally Active Extra Depth Orthopedic Shoes (1 Pair) with Customized Heat Molded Multidensity Innersoles (3 Pair) as directed Dx: NIDDM/Polyneuropathy (E11.42), Hammertoe Foot Deformity (M20.41,M20.42), Preulcerative Skin Lesion(s) (L85.1 Active Kerendia 20 MG 1 tablet Orally Once a day; Duration: 30 day(s) Active Furosemide 40 MG 1 tablet Orally Once a day; Duration: 30 day(s) Active Advair Diskus 100-50 MCG/ACT 1 puff Inhalation Twice a day Not-Taking Breo Ellipta Active Ammonium Lactate 12 % 1 application Exte rnally Twice a day; Duration: 30 days Active Abacavir Sulfate Act mayda Atorvastatin Calcium 20 MG 1 tablet Orally Once a day; Duration: 30 day(s) Active Tivicay 50 MG 1 tablet Orally Once a day; Duration: 30 day(s) Active metFORMIN HCl 500 MG 1 tablet with a alyssia l Orally Once a day; Duration: 30 day(s) Active Losartan Potassium 100 MG 1 tablet Orally Once a day; Duration: 30 day(s) Active lamiVUDine 100 MG 1 tablet Orally Once a day; Duration: 10 day(s) Active Tamsulosin HCl 0.4 MG 1 capsule Orally O nce a day; Duration: 30 day(s) Active Social History Tobacco Use: [...] Problem Acquired hammer toe of right foot (4245638014915059 ) Other hammer toe(s) (acquired), right foot (M20.41) Active confirmed Problem Acquired hammer toe of left foot (8023341331049957 ) Other hammer toe(s) (acquired), left foot (M20.42) Active confirmed Problem Polyneuropathy due to type 2 diabetes mellitus (300238672) Type 2 diabetes mellitus with diabetic polyneuropathy (E11.42) Active confirmed Vital Signs Blood pressure diastolic 68 mm Hg 08/08/2024 Height 5ft 11in in 08/08/2024 Blood pressure systolic 131 mm Hg 08/08/2024 Weight 250 lbs 08/08/2024 BMI 34.86 kg/m2 08/08/2024 Procedures Procedure Date Ordered Date Performed Result Body Sit e 15546-BASONPE NAIL, 1-5 11/13/2023 N/A 61193-QSWG SKIN LESIONS, OVER 4 11/13/2023 N/A B4392-ZODEYKPG DYSTROPHIC NAILS ANY # 11/13/2023 N/A 17408-HEZHNUO NAIL, 1-5 02/14/2024 N/A 75543-VWPE SKIN LESIONS, OVER 4 02/14/2024 N/A X0393-PBQUKENQ DYSTROPHIC NAILS ANY # 02/14/2024 N/A 96651-SBBZVUO NAIL, 1-5 05/15/2024 N/A 57491-TEJE SKIN LESIONS, OVER 4 05/15/2024 N/A N3524-GFFOMVSR DYSTROPHIC NAILS ANY # 05/15/2024 N/A 37199-CRJHXTY NAIL, 1-5 08/08/2024 N/A 98193-KBXH SKIN LESIONS, OVER 4 08/08/2024 N/A I0403-WGIHAVLH DYSTROPHIC NAILS ANY # 08/08/2024 N/A Encounters Encounter Location Date Provider Diagnosis [address] [address] 11/13/2023 Jungadam Sarmiento Type 2 diabetes mellitus with diabetic polyneuropathy E11.42 ; Tinea unguium B35.1 and Xerosis of skin L85.[address] [address] 02/14/2024 Jung Guillermina Type 2 diabetes mellitus with diabetic polyneuropathy E11.42 ; Tinea unguium B35.1 ; Other hammer toe(s) (acquired), right foot M20.41 ; Other hammer toe(s) (acquired), left foot M20.42 and Xerosis of skin L85.[address] [address] 05/15/2024 Jungadam Sarmiento Type 2 diabetes mellitus with diabetic polyneuropathy E11.42 and Tinea unguium B35.[address] [address] 08/08/2024 Jung Sarmiento Type 2 diabetes mellitus [...] Treatment Pending Test Test Name Order Date 40386-PVZWLVF NAIL, 1-06/05/2023 24142-YOBJIQL NAIL, -11/13/2023 93665-EAVQALQ NAIL, -02/14/2024 41559-VZQMBND NAIL, 1-05/15/2024 20260-KPWKUFY NAIL, 1-5 08/08/2024 82291-CPOX SKIN LESIONS, OVER 4 08/09/19 25 48596-DRUZ SKIN LESIONS, OVER 4 05/15/19 25 50321-PKXS SKIN LESIONS, OVER 4 02/14/20 24 20696-QGQW SKIN LESIONS, OVER 4 06/05/19 24 99765-AEBT SKIN LESIONS, OVER 4 11/13/19 24 S3004-EYQKADUR DYSTROPHIC NAILS ANY # X2008-TTSWMLPL DYSTROPHIC NAILS ANY # W6721-PBYHISNK DYSTROPHIC NAILS ANY # X8917-SAGYZMVZ DYSTROPHIC NAILS ANY # K6955-UPMKIAVO DYSTROPHIC NAILS ANY # Next Appt Details Provider Name:Jung Sarmiento , 11/11/2024 11:30:00 AM, [address] [facility], [facility] [address], [place], [address], Insurance Providers Payer Name Payer Address Payer Phone Subscriber Number Group Number Insured Name Patient Relationship to Insured Coverage Start Date Coverage End Date Medicare [employer] [address] [place] [address] [id number] Jarod An Self - [place] [address] [id number] Jarod An Self - patient is the insured Medical (General) History Medical History History ICD Code asthma Diabetic High blood pressure HIV Kidney disease Numbness Surgical History Surgery Date(Month/Year) Left hip replacement 2019
--- OUTSIDE RECORDS SUMMARY | 2024-10-07 13:37 | XMS_ITS | Encounter Summary ---
Author Organization [facility] Address [address] [facility] [address] [place] [address] Phone Care Team Providers Care Plate Washer Name Role Phone Arnaldo Nichols Primary Care Provider [phone] Encounter Details Date Type Department Care Team (Late Contact Info) Description 07/07/2020 Orders Only [facility] [address] [facility] [address] [place] [address] ProviderGaldino MD Social History Tobacco Use Types Packs/Day Years [...] [facility] [address] [place] [id number] Yong Ruiz MD [address] [facility] [address] [place] [phone] documented as of this encounter Procedures Procedure Name Priority Date/Time Associated Diagnosis Comments EXT RESULT ENTRY Routine 07/07/2020 EXT RESULT ENTRY Routine 07/07/2020 documented in this encounter Results * EXT RESULT ENTRY (07/07/2020) us Historical Provider LAB BLOOD ORDERABLES Aurea l Result * EXT RESULT ENTRY (07/07/2020) Historical Provider LAB BLOOD ORDERABLES Aurea l Result documented in this encounter Visit Diagnoses Not on filedocumented in this encounter Care Teams Plate Washer Relationship Specialty Start Date End Date Arnaldo Nichols PA [address] [place] [address], [address] [place] [address] PCP - General Physician Medical Care Evaluation Specialist 07/02/20 documented as of this encounter
== END 2024-10-07 14:13 | disposition home or self-care (01) ==
LOC: HO.HCS 13:09
PROVIDERS: PCP Physician Assistant; Visit Provider Nurse Practitioner Family
DX: I48.11 Longstanding persistent atrial fibrillation (principal); I10 Essential (primary) hypertension; N18.32 Chronic kidney disease, stage 3b; R93.1 Abnormal findings on diagnostic imaging of heart and coronary circulation
CPT/HCPCS: 99214; G2211

== ENCOUNTER → 2024-10-07 13:08 | Outpatient (BNVA) | payer MEDICARE, OTHER, SELFPAY | PROVIDERS: PCP Physician Assistant; Visit Provider Nurse Practitioner Family | DX: I48.11 Longstanding persistent atrial fibrillation (principal); I48.20 Chronic atrial fibrillation, unspecified; R93.1 Abnormal findings on diagnostic imaging of heart and coronary circulation; E11.22 Type 2 diabetes mellitus with diabetic chronic kidney disease; I12.9 Hypertensive chronic kidney disease with stage 1 through stage 4 chronic kidney disease, or unspecified chronic kidney disease; N18.32 Chronic kidney disease, stage 3b; Z79.01 Long term (current) use of anticoagulants | CPT/HCPCS: 99212 ==

== ENCOUNTER 2024-11-26 12:57 | Outpatient (REF) | payer MEDICARE, OTHER, SELFPAY ==
[2024-11-26 13:16] LABS: MANUAL DIFF FLAG NO
[2024-11-26 13:36] LABS: Hematocrit 43.3 % (42.0-52.0); Hemoglobin 15.0 g/dl (14.0-18.0); Imm Gran Abs Auto 0.02 X10*3/uL (0.00-0.03); Imm Gran Pct Auto 0.3 % (0.0-0.4); Lymphocytes Absolute Auto 1.4 X10*3/uL (1.2-4.9); Mean Corpuscular HGB Conc 34.6 g/dl (31.0-36.0); Mean Corpuscular Hemoglobin 34.7 pg (27.0-33.0); Mean Corpuscular Volume 100.2 fL (80.0-98.0); NRBC Abs Auto 0.000 X10*3/uL (0.0-0.012); NRBC Pct Auto 0.0 /100WBC (0.0-0.2); Platelet Count 139 X10*3/uL (160-400); Red Blood Count 4.32 X10*6/uL (4.60-5.80); White Blood Count 6.9 X10*3/uL (4.8-10.8)
[2024-11-26 14:03] LABS: Alanine Aminotransferase 25 U/L (0-40); Albumin Level 3.5 g/dL (3.5-5.0); Alkaline Phosphatase 86 U/L (39-117); Anion Gap 10 (12-20); Aspartate Amino Transferase 37 U/L (5-37); Blood Urea Nitrogen 20 mg/dL (9-16); Calcium 9.0 mg/dL (8.4-10.2); Carbon Dioxide 25 mmol/L (22-29); Chloride 109 mmol/L (96-108); Estimated Glomerular Filt Rate 44; Potassium 4.4 mmol/L (3.3-5.1); Sodium 140 mmol/L (135-145); Total Protein 7.1 g/dL (6.5-8.0)
--- OUTSIDE RECORDS SUMMARY | 2024-11-26 14:06 | XMS_ITS | Patient Health Record ---
Author Organization [facility] Address [address] [facility] [place] [address] Care Team Providers Care Auger Machine Offbearer Name Role Phone Arnaldo Nichols Primary Care Provider Unavailab Jung Ma Unavailable [phone] Allergies Allergen (clinical drug ingredient) Drug/Non Drug [...] (HH) 6.0 HEMOGLOBIN A1C (GLYCOHEMOGLO BIN) Reviewed date:11/11/2024 11:18:37 AM Interpretation: Performing Lab: Notes/Report: HEMOGLOBIN A1C % (HH) 6.0 Reason For Referral No Information Medications Medication SIG (Take, Route, Frequency, Duration) Notes Start Date End Date Status Tamsulosin HCl 0.4 MG 1 capsule Orally O nce a day; Duration: 30 day(s) Active metFORMIN HCl 500 MG 1 tablet with a alyssia l Orally Once a day; Duration: 30 day(s) Active Losartan Potassium 100 MG 1 tablet Orally Once a day; Duration: 30 day(s) Active Breo Ellipta Active Ammonium Lactate 12 % 1 application Exte rnally Twice a day; Duration: 30 days Active Atorvastatin Calcium 20 MG 1 tablet Orally Once a day; Duration: 30 day(s) Active Abacavir Sulfate Act mayda Triumeq 600-50-300 MG 1 tablet Orally On ce a day Active Tivicay 50 MG 1 tablet Orally Once a day; Duration: 30 day(s) Active amLODIPine Besylate 5 MG 1 tablet Orally Once a day Active lamiVUDine 100 MG 1 tablet Orally Once a day; Duration: 10 day(s) Active Kerendia 20 MG 1 tablet Orally Once a day; Duration: 30 day(s) Active Furosemide 40 MG 1 tablet Orally Once a day; Duration: 30 day(s) Active Advair Diskus 100-50 MCG/ACT 1 puff Inhalation Twice a day Not-Taking Finasteride 5 MG 1 tablet Orally Once [...] Deformity (M20.41,M20.42), Preulcerative Skin Lesion(s) (L85.1 Active Immunizations Vaccine Route Administration Date Status Comme nts Influenza Unknown 12/11/2023 Administered Social History Tobacco Use: Social History Observation Description Date Details (start date - stop date) Never Smoker NA - NA Tobacco use other than smoking: Question Answer Notes Are you an other tobacco user? No Tobacco Control (Standard) Question Answer Notes Tobacco use: Nonsmoker Additional Findings: Tobacco non-user Current no nsmoker AUDIT-C (Standard) Question Answer Notes Did you have a drink containing alcohol in the p ast year? No Points 0 Interpretation Negative Problems Problem Type SNOMED Code ICD Code Onset Dates Problem Status W/U Status Risk Notes Problem Acquired hammer toe of right foot (7613295021788717 ) Other hammer toe(s) (acquired), right foot (M20.41) Active confirmed Problem Acquired hammer toe of left foot (1723928777781752 ) Other hammer toe(s) (acquired), left foot (M20.42) Active confirmed Problem Polyneuropathy due to type 2 diabetes mellitus (313504868) Type 2 diabetes mellitus with diabetic polyneuropathy (E11.42) Active confirmed Vital Signs Blood pressure diastolic 68 mm Hg 11/11/2024 Height 5ft 11in in 11/11/2024 Blood pressure systolic 131 mm Hg 11/11/2024 Weight 250 lbs 11/11/2024 BMI 34.86 kg/m2 11/11/2024 Procedures Procedure Date Ordered Date Performed Result Body Sit e 85743-MRMTXRB NAIL, 1-5 02/14/2024 N/A 47456-YKQT SKIN LESIONS, OVER 4 02/14/2024 N/A D8780-IGUJVWRX DYSTROPHIC NAILS ANY # 02/14/2024 N/A 04229-UFQLNDO NAIL, 1-5 05/15/2024 N/A 08691-KOHS SKIN LESIONS, OVER 4 05/15/2024 N/A D5178-WNHNEEMP DYSTROPHIC NAILS ANY # 05/15/2024 N/A 56108-IAICUEK NAIL, 1-5 08/08/2024 N/A 04687-IBAS SKIN LESIONS, OVER 4 08/08/2024 N/A B2334-GJSYJFOD DYSTROPHIC NAILS ANY # 08/08/2024 N/A 21110-DFKDYFX NAIL, 1-5 11/11/2024 N/A 92111-AHME SKIN LESIONS, OVER 4 11/11/2024 N/A T0766-FVVFTCUV DYSTROPHIC NAILS ANY # 11/11/2024 N/A Encounters Encounter Location Date Provider Diagnosis [address] [address] 02/14/2024 Jung Sarmiento Type 2 diabetes mellitus with diabetic polyneuropathy E11.42 ; Tinea unguium B35.1 ; Other hammer toe(s) (acquired), right foot M20.41 ; Other hammer toe(s) (acquired), left foot M20.42 and Xerosis of skin L85.[address] [address] 05/15/2024 Jung Sarmiento Type 2 diabetes mellitus with diabetic polyneuropathy E11.42 and Tinea unguium B35.1 [facility] [address] [address] 08/08/2024 Jung Sarmiento Type 2 diabetes mellitus with diabetic polyneuropathy E11.42 ; Tinea unguium B35.1 ; Other hammer toe(s) (acquired), right foot M20.41 and Other hammer toe(s) (acquired), left foot M20.[address] [address] 11/11/2024 Jung Sarmiento Type 2 diabetes mellitus with diabetic polyneuropathy E11.42 and Tinea unguium B35.1 Assessments Encounter Date Diagnosis (ICD Code) Assessment Notes Treatment Notes Treatment Clinical Notes Section Notes 05/15/2024 Tinea unguium (ICD-10 - B35.1) 05/15/2024 Type 2 diabetes mellitus with diabetic polyneuropathy (ICD-10 - E11.42) 08/08/2024 Tinea unguium (ICD-10 - B35.1) 08/08/2024 Type 2 diabetes mellitus with diabetic polyneuropathy (ICD-10 - E11.42) 11/11/2024 Tinea unguium (ICD-10 - B35.1) 11/11/2024 Type 2 diabetes mellitus with diabetic polyneuropathy [...] toe(s) (acquired), left foot (ICD-10 - M20.42) 08/08/2024 Other hammer toe(s) (acquired), left foot (ICD-10 - M20.42) 02/14/2024 Xerosis of skin (ICD-10 - L85.3) Plan Of Treatment Pending Test Test Name Order Date 16683-YRYLKKL NAIL, 1-06/05/2023 47563-WFVMCYR NAIL, -11/13/2023 73470-QCHJJLF NAIL, -02/14/2024 24084-KAXFGJW NAIL, -05/15/2024 89303-JHNFWBF NAIL, 1-08/08/2024 39824-NKXGSKO NAIL, 1-11/11/2024 52214-FJJW SKIN LESIONS, OVER 4 11/12/19 25 06249-EZIP SKIN LESIONS, OVER 4 05/15/19 25 16113-QTDZ SKIN LESIONS, OVER 4 08/09/19 25 61456-GQSO SKIN LESIONS, OVER 4 02/14/20 24 53356-CNWO SKIN LESIONS, OVER 4 06/05/19 24 31179-MWSC SKIN LESIONS, OVER 4 11/13/19 24 R2096-ZBQVJJNK DYSTROPHIC NAILS ANY # P5336-TOHBOBWS DYSTROPHIC NAILS ANY # F4675-TLNJJINO DYSTROPHIC NAILS ANY # L9483-YSDCONPX DYSTROPHIC NAILS ANY # U4722-SMKLVMJK DYSTROPHIC NAILS ANY # B5666-WYJMNIEY DYSTROPHIC NAILS ANY # Next Appt Details Provider Name:Jung Soares Guillermina , 02/24/2025 11:30:00 AM, [address] [facility], [place] [address], [place], [address], Insurance Providers Payer Name Payer Address Payer Phone Subscriber Number Group Number Insured Name Patient Relationship to Insured Coverage Start Date Coverage End Date Medicare National [employer] [address] [place] [address] [id number] Jarod An Self - patient is the insured [facility] [place] [address] [id number] Jarod An Self - patient is the insured Medical (General) History Medical History History ICD Code asthma Diabetic High blood pressure HIV Kidney disease Numbness Surgical History Surgery Date(Month/Year) Left hip replacement 2019
--- OUTSIDE RECORDS SUMMARY | 2024-11-26 14:06 | XMS_ITS | Patient Health Record ---
Author Organization [facility] Address [address] [place] [address] Care Team Providers Care Commercial Production Editor Name Role Phone Arnaldo Nichols Primary Care Provider UnavailJoel Williamson Unavailable [phone] Allergies Allergen (clinical drug ingredient) Drug/Non Drug Allergy documented on EMR Reaction Allergy Type Onset Date Status Ragweed Unknown Allergy Active Biaxin Unknown Drug Allergy Active Reason For Referral No Information Medications Medication SIG (Take, Route, Frequency, Duration) Notes Start Date End Date Status Eliquis 2.5 MG TAKE 1 TABLET BY JOSE TH TWICE A DAY Oral for 30 Active Finasteride 5 MG 1 tablet Orally Once a day Active Kerendia 20 MG TAKE 1 TABLET BY JOSE TH EACH DAY Orally Once a day Active Advair Diskus 100-50 MCG/DOSE 1 puff Inhalation Twice a day Active metFORMIN HCl 500 MG TAKE 1 TABLET BY MO UTH IN THE MORNING AND 1 TABLET IN THE EVENING WITH MEALS. Oral for 90 Active Breo Ellipta 100-25 MCG/ACT 1 puff Inhal ation Once a day Active Triumeq 600-50-300 MG 1 tablet Orally On ce a day Active amLODIPine Besylate 5 MG 1 tablet Orally Once a day Active Losartan Potassium 100 MG 1 tablet Orall y Once a day Active Tamsulosin HCl 0.4 MG 1 capsule Orally O nce a day Active Atorvastatin Calcium 20 MG 1 tablet Oral ly Once a day Active Furosemide 20 MG 1 tablet Orally Once a day Active Immunizations Vaccine Route Administration Date Status Comme nts Flu vaccine no Preserv 3 and > Unknown 12/13/2016 Admin istered Influenza Unknown 12/09/2017 Administered Influenza Unknown 02/02/2018 Administered Influenza Unknown 12/09/2018 Administered Influenza Unknown 12/10/2019 Administered Influenza Unknown 12/09/2020 Administered Influenza Unknown 02/28/2024 Administered Social History Tobacco Use: Social History Observation Description Date Details (start date - stop date) Never Smoker NA - NA Tobacco Use/Smoking Question Answer Notes Patient is a nonsmoker Alcohol Screen Question Answer Notes Did you have a drink containing alcohol in the p ast year? No Points 0 Interpretation Negative Section Notes: Nonsmoker; no sig alcohol [place] Nonsmoker; no sig alcohol Originally [place] Nonsmoker; no sig alcohol Originally [place] Nonsmoker; no sig alcohol Originally [place] Nonsmoker; no sig alcohol Originally [place] Nonsmoker; no sig alcohol Originally [place] Nonsmoker; no sig alcohol Originally [place] Nonsmoker; no sig alcohol Originally [place] Nonsmoker; no sig alcohol Originally [place] Problems Problem Type SNOMED Code ICD Code Onset Dates Problem Status W/U Status Risk Notes Problem 836325949 Encounter for screening for malignant neoplasm of colon (Z12.11) Active confirmed Problem 29645249 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) Active confirmed Problem Diverticulosis of sigmoid colon (624671079) Diverticulosis of sigmoid colon (K57.30) Active confirmed Problem 27244306 Hypertension, unspecified type (I10) Active confirmed Problem 686081902 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 Problem 474008839 Positive colorectal cancer screening using Cologuard test (R19.5) Active confirmed Problem 59891028 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) Active confirmed Problem 35879275 IPMN (intraducta l papillary mucinous neoplasm) (D49.0) Active confirmed Vital Signs Temperature 98.5 degrees Fahrenheit 10/17/2024 Blood pressure diastolic 01 mm Hg 10/17/2024 Height 71 in 10/17/2024 Blood pressure systolic 001 mm Hg 10/17/2024 Weight 234.8 lbs 10/17/2024 BMI 32.74 kg/m2 10/17/2024 Encounters Encounter Location Date Provider Diagnosis [facility] [address] [place] [address] 10/17/2024 Joel Garcia Other cirrhosis of liver K74.69 Assessments Encounter Date Diagnosis (ICD Code) Assessment Notes Treatment Notes Treatment Clinical Notes Section Notes 10/17/2024 Other cirrhosis of liver (ICD-10 - K74.69) Overall, Jarod appears quite well and does not appear to be having any new or worrisome GI complaints. His liver disease remains well compensated and he does not describe any symptoms nor show any signs of worsening liver disease. As we had discussed last year given his age, comorbidities, and all of his previous imaging studies, as well as his current good clinical appearance and reassuring laboratories, I am still inclined to hold off on any further imaging of his liver or pancreas in regard to the cirrhosis and IPMN, respectively. He also will not need any further screening colonoscopies given the most recent exam several years ago and his age. At this point I will plan to see him in 1 year for a follow-up office visit. I did advise him to certainly call me in the interim if he has any problems or questions I can be of assistance with. Jarod was very comfortable with this plan. Thank you again for allowing me to participate in Jarod's care. I shall continue to keep you advised of his progress as needed. Plan Of Treatment Pending Test Test Name Order Date BUN 08/25/2020 CREATININE 08/25/2020 PROTHROMBIN TIME (PT, INR) 08/11/2020 ALPHA-FETOPROTEIN,TUMOR MARKER CA 19-9 08/25/2020 CA 19-9 08/11/2022 MRI ABD W&WO CONTRAST 08/11/2022 MRI ABD W&WO CONTRAST 08/25/2020 US ABD 08/11/2020 Future Test Test Name Order Date UPPER GI ENDOSCOPY 06/14/2018 COLONOSCOPY 09/15/2020 Next Appt Details Provider Name:Joel Garcia , 10/17/2025 01:20:00 PM, [address] [place] [address], [address], [place], [address], Insurance Providers Payer Name Payer Address Payer Phone Subscriber Number Group Number Insured Name Patient Relationship to Insured Coverage Start Date Coverage End Date MED[employer] OF [place] [address] [place] FERNANDO [id number] SILVIA JAROD Self - patient is the insured [place], [place] [id number] JAROD AN Self - patient is the insured Medical (General) History Medical History History ICD Code Denies NH,CVA,renal disease Hypertension 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 Frieda milan Takes Finasteride for hair loss Colonoscopy at age 72 in [place], [place]--polyps were removed--not clear as to what [...] Kidney stone & stent--Dr. Terrence Groves--seen by [facility] Cardiology--[facility] CT of abdomen in June revealed [...] with negative findings. Surgical History Surgery Date(Month/Year) Cholecystectomy in 10/2020 [facility] Dr. Jimenez was negative for any lesions nor gallstones Left Hip replacement 05/2019 Dr. Cordoba Appendectomy
--- OUTSIDE RECORDS SUMMARY | 2024-11-26 14:06 | XMS_ITS | Encounter Summary ---
Author Organization [facility] Address [address] [facility] [address] [place] [address] Phone Care Team Providers Care Fire Chief Name Role Phone Arnaldo Nichols Primary Care Provider [phone] Encounter Details Date Type Department Care Team (Late st Contact Info) Description 07/07/2020 Orders Only [facility] [address] [facility] [address] [place] [address] Provider, MD Galdino Social History Tobacco Use Types Packs/Day Years [...] Care Team (Late st Contact Info) Description 12/01/2024 Orders Only [facility] [address] [place] [address] Yong Ruiz MD [address] [facility] [address] [place] [address] Stage 3a chronic kidney disease (HCC); Renal disorder due to type 2 diabetes mellitus <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); Persistent proteinuria 01/06/2025 4:15 PM EDT Office Visit [facility] [address] [place] [phone] Yong Ruiz MD [address] [facility] [address] [place] [address] documented as of this encounter Procedures Procedure [...] on filedocumented in this encounter Care Teams Fire Chief Relationship Specialty Start Date End Date Arnaldo Nichols PA [address] [place] [address], [address] [place] [address] PCP - General Physician Kiln Firer Helper 07/02/20 documented as of this encounter
[2024-11-27 08:53] LABS: ~HepC Num1 0.08 S/CO (0.00-0.79); ~Hepatitis C Antibody Nonreactive (Nonreactive)
[2024-11-27 18:14] LABS: HIV RNA PCR Qn Copies NOT DETECTED copies/mL (NOT DETECTED); HIV RNA PCR Qn Log Copies NOT DETECTED (NOT DETECTED)
== END 2024-11-26 12:58 | disposition home or self-care (01) ==
LOC: HO.LAB 12:57
PROVIDERS: PCP Physician Assistant; Visit Provider Internal Medicine
DX: Z11.3 Encounter for screening for infections with a predominantly sexual mode of transmission (principal); Z11.59 Encounter for screening for other viral diseases; B20 Human immunodeficiency virus [HIV] disease
CPT/HCPCS: 36415; 80048; 80076; 85025; 86592; 86803; 87536

== ENCOUNTER 2024-12-11 12:53 | Outpatient (AMB) | payer MEDICARE, OTHER, SELFPAY ==
[2024-12-11 13:09] VITALS: BP 132/72; PULSE 64; O2SAT 97; BMI 32.8
--- NOTE | 2024-12-11 13:09 | MHC.OFFVIS ---
Vital Signs 12/11/24 13:09 Height 5 ft 11 in Weight 235 lb BMI 32.8 BP 132/72 Pulse 64 Pulse Oximetry (%) 97 Intake Visit Reasons: 6 mth,follow Up,HIV Allergies clarithromycin (From BIAXIN) Allergy (Unknown, Verified 12/11/24 13:10) ANAPHYLAXIS HPI HPI 6 mth,follow Up,HIV: Details: He is doing well except for some sinus discomfort. He has no fever or chills. He saw Dr Suh of ENT in past. 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 Mother No problems noted. Social History Housing: House Alcohol intake: never Patient Tobacco Use Status: Never used Tobacco e-Cigarette/Vaping Use: Never Used Current occupational status: retired Cognitive needs: No Hearing needs: No Vision needs: No Review of Systems Const All systems reviewed & are unremarkable except as noted in HPI and below Physical Exam Vital Signs: Last Vital Signs Pulse 64 12/11/24 13:09 BP 132/72 12/11/24 13:09 Pulse Ox 97 12/11/24 13:09 BMI result Body Mass Index 32.8 Const General: cooperative Orientation/consciousness: patient oriented x3 HEENT Head: Yes normal to inspection Mouth: Normal oral and palatal mucosa present Eyes General: appearance normal, both eyes and all related structures Pupils: Equal, round and reactive pupils present Resp Effort & Inspection: normal respiratory effort Cardio Rate: regular rate Rhythm: regular rhythm GI Palpation (GI): Soft to palpation and nontender General: Yes no CVA tenderness Back/Spine/Pelvis Back: no CVA tenderness Skin General skin exam: no rashes or lesions noted Neuro General: patient oriented x3 Cranial nerves: Yes CN's II-XII intact bilaterally and Yes Equal, round and reactive pupils present Extrem General: Yes normal to inspection Psych Appearance: grossly normal Assessment & Plan Assessment & Plan (1) HIV (human immunodeficiency virus infection): Comment: He is doing well with viral load undetectable and CD4 count 608. He has no concerns except rhinitis. Code(s): B20 - Human immunodeficiency virus [HIV] disease Category: Medical Qualifiers: HIV symptom status: currently asymptomatic, with history of HIV-related illness Qualified Code(s): B20 - Human immunodeficiency virus [HIV] disease Plan: Would continue Triumeq (written for six months). Check viral load and CD4 count in six months. He is still thinking about doing anal Pap and will discuss with us next visit. Orders: Orders Lymphocyte Subset Panel 3 5 Months B20 - Human immunodeficiency virus [HIV] disease HIV-1 RNA QN PCR Expanded 5 Months B20 - Human immunodeficiency virus [HIV] disease Complete Blood Count Auto Diff 5 Months B20 - Human immunodeficiency virus [HIV] disease Basic Metabolic Panel 5 Months B20 - Human immunodeficiency virus [HIV] disease Liver Panel 5 Months B20 - Human immunodeficiency virus [HIV] disease Medications: Refilled tuubhuzs-ifrzugumruip-wsjuplb 600-50-300 mg (Triumeq) 1 tab PO DAILY 90 tabs 1RF 90 days Coding Level of Care Code Est Pt Level 4 (42576) Diagnoses Currently asymptomatic HIV infection, with history of HIV-related illness B20 HIV symptom status: currently asymptomatic, with history of HIV-related illness
--- OUTSIDE RECORDS SUMMARY | 2024-12-11 15:15 | XMS_ITS | Encounter Summary ---
Author Organization [facility] Address [address] [facility] [address] [place] [address] Phone Care Team Providers Care Shield Cleaner Name Role Phone Arnaldo Nichols Primary Care Provider [phone] Encounter Details Date Type Department Care Team (Late Contact Info) Description 07/07/2020 Orders Only [facility] [address] [facility] [address] [place] [address] ProviderGaldino MD Social History Tobacco [...] Visit [facility] [address] [place] [phone] Yong Ruiz MD [address] [facility] [address] [place] [phone] documented as of this encounter Procedures Procedure [...] on filedocumented in this encounter Care Teams Shield Cleaner Relationship Specialty Start Date End Date Arnaldo Nichols PA [address] [place] [address], [address] [place] [address] PCP - General Physician Financial Advisor 07/02/20 documented as of this encounter
--- OUTSIDE RECORDS SUMMARY | 2024-12-11 15:15 | XMS_ITS | Patient Health Record ---
Author Organization [facility] Address [address] [place] [address] Care Team Providers Care Air Twist Operator Name Role Phone Arnaldo Nichols Primary Care Provider UnavailJoel Williamson Unavailable [phone] Allergies Allergen (clinical drug ingredient) Drug/Non Drug [...] Notes: Nonsmoker; no sig alcohol Originally [place] Nonsm[place]; no sig alcohol Originally [place] Nonsmoker; no sig alcohol Originally [place] Nonsmoker; no sig alcohol Originally [place] Nonsmoker; no sig alcohol Originally [place] Nonsmoker; no sig alcohol Originally [place] Nonsmoker; no sig alcohol Originally [place] Nonsmoker; no sig alcohol Originally [place] Nonsmoker; no sig alcohol Originally [place] Problems Problem Type SNOMED Code ICD Code Onset Dates Problem Status W/U Status Risk Notes Problem 035517001 Encounter for screening for malignant neoplasm of colon (Z12.11) Active confirmed Problem 27351159 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) Active confirmed Problem Diverticulosis of sigmoid colon (399534379) Diverticulosis of sigmoid colon (K57.30) Active confirmed Problem 59480130 Hypertension, unspecified type (I10) Active confirmed Problem 171917502 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 Problem 340206107 Positive colorectal cancer screening using Cologuard test (R19.5) Active confirmed Problem 87193694 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) Active confirmed Problem 72702427 IPMN (intraducta l papillary mucinous neoplasm) (D49.0) Active confirmed Vital Signs Temperature 98.5 degrees Fahrenheit 10/17/2024 Blood pressure diastolic 01 mm Hg 10/17/2024 Height 71 in 10/17/2024 Blood pressure systolic 001 mm Hg 10/17/2024 Weight 234.8 lbs 10/17/2024 BMI 32.74 kg/m2 10/17/2024 Encounters Encounter Location Date Provider Diagnosis [facility] [address] [place] [address] 10/17/2024 Joel Garcia Other cirrhosis of liver [...] Next Appt Details Provider Name:Joel Garcia , 11/05/2025 04:00:00 PM, [address] [place] [address], [address], [place], [address], Insurance Providers Payer Name Payer Address Payer Phone Subscriber Number Group Number Insured Name Patient Relationship to Insured Coverage Start Date Coverage End Date MEDICARE OF [place] [address] [place]AC[place] FERNANDO [id number] SILVIA JAROD Self - patient is the insured [place], [place] [id number] JAROD AN Self - patient is the insured Medical (General) History Medical History History ICD Code Denies DE,CVA,renal disease Hypertension 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 Frieda milan Takes Finasteride for hair loss Colonoscopy at age 72 in [place], [place]--polyps were removed--not clear as to what [...] Kidney stone & stent--Dr. Terrence Groves--seen by [facility] Card[facility]--on [facility] CT of abdomen in June [...] Surgical History Surgery Date(Month/Year) Cholecystectomy in 10/2020 [facility] Dr. Jimenez was negative for any lesions nor gallstones Left Hip replacement 05/2019 Dr. Cordoba Appendectomy
--- OUTSIDE RECORDS SUMMARY | 2024-12-11 15:16 | XMS_ITS | Patient Health Record ---
Author Organization [facility] Address [address] [facility] [place] [address] Care Team Providers Care Oracle Endeca Consultant Name Role Phone Arnaldo Nichols Primary Care Provider Unavailab Jung Ma Unavailable [phone] Allergies Allergen (clinical drug ingredient) Drug/Non Drug [...] Problem Acquired hammer toe of right foot (5763279543239853 ) Other hammer toe(s) (acquired), right foot (M20.41) Active confirmed Problem Acquired hammer toe of left foot (0901112793307572 ) Other hammer toe(s) (acquired), left foot (M20.42) Active confirmed Problem Polyneuropathy due to type 2 diabetes mellitus (167796980) Type 2 diabetes mellitus with diabetic polyneuropathy (E11.42) Active confirmed Vital Signs Blood pressure diastolic 68 mm Hg 11/11/2024 Height 5ft 11in in 11/11/2024 Blood pressure systolic 131 mm Hg 11/11/2024 Weight 250 lbs 11/11/2024 BMI 34.86 kg/m2 11/11/2024 Procedures Procedure Date Ordered Date Performed Result Body Sit e 41440-NHPMZJB NAIL, 1-5 02/14/2024 N/A 07893-IHSR SKIN LESIONS, OVER 4 02/14/2024 N/A Q5548-SOWEQUMH DYSTROPHIC NAILS ANY # 02/14/2024 N/A 21525-ASEJAOA NAIL, 1-5 05/15/2024 N/A 04231-CDVR SKIN LESIONS, OVER 4 05/15/2024 N/A C3046-YTELQONT DYSTROPHIC NAILS ANY # 05/15/2024 N/A 74757-RFDEZTY NAIL, 1-5 08/08/2024 N/A 08078-CNNT SKIN LESIONS, OVER 4 08/08/2024 N/A R5089-MDQRXVTK DYSTROPHIC NAILS ANY # 08/08/2024 N/A 28799-CNSWLSH NAIL, 1-5 11/11/2024 N/A 36953-GWFY SKIN LESIONS, OVER 4 11/11/2024 N/A J4794-BKQPASSG DYSTROPHIC NAILS ANY # 11/11/2024 N/A Encounters Encounter Location Date Provider Diagnosis [address] [address] 02/14/2024 Jung Sarmiento Type 2 diabetes mellitus with diabetic polyneuropathy E11.42 ; Tinea unguium B35.1 ; Other hammer toe(s) (acquired), right foot M20.41 ; Other hammer toe(s) (acquired), left foot M20.42 and Xerosis of skin L85.[address] [address] 05/15/2024 Jung Sarmiento Type 2 diabetes mellitus with diabetic polyneuropathy E11.42 and Tinea unguium B35.1 [facility] [address] [address] 08/08/2024 Jung Sarmiento Type 2 diabetes mellitus with diabetic polyneuropathy E11.42 ; Tinea unguium B35.1 ; Other hammer toe(s) (acquired), right foot M20.41 and Other hammer toe(s) (acquired), left foot M20.[address] [address] 11/11/2024 Jung Sarmiento Type 2 diabetes mellitus [...] Treatment Pending Test Test Name Order Date 28442-BZENPMA NAIL, 1-06/05/2023 03137-AGFACWJ NAIL, -11/13/2023 78932-ICLMQQD NAIL, -02/14/2024 99821-UJVYKJE NAIL, -05/15/2024 51522-IYLOTUZ NAIL, 1-08/08/2024 70956-IGXVBMI NAIL, 1-11/11/2024 43118-FSVC SKIN LESIONS, OVER 4 11/12/19 25 78668-WNOP SKIN LESIONS, OVER 4 05/15/19 25 98268-KWTV SKIN LESIONS, OVER 4 08/09/19 25 04821-WYWQ SKIN LESIONS, OVER 4 02/14/20 24 12866-JBXJ SKIN LESIONS, OVER 4 06/05/19 24 64480-AHPA SKIN LESIONS, OVER 4 11/13/19 24 R0995-VGNBRJFW DYSTROPHIC NAILS ANY # S6021-NBFXPPLX DYSTROPHIC NAILS ANY # V3707-YQQLOJHR DYSTROPHIC NAILS ANY # S7014-IETKYDFO DYSTROPHIC NAILS ANY # N5525-FELVMLYW DYSTROPHIC NAILS ANY # S5778-JCLCZHFO DYSTROPHIC NAILS ANY # Next Appt Details Provider Name:Jung Soares Guillermina , 02/24/2025 11:30:00 AM, [address] [facility], [place] [address], [place], [address], Insurance Providers Payer Name Payer Address Payer Phone Subscriber Number Group Number Insured Name Patient Relationship to Insured Coverage Start Date Coverage End Date Medicare National [employer] [address] [place] [address] [id number] Jarod An Self - patient is the insured [facility] [place] [address] [id number] Jarod An Self - patient is the insured Medical (General) History Medical History History ICD Code asthma Diabetic High blood pressure HIV Kidney disease Numbness Surgical History Surgery Date(Month/Year) Left hip replacement 2019
== END 2024-12-11 13:43 | disposition home or self-care (01) ==
LOC: HO.HID 12:53
PROVIDERS: PCP Physician Assistant; Visit Provider Internal Medicine
DX: B20 Human immunodeficiency virus [HIV] disease (principal)
CPT/HCPCS: 99214

== ENCOUNTER → 2024-12-11 12:53 | Outpatient (BNVA) | payer MEDICARE, OTHER, SELFPAY | PROVIDERS: PCP Physician Assistant; Visit Provider Internal Medicine | DX: B20 Human immunodeficiency virus [HIV] disease (principal) | CPT/HCPCS: 99212 ==

== ENCOUNTER 2024-12-23 10:24 | Outpatient (REF) | payer MEDICARE, OTHER, SELFPAY ==
[2024-12-23 11:15] LABS: Hematocrit 44.6 % (42.0-52.0); Hemoglobin 15.5 g/dl (14.0-18.0); Imm Gran Abs Auto 0.02 X10*3/uL (0.00-0.03); Imm Gran Pct Auto 0.3 % (0.0-0.4); Lymphocytes Absolute Auto 2.7 X10*3/uL (1.2-4.9); MANUAL DIFF FLAG NO; Mean Corpuscular HGB Conc 34.8 g/dl (31.0-36.0); Mean Corpuscular Hemoglobin 34.4 pg (27.0-33.0); Mean Corpuscular Volume 99.1 fL (80.0-98.0); NRBC Abs Auto 0.000 X10*3/uL (0.0-0.012); NRBC Pct Auto 0.0 /100WBC (0.0-0.2); Platelet Count 136 X10*3/uL (160-400); Red Blood Count 4.50 X10*6/uL (4.60-5.80); White Blood Count 7.8 X10*3/uL (4.8-10.8)
[2024-12-23 11:22] LABS: Appearance Urine Clear; Glucose Urine UA Negative (Negative); PH 6.5 (5.0-9.0); Specific Gravity - Urine 1.015 (1.005-1.025); UMIC TRIGGER UA YES
[2024-12-23 11:39] LABS: Protein/Creatinine Ratio, Ur 1.92 (<0.2); Total Protein Urine Random 141 mg/dL (<12)
[2024-12-23 12:02] LABS: Parathyroid Hormone Intact 91.6 pg/mL (8.7-77.1)
[2024-12-23 12:12] LABS: Albumin Level 3.6 g/dL (3.5-5.0); Anion Gap 12 (12-20); Blood Urea Nitrogen 21 mg/dL (9-16); Calcium 9.3 mg/dL (8.4-10.2); Carbon Dioxide 24 mmol/L (22-29); Chloride 108 mmol/L (96-108); Estimated Glomerular Filt Rate 40; Magnesium 2.0 mg/dL (1.6-2.6); Potassium 4.4 mmol/L (3.3-5.1); Sodium 140 mmol/L (135-145)
[2024-12-23 12:19] LABS: Microalbum/Creatinine Ratio Ur 1267.5 ug/mg cr (<30)
--- OUTSIDE RECORDS SUMMARY | 2024-12-23 13:15 | XMS_ITS | Encounter Summary ---
Author Organization [facility] Address [address] [facility] [address] [place] [address] Phone Care Team Providers Care Extruding Department Supervisor Name Role Phone Arnaldo Nichols Primary Care Provider [phone] Encounter Details Date Type Department Care Team (Late Contact Info) Description 07/07/2020 Orders Only [facility] [address] [facility] [address] [place] [address] ProviderGaldino MD Social History Tobacco [...] Visit [facility] [address] [place] [id number] Yong Ruiz MD [address] [facility] [address] [place] [phone] documented as of this encounter Procedures Procedure [...] on filedocumented in this encounter Care Teams Extruding Department Supervisor Relationship Specialty Start Date End Date Arnaldo Nichols PA [address] [place] [address], [address] [place] [address] PCP - General Physician Salvage Worker 07/02/20 documented as of this encounter
--- OUTSIDE RECORDS SUMMARY | 2024-12-23 13:15 | XMS_ITS | Clinical Summary ---
Author Organization [facility] Address [address] [facility] [address] [place] [address] Phone Care Team Providers Care Hands And Dial Inspector Name Role Phone Arnaldo Nichols Primary Care Provider [phone] Allergies Active Allergy Reactions Criticality Noted Date [...] chew, or split. Active ergocalciferol 1.25 MG (62450 UT) capsule Take 50,000 Units by mouth 1 (one) time per week Active metFORMIN (GLUCOPHAGE) 500 MG tablet TAKE 1 TABLET (500MG TOTAL) BY MOUTH IN THE MORNING AND TAKE 1 TABLET IN THE EVENING WITH MEALS 180 tablet 10/18/2023 Active Kerendia 20 MG tablet TAKE 1 TABLET BY MOUTH ONCE A DAY 90 tablet 1 02/27/2024 Active amLODIPine (NORVASC) 2.5 MG tablet TAKE 1 TABLET BY MOUTH EVERY DAY 90 tablet 07/04/2024 Active metFORMIN (GLUCOPHAGE) 500 MG tablet TAKE 1 TABLET (500 MG TOTAL) BY MOUTH IN THE MORNING 90 tablet 08/05/2024 Active losartan (COZAAR) 100 MG tablet TAKE 1 TABLET BY MOUTH 1 TIME EACH DAY. 90 tablet 2 10/18/2024 Active Active Problems Problem Noted Date Diagnosed Date [...] Encounters Date Type Department Care Team Description 12/23/2024 Orders Only [facility] [address] [address] Yong Ruiz MD 12/01/2024 Orders Only [facility] [address] [place] [phone] Yong Ruiz MD Stage 3a chronic kidney disease (HCC); Renal disorder due to type 2 diabetes mellitus <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); Persistent proteinuria 10/18/2024 Refill [facility] [address] [place] [address] Yong Ruiz MD [...] Visit [facility] [address] [place] [address] Yong Ruiz MD [address] [facility] [address] [place] [address] Health Maintenance Due Date Last Done Comments Pneumococcal Vaccine: 50+ Years (1 of 2 - PCV) 962 Hepatitis B Vaccine (1 of 3 - Risk 3-dose series) 09/2002 Diabetes: Hemoglobin A1C 05/11/2020 06/27/2019 Diabetes: Ophthalmology Exam 05/11/2020 Diabetes: Pedal Pulse Checked 05/11/2020 Diabetes: Sensory Foot Exam 05/11/2020 Diabetes: Visual Foot Exam 05/11/2020 Influenza Vaccine (#1) 2024 Procedures Procedure Name Priority Date/Time Associated Diagnosis Comments CREATININE, BLOOD Routine 12/23/2024 11: 40 AM EDT BUN Routine 12/23/2024 11:40 AM EDT ELECTROLYTE PANEL Routine 12/23/2024 11: 40 AM EDT PTH, INTACT (HC) Routine 12/23/2024 11:4 0 AM EDT CALCIUM Routine 12/23/2024 11:40 AM EDT Stage 3a chronic kidney disease (HCC) 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 ALBUMIN Routine 12/23/2024 11:40 AM EDT Stage 3a chronic kidney disease (HCC) 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 MAGNESIUM Routine 12/23/2024 11:40 AM EDT Stage 3a chronic kidney disease (HCC) 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 PHOSPHATE ( PHOSPHORUS) Routine 12/23/2024 11:40 AM EDT Stage 3a chronic kidney disease (HCC) 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 VITAMIN D 25 HYDROXY Routine 12/23/2024 11:40 AM EDT Stage 3a chronic kidney disease (HCC) 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 ALBUMIN, URINE, RANDOM Routine 12/23/2024 11:17 AM EDT PROTEIN / CREATININE RATIO, URINE Routine 12/23/2024 11:17 AM EDT Stage 3a chronic kidney disease (HCC) 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 URINALYSIS WITH MICROSCOPIC Routine 12/23/2024 11:17 AM EDT Stage 3a chronic kidney disease (HCC) 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 CBC AND DIFFERENTIAL Routine 12/23/2024 11:15 AM EDT HEMOGLOBIN A1C Routine 06/27/2019 9:20 AM EDT from Last 3 Months or Most Recently Relevant to Health Maintenance Results * (ABNORMAL) Creatinine (12/23/2024 11:40 AM EDT) Creatinine Serum 1.65(H) 0.5 - 1.4 mg/dL See order comments eGFR (Calc) 40 See orde r comments Comment: Chronic Kidney Disease: Estimated GFR < 60 mL/min/1.73m2 Severe Kidney Disease: Estimated GFR < 15 mL/min/1.73m2 12/23/2024 11:4 0 AM EDT 12/23/2024 11:40 AM EDT us Yong Ruiz MD LAB BLOOD ORDERABLES Final Re sult Performing Organization Address [facility] Co de Phone Number [place] See order comments [place] [address] * (ABNORMAL) PTH, Intact (12/23/2024 11:40 AM EDT) Parathyroid Hormone, Intact 91.6(H) 8.7 - 77.1 pg/mL See order comments 12/23/2024 11:4 0 AM EDT 12/23/2024 11:40 AM EDT us Yong Ruiz MD LAB [id number] SOLICITED RESULTS Final Result Performing Organization Address [facility] de Phone Number [place] See order comments [place] [address] * (ABNORMAL) Vitamin D 25 Hydroxy (12/23/2024 11:40 AM EDT) Vitamin D, 25-Hydroxy 17.9(L) >30 ng/mL See order comments Comment: Health Based Reference Values* < 20 ng/mL Deficient 20-30 ng/mL Insufficient > 30 ng/mL Sufficient *Tristin WILLIAM. N Engl J Med. 2007;357:266-280 [...] D results from different laboratories and methodologies. Published data demonstrated that results from patients undergoing [...] Blood specimen (specimen) Venous blood / Unknown 12/23/2024 11:40 AM EDT 12/23/2024 11:40 AM EDT us Yong Ruiz MD LAB BLOOD ORDERABLES Final Re sult Performing Organization Address [facility] Phone Number [place] See order comments [place] [address] * (ABNORMAL) BUN (12/23/2024 11:40 AM EDT) BUN 21(H) 9 - 16 mg/dL See order comments 12/23/2024 11:4 0 AM EDT 12/23/2024 11:40 AM EDT us Yong Ruiz MD LAB BLOOD ORDERABLES Final Re sult Performing Organization Address [facility] Phone Number [place] See order comments [place] [address] * Phosphorus (12/23/2024 11:40 AM EDT) Phosphorus, Serum 3.8 2.7 - 4.5 mg/dL See order comments Blood specimen (specimen) Venous blood / Unknown 12/23/2024 11:40 AM EDT 12/23/2024 11:40 AM EDT us Yong Ruiz MD LAB BLOOD ORDERABLES Final Re sult Performing Organization Address [facility] Phone Number [facility] See order comments [place] [address] * Magnesium (12/23/2024 11:40 AM EDT) Magnesium 2.0 1.6 - 2.6 mg/dL See order comments Blood specimen (specimen) Venous blood / Unknown 12/23/2024 11:40 AM EDT 12/23/2024 11:40 AM EDT Yong Ruiz MD LAB BLOOD ORDERABLES Final Re sult Performing Organization Address [facility] de Phone Number [place] See order comments [place] [address] * Calcium (12/23/2024 11:40 AM EDT) Calcium 9.3 8.4 - 10.2 mg/dL See order comments Blood specimen (specimen) Venous blood / Unknown 12/23/2024 11:40 AM EDT 12/23/2024 11:40 AM EDT Yong Ruiz MD LAB BLOOD ORDERABLES Final Re sult Performing Organization Address [facility] Phone Number [facility] See order comments [place] [address] * Albumin (12/23/2024 11:40 AM EDT) Albumin 3.6 3.5 - 5.0 g/dL See order comments Blood specimen (specimen) Venous blood / Unknown 12/23/2024 11:40 AM EDT 12/23/2024 11:40 AM EDT Yong Ruiz MD LAB BLOOD ORDERABLES Final Re sult Performing Organization Address [facility] de Phone [facility] See order comments [place] [address] * Electrolyte panel (12/23/2024 11:40 AM EDT) Sodium 140 135 - 145 mmol/L See order comments Potassium 4.4 3.3 - 5.1 mmol/L See order comments Chloride 108 96 - 108 mmol/L See order comments Bicarbonate (CO2) 24 22 - 29 mmol/L See order comments Anion Gap 12 12 - 20 See order comments 12/23/2024 11:4 0 AM EDT 12/23/2024 11:40 AM EDT us Yong Ruiz MD LAB BLOOD ORDERABLES Final Re sult Performing Organization Address [facility] de Phone Number [place] See order comments [place] [address] * (ABNORMAL) Protein, Total, Random Urine w/Creatinine (Protein/Creat Ratio) (12/23/2024 11:17 AM EDT) Protein Urine Random 141(H) <12 mg/dL See order comments Protein/Creati nine Ratio, Urine 1.92(H) <0.2 See order comments Comment: The spot urine protein:creatinine ratio may increase to 0.3 during normal . Urine specimen (specimen) Urine specimen obtained by clean catch procedure / Unknown 12/23/2024 11:17 AM EDT 12/23/2024 11:17 AM EDT us Yong Ruiz MD LAB URINE ORDERABLES Final Re sult Performing Organization Address [facility] Phone Number [facility] See order comments [place] [address] * (ABNORMAL) Albumin, urine, random (12/23/2024 11:17 AM EDT) Creatinine, Urine 73.37 mg/dL Se e order comments Urine Microalbumin 930.0 mg/L See order comments Microalbumin/Crea tinine Ratio 1,267.5(H ) <30 ug/mg cr See order comments Comment: Albumin/Creatinine Ratio Reference Ranges: Normal: < 30 ug/mg creatinine Microalbuminuria: 30 - 300 ug/mg creatinine Clinical Albuminuria: > 300 ug/mg creatinine 12/23/2024 11:1 7 AM EDT 12/23/2024 11:17 AM EDT us Yong Ruiz MD LAB URINE ORDERABLES Final Re sult Performing Organization Address [facility] de Phone Number [place] See order comments [place] [address] * (ABNORMAL) Urinalysis with microscopic (12/23/2024 11:17 AM EDT) Color Urine Yellow See orde r comments Appearance Urine Clear See order comments pH Urine 6.5 5.0 - 9.0 See order comments Glucose Urine Negative Negative mg/dL See order comments Blood, Urine Negative Negative See ord er comments Specific [place] Urine 1.015 1.005 - 1.025 See order comments Protein Urine 100 (2+)(A) Neg-Trace mg/dL See order comments Ketones, Urine [...] Seen See order comments Hyaline Casts, Urine 0-2 0 - 2 /LPF See order comments Urine specimen (specimen) Urine specimen obtained by clean catch procedure / Unknown 12/23/2024 11:17 AM EDT 12/23/2024 11:17 AM EDT us Yong Ruiz MD LAB URINE ORDERABLES Final Re sult [place] See order comments [place] [address] * (ABNORMAL) CBC and Differential (12/23/2024 11:15 AM EDT) WBC 7.8 4.8 - 10.8 X10*3/uL See order comments RBC 4.50(L) 4.60 - 5.80 X10*6/uL See order comments Hgb 15.5 14.0 - 18.0 g/dl See order comments Hematocrit 44.6 42.0 - 52.0 % See order comments MCV 99.1(H) 80.0 - 98.0 fL See order comments MCH 34.4(H) 27.0 - 33.0 pg See order comments MCHC 34.8 31.0 - 36.0 g/dl See order comments RDW 12.4 11.0 - 16.0 % See order comments Platelets 136(L) 160 - 400 X10*3/uL See order comments MPV 10.1 9.4 - 12.4 fL See order comments Neutrophils % Auto 52.7 45 - 73 % See order comments Immature Granulocytes 0.3 0.0 - 0.4 % See order comments Lymphocytes Relative 35.3 20 - 40 % See order comments Monocytes 8.9 2 - 11 % See order comments Eosinophils Relative 2.2 0 - 4 % See order comments Basophils Relative 0.6 0 - 2 % See order comments nRBC Count 0.0 0.0 - 0.2 /100WBC See order comments Neutrophils Absolute 4.1 2.0 - 8.3 x10*3/uL See order comments Immature Grans (Absolute) 0.02 0.00 - 0.03 X10*3/uL See order comments Lymphocytes Absolute 2.7 1.2 - 4.9 X10*3/uL See order comments Monocytes Absolute 0.7 0.1 - 1.2 X10*3/uL See order comments Eosinophils Absolute 0.2 0.0 - 0.4 X10*3/uL See order comments Basophils Absolute 0.1 0.0 - 0.2 X10*3/uL See order comments NRBC Absolute 0.000 0.0 - 0.012 X10*3/uL See order comments 12/23/2024 11:1 5 AM EDT 12/23/2024 11:15 AM EDT us Yong Ruiz MD LAB BLOOD ORDERABLES Final Re sult [place] See order comments [place] [address] * Hemoglobin A1c (06/27/2019 9:20 AM EDT) Estimated Average Glucose 111 MG/DL [place] Comment: eAG = Estimated average glucose which is %A1C expressed as average glucose, using the formula of the [id number] Average Glucose study (ADAG), Diabetes Care, Vol.31,#8, 2007 Hemoglobin A1C 5.5 % [place] Comment: Hemoglobin A1C Reference Range Adults: 4.8 - 6.0 % Non diabetic: < 6.0 % Goal: < 7.0 % Additional Action Suggested: > 8.0 % Note: Hemoglobin A1c results are invalid for patients with abnormal amounts of HbF. Blood transfusions may impact the HbA1c concentration in the patient sample. 06/27/2019 9:20 AM EDT Arnaldo HANSEN LAB BLOOD ORDERABLES Final Re sult [place] from Last 3 Months or Most Recently Relevant to Health Maintenance Insurance Medicare [facility] [place] [id number] [facility] [place] [address] Care Teams Hands And Dial Inspector Relationship Specialty Start Date End Date Arnaldo Nichols PA [address] [place] [address], [address] [place] [address] PCP - General Physician Supervisor Maintenance And Custodians 07/02/20
--- OUTSIDE RECORDS SUMMARY | 2024-12-23 13:15 | XMS_ITS | Encounter Summary ---
Author Organization [facility] Address [address] [address] Phone Care Team Providers Care Laser Beam Color Scanner Operator Name Role Phone Arnaldo Nichols Primary Care Provider [phone] Encounter Details Date Type Department Care Team (Late Contact Info) Description 12/23/2024 Orders Only [facility] [address] [address] Yong Ruiz MD [address] [address] Social History Tobacco Use Types [...] Office Visit [facility] [address] [place] [address] Yong Ruiz MD [address] [address] documented as of this encounter Procedures Procedure Name Priority Date/Time Associated Diagnosis Comments CREATININE, BLOOD Routine 12/23/2024 11: 40 AM EDT PTH, INTACT (HC) Routine 12/23/2024 11:4 0 AM EDT BUN Routine 12/23/2024 11:40 AM EDT ELECTROLYTE PANEL Routine 12/23/2024 11: 40 AM EDT ALBUMIN, URINE, RANDOM Routine 12/23/2024 11:17 AM EDT CBC AND DIFFERENTIAL Routine 12/23/2024 11:15 AM EDT documented in this encounter Results * (ABNORMAL) Creatinine (12/23/2024 11:40 AM EDT) Creatinine Serum 1.65(H) 0.5 - 1.4 mg/dL See order comments eGFR (Calc) 40 See orde r comments Comment: Chronic Kidney Disease: Estimated GFR < 60 mL/min/1.73m2 Severe Kidney Disease: Estimated GFR < 15 mL/min/1.73m2 12/23/2024 11:4 0 AM EDT 12/23/2024 11:40 AM EDT Yong Ruiz MD LAB BLOOD ORDERABLES Final Re sult [place] See order comments [place] [address] * (ABNORMAL) BUN (12/23/2024 11:40 AM EDT) BUN 21(H) 9 - 16 mg/dL See order comments 12/23/2024 11:4 0 AM EDT 12/23/2024 11:40 AM EDT Yong Ruiz MD LAB BLOOD ORDERABLES Final Re sult [place] See order comments [place] [address] * Electrolyte panel (12/23/2024 11:40 AM EDT) [...] ORDERABLES Final Re sult Performing Organization Address [facility] de Phone Number [place] See order comments [place] [address] * (ABNORMAL) PTH, Intact (12/23/2024 11:40 AM EDT) Parathyroid Hormone, Intact 91.6(H) 8.7 - 77.1 pg/mL See order comments 12/23/2024 11:4 0 AM EDT 12/23/2024 11:40 AM EDT us Yong Ruiz MD LAB [id number] SOLICITED RESULTS Final Result Performing Organization Address [facility] Phone Number [place] See order comments [place] [address] * (ABNORMAL) Albumin, urine, random (12/23/2024 11:17 [...] ORDERABLES Final Re sult Performing Organization Address [facility] de Phone Number [place] See order comments [place] [address] * (ABNORMAL) CBC and Differential (12/23/2024 11:15 [...] MD LAB BLOOD ORDERABLES Final Re sult [place] See order comments [place] [address] documented in this encounter Visit Diagnoses Not on filedocumented in this encounter Care Teams Laser Beam Color Scanner Operator Relationship Specialty Start Date End Date Arnaldo Nichols PA [address] [facility], [address] [place], [place] [id number] PCP - General Physician Scrap Stripper Hand 07/02/20 documented as of this encounter
--- OUTSIDE RECORDS SUMMARY | 2024-12-23 13:16 | XMS_ITS | Patient Health Record ---
Author Organization [facility] Address [address] [place] [address] Care Team Providers Care Security Software Engineer Name Role Phone Arnaldo Nichols Primary Care Provider UnavailJoel Williamson Unavailable [phone] Allergies Allergen (clinical drug ingredient) Drug/Non Drug [...] Notes: Nonsmoker; no sig alcohol Originally from [place] Nonsmoker; no sig alcohol Originally [place] Nonsmoker; no sig alcohol Originally [place] Nonsmoker; no sig alcohol Originally [place] Nonsmoker; no sig alcohol Originally [place] Nonsmoker; no sig alcohol Originally [place] Nonsmoker; no sig alcohol Originally [place] Nonsmoker; no sig alcohol Originally [place] Nonsmoker; no sig alcohol Originally from [place] Problems Problem Type SNOMED Code ICD Code Onset Dates Problem Status W/U Status Risk Notes Problem 765448747 Encounter for screening for malignant neoplasm of colon (Z12.11) Active confirmed Problem 71014403 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) Active confirmed Problem Diverticulosis of sigmoid colon (177070909) Diverticulosis of sigmoid colon (K57.30) Active confirmed Problem 16551531 Hypertension, unspecified type (I10) Active confirmed Problem 323455561 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 [address] [place] [address] 10/17/2024 Joel Garcia Other cirrhosis of liver [...] Provider Name:Joel Garcia , 11/05/2025 04:00:00 PM, [address] [place] [address], [address], [place], [address], Insurance Providers Payer Name Payer Address Payer Phone Subscriber Number Group Number Insured Name Patient Relationship to Insured Coverage Start Date Coverage End Date [employer] [place] [address] [place]ER[place]ND[place] [id number] [phone] [id number] SILVIA JAROD Self - patient is the insured [place], [place] [id number] JAROD AN Self - patient is the insured Medical (General) History Medical History History ICD Code Denies [place],CVA,renal disease Hypertension 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 Frieda milan Takes Finasteride for hair loss Colonoscopy at age 72 in [place], [place]--polyps were removed--not clear as to what [...] Kidney stone & stent--Dr. Terrence Groves--seen by [facility] Cardiology--on [facility] CT of abdomen in June [...] Surgical History Surgery Date(Month/Year) Cholecystectomy in 10/[address] [facility] [address] Jimenez was negative for any lesions nor gallstones Left Hip replacement 05/2019 Dr. Cordoba Appendectomy
--- OUTSIDE RECORDS SUMMARY | 2024-12-23 13:16 | XMS_ITS | Patient Health Record ---
Author Organization [facility] Address [address] [facility] [place] [address] Care Team Providers Care Alcohol Law Enforcement Agent Name Role Phone Arnaldo Nichols Primary Care Provider Unavailab Jung Ma Unavailable [phone] Allergies Allergen (clinical drug ingredient) Drug/Non Drug [...] Problem Acquired hammer toe of right foot (7158546860110113 ) Other hammer toe(s) (acquired), right foot (M20.41) Active confirmed Problem Acquired hammer toe of left foot (2634521695724168 ) Other hammer toe(s) (acquired), left foot (M20.42) Active confirmed Problem Polyneuropathy due to type 2 diabetes mellitus (336242675) Type 2 diabetes mellitus with diabetic polyneuropathy (E11.42) Active confirmed Vital Signs Blood pressure diastolic 68 mm Hg 11/11/2024 Height 5ft 11in in 11/11/2024 Blood pressure systolic 131 mm Hg 11/11/2024 Weight 250 lbs 11/11/2024 BMI 34.86 kg/m2 11/11/2024 Procedures Procedure Date Ordered Date Performed Result Body Sit e 27401-ZYDDYES NAIL, 1-5 02/14/2024 N/A 45097-IDZO SKIN LESIONS, OVER 4 02/14/2024 N/A Y6806-NEXUASLU DYSTROPHIC NAILS ANY # 02/14/2024 N/A 78537-RSZVREA NAIL, 1-5 05/15/2024 N/A 19369-JWAL SKIN LESIONS, OVER 4 05/15/2024 N/A A7741-IUIHEKLY DYSTROPHIC NAILS ANY # 05/15/2024 N/A 43449-YMDXZON NAIL, 1-5 08/08/2024 N/A 15262-TRPY SKIN LESIONS, OVER 4 08/08/2024 N/A O7098-CTNGVFWB DYSTROPHIC NAILS ANY # 08/08/2024 N/A 80826-XJRKPDI NAIL, 1-5 11/11/2024 N/A 35534-OGCY SKIN LESIONS, OVER 4 11/11/2024 N/A V7213-SYCMDUQD DYSTROPHIC NAILS ANY # 11/11/2024 N/A Encounters Encounter Location Date Provider Diagnosis [address] [address] 02/14/2024 Jung Sarmiento Type 2 diabetes mellitus with diabetic polyneuropathy E11.42 ; Tinea unguium B35.1 ; Other hammer toe(s) (acquired), right foot M20.41 ; Other hammer toe(s) (acquired), left foot M20.42 and Xerosis of skin L85.[address] [address] 05/15/2024 Jung Samriento Type 2 diabetes mellitus with diabetic polyneuropathy E11.42 and Tinea unguium B35.1 [facility] [address] [address] 08/08/2024 Jung Sarmiento Type 2 diabetes mellitus with diabetic polyneuropathy E11.42 ; Tinea unguium B35.1 ; Other hammer toe(s) (acquired), right foot M20.41 and Other hammer toe(s) (acquired), left foot M20.[address] [address] 11/11/2024 Jung Sarmiento Type 2 diabetes mellitus [...] Treatment Pending Test Test Name Order Date 17783-QEPSEOL NAIL, 1-06/05/2023 46218-UCMQGIM NAIL, -11/13/2023 98129-AWVSGIQ NAIL, -02/14/2024 86598-PNLIQKV NAIL, -05/15/2024 71543-CGFRNNQ NAIL, 1-08/08/2024 77392-VBXATPP NAIL, 1-11/11/2024 05766-URAQ SKIN LESIONS, OVER 4 11/12/19 25 50871-QFLM SKIN LESIONS, OVER 4 05/15/19 25 55671-WYEX SKIN LESIONS, OVER 4 08/09/19 25 93234-XZNA SKIN LESIONS, OVER 4 02/14/20 24 11211-OFJH SKIN LESIONS, OVER 4 06/05/19 24 90589-CEBH SKIN LESIONS, OVER 4 11/13/19 24 J2832-SFTCLHIH DYSTROPHIC NAILS ANY # G7129-PVEIZECC DYSTROPHIC NAILS ANY # V9919-BWHNDXKR DYSTROPHIC NAILS ANY # H4812-AUVPXMQL DYSTROPHIC NAILS ANY # H9630-QXBUHJON DYSTROPHIC NAILS ANY # G7842-ODRVRSBV DYSTROPHIC NAILS ANY # Next Appt Details Provider Name:Jung Soares Guillermina , 02/24/2025 11:30:00 AM, [address] [facility] [place] [address], [place], [address], Insurance Providers Payer Name Payer Address Payer Phone Subscriber Number Group Number Insured Name Patient Relationship to Insured Coverage Start Date Coverage End Date Medicare National Govt Sv[employer] [address] [place] [address] [id number] Jarod An Self - patient is the insured [facility] [place] [address] [id number] Jarod An Self - patient is the insured Medical (General) History Medical History History ICD Code asthma Diabetic High blood pressure HIV Kidney disease Numbness Surgical History Surgery Date(Month/Year) Left hip replacement 2019
== END 2024-12-23 10:25 | disposition home or self-care (01) ==
LOC: HO.LAB 10:24
PROVIDERS: PCP Physician Assistant; Visit Provider Internal Medicine Nephrology
DX: E11.21 Type 2 diabetes mellitus with diabetic nephropathy (principal); R80.1 Persistent proteinuria, unspecified; E11.22 Type 2 diabetes mellitus with diabetic chronic kidney disease; N18.31 Chronic kidney disease, stage 3a
CPT/HCPCS: 36415; 80051; 81001; 82040; 82043; 82306; 82310; 82565; 82570; 83735; 83970; 84100; 84156; 84520; 85025; 87086

== ENCOUNTER 2025-02-11 09:49 | Outpatient (REF) | payer MEDICARE, OTHER, SELFPAY ==
--- OUTSIDE RECORDS SUMMARY | 2023-09-06 08:30 | XMS_ITS ---
Author Organization [facility] Address [address] [place] [address] Care Team Providers Care Wallpaper Remover Steam Name Role Phone Arnaldo Nichols Primary Care Provider Unavailab Jung Ma Unavailable [phone] Flores Encounters Encounter Location Date Provider Diagnosis [address] [address] 09/06/2023 Jung Sarmiento Plan Of Treatment Next Appt Details Provider Name:Jung Sarmiento , 02/24/2025 11:30:00 AM, [address] [place] [address], [phone], Progress Notes * Jarod ANDOB: [birth year] (84 yo M)Acc No.[id number]:09/06/2023 Progress Note Patient: Jarod HAYDEN Provider: John Sarmiento DPM :1940 A ge:83 Y S ex:Male Date:09/06/2023 Address:[address], [id number] Pcp:Arnaldo Nichols Subjective: * Chief Complaints: * [address] Flores[address] * Medical History: Objective: * Vitals: Assessment: Plan: * Treatment: * Images: * The named appointment provid er may or may not be the originator of this progress note, and it is not deemed complete until electronically signed by the appointment provider. Sign off status: Pending * Provider: John Sarmiento DPM Date: 0 09/06/2023 Generated for Paul Victor/Stephenie on: 04/13/2024 11:18 AM EST
[2025-02-11 10:40] LABS: Appearance Urine Clear; Glucose Urine UA Negative (Negative); PH 7.0 (5.0-9.0); Specific Gravity - Urine 1.015 (1.005-1.025); UMIC TRIGGER UA YES
[2025-02-11 10:43] LABS: Hematocrit 44.9 % (42.0-52.0); Hemoglobin 15.4 g/dl (14.0-18.0); Mean Corpuscular HGB Conc 34.3 g/dl (31.0-36.0); Mean Corpuscular Hemoglobin 34.4 pg (27.0-33.0); Mean Corpuscular Volume 100.2 fL (80.0-98.0); NRBC Abs Auto 0.000 X10*3/uL (0.0-0.012); NRBC Pct Auto 0.0 /100WBC (0.0-0.2); Platelet Count 135 X10*3/uL (160-400); Red Blood Count 4.48 X10*6/uL (4.60-5.80); White Blood Count 6.0 X10*3/uL (4.8-10.8)
[2025-02-11 11:01] LABS: Alanine Aminotransferase 26 U/L (0-40); Albumin Level 3.6 g/dL (3.5-5.0); Alkaline Phosphatase 77 U/L (39-117); Anion Gap 12 (12-20); Aspartate Amino Transferase 34 U/L (5-37); Blood Urea Nitrogen 26 mg/dL (9-16); Calcium 8.9 mg/dL (8.4-10.2); Carbon Dioxide 24 mmol/L (22-29); Chloride 108 mmol/L (96-108); Cholesterol 181 mg/dL (<200); Estimated Glomerular Filt Rate 42; HDL Cholesterol 79 mg/dL (>40); Potassium 4.6 mmol/L (3.3-5.1); Sodium 139 mmol/L (135-145); Total Protein 7.2 g/dL (6.5-8.0); Triglycerides 70 mg/dL (<150)
--- OUTSIDE RECORDS SUMMARY | 2025-02-11 11:18 | XMS_ITS | Patient Health Record ---
Author Organization [facility] Address [address] [facility] [place] [address] Care Team Providers Care Car Rental Agent Name Role Phone Arnaldo Nichols Primary Care Provider Unavailab Jung Ma Unavailable [phone] Allergies Allergen (clinical drug ingredient) Drug/Non Drug [...] Problem Acquired hammer toe of right foot (4607879150543938 ) Other hammer toe(s) (acquired), right foot (M20.41) Active confirmed Problem Acquired hammer toe of left foot (6900204434670348 ) Other hammer toe(s) (acquired), left foot (M20.42) Active confirmed Problem Polyneuropathy due to type 2 diabetes mellitus (872803574) Type 2 diabetes mellitus with diabetic polyneuropathy (E11.42) Active confirmed Vital Signs Blood pressure diastolic 68 mm Hg 11/11/2024 Height 5ft 11in in 11/11/2024 Blood pressure systolic 131 mm Hg 11/11/2024 Weight 250 lbs 11/11/2024 BMI 34.86 kg/m2 11/11/2024 Procedures Procedure Date Ordered Date Performed Result Body Sit e 35513-WQSMDGQ NAIL, 1-5 02/14/2024 N/A 44410-EIFG SKIN LESIONS, OVER 4 02/14/2024 N/A U4379-DXRKOKAG DYSTROPHIC NAILS ANY # 02/14/2024 N/A 50184-AEVLYSB NAIL, 1-5 05/15/2024 N/A 62365-KPXM SKIN LESIONS, OVER 4 05/15/2024 N/A S5231-EMDTVEQA DYSTROPHIC NAILS ANY # 05/15/2024 N/A 11395-XWCDBUA NAIL, 1-5 08/08/2024 N/A 20527-CQOL SKIN LESIONS, OVER 4 08/08/2024 N/A A1945-TTGOLYBR DYSTROPHIC NAILS ANY # 08/08/2024 N/A 83341-GZVTSVJ NAIL, 1-5 11/11/2024 N/A 13124-KXES SKIN LESIONS, OVER 4 11/11/2024 N/A P6310-FTUCXFPH DYSTROPHIC NAILS ANY # 11/11/2024 N/A Encounters Encounter Location Date Provider Diagnosis [address] [address] 02/14/2024 Jung Sarmiento Type 2 diabetes mellitus with diabetic polyneuropathy E11.42 ; Tinea unguium B35.1 ; Other hammer toe(s) (acquired), right foot M20.41 ; Other hammer toe(s) (acquired), left foot M20.42 and Xerosis of skin L85.[address] [address] 05/15/2024 Jung Sarmiento Type 2 diabetes mellitus with diabetic polyneuropathy E11.42 and Tinea unguium B35.1 [facility] [address] [address] 08/08/2024 Jung Sarmiento Type 2 diabetes mellitus with diabetic polyneuropathy E11.42 ; Tinea unguium B35.1 ; Other hammer toe(s) (acquired), right foot M20.41 and Other hammer toe(s) (acquired), left foot M20.[address] [address] 11/11/2024 Jung Sarmiento Type 2 diabetes mellitus [...] Treatment Pending Test Test Name Order Date 16032-NHMROOQ NAIL, 1-06/05/2023 76092-RWNOQRB NAIL, -11/13/2023 26511-ZZWJFTQ NAIL, -02/14/2024 18488-WLIFMED NAIL, -05/15/2024 78792-SWVCWFS NAIL, 1-08/08/2024 65473-GPRORSR NAIL, 1-11/11/2024 70310-EOJY SKIN LESIONS, OVER 4 11/12/19 25 83006-EYGC SKIN LESIONS, OVER 4 05/15/19 25 92700-QFQG SKIN LESIONS, OVER 4 08/09/19 25 66738-NSJC SKIN LESIONS, OVER 4 02/14/20 24 53056-MMRN SKIN LESIONS, OVER 4 06/05/19 24 46967-MJRU SKIN LESIONS, OVER 4 11/13/19 24 X2699-YMPWJMSK DYSTROPHIC NAILS ANY # Q3029-VWTRPUOR DYSTROPHIC NAILS ANY # F0329-YDRDNZRY DYSTROPHIC NAILS ANY # N0491-HWJMVXWS DYSTROPHIC NAILS ANY # A8741-KSRUQJTO DYSTROPHIC NAILS ANY # P2294-GCQUAVJN DYSTROPHIC NAILS ANY # Next Appt Details Provider Name:Jung Soares Guillermina , 02/24/2025 11:30:00 AM, [address] [facility], [place] [address], [place], [address], Insurance Providers Payer Name Payer Address Payer Phone Subscriber Number Group Number Insured Name Patient Relationship to Insured Coverage Start Date Coverage End Date Medicare National Govt Svcs Inc [address] [place] [address] [id number] Jarod An Self - patient is the insured [facility] [place] [address] [id number] Jarod An Self - patient is the insured Medical (General) History Medical History History ICD Code asthma Diabetic High blood pressure HIV Kidney disease Numbness Surgical History Surgery Date(Month/Year) Left hip replacement 2019
--- OUTSIDE RECORDS SUMMARY | 2025-02-11 11:18 | XMS_ITS | Patient Health Record ---
Author Organization [facility] Address [address] [place] [address] Care Team Providers Care Chemical Radiation Technician Name Role Phone Arnaldo Nichols Primary Care Provider UnavailJoel Williamson Unavailable [phone] Allergies Allergen (clinical drug ingredient) Drug/Non Drug Allergy documented on EMR Reaction Allergy Type Onset Date Status Ragweed Unknown Allergy Active Biaxin Unknown Drug Allergy Active Reason For Referral No Information Medications Medication SIG (Take, Route, Frequency, Duration) Notes Start Date End Date Status Eliquis 2.5 MG TAKE 1 TABLET BY JOSE TH TWICE A DAY Oral; Duration: 30 Active Finasteride 5 MG 1 tablet Orally Once a day Active Kerendia 20 MG TAKE 1 TABLET BY JOSE TH EACH DAY Orally Once a day Active Advair Diskus 100-50 MCG/DOSE 1 puff Inhalation Twice a day Active metFORMIN HCl 500 MG TAKE 1 TABLET BY MO UTH IN THE MORNING AND 1 TABLET IN THE EVENING WITH MEALS. Oral; Duration: 90 Active Breo Ellipta 100-25 MCG/ACT 1 [...] Notes: Nonsmoker; no sig alcohol Originally from [place] Nonsmoker; no sig alcohol [place] Nonsmoker; no sig alcohol [place] Nonsmoker; no sig alcohol Originally [place] Nonsmoker; no sig alcohol Originally [place] Nonsmoker; no sig alcohol Originally [place] Nonsmoker; no sig alcohol Originally [place] Nonsmoker; no sig alcohol Originally [place] Nonsmoker; no sig alcohol Originally [place] Problems Problem Type SNOMED Code ICD Code Onset Dates Problem Status W/U Status Risk Notes Problem Screening for malignant neoplasm of colon (619577533) Encounter for screening for malignant neoplasm of colon (Z12.11) Active confirmed Problem Cirrhosis of liver (83073939) 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) Active confirmed Problem Diverticulosis of sigmoid colon (403750231) Diverticulosis of sigmoid colon (K57.30) Active confirmed Problem Essential hypertension (23043584) Hypertension, unspecified type (I10) Active confirmed Problem Tubulovillous adenoma (08096283) 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 Problem Abnormal feces (958916674) Positive colorectal cancer screening using Cologuard test (R19.5) Active confirmed Problem Gastric varix (10696581) 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) Active confirmed Problem Neoplasm of digestive system (115809358) IPMN (intraductal papillary mucinous neoplasm) (D49.0) Active confirmed Vital Signs Temperature 98.5 degrees Fahrenheit 10/17/2024 Blood pressure diastolic 01 mm Hg 10/17/2024 Height 71 in 10/17/2024 Blood pressure systolic 001 mm Hg 10/17/2024 Weight 234.8 lbs 10/17/2024 BMI 32.74 kg/m2 10/17/2024 Encounters Encounter Location Date Provider Diagnosis [facility] [address] [place] [address] 10/17/2024 Joel Garcia Other cirrhosis of liver [...] Provider Name:Joel Garcia , 11/05/2025 04:00:00 PM, [address], [address], [place], [address], Insurance Providers Payer Name Payer Address Payer Phone Subscriber Number Group Number Insured Name Patient Relationship to Insured Coverage Start Date Coverage End Date MED[employer]ARE [employer] [address] [place] [id number] JAROD VEGA Self - [place] [address] [id number] JAROD VEGA Self - patient is the insured Medical (General) History Medical History History ICD Code Denies [place],CVA,renal disease Hypertension 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 Frieda milan Takes Finasteride for hair loss Colonoscopy at age 72 in [place], [place]--polyps were removed--not clear as to what [...] Kidney stone & stent--Dr. Terrence Groves--seen by [facility] Cardiology--on [facility] CT of abdomen in June [...] Surgical History Surgery Date(Month/Year) Cholecystectomy in 10/[address] [facility] [address] Jimenez was negative for any lesions nor gallstones Left Hip replacement 05/2019 Dr. Cordoba Appendectomy
[2025-02-11 11:36] LABS: Microalbum/Creatinine Ratio Ur 988.4 ug/mg cr (<30)
== END 2025-02-11 09:50 | disposition home or self-care (01) ==
LOC: HO.LAB 09:49
PROVIDERS: Internal Medicine; PCP Physician Assistant; Visit Provider Physician Assistant
DX: I10 Essential (primary) hypertension (principal); E78.2 Mixed hyperlipidemia; E11.65 Type 2 diabetes mellitus with hyperglycemia
CPT/HCPCS: 36415; 80053; 80061; 81001; 82043; 82570; 85027

== ENCOUNTER 2025-02-27 13:43 | Outpatient (AMB) | payer MEDICARE, OTHER, SELFPAY ==
--- OUTSIDE RECORDS SUMMARY | 2023-09-06 08:30 | XMS_ITS ---
Author Organization [facility] Address [address] [place] [address] Care Team Providers Care Food Service Specialist Name Role Phone Arnaldo Nichols Primary Care Provider Unavailab Jung Ma Unavailable [phone] Flores Encounters Encounter [facility] Date [facility] [address] 09/06/2023 Jung Sarmiento Plan Of Treatment Next Appt Details Provider Name:Jung Sarmiento , 06/05/2025 11:30:00 AM, [address] [place] [address], [phone], Provider Name:Jung Sarmiento , 09/04/2025 01:30:00 PM, [address] [place] [address], [phone], Progress Notes * Jarod ANDOB: [birth year] (84 yo M)Acc No.[id number]:09/06/2023 Progress Note Patient: Jarod HAYDEN Provider: John Sarmiento DPM :1940 A ge:83 Y S ex:Male Date:09/06/2023 Address:[address], [address], [id number] Pcp:Arnaldo Nichols Subjective: * Chief Complaints: * [...] DPM Date: 0 09/06/2023 Generated for Paul gomez/Gilbert/Stephenie on: 04/29/2024 07:10 PM EST
--- OUTSIDE RECORDS SUMMARY | 2025-02-24 06:30 | XMS_ITS ---
Author Organization [facility] Address [address] [facility] [place] [address] Care Team Providers Care Medical Secretary Name Role Phone Arnaldo Nichols Primary Care Provider Unavailab Jung Ma Unavailable [phone] Allergies Allergen (clinical drug ingredient) Drug/Non Drug Allergy documented on EMR Reaction Allergy Type Onset Date Status Ragweed Unknown Allergy Active REASON FOR VISIT At Risk Footcare Medications Medication SIG (Take, Route, Frequency, Duration) Notes Start Date End Date Status Abacavir Sulfate Not -Taking Metoprolol Succinate ER 25 MG 1 tablet Orally Once a day; Duration: 30 day(s) Not-Jamie ing Advair Diskus 100-50 MCG/ACT 1 puff Inhalation Twice a day Not-Taking Ammonium Lactate 12 % 1 application Exte rnally Twice a day; Duration: 30 days Active Extra Depth Orthopedic Shoes (1 Pair) with Customized Heat Molded Multidensity Innersoles (3 Pair) as directed Dx: NIDDM/Polyneuropathy (E11.42), Hammertoe Foot Deformity (M20.41,M20.42), Preulcerative Skin Lesion(s) (L85.1 Active metFORMIN HCl 500 MG 1 tablet with a alyssia l Orally Once a day; Duration: 30 day(s) Active Tamsulosin HCl 0.4 MG 1 capsule Orally O nce a day; Duration: 30 day(s) Active Losartan Potassium 100 MG 1 tablet Orally Once a day; Duration: 30 day(s) Active Tivicay 50 MG 1 tablet Orally Once a day; Duration: 30 day(s) Not-Jamie ing lamiVUDine 100 MG 1 tablet Orally Once a day; Duration: 10 day(s) Not-Jamie ing Kerendia 20 MG 1 tablet Orally Once a day; Duration: 30 day(s) Active Finasteride 5 MG 1 tablet Orally Once a day; Duration: 30 day(s) Active Furosemide 40 MG 1 tablet Orally Once a day; Duration: 30 day(s) Active Breo Ellipta Active Eliquis 2.5 MG as directed Orally t wice a day Active amLODIPine Besylate 5 MG 1 tablet Orally Once a day Active Triumeq 600-50-300 MG 1 tablet Orally On ce a day Active Atorvastatin Calcium 20 MG 1 tablet Orally Once a day; Duration: 30 day(s) Active Social [...] ast year? No Points 0 Interpretation Negative Vital Signs Height 5ft 11in in 02/24/2025 Weight 245 lbs 02/24/2025 BMI 34.17 kg/m2 02/24/2025 Procedures Procedure Date Ordered Date Performed Result Body Sit e 15773-JENTFRR NAIL, 1-5 02/24/2025 N/A [id number]-ODOU SKIN LESIONS, OVER 4 02/24/2025 N/A [id number] DYSTROPHIC NAILS ANY # 02/24/2025 N/A Encounters Encounter Location Date Provider Diagnosis [facility] [address] [address] 02/24/2025 Jung Sarmiento Type 2 diabetes mellitus with diabetic polyneuropathy E11.42 and Tinea unguium B35.1 Assessments Encounter Date Diagnosis (ICD Code) Assessment Notes Treatment Notes Treatment Clinical Notes Section Notes 02/24/2025 Type 2 diabetes mellitus with diabetic polyneuropathy (ICD-10 - E11.42) 02/24/2025 Tinea unguium (ICD-10 - B35.1) Plan Of Treatment Pending Test Test Name Order Date [id number] NAIL, 1-5 02/24/2025 34428-[id number] SKIN LESIONS, OVER 4 02/25/20 25 [id number] DYSTROPHIC NAILS ANY # Next Appt Details Follow Up: prn, Reason: Provider Name:Jung Sarmiento , 06/05/2025 11:30:00 AM, [address] [facility], [address] [facility], [place], [address], Provider Name:Jung Sarmiento , 09/04/2025 01:30:00 PM, [address] [facility], [address] [facility], [place], [address], Procedure Notes * Category Sub-Category Detail Notes [...] instrumentation by the physician of record - 91617 Debride Nails 1-5 Procedure: Due to the [...] necessary to maintain effective symptomatic relief - 12447 Nail Reduction Nail Reduction (-27) Trimming o [...] * Jarod ANDOB: [birth year] (84 yo M)Acc No.[id number]:02/24/2025 Progress Note Patient: Jarod HAYDEN Provider: John Sarmiento DPM :1940 A ge:84 Y S ex:Male Date:02/24/2025 Address:[address] [place] [address], [id number] Pcp:Arnaldo Nichols Subjective: * Chief Complaints: * A t Risk Footcare * HPI: A t Risk footcare: Pt States Last PCP Visit: D ate 0 08/31/2024 Misc S tates no new complaints since last visit. * ROS: G eneral/Constitutional: Nausea d enies. V omiting d enies. H evelyn Thirst d enies. L oss appetite d enies. C hills d enies. F atigue d enies.?Fever d enies. N ight Sweats d enies. U nexplained weight loss d enies. U nexplained weight gain d enies. H EENTM: Dentures d enies. D izziness d enies. G lasses/contacts d enies. R etinopathy d enies. B lurred/double vision d enies. T MJ?denies. D ischarge/drainage d enies. I mplants d enies. S ore throat d enies. D ental implants a dmits. H santos of hearing d enies. D ifficulty chewing/swallowing/speaking d enies. N ose bleeds d enies. S ore mouth d enies. ? R espiratory: On Oxygen d enies. P neumonia/pleurisy d enies.?Bronchitis d enies. E mphysema d enies. C oughing d enies. C ough blood?denies. S hortness of breath d enies. W heezing d enies. C ardiovascular: Pacemaker d enies. M BUILDING ADMIN d enies. W PW d enies. C HF d enies. H eart attack d enies. S eptal defect d enies. R apid beat d enies. C hest pain d enies. A trial Fib. a dmits. M urmur/Palpitations d enies. G astrointestinal: Hemorrhoids d enies. S tomach/Abdominal pain d enies. D ark blood stool d enies. I rritable bowel d enies. C onstipation d enies. D iarrhea d enies. H ematology: Swelling a dmits. C lots d enies. V aricose Veins a dmits. B ruising a dmits, on anticoagulants. B leeding problem a dmits, on anticoagulants. G enitourinary: Blood urine d enies. F requent/Painfu/urination/bladder control d enies. K idney stones d enies. I nfection (UTI) d enies. N ephropathy d enies. s ex trans dis (STD) d enies. P rostate d enies. M usculoskeletal: Hammertoes a dmits. B unions d enies. B ack Pain d enies. M uscle Cramps/ Resting d enies. M uscle cramps / walking d enies.?Generalized aches and pains d enies. W eakness d enies. I nteg.: Kelly d enies. S cars d enies. C orns/calluses?admits. I ngrown nails a dmits. P ainful nails d enies. O pen Sores d enies. R ashes d enies. N eurologic: Difficulty sleeping d enies. B rain disorder d enies. N umbness a dmits. B alance trouble d enies. C onfusion d enies. F ainting/blackouts d enies. T ingling a dmits, bilateral lower extremities. T remors?denies. * Medical History: * Surgical History: L eft hip replacement 2020 * Hospitalization/Major Diagno stic Procedure: N o Hospitalization History. * Family History: M other: , diagnosed with Family history of arthritis. F ather: , diagnosed with Diabetic - NIDDM. * Social History: T obacco Use: T obacco use other than smoking A re you an other tobacco user? N o Tobacco Control (Standard) T obacco use: N onsmoker A dditional Findings: Tobacco non-user C urrent nonsmoker D rugs/Alcohol: D rugs H ave you used drugs other than those for medical reasons in the past 12 months? N o M iscellaneous: C affeine: yes. Children: yes. Exercise: yes, walking. Marital status: . Occupation: Retired. D rug/Alcohol: A ANTONELLA-C (Standard) D id you have a drink containing alcohol in the past year? N o P oints 0 I nterpretation N egative * Medications: T akingamLODIPine Besylate 5 MG Tablet 1 tablet Orally Once a day Triumeq 600-50-300 MG Tablet 1 tablet Orally Once a day Atorvastatin Calcium 20 MG Tablet 1 tablet Orally Once a day Breo Ellipta Eliquis 2.5 MG Tablet as directed Orally twice a day Finasteride 5 MG Tablet 1 tablet Orally [...] Capsule 1 capsule Orally Once a day Ammonium Lactate 12 % Cream 1 application Externally Twice a day Extra Depth Orthopedic Shoes (1 Pair) with Customized Heat Molded Multidensity Innersoles (3 Pair) as directed Dx: NIDDM/Polyneuropathy (E11.42), Hammertoe Foot Deformity (M20.41,M20.42), Preulcerative Skin Lesion(s) (L85.1 Taking amLODIPine Besylate 5 MG Tablet 1 tablet Orally Once a day Taking Triumeq 600-50-300 MG Tablet 1 tablet Orally Once a day Taking Atorvastatin Calcium 20 MG Tablet 1 tablet Orally Once a day Taking Breo Ellipta Taking Eliquis 2.5 MG Tablet as directed Orally twice a day Taking Finasteride 5 MG Tablet 1 tablet [...] 1 capsule Orally Once a day Taking Ammonium Lactate 12 % Cream 1 application Externally Twice a day Taking Extra Depth Orthopedic Shoes (1 Pair) with Customized Heat Molded Multidensity Innersoles (3 Pair) as directed Dx: NIDDM/Polyneuropathy (E11.42), Hammertoe Foot Deformity (M20.41,M20.42), Preulcerative Skin Lesion(s) (L85.1 Not-Taking/PRNlamiVUDine 100 MG Tablet 1 tablet Orally Once a day Tivicay 50 MG Tablet 1 tablet Orally Once a day Abacavir Sulfate Metoprolol Succinate ER 25 MG Tablet Extended Release 24 Hour 1 tablet Orally Once a day Advair Diskus 100-50 MCG/ACT Aerosol Powder Breath Activated 1 puff Inhalation Twice a day Medication List reviewed and reconciled with the patientNot-Taking/PRN lamiVUDine 100 MG Tablet 1 tablet Orally Once a day Not-Taking/PRN Tivicay 50 MG Tablet 1 tablet Orally Once a day Not-Taking/PRN Abacavir Sulfate Not-Taking/PRN Metoprolol Succinate ER 25 MG Tablet Extended Release 24 Hour 1 tablet Orally Once a day Not-Taking/PRN Advair Diskus 100-50 MCG/ACT Aerosol Powder Breath Activated 1 puff Inhalation Twice a day Medication List reviewed and reconciled with the patient * Allergies: R audra[Allergies Verified] Objective: * Vitals: H t: 5ft 11in, Wt: 245, BMI: 34.17, Shoe size: 11, Wt-k.13 kg. * P ast Orders: L ab:HEMOGLOBIN A1C (GLYCOHEMOGLOBIN) (Order Date - 08/12/2024) (Collection Date & Time - 08/13/2024 11:42 AM) Value Reference Range HEMOGLOBIN A1C % (HH) 6.0 * Examination: O phthalmology Referral: DIABETES EYE EXAM P rocedure Performed: Y dariana D ate of Exam Performed 0 09/03/2024 D iabetic Retinopathy Screening: Y es R etinal Screening Performed: Y es F indings of Diabetic Eye Exam: n o retinopathy N eurological: SENSORY: N eurological exam demonstrates a loss of protective sensation by an absence of tested sensitivity to 5.07 Alma-Tre monofilament at 2 or more sites out of 5 total locations, each foot. N ails: NAILS are: E longated, overgrown, dystrophic, lytic, greater than 3mm thick, discolored and friable with crumbly malodorous subungual debris , TA , T1 , T5 , T6, all other nails not described with characteristics as possessing mycosis are elongated, overgrown, and dystrophic ( T2, T3, T4, T7, T8, T9 ) . D ermatologic: SKIN FINDINGS: S kin exam reveals Keratotic lesion(s) located at , Plantar , IPJ , TA , Plantar , IPJ , T5 , SUB MTH (s) , 1 , B/L , SUB MTH (s) , 2 , B/L , SUB MTH (s) , 5 , B/L , Plantar, Heel(s) , B/L. Assessment: * Assessment: 1. T inea unguium - B35.1 2 . T ype 2 diabetes mellitus with diabetic polyneuropathy - E11.42 (Primary) Plan: * Treatment: * Procedures: D ebride Nails 1-5: Procedure: D ue to the clinical pathology outlined in the exam findings, performance of this nail treatment is medically necessary as its management by an unskilled/untrained nonprofessional would put this patients foot and overall health at risk. Therefore, debridement to affected nail(s), as described in exam ( T A , T 1 , T 5 , ?T6 ) , was performed exclusively by the physician of [...] necessary to maintain effective symptomatic relief - 92748. K eratoma Treatment: Parring or Cutting of Benign Hyperkeratotic Lesion(s) ( -57) More than 4 Lesions - Due to [...] stated and described in the exam ( P lantar , I PJ , T A , P lantar , I PJ , T 5 , S UB MTH (s) , 1 , B /L , S UB MTH (s) , 2 , B /L , S UB MTH (s) , 5 , B /L , P lantar, H eel(s) , B /L ) , were pared, and/or cut utilizing a sterile 15 blade, tissue nippers, and/or power dremel instrumentation by the physician of record - 08084. N ail Reduction: Nail Reduction ( -27) Trimming of all dystrophic nails - Due to the at risk nature of the patients medical condition as documented in the exam findings, performance of this nail treatment is medically necessary as its management by an unskilled/untrained nonprofessional would put this patients foot and overall health at risk. Therefore, the dystrophic nails, in locations as stated and described in the exam ( T 2, T3, T4, T7, T8, T9 ) , were debrided by the phisician of record to reduce/remove overall nail length and girth, by manual and electrical means with use of a nail nipper and/or dremel, to more viable healthy nail plate or bed tissue - G0127. * Procedure Codes: G 0127 TRIMMING DYSTROPHIC NAILS ANY #, Modifiers: XS 47276 DEBRIDE NAIL, 1-5, Modifiers: XS 40742 TRIM SKIN LESIONS, OVER 4, Modifiers: XS * Follow Up: p rn * Images: * Sign off status: Completed true * Provider: John Sarmiento DPM Date: 04/26/2024 Generated for Paul gomez/Gilbert/Stephenie on: 04/29/2024 07:10 PM EST History and Physical Notes * HPI (History of Present Illness) Category Sub-Category Detail Notes Category Not es At Risk footcare Pt States Last PCP Visit: Date: Misc States no new compla ints since last visit Examination Category Sub-Category Detail Notes Category Not es Neurological SENSORY: Neurological exa m demonstrates a loss of protective sensation by an absence of tested sensitivity to 5.07 Alma-Tre monofilament at 2 or more sites out of 5 total locations, each foot Dermatologic SKIN FINDINGS: Skin exam reveal s Keratotic lesion(s) located at , Plantar , IPJ , TA , Plantar , IPJ , T5 , SUB MTH (s) , 1 , B/L , SUB MTH (s) , 2 , B/L , SUB MTH (s) , 5 , B/L , Plantar, Heel(s) , B/L Ophthalmology Referral DIABETES EYE EXAM Procedu re Performed:: Yes Date of Exam Performed: 09/03/2024 Diabetic Retinopathy Screening:: Yes Retinal Screening Performed:: [...]
--- NOTE | 2025-02-27 13:53 | MHC.PC.OV ---
Vital Signs 02/27/25 13:57 Height 5 ft 11 in Weight 232 lb BMI 32.4 BP 136/72 Blood Pressure Location Lt brachial Position Sitting Pulse 70 Pulse Source Pulse Oximeter Pulse Oximetry (%) 99 Oxygen Delivery Method Room Air Intake Visit Reasons: 6 mo follow up Aircraft Armament Mechanic Required: No Accompanied by: Self / Same As Patient Allergies clarithromycin (From BIAXIN) Allergy (Unknown, Verified 02/27/25 14:15) ANAPHYLAXIS Medication List - Last Reconciled 02/27/25 by Arnaldo Nichols PA-C ijzvjuej-colydyxaulgv-ezducdz 600-50-300 mg (Triumeq) 1 tab PO DAILY 90 days albuterol sulfate 2.5 mg (3 mL) inhalation Q6H PRN 15 days amlodipine 5 mg PO DAILY 90 days apixaban (Eliquis) 2.5 mg PO BID atorvastatin 20 mg PO BEDTIME finasteride 5 mg orally take on Mondays, Wednesdays, Fridays 90 days finerenone (Kerendia) 20 mg PO DAILY furosemide 20 mg PO BID losartan 100 mg PO DAILY metformin 500 mg PO DAILY tamsulosin 0.4 mg PO BEDTIME Tobacco use date assessed: 02/27/25 Fall risk assessment: No Falls in past year Last assessed Fall Risk: 02/27/25 Dental Screening Dental Screen Date: 02/27/25 Did you have a dental visit in the last 12 months?: Yes Did you have a dental problem in the last 6 months where you did not have access to dental care?: No Was dental information given to patient?: Patient has dentist HPI 6 mo follow up HPI Details Patient is a 84 year old male here today for a follow-up visit.? Patient has a past medical history significant for HIV, hypertension, obstructive uropathy with Stent placement, CKD stage 3, paroxysmal AFIB. Concerns--> has noted a slight dry facial rash over his forehead and cheeks. He wonders if this is related to a sinus issue. Has been using hyaluronic acid and see a review moisturizer though has not been too effective. ? .. ? AFIB: Followed by cardiology.? Has been stable without any reports of palpitations, overt bleeding. He continues on renally dosed Eliquis. He has recently seen his inspector plug seam whom reduced his dose of metoprolol due to hypotension and reports of fatigue.. Blood pressure today in office acceptable. ? .. ?CKD stage 3:? Most recent creatinine 1.58. Continues to be stable on Kerendia ?Patient is followed by conveyor belt operator (Dr. Ruiz), most recent microalbumin much more elevated. He does report foamy urine at times. He has spoken with his conveyor belt operator about the microalbuminuria and is considering a invasive procedure to help the microalbuminuria. Lower extremity edema has been improved. Continues with Lasix. Has been started on currently a at higher dose for renal protection. ? .. ? HIV: Patient is followed by infectious disease specialist and reports his HIV viral load has been undetectable.? Patient's CD4 count also monitored by Infectious Disease specialist ? . ? ? Type 2 diabetes:? Patient's diabetes has been better controlled as of late.? Most recent A1c has improved to 6.1 Continues on metformin 500 daily. 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 Mother No problems noted. Social History Housing: House Alcohol intake: never Patient Tobacco Use Status: Never used Tobacco e-Cigarette/Vaping Use: Never Used Current occupational status: retired Cognitive needs: No Hearing needs: No Vision needs: No Questionnaire PHQ-9 Over the last 2 weeks, how often have you been bothered by any of the following problems? 1. Little interest or pleasure in doing things: not at all 2. Feeling down, depressed, or hopeless: not at all 3. Trouble falling or staying asleep, or sleeping too much: not at all 4. Feeling tired or having little energy: not at all 5. Poor appetite or overeating: not at all 6. Feeling bad about yourself - or that you are a failure or have let yourself or your family down: not at all 7. Trouble concentrating on things, such as reading the newspaper or watching television: not at all 8. Moving or speaking so slowly that other people could have noticed. Or the opposite - being so fidgety or restless that you have been moving around a lot more than usual: not at all 9. Thoughts that you would be better off or of hurting yourself in some way: not at all Total score: 0 Depression Screening Interpretation: Negative Depression Screening Done: Yes 32203 - PHQ-9 Billing: Patient declined-do not bill Source: Developed by Drs. Joel Parks, Maday Brandt, Matthew Choudhury and colleagues, with an educational ricky from [employer]. Thrive Questionnaire Date Thrive assessed: 02/27/25 I am a: Patient What is your living situation today?: I have a steady place to live Within the past 12 months, did the food you bought not last and you didn't have the money to get more?: I choose not to answer this question Within the past 12 months, did you worry whether your food would run out before you got money to buy more?: I choose not to answer this question Do you have trouble paying for medicines?: No Do you have trouble getting transportation to medical appointments?: No Do you have trouble paying your heating and electricity bill?: No Do you have trouble taking care of your child, family member or friend?: No Do you have trouble with day-to-day activities such as bathing, preparing meals, shopping, managing finances, etc.?: No Are you currently unemployed and looking for a job?: No Are you interested in more education?: No Please select the resources that you would like help with: None Currently or been in a relationship where the following occur: I choose not to answer THRIVE Score: 0 AUDIT C Alcohol Use Questionnaire (AUDIT-C) 1. How often do you have a drink containing alcohol?: Monthly or less 2. How many drinks containing alcohol do you have on a typical day when you are drinking?: 1 or 2 3. How often do you have six or more drinks on one occasion?: Never Total Score: 1 DORY-7 AMB Questionnaire DORY-7 Date DORY - 7 assessed: 02/27/25 Feeling nervous, anxious, or on edge: 0 = Not at all Not being able to stop or control worryin = Not at all Worrying too much about different things: 0 = Not at all Trouble relaxin = Not at all Being so restless that it is hard to sit still: 0 = Not at all Becoming easily annoyed or irritable: 0 = Not at all Feeling afraid as if something awful might happen: 0 = Not at all Total DORY-7 score (0-4 normal; 5-9 mild; 10-14 moderate; 15-21 severe): 0 Source: Developed by Drs. Joel Parks, Maday Brandt, Matthew Choudhury and colleagues, with an educational ricky from [employer]. DORY-7 Assessment Billing DORY-7 Assessment Tool: DORY-7 Assessment 06200 Physical exam (Primary Care) Vital Signs: Last Vital Signs Pulse 70 02/27/25 13:57 BP 136/72 02/27/25 13:57 Pulse Ox 99 02/27/25 13:57 Oxygen Delivery Method Room Air 02/27/25 13:57 BMI result Body Mass Index 32.4 Tobacco/Smoking Status: Tobacco use Status Tobacco use date assessed 02/27/25 02/27/25 14:08 Patient Tobacco Use Status Never used Tobacco 02/27/25 13:55 e-Cigarette/Vaping Use Never Used 02/27/25 13:55 PHQ-9: PHQ-9 Score PHQ-9: Total score 0 02/27/25 14:18 Depression Screening Interpretation: Negative Thrive Assessment: Date of Thrive Assessment Date Thrive assessed 02/27/25 02/27/25 14:08 Currently or been in a relationship where the following occur: I choose not to answer Results AMB Hemoglobin A1c AMB Hemoglobin A1c 6.1 % Last Edit by DONALD Yañez on 02/27/25 14:36 Coding Diagnoses Type 2 diabetes mellitus with hyperglycemia, without long-term current use of insulin E11.65 Diabetes mellitus marine oil terminal superintendent insulin use: without marine oil terminal superintendent use Diabetes mellitus complication status: with hyperglycemia Facial rash R21 Longstanding persistent atrial fibrillation I48.11 Atrial fibrillation type: longstanding persistent Essential hypertension I10 Hypertension type: essential hypertension 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 Continues on metformin 500 daily, today's A1c is 6.1. Goal A1c is to remain below 7.0 (2) Facial rash: Code(s): R21 - Rash and other nonspecific skin eruption Category: Medical Plan: Will watch and wait and continue using facial moisturizer after showers. (3) Afib: Code(s): I48.91 - Unspecified atrial fibrillation Category: Medical Qualifiers: Atrial fibrillation type: longstanding persistent Qualified Code(s): I48.11 - Longstanding persistent atrial fibrillation Plan: Continues to follow [facility]. He is now off of beta-natasha He will be getting a repeat Holter monitors him. Otherwise he continues to be anticoagulated with renally dose to Eliquis without any overt signs of bleeding. (4) HTN (hypertension): Code(s): I10 - Essential (primary) hypertension Category: Medical Qualifiers: Hypertension type: essential hypertension Qualified Code(s): I10 - Essential (primary) hypertension Plan: Patient's blood pressure slightly elevated today in office. He will restart metoprolol 12.5 mg. He was started on amlodipine 2.5 mg by his conveyor belt operator. 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 He continues to follow Nephrology whom recommended a kidney biopsy though patient is holding off on this for now. Orders: Orders AMB Hemoglobin A1c Today E11.65 - Type 2 diabetes mellitus with hyperglycemia Lipid Panel Today E78.2 - Mixed hyperlipidemia Complete Blood Count no Diff Today E11.65 - Type 2 diabetes mellitus with hyperglycemia Comprehensive Julian. Panel Fast Today E11.65 - Type 2 diabetes mellitus with hyperglycemia Microalbumin, Random (w Creat) Today E11.65 - Type 2 diabetes mellitus with hyperglycemia Hemoglobin A1c Today E11.65 - Type 2 diabetes mellitus with hyperglycemia Medications: New amoxicillin 500 mg PO TID 21 caps 0RF 7 days J40 - Bronchitis, not specified as acute or chronic fluticasone propion-salmeterol 115-21 mcg/actuation (Advair HFA) 2 puffs inhalation BID 12 grams 3RF 4 weeks J45.20 - Mild intermittent asthma, uncomplicated Changed From metformin Reduced to once daily dosing 500 mg PO DAILY E11.65 - Type 2 diabetes mellitus with hyperglycemia To metformin Reduced to once daily dosing 500 mg PO DAILY 90 tabs 2RF 90 days E11.65 - Type 2 diabetes mellitus with hyperglycemia
[2025-02-27 13:57] VITALS: BP 136/72; PULSE 70; O2SAT 99; BMI 32.4
--- OUTSIDE RECORDS SUMMARY | 2025-02-27 19:11 | XMS_ITS | Patient Health Record ---
Author Organization [facility] Address [address] [place] [address] Care Team Providers Care Shearing Shed Hand Name Role Phone Arnaldo Nichols Primary Care Provider UnavailJoel Williamson Unavailable [phone] Allergies Allergen (clinical drug ingredient) Drug/Non Drug Allergy documented on EMR Reaction Allergy Type Onset Date Status Biaxin Unknown Drug Allergy Active Ragweed Unknown Allergy Active Reason For Referral No Information Medications Medication SIG (Take, Route, Frequency, Duration) Notes Start Date End Date Status Eliquis 2.5 MG Tablet TAKE 1 TABLET BY M OUTH TWICE A DAY Oral; Duration: 30 Active Finasteride 5 MG Tablet 1 tablet Orally Once a day Active Kerendia 20 MG Tablet TAKE 1 TABLET BY M OUTH EACH DAY Orally Once a day Active Advair Diskus 100-50 MCG/DOSE Miscellaneous 1 puff Inhalation Twice a day Active metFORMIN HCl 500 MG Tablet TAKE 1 TABLE T BY MOUTH IN THE MORNING AND 1 TABLET IN THE EVENING WITH MEALS. Oral; Duration: 90 Active Breo Ellipta 100-25 MCG/ACT Aerosol Powder Breath Activated 1 puff Inhalation Once a day Active Triumeq 600-50-300 MG Tablet 1 tablet Or ally Once a day Active amLODIPine Besylate 5 MG Tablet 1 tablet Orally Once a day Active Losartan Potassium 100 MG Tablet 1 tablet Orally Once a day Active Tamsulosin HCl 0.4 MG Capsule 1 capsule Orally Once a day Active Atorvastatin Calcium 20 MG Tablet 1 tablet Orally Once a day Active Furosemide 20 MG Tablet 1 tablet Orally Once a day Active [...] stop date) Never Smoker NA - NA Social History Drugs/Alcohol: Social Info Question Answer Notes Alcohol Screen Did you have a drink containing alcohol in the past year? No Points 0 Interpretation Negative Tobacco Use: Social Info Question Answer Notes Tobacco Use/Smoking Patient is a nonsmoker Additional Details Category Social Info Options Details Miscellaneous: Marital status: Occupation: retired Section Notes: Nonsmoker; no sig alcohol [place] Nonsmoker; no sig alcohol [place] Nonsmoker; no sig alcohol [place] Nonsmoker; no sig alcohol [place] Nonsmoker; no sig alcohol [place] Nonsmoker; no sig alcohol [place] Nonsmoker; no sig alcohol [place] Nonsmoker; no sig alcohol [place] Nonsmoker; no sig alcohol [place] Problems Problem Type SNOMED Code ICD Code Onset Dates Problem Status W/U Status Risk Notes Problem Screening for malignant neoplasm of colon (793903579) Encounter for screening for malignant neoplasm of colon (Z12.11) Active confirmed Problem Cirrhosis of liver (79301173) 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) Active confirmed Problem Diverticulosis of sigmoid colon (227653945) Diverticulosis of sigmoid colon (K57.30) Active confirmed Problem Essential hypertension (54068720) Hypertension, unspecified type (I10) Active confirmed Problem Tubulovillous adenoma (32168823) 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 Problem Abnormal feces (577946834) Positive colorectal cancer screening using Cologuard test (R19.5) Active confirmed Problem Gastric varix (83806690) 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) Active confirmed Problem Neoplasm of digestive system (118206685) IPMN (intraductal papillary mucinous neoplasm) (D49.0) Active confirmed Vital Signs Temperature 98.5 degrees Fahrenheit 10/17/2024 Blood pressure diastolic 01 mm Hg 10/17/2024 Height 71 in 10/17/2024 Blood pressure systolic 001 mm Hg 10/17/2024 Weight 234.8 lbs 10/17/2024 BMI 32.74 kg/m2 10/17/2024 Encounters Encounter Location Date Provider Diagnosis [facility] [address] [place] [address] 10/17/2024 Joel Garcia Other cirrhosis of liver [...] CA 19-9 08/25/2020 MRI ABD W&WO CONTRAST 08/11/2022 MRI ABD W&WO CONTRAST 08/25/2020 US ABD 08/11/2020 Future Test Test Name Order Date UPPER GI ENDOSCOPY 06/14/2018 COLONOSCOPY 09/15/2020 Next Appt Details Provider Name:Joel Garcia , 11/05/2025 04:00:00 PM, [address], [address], [place], [address], Insurance Providers Payer Name Payer Address Payer Phone Subscriber Number Group Number Insured Name Patient Relationship to Insured Coverage Start Date Coverage End Date MEDICARE OF [facility] [address] [place] [address] [id number] JAROD VEGA [place] - [place] [address] [phone] [id number] JAROD VEGA Self - patient is the insured Medical (General) History Medical History History ICD Code Denies [place],CVA,renal disease Hypertension 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 Frieda milan Takes Finasteride for hair loss Colonoscopy at age 72 in [place], [place]--polyps were removed--not clear as to what [...] Kidney stone & stent--Dr. Terrence Groves--seen by [facility]--on [facility] CT of abdomen in June [...]
--- OUTSIDE RECORDS SUMMARY | 2025-02-27 19:11 | XMS_ITS | Patient Health Record ---
Author Organization [facility] Address [address] [place] [address] Care Team Providers Care Restaurant Assistant Manager Name Role Phone Arnaldo Nichols Primary Care Provider Unavailab Jung Ma Unavailable [phone] Allergies Allergen (clinical drug ingredient) Drug/Non Drug Allergy documented on EMR Reaction Allergy Type Onset Date Status Ragweed Unknown Allergy Active Results Component Value Reference Range Notes HEMOGLOBIN A1C (GLYCOHEMOGLO BIN) Reviewed date:05/15/2024 02:56:27 PM Interpretation: Performing Lab: Notes/Report: HEMOGLOBIN A1C % (HH) 6.0 HEMOGLOBIN A1C (GLYCOHEMOGLO BIN) Reviewed date:08/08/2024 02:16:43 PM Interpretation: Performing Lab: Notes/Report: HEMOGLOBIN A1C % (HH) 6.0 HEMOGLOBIN A1C (GLYCOHEMOGLO BIN) Reviewed date:11/11/2024 11:18:37 AM Interpretation: Performing Lab: Notes/Report: HEMOGLOBIN A1C % (HH) 6.0 HEMOGLOBIN A1C (GLYCOHEMOGLO BIN) Reviewed date:02/24/2025 11:42:53 AM Interpretation: Performing Lab: Notes/Report: HEMOGLOBIN A1C % (HH) 6.0 Reason For Referral No Information Medications Medication SIG (Take, Route, Frequency, Duration) Notes Start Date End Date Status metFORMIN HCl 500 MG 1 tablet with a alyssia l Orally Once a day; Duration: 30 day(s) Active Tamsulosin HCl 0.4 MG 1 capsule Orally O nce a day; Duration: 30 day(s) Active Kerendia 20 MG 1 [...] a day; Duration: 30 day(s) Not-Jamie ing Atorvastatin Calcium 20 MG 1 tablet Orally Once a day; Duration: 30 day(s) Active Abacavir Sulfate Not -Taking lamiVUDine 100 MG 1 tablet Orally Once a day; Duration: 10 day(s) Not-Jamie ing Finasteride 5 MG 1 tablet Orally Once a day; Duration: 30 day(s) Active Metoprolol Succinate ER 25 MG 1 tablet Orally Once a day; Duration: 30 day(s) Not-Jamie ing Furosemide 40 MG 1 tablet Orally Once a day; Duration: 30 day(s) Active Advair Diskus 100-50 MCG/ACT 1 puff Inhalation Twice a day Not-Taking Breo Ellipta Active Ammonium Lactate 12 % 1 application Exte rnally Twice a day; Duration: 30 days Active Eliquis 2.5 MG as directed Orally t wice a day Active Extra Depth Orthopedic Shoes (1 Pair) [...] Problem Acquired hammer toe of right foot (3697281873148592 ) Other hammer toe(s) (acquired), right foot (M20.41) Active confirmed Problem Acquired hammer toe of left foot (8630107852160672 ) Other hammer toe(s) (acquired), left foot (M20.42) Active confirmed Problem Polyneuropathy due to type 2 diabetes mellitus (168345922) Type 2 diabetes mellitus with diabetic polyneuropathy (E11.42) Active confirmed Vital Signs Blood pressure diastolic 68 mm Hg 11/11/2024 Height 5ft 11in in 02/24/2025 Blood pressure systolic 131 mm Hg 11/11/2024 Weight 245 lbs 02/24/2025 BMI 34.17 kg/m2 02/24/2025 Procedures Procedure Date Ordered Date Performed Result Body Sit e 02727-YGBIONX NAIL, 1-5 05/15/2024 N/A 00536-OHDD SKIN LESIONS, OVER 4 05/15/2024 N/A O3797-HZYDKVXZ DYSTROPHIC NAILS ANY # 05/15/2024 N/A 19956-LIZSGYJ NAIL, 1-5 08/08/2024 N/A 30478-GQXN SKIN LESIONS, OVER 4 08/08/2024 N/A S6301-BCMNHZOE DYSTROPHIC NAILS ANY # 08/08/2024 N/A 68137-VNNSJUQ NAIL, 1-5 11/11/2024 N/A 98971-AJVP SKIN LESIONS, OVER 4 11/11/2024 N/A Q8845-FDXVSFUA DYSTROPHIC NAILS ANY # 11/11/2024 N/A 59929-AMVOPMZ NAIL, 1-5 02/24/2025 N/A 79976-PHDH SKIN LESIONS, OVER 4 02/24/2025 N/A D7184-CSIHOUIB DYSTROPHIC NAILS ANY # 02/24/2025 N/A Encounters Encounter Location Date Provider Diagnosis [facility] [address] 05/15/2024 Jungadam Sarmiento Type 2 diabetes mellitus with diabetic polyneuropathy E11.42 and [facility] [address] 08/08/2024 Jung Guillermina Type 2 diabetes mellitus with diabetic polyneuropathy E11.42 ; Tinea unguium B35.1 ; Other hammer toe(s) (acquired), right foot M20.41 and Other hammer toe(s) (acquired), left foot M20.42 [facility] [address] [address] 11/11/2024 Jung Sarmiento Type 2 diabetes mellitus with diabetic polyneuropathy E11.42 and Tinea unguium B35.1 [facility] [address] [address] 02/24/2025 Jungadam Sarmiento Type 2 diabetes mellitus with [...] E11.42) 02/24/2025 Tinea unguium (ICD-10 - B35.1) 02/24/2025 Type 2 diabetes mellitus with diabetic polyneuropathy (ICD-10 - E11.42) 08/08/2024 Other hammer toe(s) (acquired), right foot (ICD-10 - M20.41) 08/08/2024 Other hammer toe(s) (acquired), left foot (ICD-10 - M20.42) Plan Of Treatment Pending Test Test Name Order Date 51041-BRSBAAO NAIL, -06/05/2023 87157-FWMOTQU NAIL, -11/13/2023 61204-OULWGDW NAIL, -02/14/2024 75966-UDCISTP NAIL, -05/15/2024 50565-ELLUUPQ NAIL, -08/08/2024 53912-VLDDSLA NAIL, -11/11/2024 26243-TSWMUUE NAIL, -02/24/2025 05649-XKWF SKIN LESIONS, OVER 4 02/25/20 25 84026-VXKD SKIN LESIONS, OVER 4 11/12/19 25 62347-UVVL SKIN LESIONS, OVER 4 08/09/19 25 41862-WTRC SKIN LESIONS, OVER 4 02/14/20 24 48723-OKHK SKIN LESIONS, OVER 4 06/05/19 24 04358-QHTB SKIN LESIONS, OVER 4 11/13/19 24 88289-APHB SKIN LESIONS, OVER 4 05/15/19 25 K7349-XZJDPFOL DYSTROPHIC NAILS ANY # I5069-YIKNZGCE DYSTROPHIC NAILS ANY # M4687-YSNCXIJY DYSTROPHIC NAILS ANY # S7376-OJEZKRIF DYSTROPHIC NAILS ANY # I6868-ZROGUQVO DYSTROPHIC NAILS ANY # T3970-EXEYSCRC DYSTROPHIC NAILS ANY # M5628-WLFSMBIA DYSTROPHIC NAILS ANY # Next Appt Details Provider Name:Jung Sarmiento , 06/05/2025 11:30:00 AM, [address] [place] [address], [phone], Provider Name:Jung Sarmiento , 09/04/2025 01:30:00 PM, [address] [place] [address], [phone], Insurance Providers Payer Name Payer Address Payer Phone Subscriber Number Group Number Insured Name Patient Relationship to Insured Coverage Start Date Coverage End Date Medicare [employer] [address] [place] [address] [id number] Jarod An Self - [place] [address] [id number] Jarod An Self - patient is the insured Medical (General) History Medical History History ICD Code asthma Diabetic High blood pressure HIV Kidney disease Numbness Surgical History Surgery Date(Month/Year) Left hip replacement 2019
== END 2025-02-27 14:44 | disposition home or self-care (01) ==
LOC: HO.HMCH 13:45
PROVIDERS: PCP Physician Assistant; Visit Provider Physician Assistant
DX: E11.65 Type 2 diabetes mellitus with hyperglycemia (principal)

== ENCOUNTER → 2025-02-27 13:43 | Outpatient (BNVA) | payer MEDICARE, OTHER, SELFPAY | PROVIDERS: PCP Physician Assistant; Visit Provider Physician Assistant | DX: E11.65 Type 2 diabetes mellitus with hyperglycemia (principal); R21 Rash and other nonspecific skin eruption; I48.11 Longstanding persistent atrial fibrillation; I10 Essential (primary) hypertension; R80.9 Proteinuria, unspecified; Z13.31 Encounter for screening for depression; Z13.39 Encounter for screening examination for other mental health and behavioral disorders | CPT/HCPCS: 83036; 96127; 99212 ==

== ENCOUNTER → 2025-03-19 13:41 | Outpatient (REF) | payer MEDICARE, OTHER, SELFPAY ==
--- NOTE | 2025-03-19 13:43 | CA_ITS ---
Transthoracic Echocardiogram Patient (Last, First, Middle): Jarod An, Gender: Male Date of : 1940 Age: 84 Procedure Date: 03/19/2025 Procedure Type: Transthoracic Echocardiogram Location: OP Height: 180.34 cm Weight: 96.16 kg BSA: 2.16 m2 Heart Rate: bpm BP: 150 / 72 mmHg [employer] Labourer: TO Referring MD: Molly Avelar GRANTS ASSISTANT-[employer]yd[employer] Chemical Processor: Raheem Monroe MD Symptoms: R93.1 - Abnormal findings on diagnostic imaging of heart and coronary ci... Study Quality: Adequate ECG Rhythm: Atrial Fibrillation Conclusions: - 1. Normal LV ejection fraction 55-60% 2. Severely dilated left atrium 3. Calcific aortic valve changes noted with normal cardiac valve with Dopplers 4. Normal RV systolic pressure with mildly elevated right atrial pressures 5. Mildly dilated ascending aorta at 4 cm 6. No gross pericardial effusion Findings Left Ventricle Normal left ventricular size, thickness, and systolic function. The visually estimated ejection fraction is between 55-60%. Diastolic function is indeterminate on the basis of available data. Wall Motion Rest Echo Findings The inferoseptal wall and mid inferior segment are hypokinetic. The basal inferior segment is akinetic. All other scored wall segments showed normal motion. Right Ventricle Normal right ventricular cavity size and systolic function. Atria The left atrium is severely dilated. There is no evidence of interatrial shunt. The right atrium is moderately dilated. Aortic Valve There is mild calcification of the aortic valve. There is no aortic valve stenosis. The peak aortic gradient is 12 mmHg.The mean gradient is 7 mmHg. The aortic valve area is 2.65 cm2. There is no aortic valve regurgitation. Mitral Valve There is mild anterior and posterior mitral leaflet thickening. There is trace mitral valve regurgitation. There is no mitral valve stenosis. Pulmonic Valve The pulmonic valve is likely normal. There is trace pulmonic valve regurgitation. Tricuspid Valve Normal tricuspid valve structure. There is mild tricuspid valve regurgitation. Mildly elevated right atrial pressure. There is no evidence of pulmonary hypertension. Great Vessels The pulmonary artery was not well visualized. There is mild dilatation of the ascending aorta measuring 4.00 cm. Small plaque is seen in the sino tubular ridge. Venous The inferior vena cava is mildly dilated and collapses greater than 50% with inspiration. Pericardium/Pleural There is no evidence of pericardial effusion. Prior Study Comparison Changes noted compared to prior study dated: 01/27/2023. ascending aorta is mildly dilated Measurements 2D Linear Measurements IVSd: 1.08 0.6-0.9/0.6-1.0 cm LVIDd: 5.18 3.9-5.3/4.2-5.9 cm LVIDd Index: 2.40 2.4-3.2/2.2-3.1 cm/m2 LVIDs: 3.13 2.0-3.6 cm LVPWd: 0.93 0.7-1.1 cm LA Diam: 3.90 2.7-3.8/3.0-4.0 cm LAIDs Index: 1.81 1.5-2.3 cm/m2 LV Mass: 242.17 67-162/88-224 g LV Mass Index: 112.12 43-95/49-115 g/m2 LVOT Diam: 2.30 3.0+(-)1.3 cm 2D Systolic Function EF 4C: 61.80 >55% EF 2C: 51.50 >55% EF BiP: 56.30 >55% Mitral Valve MV Pk E: 1.03 MV Decel Time: 197.00 E'Lateral: 10.80 E'Medial: 7.47 E/E' Med: 13.80 E/E' Lat: 9.50 PHT: 58.00 MVA PHT: 3.79 Decel Arthur: 5.24 Aortic Valve AoV Pk Jhon: 1.71 AoV Mn Jhon: 1.22 AoV VTI: 0.38 AoV Pk Grad: 12.00 Aov Mn Grad: 7.00 FREDY Cont.VTI: 2.65 LVOT LVOT Pk Jhon: 1.20 LVOT Mn Jhon: 0.80 LVOT VTI: 0.25 LVOT Pk Grad: 6.00 LVOT Mn Grad: 3.00 LVOT Diam: 2.30 LVOT Area: 4.15 Diastolic Function MV Pk E: 1.03 E'Medial: 7.47 E/E' Med: 13.80 E' Laterial: 10.80 E/E' Lat: 9.50 Right Ventricle TAPSE (mm): 20.10 TVS' Jhon: 11.50 Tricuspid Valve TR Pk Jhon: 2.69 TR Pk Grad: 29.00 RA Press: 8.00 RVSP: 37.00 Great Vessels Aorta Sinus of Valsalva: 4.13 2.0-3.5 cm Ao Asc: 4.00 2.1-3.4 cm Updated in Other Vendor System with Status of Final Raheem Monroe MD electronically signed on 03/20/2025 3:40:09 PM with status of Final
--- OUTSIDE RECORDS SUMMARY | 2025-03-19 21:15 | XMS_ITS | Patient Health Record ---
Author Organization [facility] Address [address] [facility] [place] [address] Care Team Providers Care Revenue Tax Specialist Name Role Phone Arnaldo Nichols Primary Care Provider Unavailab Jung Ma Unavailable [phone] Allergies Allergen (clinical drug ingredient) Drug/Non Drug Allergy documented on EMR Reaction Allergy Type Onset Date Status Ragweed Unknown Allergy Active Results Component Value Reference Range Notes HEMOGLOBIN A1C (GLYCOHEMOGLO BIN) Reviewed date:11/11/2024 11:18:37 AM Interpretation: Performing Lab: Notes/Report: HEMOGLOBIN A1C % (HH) 6.0 HEMOGLOBIN A1C (GLYCOHEMOGLO BIN) Reviewed date:02/24/2025 11:42:53 AM Interpretation: Performing Lab: Notes/Report: HEMOGLOBIN A1C % (HH) 6.0 HEMOGLOBIN A1C (GLYCOHEMOGLO BIN) Reviewed date:02/28/2025 11:26:38 AM Interpretation: Performing Lab: Notes/Report: HEMOGLOBIN A1C % (HH) 6.1 Reason For Referral No Information Medications Medication [...] Orally Once a day; Duration: 30 day(s) Not-Jaime ing Atorvastatin Calcium 20 MG 1 tablet [...] Problem Acquired hammer toe of right foot (7547505201396033 ) Other hammer toe(s) (acquired), right foot (M20.41) Active confirmed Problem Acquired hammer toe of left foot (6134811050676002 ) Other hammer toe(s) (acquired), left foot (M20.42) Active confirmed Problem Polyneuropathy due to type 2 diabetes mellitus (251197323) Type 2 diabetes mellitus with diabetic polyneuropathy (E11.42) Active confirmed Vital Signs Blood pressure diastolic 68 mm Hg 11/11/2024 Height 5ft 11in in 02/24/2025 Blood pressure systolic 131 mm Hg 11/11/2024 Weight 245 lbs 02/24/2025 BMI 34.17 kg/m2 02/24/2025 Procedures Procedure Date Ordered Date Performed Result Body Sit e 16504-UAKBYSG NAIL, 1-5 05/15/2024 N/A 42587-VXJI SKIN LESIONS, OVER 4 05/15/2024 N/A M1259-HTBEUTWL DYSTROPHIC NAILS ANY # 05/15/2024 N/A 00085-TADFSSB NAIL, 1-5 08/08/2024 N/A 12130-OTGX SKIN LESIONS, OVER 4 08/08/2024 N/A N8487-LZJMBJIZ DYSTROPHIC NAILS ANY # 08/08/2024 N/A 86152-OFXTWEJ NAIL, 1-5 11/11/2024 N/A 92162-RJNF SKIN LESIONS, OVER 4 11/11/2024 N/A X4936-JGVEWIPO DYSTROPHIC NAILS ANY # 11/11/2024 N/A 06957-VIJMPJR NAIL, 1-5 02/24/2025 N/A 43957-KXVO SKIN LESIONS, OVER 4 02/24/2025 N/A P5449-WSAKOORE DYSTROPHIC NAILS ANY # 02/24/2025 N/A Encounters Encounter Location Date Provider Diagnosis [address] [address] 05/15/2024 Jung Sarmiento Type 2 diabetes mellitus with diabetic polyneuropathy E11.42 and Tinea unguium B35.[address] [address] 08/08/2024 Jung Guillermina Type 2 diabetes mellitus with diabetic polyneuropathy E11.42 ; Tinea unguium B35.1 ; Other hammer toe(s) (acquired), right foot M20.41 and Other hammer toe(s) (acquired), left foot M20.[address] [address] 11/11/2024 Jungadam PryorGuillermina Type 2 diabetes mellitus with diabetic polyneuropathy E11.42 and Tinea unguium B35.1 [facility] [place] [address] [address] 02/24/2025 Jung Sarmiento Type 2 diabetes mellitus [...] Treatment Pending Test Test Name Order Date 51051-HBDIPWS NAIL, -06/05/2023 46829-HMWDXGQ NAIL, 04-1411/13/2023 05943-CIMDALG NAIL, 04-1402/14/2024 68992-HJOLSYQ NAIL, 04-1405/15/2024 01680-GFTLFKO NAIL, 04-1408/08/2024 73743-TMHQMAW NAIL, 04-1411/11/2024 55796-QCJYIXC NAIL, 04-1402/24/2025 78969-BSRJ SKIN LESIONS, OVER 4 02/25/20 25 78483-WGEX SKIN LESIONS, OVER 4 11/12/19 25 27214-VGGF SKIN LESIONS, OVER 4 08/09/19 25 78320-TWDV SKIN LESIONS, OVER 4 02/14/20 24 82585-FRRD SKIN LESIONS, OVER 4 06/05/19 24 16176-WTUA SKIN LESIONS, OVER 4 11/13/19 24 27000-GAJN SKIN LESIONS, OVER 4 05/15/19 25 M3004-GFVEBRUK DYSTROPHIC NAILS ANY # T4740-MRFIGDYT DYSTROPHIC NAILS ANY # F4124-WFZBBMBU DYSTROPHIC NAILS ANY # I0470-GRMNJHVT DYSTROPHIC NAILS ANY # B7709-WUNOJVIU DYSTROPHIC NAILS ANY # Z0821-XNQYNJTD DYSTROPHIC NAILS ANY # E4759-GHDRFWOF DYSTROPHIC NAILS ANY # Next Appt Details Provider Name:Jung Rodger Sarmiento , 06/05/2025 11:30:00 AM, [facility], [place] [address], [place], [address], Provider Name:Jung Rodger Sarmiento , 09/04/2025 01:30:00 PM, [facility] [place] [address], [place], [address], Insurance Providers Payer Name Payer Address Payer Phone Subscriber Number Group Number Insured Name Patient Relationship to Insured Coverage Start Date Coverage End Date Medicare National [employer] [address] [place] [address] [id number] Jarod An Self - [place] [address] [id number] Jarod An Self - patient is the insured Medical (General) History Medical History History ICD Code asthma Diabetic High blood pressure HIV Kidney disease Numbness Surgical History Surgery Date(Month/Year) Left hip replacement 2019
--- OUTSIDE RECORDS SUMMARY | 2025-03-19 21:15 | XMS_ITS | Patient Health Record ---
Author Organization [facility] Address [address] [place] [address] Care Team Providers Care Manager Client Name Role Phone Arnaldo Nichols Primary Care Provider UnavailJoel Williamson Unavailable [phone] Allergies Allergen (clinical drug ingredient) Drug/Non Drug [...] Notes: Nonsmoker; no sig alcohol [place]ons[place]; no sig alcohol [place] Nonsmoker; no sig alcohol [place] Nonsmoker; no sig alcohol [place] Nonsmoker; no sig alcohol [place] Nonsmoker; no sig alcohol [place] Nonsmoker; no sig alcohol [place] Nonsmoker; no sig alcohol [place] Nonsmoker; no sig alcohol [place] Problems Problem Type SNOMED Code ICD Code Onset Dates Problem Status W/U Status Risk Notes Problem Screening for malignant neoplasm of colon (672188396) Encounter for screening for malignant neoplasm of colon (Z12.11) Active confirmed Problem Cirrhosis of liver (91827034) 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) Active confirmed Problem Diverticulosis of sigmoid colon (334274180) Diverticulosis of sigmoid colon (K57.30) Active confirmed Problem Essential hypertension (70494382) Hypertension, unspecified type (I10) Active confirmed Problem Tubulovillous adenoma (26291857) 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 Problem Abnormal feces (711899682) Positive colorectal cancer screening using Cologuard test (R19.5) Active confirmed Problem Gastric varix (95410997) 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) Active confirmed Problem Neoplasm of digestive system (572542675) IPMN (intraductal papillary mucinous neoplasm) (D49.0) Active confirmed Vital Signs Temperature 98.5 degrees Fahrenheit 10/17/2024 Blood pressure diastolic 01 mm Hg 10/17/2024 Height 71 in 10/17/2024 Blood pressure systolic 001 mm Hg 10/17/2024 Weight 234.8 lbs 10/17/2024 BMI 32.74 kg/m2 10/17/2024 Encounters Encounter Location Date Provider Diagnosis [facility] [address] [place] [address] 10/17/2024 Joel Garcia Other cirrhosis of liver [...] [address], [address], [place], [address], Insurance Providers Payer Name Payer Address Payer Phone Subscriber Number Group Number Insured Name Patient Relationship to Insured Coverage Start Date Coverage End Date MEDICARE OF [facility] [address] [place] [address] [id number] JAROD VEGA Self - [place] [address] [id number] JAROD VEGA Self - patient is the insured Medical (General) History Medical History History ICD Code Denies ID,CVA,renal disease Hypertension 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 Frieda milan Takes Finasteride for hair loss Colonoscopy at age 72 in [place], [place]--polyps were removed--not clear as to what [...] Kidney stone & stent--Dr. Terrence Groves--seen by [facility]--[facility] CT of abdomen in [...] replacement 05/2019 Dr. Cordoba Cholecystectomy in 10/[address] [facility] [address] Jimenez was negative for any lesions nor gallstones
--- OUTSIDE RECORDS SUMMARY | 2025-03-19 21:15 | XMS_ITS | Encounter Summary ---
Author Organization [facility] Address [address] [facility] [address] [place] [address] Phone Care Team Providers Care Welder Explosion Name Role Phone Arnaldo Nichols Primary Care Provider [phone] Encounter Details Date Type Department Care Team (Late Contact Info) Description 07/07/2020 Orders Only [facility] [address] [facility] [address] [place] [address] ProviderGaldino MD Social History Tobacco [...] Care Team (Late st Contact Info) Description 10/06/2025 4:15 PM EDT Office Visit [facility] [address] [place] [id number] Yong Ruiz MD [address] [facility] [address] [place] [phone] documented as of this encounter Procedures Procedure [...] on filedocumented in this encounter Care Teams Welder Explosion Relationship Specialty Start Date End Date Arnaldo Nichols PA [address] [place] [address], [address] [place] [address] PCP - General Physician Oil Field Technician 07/02/20 documented as of this encounter
--- OUTSIDE RECORDS SUMMARY | 2025-03-19 21:15 | XMS_ITS | Clinical Summary ---
Author Organization [facility] Address [address] [place] [address] Phone Care Team Providers Care Cribber Name Role Phone Arnaldo Nichols Primary Care Provider [phone] Allergies Active Allergy Reactions Criticality Noted Date [...] chew, or split. Active ergocalciferol 1.25 MG (09289 UT) capsule Take 50,000 Units by mouth 1 (one) time per week Active Kerendia 20 MG tablet TAKE 1 TABLET BY MOUTH ONCE A DAY 90 tablet 1 4 Active amLODIPine (NORVASC) 2.5 MG tablet TAKE 1 TABLET BY MOUTH EVERY DAY 90 tablet 5 Active Additional Information Patient taking differently: 5 mgOral Daily, Reported on 01/06/2025 metFORMIN (GLUCOPHAGE) 500 MG tablet TAKE 1 TABLET (500 MG TOTAL) BY MOUTH IN THE MORNING 90 tablet 5 Active Additional Information Patient not taking.Reported on 01/06/2025 losartan (COZAAR) 100 MG tablet TAKE 1 TABLET BY MOUTH 1 TIME EACH DAY. 90 tablet 2 5 Active metFORMIN (GLUCOPHAGE) 500 MG tablet Take 1 tablet (500 mg total) by mouth 1 (one) time each day with breakfast 180 tablet 3 5 Active Active Problems Problem Noted Date Diagnosed [...] Encounters Date Type Department Care Team Description 01/06/2025 4:15 PM EDT [facility] Visit [facility] [address] [place] [address] Yong Ruiz MD Stage 3b chronic kidney disease (HCC) (Primary Dx); Renal disorder due to type 2 diabetes mellitus <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); Persistent proteinuria 01/06/2025 Refill [facility] [address] [address] Shabana Camarena [place] 12/23/2024 Orders Only [facility] [address] [phone] Yong Ruiz MD from Last 3 Months [...] Sign Reading Time Taken Comments Blood Pressure 136/66 01/06/2025 4:22 PM EDT Pulse 61 01/06/2025 4:22 PM EDT Temperature - - Respiratory Rate - - Oxygen Saturation 97% 01/06/2025 4:22 PM EDT Inhaled Oxygen Concentration - - Weight 104 kg (228 lb 9.6 oz) 01/06/2025 4:22 PM EDT Height 180.3 cm (5' 11 ) 02/07/2022 1:05 PM EDT Body Mass Index 31.88 02/07/2022 1:05 PM EDT Plan of Treatment Upcoming Encounters Date Type Department Care Team (Late st Contact Info) Description 10/06/2025 4:15 PM EDT Office [facility] [address] [place] [address] Yong Ruiz MD [address] [facility] [address] [place] [address] Health Maintenance Due Date Last [...] ORDERABLES Final Re sult Performing Organization Address [facility] de Phone Number [place] See order comments [place] [address] * (ABNORMAL) PTH, Intact (12/23/2024 11:40 AM EDT) Parathyroid Hormone, Intact 91.6(H) 8.7 - 77.1 pg/mL See order comments 12/23/2024 11:4 0 AM EDT 12/23/2024 11:40 AM EDT Yong Ruiz MD LAB BLOOD ORDERABLES Final Re sult Performing Organization Address [facility] de Phone Number [facility] See order comments [place] [address] * (ABNORMAL) Vitamin D 25 Hydroxy (12/23/2024 [...] ORDERABLES Final Re sult Performing Organization Address [facility] de Phone Number [facility] See order comments [place] [address] * (ABNORMAL) BUN (12/23/2024 11:40 AM EDT) BUN 21(H) 9 - 16 mg/dL See order comments 12/23/2024 11:4 0 AM EDT 12/23/2024 11:40 AM EDT us Yong Ruiz MD LAB BLOOD ORDERABLES Final Re sult Performing Organization Address [facility] Co de Phone Number [facility] See order comments [place] [address] * Phosphorus (12/23/2024 11:40 AM EDT) Phosphorus, Serum 3.8 2.7 - 4.5 mg/dL See order comments Blood specimen (specimen) Venous blood / Unknown 12/23/2024 11:40 AM EDT 12/23/2024 11:40 AM EDT us Yong Ruiz MD LAB BLOOD ORDERABLES Final Re sult Performing Organization Address [facility] de Phone Number [facility] See order comments [place] [address] * Magnesium (12/23/2024 11:40 AM EDT) Magnesium 2.0 1.6 - 2.6 mg/dL See order comments Blood specimen (specimen) Venous blood / Unknown 12/23/2024 11:40 AM EDT 12/23/2024 11:40 AM EDT us Yong Ruiz MD LAB BLOOD ORDERABLES Final Re sult Performing Organization Address [facility] de Phone Number [facility] See order comments [place] [address] * Calcium (12/23/2024 11:40 AM EDT) Calcium 9.3 8.4 - 10.2 mg/dL See order comments Blood specimen (specimen) Venous blood / Unknown 12/23/2024 11:40 AM EDT 12/23/2024 11:40 AM EDT us Yong Ruiz MD LAB BLOOD ORDERABLES Final Re sult Performing Organization Address [facility] de Phone Number [facility] See order comments [place] [address] * Albumin (12/23/2024 11:40 AM EDT) Albumin 3.6 3.5 - 5.0 g/dL See order comments Blood specimen (specimen) Venous blood / Unknown 12/23/2024 11:40 AM EDT 12/23/2024 11:40 AM EDT us Yong Ruiz MD LAB BLOOD ORDERABLES Final Re sult Performing Organization Address [facility] de Phone Number [facility] See order comments [place] [address] * Electrolyte panel (12/23/2024 11:40 AM EDT) [...] Ruiz MD LAB BLOOD ORDERABLES Final Re [facility] Performing Organization Address [facility] de Phone Number [facility] See order comments [place] [address] * (ABNORMAL) Protein, Total, Random Urine w/Creatinine [...] Yong Ruiz MD LAB URINE ORDERABLES Final [facility] Performing Organization Address [facility] de Phone Number [place] See order comments [place] [address] * (ABNORMAL) Albumin, urine, random (12/23/2024 11:17 [...] 7 AM EDT 12/23/2024 11:17 AM EDT Yong Ruiz MD LAB URINE ORDERABLES Final Re sult Performing Organization Address [facility] de Phone Number [place] See order comments [place] [address] * (ABNORMAL) Urinalysis with microscopic (12/23/2024 11:17 AM EDT) Color Urine Yellow See orde r comments Appearance Urine Clear See order comments pH Urine 6.5 5.0 - 9.0 See order comments Glucose Urine Negative Negative mg/dL See order comments Blood, Urine Negative Negative See ord er comments Specific [place] Urine 1.015 1.005 - 1.025 See order [...] 11:17 AM EDT 12/23/2024 11:17 AM EDT Yong Ruiz MD LAB URINE ORDERABLES Final Re sult Performing Organization Address [facility] de Phone Number [place] See order comments [place] [address] * (ABNORMAL) CBC and Differential (12/23/2024 11:15 [...] MD LAB BLOOD ORDERABLES Final Re sult [facility] See order comments [place] [address] * Hemoglobin A1c (06/27/2019 9:20 AM EDT) Estimated Average Glucose 111 MG/DL [place] Comment: eAG = Estimated average glucose which is %A1C expressed as average glucose, using the formula of the O0W-Cufacay Average Glucose study (ADAG), Diabetes Care, Vol.31,#8, [...] Recently Relevant to Health Maintenance Insurance Medicare [employer] Medicare [employer] Care Teams Cribber Relationship Specialty Start Date End Date Arnaldo Nichols PA [address] [place] [address], [address] [place] [address] PCP - General Physician Boom Crane Operator 07/02/20
== END ==
LOC: HO.CARD 13:41
PROVIDERS: PCP Physician Assistant; Visit Provider Nurse Practitioner Family
DX: I48.11 Longstanding persistent atrial fibrillation (principal); R93.1 Abnormal findings on diagnostic imaging of heart and coronary circulation; I10 Essential (primary) hypertension
CPT/HCPCS: 93306

== ENCOUNTER → 2025-03-19 13:43 | Outpatient (BNV) | payer MEDICARE, OTHER, SELFPAY | PROVIDERS: PCP Physician Assistant; Visit Provider Internal Medicine Cardiovascular Disease | DX: I35.8 Other nonrheumatic aortic valve disorders (principal); I77.810 Thoracic aortic ectasia; I51.7 Cardiomegaly | CPT/HCPCS: 93306 ==

== ENCOUNTER 2025-04-08 13:01 | Outpatient (AMB) | payer MEDICARE, OTHER, SELFPAY ==
[2025-04-08 13:15] VITALS: BP 138/82; PULSE 64; BMI 32.0
--- NOTE | 2025-04-08 13:15 | MHC.OFFVIS ---
Vital Signs 04/08/25 13:15 Height 5 ft 11 in Weight 229 lb 4.492 oz BMI 32.0 BP 138/82 Blood Pressure Location Lt brachial Position Sitting Pulse 64 Intake Visit Reasons: 6 mth s/p echo Intake Note: 6 month follows-up after echo feeling good Air Drier Machine Operator Required: No Allergies clarithromycin (From BIAXIN) Allergy (Unknown, Verified 02/27/25 14:15) ANAPHYLAXIS Medication List - Last Reconciled 04/10/25 by Molly Avelar, MECHANICAL TEST TECHNICIAN-C cykgjbei-mnhgxziwndnj-vshcshx 600-50-300 mg (Triumeq) 1 tab PO DAILY 90 days albuterol sulfate 2.5 mg (3 mL) inhalation Q6H PRN 15 days amlodipine 5 mg PO DAILY 90 days apixaban (Eliquis) 2.5 mg PO BID atorvastatin 20 mg PO BEDTIME finasteride 5 mg PO ONCE finerenone (Kerendia) 20 mg PO DAILY fluticasone propion-salmeterol 45-21 mcg/actuation (Advair HFA) 2 puffs inhalation BID 4 weeks furosemide 20 mg PO ONCE losartan 100 mg PO DAILY metformin 500 mg PO DAILY 90 days tamsulosin 0.4 mg PO BEDTIME HPI HPI 6 mth s/p echo: Details: Jarod is an 84-year-old male with past medical history of hypertension, hyperlipidemia, diabetes, chronic kidney disease, HIV, persistent AFib who presents for follow-up. Today he reports feeling well since his last visit. He still has some daytime fatigue which is unchanged and still takes a nap usually once a day. He says he wakes up up to 4 times nightly to urinate which interrupts his nighttime sleep. He denies chest discomfort at rest or with activity. He has not been having any concerning shortness of breath, no PND, orthopnea or concerning edema. No presyncope, syncope, falls. No bleeding issues reported. He remains active each day. His HIV has remained stable. He follows closely with Dr. Garcia for GI, Dr. Ruiz for Nephrology and Dr. Ashton for HIV. Taking all meds as directed. 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 Mother No problems noted. Social History Housing: House Alcohol intake: never Patient Tobacco Use Status: Never used Tobacco e-Cigarette/Vaping Use: Never Used Current occupational status: retired Cognitive needs: No Hearing needs: No Vision needs: No Review of Systems Const All systems reviewed & are unremarkable except as noted in HPI and below Denies chills, Denies fatigue, Denies fever(s), Denies frequent falls, Denies weakness, Denies weight gain and Denies weight loss ENT Denies dizziness Card Denies chest pain, Denies leg edema, Denies lightheadedness, Denies palpitations, Denies dyspnea, Denies dyspnea on exertion, Denies orthopnea and Denies other (loss of consciousness) Resp Denies cough, Denies dyspnea and Denies dyspnea on exertion GI Denies hematochezia and Denies change in stool character Musc Denies abnormal gait, Denies muscle weakness, Denies numbness, Denies radiating pain into limb and Denies tingling Neuro Denies abnormal gait, Denies dizziness, Denies frequent falls, Denies numbness, Denies tingling and Denies weakness Endo Denies fatigue and Denies palpitations Physical Exam Vital Signs: Last Vital Signs Pulse 64 04/08/25 13:15 BP 138/82 04/08/25 13:15 BMI result Body Mass Index 32.0 Const General: cooperative, healthy appearing, comfortable and no acute distress Orientation/consciousness: patient oriented x3 Neck Neck: Yes normal visual inspection Resp Effort & Inspection: normal respiratory effort Auscultation: clear to auscultation bilaterally, no rales, no rhonchi and no wheezes Cardio Jugular venous distension: no JVD Rate: regular rate Rhythm: regular rhythm Heart sounds: S1 normal heart sound present, S2 normal heart sound present, no gallops, no murmurs and no rubs Neuro General: patient oriented x3 Extrem Other: trace edema of lower legs General: Yes normal to inspection Psych Appearance: grossly normal Mental Status: mental status grossly normal Speech and movement: Normal speech and movement present Assessment & Plan Assessment & Plan (1) Afib: Code(s): I48.91 - Unspecified atrial fibrillation Category: Medical Qualifiers: Atrial fibrillation type: longstanding persistent Qualified Code(s): I48.11 - Longstanding persistent atrial fibrillation Plan: Chronic atrial fibrillation, asymptomatic, not on rate slowing agents, he is on Eliquis 2.5 mg b.i.d for anticoagulation. 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 No bleeding problems have been reported. Last Holter monitor 02/07/2024 while on Metoprolol, showed AFib with average heart rate 47, 70% of the time heart rate less than 60. His metoprolol dose was initially reduced then stopped. Pulse check today shows heart rate normal range, 64 beats per minute. Labs 02/11/2025 showed hematocrit 44.9, creatinine 1.58. Continue activity as tolerated. Continue Eliquis. Cardiology followup in 6 months, sooner if needed. (2) HTN (hypertension): Code(s): I10 - Essential (primary) hypertension Category: Medical Qualifiers: Hypertension type: essential hypertension Qualified Code(s): I10 - Essential (primary) hypertension Plan: Blood pressure goal less than 130/80. Well controlled today. Continue amlodipine, losartan, Lasix. If blood pressure does become more elevated would avoid a dose of 10 mg daily as he has had issues with chronic ankle edema. (3) CKD (chronic kidney disease): Code(s): N18.9 - Chronic kidney disease, unspecified Category: Medical Qualifiers: Chronic kidney disease stage: stage 3 (moderate) Chronic kidney disease stage 3 subtype: stage 3b (GFR 30-44) Qualified Code(s): N18.32 - Chronic kidney disease, stage 3b Plan: stable. Follows with Dr Ruiz. (4) Abnormal echocardiogram findings without diagnosis: Code(s): R93.1 - Abnormal findings on diagnostic imaging of heart and coronary circulation Category: Medical Plan: Echo done 01/11/21 shows EF 55-60%, mild TR, mild pulm HTN, basal inferior akinetic - the report does state that the WMA was noted on review of the prior echo images. . Nuclear stress test 02/15/17 showed normal myocardial perfusion imaging. last echo 03/10/25 showed inferior WMA, severe left atrial dilation, ascending aorta 4 cm. No report of anginal sounding symptoms and no clinical signs of HF. Has known chronic AF which can cause the atrial enlargement. No med changes made. Plan Time spent on chart review, documentation, interview, assessment. Medications: Changed From finasteride 5 mg orally take on Mondays, Wednesdays, Fridays 90 days 90 tabs 1RF N40.1 - Benign prostatic hyperplasia with lower urinary tract symptoms To finasteride 5 mg PO ONCE N40.1 - Benign prostatic hyperplasia with lower urinary tract symptoms Quinn Ocampo MD From furosemide 20 mg PO BID 180 tabs 3RF To furosemide 20 mg PO ONCE Molly M NORRIS Avelar-C Coding Level of Care Code Est Pt Level 4 (92347) Add On Problem Visit Only Diagnoses Longstanding persistent atrial fibrillation I48.11 Atrial fibrillation type: longstanding persistent Essential hypertension I10 Hypertension type: essential hypertension Stage 3b chronic kidney disease N18.32 Chronic kidney disease stage: stage 3 (moderate) Chronic kidney disease stage 3 subtype: stage 3b (GFR 30-44) Abnormal echocardiogram findings without diagnosis R93.1 Time Spent (min) 28
--- OUTSIDE RECORDS SUMMARY | 2025-04-08 16:56 | XMS_ITS | Patient Health Record ---
Author Organization [facility] Address [address] [place] [address] Care Team Providers Care Drop Man Name Role Phone Arnaldo Nichols Primary Care Provider Unavailab Jung Ma Unavailable [phone] Allergies Allergen (clinical drug ingredient) Drug/Non Drug [...] Problem Acquired hammer toe of right foot (6356736635994297 ) Other hammer toe(s) (acquired), right foot (M20.41) Active confirmed Problem Acquired hammer toe of left foot (1338729689924351 ) Other hammer toe(s) (acquired), left foot (M20.42) Active confirmed Problem Polyneuropathy due to type 2 diabetes mellitus (743330231) Type 2 diabetes mellitus with diabetic polyneuropathy (E11.42) Active confirmed Vital Signs Blood pressure diastolic 68 mm Hg 11/11/2024 Height 5ft 11in in 02/24/2025 Blood pressure systolic 131 mm Hg 11/11/2024 Weight 245 lbs 02/24/2025 BMI 34.17 kg/m2 02/24/2025 Procedures Procedure Date Ordered Date Performed Result Body Sit e 13783-QTPYNIZ NAIL, 1-5 05/15/2024 N/A 24880-KZBC SKIN LESIONS, OVER 4 05/15/2024 N/A U9087-OJQLFYNH DYSTROPHIC NAILS ANY # 05/15/2024 N/A 52778-HDVODAO NAIL, 1-5 08/08/2024 N/A 10459-ABUW SKIN LESIONS, OVER 4 08/08/2024 N/A Y8727-YOZPGXFE DYSTROPHIC NAILS ANY # 08/08/2024 N/A 34363-XCEUBLK NAIL, 1-5 11/11/2024 N/A 28053-YGJP SKIN LESIONS, OVER 4 11/11/2024 N/A P8166-QVHTKUCU DYSTROPHIC NAILS ANY # 11/11/2024 N/A 32755-KOCWSYH NAIL, 1-5 02/24/2025 N/A 48473-DTUM SKIN LESIONS, OVER 4 02/24/2025 N/A K6340-SYQFDWTG DYSTROPHIC NAILS ANY # 02/24/2025 N/A Encounters Encounter Location Date Provider Diagnosis [address] [address] 05/15/2024 Jung Sarmiento Type 2 diabetes mellitus with diabetic polyneuropathy E11.42 and Tinea unguium B35.[address] [address] 08/08/2024 Jung Guillermina Type 2 diabetes mellitus with diabetic polyneuropathy E11.42 ; Tinea unguium B35.1 ; Other hammer toe(s) (acquired), right foot M20.41 and Other hammer toe(s) (acquired), left foot M20.[address] [address] 11/11/2024 Jungadam PryorGuillermina Type 2 diabetes mellitus with diabetic polyneuropathy E11.42 and Tinea unguium B35.1 [facility] [place] [address] [address] 02/24/2025 Jung Sarmiento Type 2 diabetes mellitus [...] Treatment Pending Test Test Name Order Date 06036-YFVYNLB NAIL, -06/05/2023 73199-ZUDOWLV NAIL, 04-1411/13/2023 31846-IKSWLTI NAIL, 04-1402/14/2024 72188-ANVBXHC NAIL, 04-1405/15/2024 39041-UOCPUGA NAIL, 04-1408/08/2024 26418-QXWNDZM NAIL, 04-1411/11/2024 16164-TRFYLIJ NAIL, 04-1402/24/2025 58744-LKJN SKIN LESIONS, OVER 4 02/25/20 25 59098-GRQR SKIN LESIONS, OVER 4 11/12/19 25 33708-IZXO SKIN LESIONS, OVER 4 08/09/19 25 84736-CHCN SKIN LESIONS, OVER 4 02/14/20 24 69864-RISG SKIN LESIONS, OVER 4 06/05/19 24 82822-QTLV SKIN LESIONS, OVER 4 11/13/19 24 20619-QNFF SKIN LESIONS, OVER 4 05/15/19 25 G3574-YNMOKYSW DYSTROPHIC NAILS ANY # X5984-SGWFVNNN DYSTROPHIC NAILS ANY # O5975-XOQILUBO DYSTROPHIC NAILS ANY # M9975-GKLKPDRE DYSTROPHIC NAILS ANY # I7812-PVMDFMWJ DYSTROPHIC NAILS ANY # R4410-BVXGBJWA DYSTROPHIC NAILS ANY # J4672-HTFTXVTS DYSTROPHIC NAILS ANY # Next Appt Details Provider Name:Jung Rodger Sarmiento , 06/05/2025 11:30:00 AM, [facility], [address] [place] [address], [place], [address], Provider Name:Jung Rodger Sarmiento , 09/04/2025 01:30:00 PM, [facility], [address] [address], [place], [address], Insurance Providers Payer Name Payer Address Payer Phone Subscriber Number Group Number Insured Name Patient Relationship to Insured Coverage Start Date Coverage End Date Medicare [employer] [address] [place] [address] [id number] Jarod An Self - [place] [address] [id number] Jarod An Self - patient is the insured Medical (General) History Medical History History ICD Code asthma Diabetic High blood pressure HIV Kidney disease Numbness Surgical History Surgery Date(Month/Year) Left hip replacement 2019
--- OUTSIDE RECORDS SUMMARY | 2025-04-08 16:56 | XMS_ITS | Patient Health Record ---
Author Organization [facility] Address [address] [place] [address] Care Team Providers Care Brand Ambassador Promotional Model Name Role Phone Arnaldo Nichols Primary Care Provider UnavailJoel Williamson Unavailable [phone] Allergies Allergen (clinical drug ingredient) Drug/Non Drug [...] Notes: Nonsmoker; no sig alcohol [place] from [place] Nons[place]; no sig alcohol [place] Nonsmoker; no sig alcohol [place] Nonsmoker; no sig alcohol Originally [place] Nonsmoker; no sig alcohol Originally [place] Nonsmoker; no sig alcohol Originally [place] Nonsmoker; no sig alcohol Originally [place] Nonsmoker; no sig alcohol Originally [place] Nonsmoker; no sig alcohol Originally [place] Problems Problem Type SNOMED Code ICD Code Onset Dates Problem Status W/U Status Risk Notes Problem Screening for malignant neoplasm of colon (138317090) Encounter for screening for malignant neoplasm of colon (Z12.11) Active confirmed Problem Cirrhosis of liver (33267472) 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) Active confirmed Problem Diverticulosis of sigmoid colon (899823503) Diverticulosis of sigmoid colon (K57.30) Active confirmed Problem Essential hypertension (46807518) Hypertension, unspecified type (I10) Active confirmed Problem Tubulovillous adenoma (75593355) 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 Problem Abnormal feces (406613560) Positive colorectal cancer screening using Cologuard test (R19.5) Active confirmed Problem Gastric varix (42939539) 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) Active confirmed Problem Neoplasm of digestive system (409760314) IPMN (intraductal papillary mucinous neoplasm) (D49.0) Active confirmed Vital Signs Temperature 98.5 degrees Fahrenheit 10/17/2024 Blood pressure diastolic 01 mm Hg 10/17/2024 Height 71 in 10/17/2024 Blood pressure systolic 001 mm Hg 10/17/2024 Weight 234.8 lbs 10/17/2024 BMI 32.74 kg/m2 10/17/2024 Encounters Encounter Location Date Provider Diagnosis [facility] [address] [place] [address] 10/17/2024 Joel Garcia Other cirrhosis of liver [...] [address], [address], [place], [address], Insurance Providers Payer Name Payer Address Payer Phone Subscriber Number Group Number Insured Name Patient Relationship to Insured Coverage Start Date Coverage End Date [facility]IC[facility] OF [facility] [address] [place] [address] [phone] [id number] JAROD VEGA Self - [place] [address] [phone] [id number] JAROD VEGA Self - patient is the insured Medical (General) History Medical History History ICD Code Denies MS,CVA,renal disease Hypertension 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 Frieda milan Takes Finasteride for hair loss Colonoscopy at age 72 in [place], [place]--polyps were removed--not clear as to what [...] Kidney stone & stent--Dr. Terrence Groves--[facility] CT of abdomen in June [...] replacement 05/2019 Dr. Cordoba Cholecystectomy in 10/[address] [facility] [address] Jimenez was negative for any lesions nor gallstones
--- OUTSIDE RECORDS SUMMARY | 2025-04-08 16:56 | XMS_ITS | Clinical Summary ---
Author Organization [facility] Address [address] [place] [address] Phone Care Team Providers Care Lock Tender Name Role Phone Arnaldo Nichols Primary Care Provider [phone] Allergies Active Allergy Reactions Criticality Noted Date [...] by mouth 1 (one) time each day 06/24/19 20 Active lamiVUDine (EPIVIR) 100 MG tablet Take [...] chew, or split. Active ergocalciferol 1.25 MG (64456 UT) capsule Take 50,000 Units by mouth 1 (one) time per week Active amLODIPine (NORVASC) 2.5 MG tablet TAKE 1 TABLET BY MOUTH EVERY DAY 90 tablet 07/05/19 Active Additional Information Patient taking differently: 5 mgOral Daily, Reported on 01/06/2025 metFORMIN (GLUCOPHAGE) 500 MG tablet TAKE 1 TABLET (500 MG TOTAL) BY MOUTH IN THE MORNING 90 tablet 08/06/19 Active Additional Information Patient not taking.Reported on 01/06/2025 losartan (COZAAR) 100 MG tablet TAKE 1 TABLET BY MOUTH 1 TIME EACH DAY. 90 tablet 2 10/19/19 Active metFORMIN (GLUCOPHAGE) 500 MG tablet Take 1 tablet (500 mg total) by mouth 1 (one) time each day with breakfast 180 tablet 3 01/07/20 Active Kerendia 20 MG tablet TAKE 1 TABLET BY MOUTH EVERY DAY IN THE MORNING 90 tablet 3 03/31/20 Active Kerendia 20 MG tablet TAKE 1 TABLET BY MOUTH ONCE A DAY 90 tablet 1 02/27/20 24 025 Discontinued Active Problems Problem Noted Date Diagnosed [...] Encounters Date Type Department Care Team Description 03/29/2025 Refill [facility] [address] [place] [address] Yong Ruiz MD from Last 3 [...] [facility] [address] [place] [address] Yong Ruiz MD [address] [facility] [address] [place] [address] Health Maintenance Due Date Last [...] average glucose, using the formula of the N7L-Bcnsnrp Average Glucose study (ADAG), Diabetes Care, Vol.31,#8, [...] Recently Relevant to Health Maintenance Insurance Medicare [facility] Medicare [facility] Care Teams Lock Tender Relationship Specialty Start Date End Date Arnaldo Nichols PA [address] [place] [address], [address] [place] [address] PCP - General Physician Well Drill Operator Helper Cable Tool 07/02/20
--- OUTSIDE RECORDS SUMMARY | 2025-04-08 16:56 | XMS_ITS | Encounter Summary ---
Author Organization [facility] Address [address] [facility] [address] [place] [address] Phone Care Team Providers Care Tucking Machine Operator Name Role Phone Arnaldo Nichols Primary Care Provider [phone] Encounter Details Date Type Department Care Team (Late Contact Info) Description 07/07/2020 Orders Only [facility] [address] [facility] [address] [place] [address] ProviderGaldino MD Social History Tobacco [...] Visit [facility] [address] [place] [id number] Yong Ruiz MD [address] [facility] [address] [place] [phone] documented as of this encounter Procedures Procedure [...] on filedocumented in this encounter Care Teams Tucking Machine Operator Relationship Specialty Start Date End Date Arnaldo Nichols PA [address] [place] [address], [address] [place] [address] PCP - General Physician Mogul Operator 07/02/20 documented as of this encounter
== END 2025-04-08 13:59 | disposition home or self-care (01) ==
LOC: HO.HCS 13:02
PROVIDERS: PCP Physician Assistant; Visit Provider Nurse Practitioner Family
DX: I48.11 Longstanding persistent atrial fibrillation (principal); I10 Essential (primary) hypertension; N18.32 Chronic kidney disease, stage 3b; R93.1 Abnormal findings on diagnostic imaging of heart and coronary circulation
CPT/HCPCS: 99214; G2211

== ENCOUNTER → 2025-04-08 13:01 | Outpatient (BNVA) | payer MEDICARE, OTHER, SELFPAY | PROVIDERS: PCP Physician Assistant; Visit Provider Nurse Practitioner Family | DX: I48.11 Longstanding persistent atrial fibrillation (principal); I15.0 Renovascular hypertension; N18.32 Chronic kidney disease, stage 3b; R93.1 Abnormal findings on diagnostic imaging of heart and coronary circulation | CPT/HCPCS: 99212 ==